=== PATIENT | female | born 1980 | race Caucasian/White ===

== ENCOUNTER 2019-07-21 13:32 | Emergency (ER) | payer OTHER, SELFPAY ==
[2019-07-21 13:44] VITALS: BP 132/94; PULSE 108; RESP 16; TEMP 36.1; O2SAT 98
--- NOTE | 2019-07-21 13:52 | ED.URI ---
HPI - URI/Sore Throat General Chief Complaint: Upper Respiratory Infection Stated Complaint: Cough/Sinus Time Seen by Provider: 07/21/19 13:47 Source: patient and RN notes reviewed Mode of arrival: ambulatory Limitations: no limitations History of Present Illness HPI Narrative: Patient presents today with a two-week history of nasal congestion, sinus pressure, cough with occasional shortness of breath, and hoarseness. States congestion moved on her chest, but has moved back up to her nose and sinuses in the last couple of days. She does have history of asthma and has been using her nebulizer. For the first week of illness she was taking [id number] cold medicine, but has not had any nfhu-cyj-bwcsozh medication since that time. MD elicited complaint: sore throat, nasal congestion and sinus pain Related Data Home Medications Medication Instructions Recorded Confirmed hydroxyzine HCl 25 mg PO DAILY 07/21/19 07/21/19 lamotrigine 100 mg PO DAILY 07/21/19 07/21/19 propranolol 20 mg PO DAILY 07/21/19 07/21/19 Allergies Allergy/AdvReac Type Severity Reaction Status Date / Time clarithromycin Allergy Mild Hives Verified 07/21/19 13:45 Review of Systems Review of Systems: Narrative: CONSTITUTIONAL: Denies body aches, fever, chills, or sweats. EYES: Denies visual changes, redness, or discharge. ENT: Denies rhinorrhea, sore throat, or otalgia.+ Nasal congestion, sinus pressure, hoarseness CARDIOVASCULAR: Denies chest pain, palpitations, or edema. RESPIRATORY: + Cough, shortness of breath. GASTROINTESTINAL: Denies abdominal pain, nausea, vomiting, or diarrhea. GENITOURINARY: Denies dysuria or hematuria. SKIN: Denies rash, itching, or wounds. MUSCULOSKELETAL: Denies back pain, joint pain, or myalgia. NEUROLOGIC: Denies headache, numbness, tingling, or weakness. PSYCH: Denies depression or anxiety. [facility] Past Medical History Medical History (Updated 07/21/19 @ 13:55 by Teresita Nieto, [facility], ) Asthma Family History Family History (Updated 01/01/16 @ 23:19 by DOCTOR UNKNOWN) Father Family history of diabetes mellitus in first degree relative Patient's father is Acute myocardial infarction Mother Patient's mother is Social History Social History Smoking status: Never smoker Alcohol intake: never Comments At time of signature, I have reviewed and agree with nursing past medical, surgical, social and family history unless otherwise noted. Please see nursing chart for further information. There is no relevant family history pertinent to the presenting complaint Exam Narrative: Exam Narrative: GENERAL: Mildly ill-appearing, well-nourished, and in no acute distress. HEAD: Normocephalic, atraumatic. EYES: EOMI. No redness or drainage. Conjunctivae normal. ENT: Mucous membranes pink and moist. Nares congested. No rhinorrhea. Tenderness to the bilateral maxillary sinuses, right greater than left. TMs normal bilaterally. Throat normal. Uvula midline. NECK: Normal AROM. Supple. No lymphadenopathy. CHEST: No respiratory distress. Clear to auscultation. HEART: Regular rate and rhythm. No murmur appreciated. Normal peripheral pulses. EXTREMITIES: Normal range of motion. No edema. SKIN: Warm, dry, no rash. NEURO: No focal deficits. Alert and oriented x3. Gait steady. PSYCH: Normal affect. No signs of depression or anxiety. Course Vital Signs Vital signs: Vital Signs Temperature 96.9 F L 07/21/19 13:44 Pulse Rate 108 H 07/21/19 13:44 Respiratory Rate 07/21/19 13:44 Blood Pressure 132/94 H 07/21/19 13:44 Pulse Oximetry 98 07/21/19 13:44 Temperature 96.9 F L 07/21/19 13:44 Pulse Rate 108 H 07/21/19 13:44 Respiratory Rate 16 07/21/19 13:44 Blood Pressure 132/94 H 07/21/19 13:44 Pulse Oximetry 98 07/21/19 13:44 Reviewed. Pt has been instructed to follow up with her PCP regarding her elevated blood pressure today. [facility] -
== END 2019-07-21 13:58 | disposition home or self-care (01) ==
PROVIDERS: Emergency Provider Nurse Practitioner; PCP Family Medicine
DX: J40 Bronchitis, not specified as acute or chronic (principal); J01.00 Acute maxillary sinusitis, unspecified
CPT/HCPCS: 99213; G0463

== ENCOUNTER 2020-08-29 11:35 | Emergency (ER) | payer OTHER, SELFPAY ==
[2020-08-29 12:43] LABS: SARS-CoV-2 Ag Negative (Negative)
[2020-08-29 12:46] VITALS: BP 124/105; PULSE 96; RESP 20; TEMP 36.3; O2SAT 98
--- NOTE | 2020-08-29 12:47 | ED.URI ---
HPI - URI/Sore Throat General Chief Complaint: Upper Respiratory Infection Stated Complaint: sinus infection, loss of taste Source: patient Mode of arrival: ambulatory Limitations: no limitations History of Present Illness HPI Narrative: this is a 39-year-old female presents with some sinus congestion sore throat her children have been diagnosed with strep throat and she is currently on antibiotics for sinus infection and has been having some sinus congestion with nasal discharge and has lost her sense of taste and smell. Currently no fever chills no headache no nausea or vomiting no chest congestion or chest pain no shortness of breath. MD elicited complaint: sore throat, nasal congestion and sinus pain Onset (ago): day(s) Consistency: intermittent Severity: mild Description of mucous: clear Able to tolerate fluids by mouth: Yes Exacerbating factors: nothing Associated symptoms: rhinorrhea, nasal congestion and other ( loss of taste) Treatments prior to arrival: antibiotics Related Data Home Medications Medication Instructions Recorded Confirmed hydroxyzine HCl 25 mg PO DAILY 07/21/19 07/21/19 lamotrigine 100 mg PO DAILY 07/21/19 07/21/19 propranolol 20 mg PO DAILY 07/21/19 07/21/19 Allergies Allergy/AdvReac Type Severity Reaction Status Date / Time clarithromycin Allergy Mild Hives Verified 07/21/19 13:45 Review of Systems Review of Systems: All systems reviewed & are unremarkable except as noted in HPI and below PMFSH Past Medical History Medical History Asthma Family History Family History Father Family history of diabetes mellitus in first degree relative Patient's father is Acute myocardial infarction Mother Patient's mother is Social History Social History Smoking status: Never smoker Alcohol intake: never 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 patient): Female Exam Const: General: no acute distress Orientation/consciousness: patient oriented x3 HENMT: Head: normal to inspection and contusion Eyes: Conjunctivae: conjunctivae normal Pupils: Equal, round and reactive pupils present Direct Ophthalmoscopy: no photophobia Neck: Neck: normal visual inspection, no lymphadenopathy and no meningeal signs Chest: Chest palpation & inspection: normal inspection of the chest Cardio: Rate: regular rate Rhythm: regular rhythm GI: GI Palp: Yes Soft to palpation Skin: General skin exam: normal color Rashes: no rashes Neuro: General: patient oriented x3 and moves all extremities Extrem: General: normal to inspection and no pedal edema Psych: Mental Status: mental status grossly normal Course Course Emergency Course: Patient doing well with no shortness breath no fever chills, reviewed the negative COVID test for her and advised that she can go home continue her antibiotics. MDM - URI/Sore Throat Lab Data Labs: Lab Results 08/29/20 Range/Units 12:20 SARS-CoV-2 Ag (Rapid) Negative (Negative) Critical Care Time Critical Care Time Critical Care Time: No Discharge Plan Discharge Clinical Impression: Sinusitis Qualifiers: Sinusitis location: maxillary Chronicity: acute Recurrence: non-recurrent Qualified Code(s): J01.00 - Acute maxillary sinusitis, unspecified Patient Disposition: Home, Self-Care Condition: Stable Instructions: Antibiotic Form, Sinusitis (ED) Additional Instructions: Continue current antibiotics, and follow-up primary care physician if symptoms persist or worsen. Prescriptions: No Action hydroxyzine HCl 25 mg tablet 25 mg PO DAILY RF: 0 propranolol 20 mg tablet 20 mg PO DAILY RF: 0 lamotrigine 100 mg tablet 100 mg PO DAILY RF: 0 prednisone 50 mg tablet 50 mg PO DAILY 5 Days Qty: 5 RF: 0 amoxicillin
[2020-08-29 13:15] VITALS: BP 133/79; PULSE 80; RESP 20; TEMP 36.6; O2SAT 98
== END 2020-08-29 13:15 | disposition home or self-care (01) ==
PROVIDERS: Emergency Provider Emergency Medicine
DX: J01.00 Acute maxillary sinusitis, unspecified (principal); Z20.822 Contact with and (suspected) exposure to COVID-19
CPT/HCPCS: 87426; 99282; 99283; C9803

== ENCOUNTER 2020-11-09 16:48 | Emergency (ER) | payer OTHER, SELFPAY ==
[2020-11-09 17:03] VITALS: BP 120/88; PULSE 88; RESP 18; TEMP 36.6; O2SAT 96
--- NOTE | 2020-11-09 17:21 | ED.EAR ---
HPI - Ear Problem General Chief complaint: Ear Stated complaint: ear pain,jaw pain(right side) Source: patient Mode of arrival: ambulatory Limitations: no limitations History of Present Illness HPI Narrative: this is a 40-year-old female that presents with right ear pain with some sensation of fullness with some discharge radiating into her right jaw area with no fever chills no nausea vomiting no sinus tenderness no nasal congestion. Her primary care physician started on antibiotic ear drops. MD Complaint: ear pain and ear discharge Location: right ear Duration: constant Severity: moderate Relieving factors: ear drops Exacerbating factors: chewing Context: Reports recent illness Related Data Home Medications Medication Instructions Recorded Confirmed bupropion HCl 75 mg PO BID 08/29/20 11/09/20 acetic acid See Rx Instructions .ROUTE .COMPLEX 11/09/20 11/09/20 Allergies Allergy/AdvReac Type Severity Reaction Status Date / Time clarithromycin Allergy Mild Hives Verified 07/21/19 13:45 Review of Systems Review of Systems: All systems reviewed & are unremarkable except as noted in HPI and below PMFSH Past Medical History Medical History Asthma Family History Family History Father Family history of diabetes mellitus in first degree relative Patient's father is Acute myocardial infarction Mother Patient's mother is Social History Social History Smoking status: Never smoker Alcohol intake: never 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 patient): Female Exam Const: General: no acute distress Orientation/consciousness: patient oriented x3 HENMT: Head: normal to inspection Other: Right ear canal red with some white debris and tenderness Eyes: Conjunctivae: conjunctivae normal Pupils: Equal, round and reactive pupils present Neck: Neck: normal visual inspection, no lymphadenopathy and no meningeal signs Chest: Chest palpation & inspection: normal inspection of the chest Resp: Effort & Inspection: normal respiratory effort Auscultation: clear to auscultation bilaterally Cardio: Rate: regular rate Rhythm: regular rhythm GI: Auscultation: normal bowel sounds : General: Yes no CVA tenderness Urinary Catheter: Urinary Catheter: patent and draining Skin: General skin exam: normal color Rashes: no rashes Neuro: General: patient oriented x3 and moves all extremities Extrem: General: normal to inspection and no pedal edema Psych: Mental Status: mental status grossly normal Course Course Emergency Course: reassessment of patient shows that she still has some right ear canal that is erythematous and tender with white debris and discharge. Vital Signs Vital signs: Vital Signs Temperature 36.6 C 11/09/20 17:03 Pulse Rate 88 11/09/20 17:03 Respiratory Rate 18 11/09/20 17:03 Blood Pressure 120/88 11/09/20 17:03 Pulse Oximetry 96 11/09/20 17:03 Temperature 36.6 C 11/09/20 17:03 Pulse Rate 88 11/09/20 17:03 Respiratory Rate 18 11/09/20 17:03 Blood Pressure 120/88 11/09/20 17:03 Pulse Oximetry 96 11/09/20 17:03 Medical Decision Making Vital Signs Vital Signs: Vital Signs Temperature 36.6 C 11/09/20 17:03 Pulse Rate 88 11/09/20 17:03 Respiratory Rate 18 11/09/20 17:03 Blood Pressure 120/88 11/09/20 17:03 Pulse Oximetry 96 11/09/20 17:03 Temperature 36.6 C 11/09/20 17:03 Pulse Rate 88 11/09/20 17:03 Respiratory Rate 18 11/09/20 17:03 Blood Pressure 120/88 11/09/20 17:03 Pulse Oximetry 96 11/09/20 17:03 Critical Care Time Critical Care Time Critical Care Time: No Discharge Plan Discharge Clinical Impression: Otitis externa Qualifiers: Otitis externa type: unspecified type Chronicity: acut
[2020-11-09 17:25] VITALS: BP 138/88; PULSE 78; RESP 18; TEMP 36.2; O2SAT 98
== END 2020-11-09 17:28 | disposition home or self-care (01) ==
PROVIDERS: Emergency Provider Emergency Medicine; PCP Family Medicine
DX: H60.501 Unspecified acute noninfective otitis externa, right ear (principal)
CPT/HCPCS: 99283

== ENCOUNTER 2020-12-21 14:17 | Outpatient (CLI) | payer OTHER, SELFPAY ==
--- NOTE | ~2020-12-21 | MM_ITS ---
EXAMINATION: MM screening stephanie BI w jennifer HISTORY: Screening TECHNIQUE: Craniocaudal and mediolateral oblique 3-D tomosynthesis images were obtained and synthetic 2-D images were generated. CAD analysis was submitted and interpreted. COMPARISON: No prior mammogram is available for comparison at this institution. BREAST PARENCHYMAL COMPOSITION: There are scattered areas of fibroglandular density. FINDINGS: There is no evidence of suspicious mass, calcification, or architectural distortion to sugg est malignancy in either breast. There has been no suspicious interval change. IMPRESSION: 1. No mammographic evidence of malignancy. 2. Recommend routine screening mammography in one year. BI-RADS Category 1: Negative Reviewed, dictated and finalized at [facility].
== END 2020-12-21 14:18 | disposition home or self-care (01) ==
PROVIDERS: PCP Family Medicine; Visit Provider Family Medicine
DX: Z12.31 Encounter for screening mammogram for malignant neoplasm of breast (principal)
CPT/HCPCS: 77063; 77067

== ENCOUNTER 2020-12-21 18:30 | Emergency (ER) | payer OTHER, SELFPAY ==
--- NOTE | ~2020-12-21 | XR_ITS ---
EXAMINATION: XR foot LT min 3V EXAM DATE: 12/21/2020 19:08 INDICATION: pain/swelling @ 5th digit traveling towards the lateral foot. TECHNIQUE: Left foot dorsoplantar, lateral and oblique projections obtained and reviewed. Comparison is made to prior examination from 05/25/2016. FINDINGS: Left metatarsal bones unremarkable. There are no acute fractures or dislocations identifi ed. There is no subcutaneous gas. The soft tissue is unremarkable. Fibular and tibial hardware. 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 IMPRESSION: No acute osseous findings. Reviewed, dictated and finalized at [facility]. IMPRESSION: No acute osseous findings.
[2020-12-21 18:41] VITALS: BP 132/88; PULSE 88; RESP 18; TEMP 36.6; O2SAT 98
--- NOTE | 2020-12-21 18:45 | ED.LOWEXIN ---
HPI - Extremity Injury (Lower) General Chief Complaint: Extremity Injury, Lower Stated Complaint: toe pain Time Seen by Provider: 12/21/20 18:45 History of Present Illness HPI Narrative: 40-year-old female patient is here with chief complaints of pain to the left 5th toe that she bumped against a metal bed couple days ago. Tonight the patient noticed that the toe was swollen and that there was some discomfort in that area. She did not notice any bruising. She did not notice any open wounds. Patient has had a prior fracture of the ankle which was fixed with open reduction and internal fixation with metal wear. The patient denies any other injuries. She does complain about some numbness to the tip of the toe. Patient denies any difficulty ambulating. COVID screen is negative. Related Data Home Medications Medication Instructions Recorded Confirmed bupropion HCl 75 mg PO BID 08/29/20 11/09/20 Allergies Allergy/AdvReac Type Severity Reaction Status Date / Time clarithromycin Allergy Mild Hives Verified 07/21/19 13:45 Review of Systems Review of Systems: All systems reviewed & are unremarkable except as noted in HPI and below PMFSH Past Medical History Medical History (Updated 12/21/20 @ 19:17 by Ghazala Menezes MD) Asthma Depression Surgical History Surgical History (Updated 12/21/20 @ 19:17 by Ghazala Menezes MD) Status post open reduction with internal fixation (ORIF) of fracture of ankle Family History Family History Father Family history of diabetes mellitus in first degree relative Patient's father is Acute myocardial infarction Mother Patient's mother is Social History Social History Smoking status: Never smoker Alcohol intake: never 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 patient): Female Exam Narrative: Exam Narrative: Patient is alert and appears in no acute distress. Vital signs are stable HEENT is normal. Heart lungs are clear. Left foot is examined and shows slight swelling over the 5th toe with no open wounds, bruising or discoloration. There is minimal tenderness on palpation. Also noted is mild swelling around the lateral malleolar area with no tenderness in the area. Her surgical scar is noted on by supa clark. Distal neurovascular status of foot is intact. Rest of the extremities are unremarkable. Neuropsych exam is normal. Course Course Emergency Course: Patient is aware of the preliminary x-ray reading of being negative for any fracture. She is advised to soak her foot in Epsom salt bath. She is also advised to take Tylenol as needed for pain. If there is a discrepancy of the radiology report with the radiologist she will be notified. Vital Signs Vital signs: Vital Signs Temperature 36.6 C 12/21/20 18:41 Pulse Rate 88 12/21/20 18:41 Respiratory Rate 18 12/21/20 18:41 Blood Pressure 132/88 12/21/20 18:41 Pulse Oximetry 98 12/21/20 18:41 Temperature 36.6 C 12/21/20 18:41 Pulse Rate 88 12/21/20 18:41 Respiratory Rate 18 12/21/20 18:41 Blood Pressure 132/88 12/21/20 18:41 Pulse Oximetry 98 12/21/20 18:41 Discharge Plan Discharge Prescriptions: No Action bupropion HCl 75 mg tablet 75 mg PO BID RF: 0
--- NOTE | 2020-12-21 18:45 | PC.NURSE ---
good pulses, nail beds batsheva well no bruising no edema dilia feet
[2020-12-21 19:33] VITALS: BP 132/80; PULSE 80; RESP 18; TEMP 36.4; O2SAT 96
== END 2020-12-21 19:35 | disposition home or self-care (01) ==
PROVIDERS: Emergency Provider Emergency Medicine; PCP Family Medicine
DX: S90.122A Contusion of left lesser toe(s) without damage to nail, initial encounter (principal); W22.03XA Walked into furniture, initial encounter
CPT/HCPCS: 73630; 99282; 99283

== ENCOUNTER 2020-12-28 15:38 | Outpatient (CLI) | payer OTHER, SELFPAY ==
[2020-12-28 16:04] LABS: Basophils Absolute Auto 0.03 K/mm3 (0.00-0.10); Basophils Percent Auto 0.3 % (0.0-1.0); Eosinophils Percent Auto 2.3 % (1.0-6.0); Hematocrit 43.8 % (35.0-49.0); Hemoglobin 14.5 g/dL (12.0-15.0); Immature Granulocyte Absolute 0.02 K/mm3 (0.00-0.00); Immature Granulocyte Percent A 0.2 % (0.0-0.0); Lymphocytes Absolute Auto 2.34 K/mm3 (1.10-4.50); Lymphocytes Percent Auto 26.6 % (18.0-42.0); Mean Corpuscular HGB Conc 33.1 g/dL (32.0-36.0); Mean Corpuscular Hemoglobin 28.9 pg (27.0-31.0); Mean Corpuscular Volume 87.4 fL (78.0-102.0); Mean Platelet Volume 9.3 fl (9.2-11.8); Monocytes Percent Auto 5.7 % (2.0-11.0); Neutrophils Absolute Auto 5.7 K/mm3 (1.7-7.2); Neutrophils Percent Auto 64.9 % (50.0-70.0); Platelet Count Result 429 K/mm3 (150-420); Red Blood Count 5.01 M/mm3 (4.20-5.40); Red Cell Distribution Width 12.3 % (11.6-14.4); White Blood Count 8.8 K/mm3 (4.8-10.8)
[2020-12-28 17:08] LABS: Hemoglobin A1C 4.7 % (<5.7)
[2020-12-28 17:09] LABS: HIV 1 P24 AG Negative (Negative); HIV 1/2 AB Negative (Negative)
[2020-12-28 17:24] LABS: Alanine Aminotransferase 24 U/L (14-59); Albumin Level 3.9 g/dL (3.4-5.0); Alkaline Phosphatase 56 U/L (46-116); Anion Gap 14 mmol/L (8-16); Aspartate Amino Transferase < 10 U/L (15-37); Bilirubin,Total 0.2 mg/dL (0.00-1.00); Blood Urea Nitrogen 13 mg/dL (7-18); Calcium 8.9 mg/dL (8.5-10.1); Carbon Dioxide 24 mmol/L (21-32); Chloride 105 mmol/L (98-108); Cholesterol 168 mg/dL (0-200); Estimated Glomerular Filt Rate > 60; Glucose 110 mg/dL (70-99); HDL Direct 37 mg/dL (40-60); Iron 56 ug/dL (50-170); LDL Cholesterol Calculated 65 mg/dL (<130); Osmolality Calculated 297 mOsm/kg (285-295); Percent Iron Saturation 18 % (12-57); Potassium 4.2 mmol/L (3.5-5.1); Sodium 143 mmol/L (136-145); Total Protein 6.9 g/dL (6.4-8.2); Triglycerides 332 mg/dL (0-150); Vitamin B12 575 pg/mL (193-986)
[2020-12-28 17:27] LABS: Folic Acid > 20.0 ng/mL (8.6->20); Thyroid Stimulating Hormone Reflex 1.61 u/IU/mL (0.36-3.74)
[2020-12-31 13:01] LABS: Vitamin D 25 Hydroxy 23 ng/mL (30-100)
[2020-12-31 13:10] LABS: Hepatitis C Signal to Cutoff 0.02 ratio (<1.00); Hepatitis C Virus Antibody Nonreactive (Nonreactive)
== END 2020-12-28 15:39 | disposition home or self-care (01) ==
PROVIDERS: PCP Family Medicine; Visit Provider Family Medicine
DX: Z00.00 Encounter for general adult medical examination without abnormal findings (principal)
CPT/HCPCS: 36415; 80053; 80061; 82306; 82607; 82746; 83036; 83540; 83550; 84443; 85025; 86703

== ENCOUNTER 2021-03-17 07:37 | Outpatient (CLI) | payer OTHER, SELFPAY | END 2021-03-17 07:38 | disposition home or self-care (01) | PROVIDERS: PCP Family Medicine; Visit Provider Otolaryngology | DX: H66.91 Otitis media, unspecified, right ear (principal) | CPT/HCPCS: 92557; 92567 ==

== ENCOUNTER 2021-04-24 04:12 | Emergency (ER) | payer OTHER, SELFPAY ==
--- NOTE | 2021-04-24 04:18 | ED.URI ---
HPI - URI/Sore Throat General Chief Complaint: Upper Respiratory Infection Stated Complaint: COUGH SORE THROAT Source: patient and RN notes reviewed Mode of arrival: ambulatory Limitations: no limitations History of Present Illness MD elicited complaint: cough and sore throat Onset (ago): hour(s) (11) Consistency: constant Severity: moderate Able to tolerate fluids by mouth: Yes Exacerbating factors: speaking Relieving factors: nothing Associated symptoms: voice changes, sore throat and cough Related Data Home Medications Medication Instructions Recorded Confirmed bupropion HCl 75 mg PO BID 08/29/20 12/21/20 Allergies Allergy/AdvReac Type Severity Reaction Status Date / Time clarithromycin Allergy Mild Hives Verified 04/24/21 04:56 Review of Systems Review of Systems: All systems reviewed & are unremarkable except as noted in HPI and below Constitutional: Constitutional: Denies chills and Denies fever(s) ENT: Reports sore throat Respiratory: Respiratory: Reports cough and Reports excessive phlegm production PMFSH Past Medical History Medical History Asthma Depression Surgical History Surgical History Status post open reduction with internal fixation (ORIF) of fracture of ankle Family History Family History Father Family history of diabetes mellitus in first degree relative Patient's father is Acute myocardial infarction Mother Patient's mother is Social History Social History Smoking status: Never smoker Alcohol intake: never 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 patient): Female Exam Const: General: healthy appearing and no acute distress Nutritional Appearance: well nourished and obese morbidly obese Orientation/consciousness: patient oriented x3 HENMT: Ears: external ears normal Face and sinus: normal facial exam Throat: tonsils normal and posterior oropharynx abnormal cobblestoning and erythema Eyes: Conjunctivae: conjunctivae normal Pupils: Equal, round and reactive pupils present EOM: EOMs intact bilaterally Neck: Neck: normal visual inspection Resp: Effort & Inspection: normal respiratory effort Auscultation: clear to auscultation bilaterally, no rales, no rhonchi and no wheezes Cardio: Rate: regular rate Rhythm: regular rhythm Heart sounds: no murmurs GI: GI Palp: Yes Soft to palpation, No Tenderness to palpation present (GI) and No Guarding due to palpation present (GI) Auscultation: normal bowel sounds Back/Spine/Pelvis: Cervical Spine: cervical ROM normal Thoracic/Lumbar Spine: thoraco-lumbar ROM normal Skin: General skin exam: normal color Rashes: no rashes Neuro: General: patient oriented x3, moves all extremities, no meningeal signs and no focal motor deficits Speech: normal speech Gait exam (Neuro): Normal gait present Extrem: General: normal to inspection and no clubbing, cyanosis or edema Psych: Appearance: grossly normal and well kempt Mental Status: mental status grossly normal Affect: normal affect Attitude: cooperative Thought content: Yes Normal thought content present MDM - URI/Sore Throat Lab Data Labs: Lab Results 04/24/21 Range/Units 04:18 Grp A Beta Strep Ag Pending Discharge Plan Discharge Clinical Impression: Upper respiratory infection Qualifiers: URI type: acute nasopharyngitis (common cold) Qualified Code(s): J00 - Acute nasopharyngitis [common cold] Patient Disposition: Home, Self-Care Condition: Stable Instructions: Cold Symptoms (ED) Additional Instructions: Use Tylenol and or Motrin as needed for fever. Use [id number] throat lozenges or throat spray as needed. Prescriptions: No Action bupropion HCl 75 mg tablet 75 mg PO BID RF:
[2021-04-24 04:31] VITALS: BP 148/91; PULSE 92; RESP 19; TEMP 36.8; O2SAT 97
[2021-04-24 05:09] VITALS: BP 130/82; PULSE 94; RESP 18; O2SAT 94
== END 2021-04-24 05:17 | disposition home or self-care (01) ==
PROVIDERS: Emergency Provider Emergency Medicine
DX: J00 Acute nasopharyngitis [common cold] (principal)
CPT/HCPCS: 87081; 87880; 99282; 99283

== ENCOUNTER 2021-06-07 09:29 | Outpatient (CLI) | payer OTHER, SELFPAY ==
--- NOTE | ~2021-06-07 | US_ITS ---
US right upper quadrant DATE: 06/07/2021 09:50 INDICATION: Right upper quadrant abdominal pain TECHNIQUE: Real-time imaging of liver, pancreas, gallbladder COMPARISON: 05/27/2014 CT abdomen pelvis FINDINGS: Hepatic steatosis. No hepatic or pancreatic space-occupying mass lesion is evident. Normal hepatopedal portal venous flow direction. There is cholelithiasis. No gallbladder wall thickening is evident. No bile duct dilatation. The comm on bile duct measures 4.4 mm, normal. IMPRESSION: Cholelithiasis Reviewed, dictated and finalized at [facility] Reviewed, dictated and finalized at [facility]. 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
== END 2021-06-07 09:30 | disposition home or self-care (01) ==
LOC: CHSIMG 09:30
PROVIDERS: PCP Family Medicine
DX: R10.11 Right upper quadrant pain (principal)
CPT/HCPCS: 76705

== ENCOUNTER 2021-09-09 16:32 | Emergency (ER) | payer OTHER, SELFPAY ==
[2021-09-09 17:15] VITALS: BP 129/97; PULSE 103; RESP 20; TEMP 36.7; O2SAT 98
--- NOTE | 2021-09-09 17:32 | ED.EAR ---
HPI - Ear Problem General Chief complaint: Ear Stated complaint: nausea,vertigo Time Seen by Provider: 09/09/21 16:34 Source: patient, RN notes reviewed and old records reviewed Mode of arrival: ambulatory Limitations: no limitations History of Present Illness Complaint: ear pain Location: right ear Duration: constant Severity: mild Relieving factors: nothing Exacerbating factors: nothing Discharge from ear: Reports no Associated symptoms ear: decreased hearing and tinnitus Treatment prior to arrival: none Related Data Home Medications Medication Instructions Recorded Confirmed bupropion HCl 300 mg PO DAILY 09/09/21 09/09/21 Allergies Allergy/AdvReac Type Severity Reaction Status Date / Time clarithromycin Allergy Mild Hives Verified 09/09/21 17:33 Review of Systems Review of Systems: All systems reviewed & are unremarkable except as noted in HPI and below PMFSH Past Medical History Medical History (Updated 09/09/21 @ 17:50 by Todd Peguero MD) Asthma Depression Eustachian tube dysfunction Otitis media Vertigo Surgical History Surgical History Status post open reduction with internal fixation (ORIF) of fracture of ankle Family History Family History Father Family history of diabetes mellitus in first degree relative Patient's father is Acute myocardial infarction Mother Patient's mother is Social History Social History Smoking status: Never smoker Alcohol intake: never 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 patient): Female Exam Const: General: no acute distress and alert Nutritional Appearance: obese Orientation/consciousness: patient oriented x3 HENMT: Head: normal to inspection Ears: external ears normal, TM's normal bilaterally and EAC's normal General nose exam: Normal external nose present and Normal nares present Face and sinus: normal facial exam Mouth: Yes lip normal and Yes moist mucous membranes Teeth and gingiva: dentition normal Eyes: Conjunctivae: conjunctivae normal Pupils: Equal, round and reactive pupils present EOM: EOMs intact bilaterally Neck: Neck: normal visual inspection Chest: Chest palpation & inspection: normal inspection of the chest Resp: Effort & Inspection: normal respiratory effort Auscultation: clear to auscultation bilaterally Cardio: Rate: regular rate Rhythm: regular rhythm GI: Auscultation: normal bowel sounds : General: Yes bladder normal to palpation and Yes no CVA tenderness Back/Spine/Pelvis: Back: no CVA tenderness Skin: General skin exam: normal color Rashes: no rashes Neuro: General: patient oriented x3, moves all extremities, no meningeal signs, no focal motor deficits and CN's II-XI intact bilaterally Extrem: General: normal to inspection and no pedal edema Psych: Appearance: grossly normal and well kempt Mental Status: mental status grossly normal Affect: normal affect Attitude: cooperative Thought content: Yes Normal thought content present Course Course Emergency Course: Pt was stable in the ED, less painful. Reevaluation(s) Reevaluation #1: VSS Date: 09/09/21 Time: 17:20 Vital Signs Vital signs: Vital Signs Temperature 36.7 C 09/09/21 17:15 Pulse Rate 103 H 09/09/21 17:15 Respiratory Rate 20 09/09/21 17:15 Blood Pressure 129/97 H 09/09/21 17:15 Pulse Oximetry 98 09/09/21 17:15 Temperature 36.7 C 09/09/21 17:15 Pulse Rate 103 H 09/09/21 17:15 Respiratory Rate 20 09/09/21 17:15 Blood Pressure 129/97 H 09/09/21 17:15 Pulse Oximetry 98 09/09/21 17:15 Medical Decision Making Differential Diagnosis Differential Diagnosis: vertigo, eustachian tube dysfunction Medical Records Medical records reviewed: Yes I reviewed the external patient's medical records. Vital
[2021-09-09] MEDS: ACETAMINOPHEN 325 MG TABLET 650 MG PO (17:38)
[2021-09-09] MEDS: guaiFENesin 12 HR 600 MG TABCR PO (17:38)
[2021-09-09 17:47] VITALS: BP 132/91; PULSE 104; RESP 20; TEMP 36.7; O2SAT 98
== END 2021-09-09 17:59 | disposition home or self-care (01) ==
PROVIDERS: Emergency Provider Emergency Medicine; PCP Family Medicine
DX: R42 Dizziness and giddiness (principal); H66.90 Otitis media, unspecified, unspecified ear
CPT/HCPCS: 99283; A9270

== ENCOUNTER 2021-11-04 12:47 | Outpatient (CLI) | payer OTHER, SELFPAY ==
[2021-11-04 13:12] LABS: Basophils Absolute Auto 0.03 K/mm3 (0.00-0.10); Basophils Percent Auto 0.3 % (0.0-1.0); Eosinophils Absolute Auto 0.22 K/mm3 (0.02-0.50); Eosinophils Percent Auto 2.2 % (1.0-6.0); Hematocrit 42.7 % (35.0-49.0); Hemoglobin 14.3 g/dL (12.0-15.0); Immature Granulocyte Absolute 0.03 K/mm3 (0.00-0.00); Immature Granulocyte Percent A 0.3 % (0.0-0.0); Lymphocytes Absolute Auto 2.67 K/mm3 (1.10-4.50); Lymphocytes Percent Auto 26.5 % (18.0-42.0); Mean Corpuscular HGB Conc 33.5 g/dL (32.0-36.0); Mean Corpuscular Hemoglobin 29.4 pg (27.0-31.0); Mean Corpuscular Volume 87.9 fL (78.0-102.0); Mean Platelet Volume 8.7 fl (9.2-11.8); Monocytes Absolute Auto 0.53 K/mm3 (0.10-0.90); Monocytes Percent Auto 5.3 % (2.0-11.0); Neutrophils Absolute Auto 6.6 K/mm3 (1.7-7.2); Neutrophils Percent Auto 65.4 % (50.0-70.0); Platelet Count Result 459 K/mm3 (150-420); Red Blood Count 4.86 M/mm3 (4.20-5.40); Red Cell Distribution Width 12.3 % (11.6-14.4); White Blood Count 10.1 K/mm3 (4.8-10.8)
[2021-11-04 14:31] LABS: Alanine Aminotransferase 27 U/L (14-59); Albumin Level 3.9 g/dL (3.4-5.0); Alkaline Phosphatase 72 U/L (46-116); Anion Gap 9 mmol/L (8-16); Aspartate Amino Transferase < 10 U/L (15-37); Bilirubin,Total 0.2 mg/dL (0.00-1.00); Blood Urea Nitrogen 11 mg/dL (7-18); Carbon Dioxide 25 mmol/L (21-32); Chloride 103 mmol/L (98-108); Estimated Glomerular Filt Rate > 60; Free T4 Free Thyroxine 1.05 ng/dL (0.76-1.46); Glucose 96 mg/dL (70-99); Iron 48 ug/dL (50-170); Osmolality Calculated 283 mOsm/kg (285-295); Percent Iron Saturation 16 % (12-57); Potassium 4.1 mmol/L (3.5-5.1); Sodium 137 mmol/L (136-145); Total Protein 7.2 g/dL (6.4-8.2); Vitamin B12 527 pg/mL (193-986)
[2021-11-05 14:34] LABS: Cholesterol 178 mg/dL (0-200); HDL Direct 46 mg/dL (40-60); LDL Cholesterol Calculated 117 mg/dL (<130); Triglycerides 76 mg/dL (0-150)
[2021-11-07 03:42] LABS: FSH 12.2 mIU/mL (***); Progesterone 0.4 ng/mL (***); Total Triiodothyronine (T3) 107 ng/dL (76-181)
[2021-11-07 07:49] LABS: Testosterone Total 17 ng/dL (2-45)
[2021-11-10 13:56] LABS: Vitamin D 25 Hydroxy 28 ng/mL (30-100)
[2021-11-10 22:17] LABS: Estradiol, Ultrasensitive 21 pg/mL
== END 2021-11-04 12:48 | disposition home or self-care (01) ==
LOC: CHSLAB 13:00
PROVIDERS: PCP Family Medicine
DX: E55.9 Vitamin D deficiency, unspecified (principal); E34.9 Endocrine disorder, unspecified; E66.3 Overweight
CPT/HCPCS: 36415; 80053; 80061; 82306; 82607; 82670; 83001; 83540; 83550; 84144; 84403; 84439; 84480; 85025

== ENCOUNTER 2022-01-12 14:35 | Emergency (ER) | payer OTHER, SELFPAY ==
--- NOTE | 2022-01-12 14:41 | ED.URI ---
HPI - URI/Sore Throat General Chief Complaint: Upper Respiratory Infection Stated Complaint: . Time Seen by Provider: 01/12/22 15:00 Source: patient Mode of arrival: ambulatory Limitations: no limitations History of Present Illness HPI Narrative: Ms. Odonnell is a 41-year-old female patient presenting to the clinic today with complaints of right ear pain and nasal congestion x2 to 3 days. She reports she gets frequent ear infections. She is concerned that she may have an ear infection. Denies any fever or chills. MD elicited complaint: sore throat and nasal congestion Related Data Home Medications Medication Instructions Recorded Confirmed No Home Medications 01/12/22 01/12/22 Allergies Allergy/AdvReac Type Severity Reaction Status Date / Time clarithromycin Allergy Mild Hives Verified 01/12/22 15:02 Review of Systems Review of Systems: Pertinent positives per HPI. Patient denies any fever, chills, rash, headache, visual changes, dizziness, cough, sore throat, shortness of breath, chest pain, palpitations, nausea, vomiting, diarrhea, constipation, abdominal pain, or any urinary issues. FOR[facility]LY [facility] Past Medical History Medical History (Updated 01/12/22 @ 15:03 by Tyrell Christie APRN) Asthma Depression Eustachian tube dysfunction Otitis media Vertigo Surgical History Surgical History Status post open reduction with internal fixation (ORIF) of fracture of ankle Family History Family History Father Family history of diabetes mellitus in first degree relative Patient's father is Acute myocardial infarction Mother Patient's mother is Social History Social History Smoking status: Never smoker Alcohol intake: never 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 patient): Female Comments At the time of my signature, I reviewed and agree with the nursing past medical, surgical, social, and family history. There is no relevant family history pertinent to the patient complaint. Exam Narrative: General: Well-developed, overweight, in no apparent distress Head: Normocephalic, atraumatic Eyes: Pupils equally round and reactive to light bilaterally, EOM intact, sclera and conjunctive clear, no discharge, lids normal Ears: TMs intact and dull, ear canals clear, no drainage, grossly hearing normal. Nose: Nares patent, clear nasal discharge, mild inflammation, no sinus tenderness. Mouth: Oral pharynx without lesions or masses, good dentition, MMM. Neck: Supple, trachea midline, no enlargement of anterior or posterior cervical nodes, no thyroid masses or goiter palpable. Cardio: Regular rate and rhythm, s1 and s2 normal, no murmur appreciated. Resp: Clear to auscultation bilaterally, no rhonchi, rales, wheezing or rubs Course Course Emergency Course: Portions of this record may have been created with voice recognition software. Level of Care: Express Care Visit Vital Signs Vital signs: Vital Signs Temperature 36.3 C L 01/12/22 14:49 Pulse Rate 98 01/12/22 14:49 Respiratory Rate 18 01/12/22 14:49 Blood Pressure 123/68 01/12/22 14:49 Pulse Oximetry 100 01/12/22 14:49 Oxygen Delivery Room Air 01/12/22 14:49 Temperature 36.3 C L 01/12/22 14:49 Pulse Rate 98 01/12/22 14:49 Respiratory Rate 18 01/12/22 14:49 Blood Pressure 123/68 01/12/22 14:49 Pulse Oximetry 100 01/12/22 14:49 Oxygen Delivery Room Air 01/12/22 14:49 Vital signs reviewed MDM - URI/Sore Throat MDM Narrative Medical decision making narrative: At the time of visit patient was resting comfortably on the exam table. I suspect the patient has a URI with right otalgia. No sign of infection or eustachian tube dysfunction. Supportive measures were discussed with the patient
[2022-01-12 14:49] VITALS: BP 123/68; PULSE 98; RESP 18; TEMP 36.3; O2SAT 100
== END 2022-01-12 15:07 | disposition home or self-care (01) ==
PROVIDERS: Emergency Provider Nurse Practitioner Family
DX: J06.9 Acute upper respiratory infection, unspecified (principal); H92.01 Otalgia, right ear; J45.909 Unspecified asthma, uncomplicated
CPT/HCPCS: 99211; G0463

== ENCOUNTER 2022-01-16 13:40 | Emergency (ER) | payer OTHER, SELFPAY ==
--- NOTE | 2022-01-16 13:47 | ED.GENADULT ---
HPI - General Adult General Chief complaint: Upper Respiratory Infection Stated complaint: Vomiting,Body Aches,Congestion,Bilateral Ear Time Seen by Provider: 01/16/22 13:47 Source: patient Mode of arrival: ambulatory Limitations: no limitations History of Present Illness HPI narrative: 41-year-old female patient presents to the [facility] with complaints of URI symptoms. Patient states she all of a sudden started having symptoms yesterday that included nausea, vomiting, congestion and pain to the right side of her head. Patient states she was seen in the urgent care this past Monday for right-sided ear pain continues to have right-sided ear pain. Denies sore throat. Denies any fevers that she is aware of. Patient states she has been taking [id number] Mucinex for her symptoms. Related Data Allergies Allergy/AdvReac Type Severity Reaction Status Date / Time clarithromycin Allergy Mild Hives Verified 01/12/22 15:02 Review of Systems Review of Systems: CONSTITUTIONAL: Denies fever, positive body aches and chills, denies sweats. EYES: Denies visual changes, redness, or discharge. ENT: Denies rhinorrhea, positive congestion, denies sore throat, positive right otalgia. CARDIOVASCULAR: Denies chest pain, palpitations, or edema. RESPIRATORY: Denies cough or dyspnea. GASTROINTESTINAL: Denies abdominal pain, nausea, vomiting, or diarrhea. GENITOURINARY: Denies dysuria or hematuria. SKIN: Denies rash or itching. MUSCULOSKELETAL: Denies back pain, joint pain, or myalgia. NEUROLOGIC: Positive headache, denies numbness, or weakness. PSYCHIATRIC: Denies anxiety or depression. [facility] Past Medical History Medical History Asthma Depression Eustachian tube dysfunction Otitis media Vertigo Surgical History Surgical History Status post open reduction with internal fixation (ORIF) of fracture of ankle Family History Family History Father Family history of diabetes mellitus in first degree relative Patient's father is Acute myocardial infarction Mother Patient's mother is Social History Social History (Reviewed 01/16/22 @ 13:47 by MAK Moreland Smoking status: Never smoker Alcohol intake: never 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 patient): Female Comments At the time of my signature I agree with nursing past medical history, surgical, social, and family history. There is no relevant family history pertinent to the presenting complaint. Exam Narrative: GENERAL: Well-appearing, well-nourished, and in no acute distress. HEAD: Normocephalic, atraumatic. EYES: PERRLA and EOMI. ENT: Nares with erythema edema noted bilaterally, no rhinorrhea or epistaxis. Mucous membranes moist. Bilateral TMs do appear dull with little bit of fluid behind them but there is no erythema and no foreign bodies noted to the canals. Posterior pharynx no erythema, tonsillar lodgment, exudates or lesions present. NECK: Supple. No lymphadenopathy CHEST: Clear to auscultation. No respiratory distress. HEART: Regular rate and rhythm. No murmur heard. Normal peripheral pulses. ABDOMEN: Soft, nontender, nondistended, normal active bowel sounds. EXTREMITIES: Normal range of motion. No edema. SKIN: Warm, dry, no rash. NEURO: No focal deficits. Alert and oriented x3. Course Course Level of Care: Express Care Visit Vital Signs Vital signs: Vital Signs Temperature 36.1 C L 01/16/22 13:54 Pulse Rate 101 H 01/16/22 13:54 Respiratory Rate 18 01/16/22 13:54 Blood Pressure 117/79 01/16/22 13:54 Pulse Oximetry 99 01/16/22 13:54 Oxygen Delivery Room Air 01/16/22 13:54 Temperature 36.1 C L 01/16/22 13:54 Pulse Rate 101 H 01/16/22 13:54 Respiratory Rate 18 01/16/22 13:54 Blood Pressure 117/79 01/16/22 13:54
[2022-01-16 13:54] VITALS: BP 117/79; PULSE 101; RESP 18; TEMP 36.1; O2SAT 99
[2022-01-16 18:46] LABS: SARS-CoV-2 RNA PCR Negative
== END 2022-01-16 14:10 | disposition home or self-care (01) ==
PROVIDERS: Emergency Provider Nurse Practitioner Family; PCP Physician Assistant
DX: J06.9 Acute upper respiratory infection, unspecified (principal); H93.8X3 Other specified disorders of ear, bilateral; Z20.822 Contact with and (suspected) exposure to COVID-19; J45.909 Unspecified asthma, uncomplicated
CPT/HCPCS: 87081; 87426; 87880; 99213; C9803; G0463; U0003; U0005

== ENCOUNTER 2022-02-04 13:11 | Emergency (ER) | payer OTHER, SELFPAY ==
--- NOTE | ~2022-02-04 | XR_ITS ---
EXAMINATION: XR foot LT min 3V DATE: 02/04/2022 13:53 INDICATION: Pain and swelling at the left fifth toe and lateral foot TECHNIQUE: Dorsoplantar, two oblique and lateral views of the left foot were obtained. COMPARISON: 12/21/2020 FINDINGS: Internal fixation plates, screws and pins at the medial and lateral malleoli fixation of old healed f ractures. Alignment appears essentially anatomic. No acute fractures identified. 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 No cortical erosions or periosteal reaction. Soft tissues are unremarkable with no ankle joint effusi on. IMPRESSION: 1. No acute osseous abnormality. Reviewed, dictated and finalized at location A.
[2022-02-04 13:19] VITALS: BP 114/76; PULSE 91; RESP 16; TEMP 36.6; O2SAT 100
--- NOTE | 2022-02-04 13:56 | ED.LOWEXIN ---
HPI - Extremity Injury (Lower) General Chief Complaint: Extremity Injury, Lower Stated Complaint: L FOOT INJURY Time Seen by Provider: 02/04/22 13:40 Source: patient Mode of arrival: ambulatory Limitations: no limitations History of Present Illness HPI Narrative: 41-year-old female presented for complaint of left little toe pain after a vacuum fell on her foot 2 days ago. Endorses pain at the base of the fifth toe without deformity or nail injury. Endorses bruising. She has not taken anything for pain but has stayed off of it. Endorses mild numbness to the tip of the toe. Related Data Allergies Allergy/AdvReac Type Severity Reaction Status Date / Time clarithromycin Allergy Mild Hives Verified 01/12/22 15:02 Review of Systems Review of Systems: CONSTITUTIONAL: Denies body aches, fever, chills CARDIOVASCULAR: Denies chest pain, palpitations, or edema. RESPIRATORY: Denies cough or dyspnea. GASTROINTESTINAL: Denies abdominal pain, nausea, vomiting, or diarrhea. SKIN: Denies wounds. MUSCULOSKELETAL: reports left little toe pain NEUROLOGIC: Denies headache, numbness, tingling, or weakness. All systems reviewed & are unremarkable except as noted in HPI and below PMFSH Past Medical History Medical History Asthma Depression Eustachian tube dysfunction Otitis media Vertigo Surgical History Surgical History Status post open reduction with internal fixation (ORIF) of fracture of ankle Family History Family History Father Family history of diabetes mellitus in first degree relative Patient's father is Acute myocardial infarction Mother Patient's mother is Social History Social History Smoking status: Never smoker Alcohol intake: never 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 patient): Female Comments At time of signature, I have reviewed and agree with nursing past medical, surgical, social and family history unless otherwise noted. Please see nursing chart for further information. There is no relevant family history pertinent to the presenting complaint Exam Narrative: GENERAL: Well-appearing CHEST: Speaks in full sentences. No respiratory distress. HEART: Regular rate and rhythm. Normal and equal peripheral pulses. EXTREMITIES: Left foot has normal strength and sensation, normal range of motion. Mild left 5th digit bruising, no swelling; no point tenderness. No open wounds or obvious deformity; pulse palpable and equal bilaterally, skin warm, dry, pink. Capillary refill less than 3 seconds. SKIN: Warm, dry, no rash. NEURO: Alert and oriented x3. PSYCH: Normal mood and affect Course Course Emergency Course: Patient is aware of diagnosis, understands and agrees to treatment plan. Anticipatory guidance given. Patient agrees to follow-up as directed and is aware of reasons to seek care at the emergency department. Portions of this record may have been created with voice recognition software Level of Care: Express Care Visit Vital Signs Vital signs: Vital Signs Temperature 98 F 02/04/22 13:19 Pulse Rate 91 02/04/22 13:19 Respiratory Rate 16 02/04/22 13:19 Blood Pressure 114/76 02/04/22 13:19 Pulse Oximetry 100 02/04/22 13:19 Oxygen Delivery Room Air 02/04/22 13:19 Temperature 98 F 02/04/22 13:19 Pulse Rate 91 02/04/22 13:19 Respiratory Rate 16 02/04/22 13:19 Blood Pressure 114/76 02/04/22 13:19 Pulse Oximetry 100 02/04/22 13:19 Oxygen Delivery Room Air 02/04/22 13:19 Reviewed MDM - Extremity Injury (Lower) MDM Narrative Medical decision making narrative: Result of x-ray reviewed with patient. Advised supportive measures and signs/symptoms to go to the ER. Pt is appropriate for o
== END 2022-02-04 14:18 | disposition home or self-care (01) ==
PROVIDERS: Emergency Provider Nurse Practitioner Family; PCP Family Medicine
DX: S90.122A Contusion of left lesser toe(s) without damage to nail, initial encounter (principal); W20.8XXA Other cause of strike by thrown, projected or falling object, initial encounter; J45.909 Unspecified asthma, uncomplicated
CPT/HCPCS: 73630; 99213; G0463

== ENCOUNTER 2022-03-08 15:36 | Emergency (ER) | payer OTHER, SELFPAY ==
--- NOTE | ~2022-03-08 | XR_ITS ---
XR foot LT min 3V 03/08/2022 15:58 Indication: Left foot pain Procedure: 4 views left foot Comparison: 02/04/2022 Findings: There are surgical changes consistent with intraoperative fixation of bimalleolar fracture. Lisfranc joint intact. No significant soft tissue abnormality. Mild osteoarthritis of the first MTP joint. Impression: 1: No acute fracture. Reviewed, dictated and finalized at location A. Impression: 1: No acute fracture.
[2022-03-08 15:41] VITALS: BP 116/67; PULSE 96; RESP 16; TEMP 37; O2SAT 99
--- NOTE | 2022-03-08 15:43 | ED.LOWEXIN ---
HPI - Extremity Injury (Lower) General Chief Complaint: Extremity Injury, Lower Stated Complaint: INJURED L FOOT Time Seen by Provider: 03/08/22 15:43 Source: patient and RN notes reviewed History of Present Illness HPI Narrative: Patient is a 41-year-old female presents the urgent care with complaints of left foot pain after dropping a headboard on her foot last night. Patient states that she has been elevating and using ice and ibuprofen. States that her left ankle has pins and screws in because she has been compensating and walking on the side of her foot, she has had some swelling in the ankle but denies of pain. No other acute complaints. No acute distress noted. Patient aware of the plan of care. Some parts of this dictation were generated by voice recognition software and may contain typographical and/or grammatical inaccuracies. Related Data Allergies Allergy/AdvReac Type Severity Reaction Status Date / Time clarithromycin Allergy Mild Hives Verified 01/12/22 15:02 Review of Systems Review of Systems: CONSTITUTIONAL: Denies fever, chills, or sweats. EYES: Denies visual changes, redness, or discharge. ENT: Denies rhinorrhea, congestion, sore throat, or otalgia. CARDIOVASCULAR: Denies chest pain, palpitations, or edema. RESPIRATORY: Denies cough or dyspnea. GASTROINTESTINAL: Denies abdominal pain, nausea, vomiting, or diarrhea. GENITOURINARY: Denies dysuria or hematuria. SKIN: Denies rash or itching. MUSCULOSKELETAL: Reports of left foot pain NEUROLOGIC: Denies headache, numbness, or weakness. All other systems reviewed are negative, except as documented in HPI. [facility] Past Medical History Medical History Asthma Depression Eustachian tube dysfunction Otitis media Vertigo Surgical History Surgical History Status post open reduction with internal fixation (ORIF) of fracture of ankle Family History Family History Father Family history of diabetes mellitus in first degree relative Patient's father is Acute myocardial infarction Mother Patient's mother is Social History Social History Smoking status: Never smoker Alcohol intake: never 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 patient): Female Comments At the time of my signature, I reviewed and agree with the nursing past medical, surgical, social, and family history. There is no relevant family history pertinent to the patient complaint. Exam Narrative: GENERAL: This is a well-nourished, well-developed patient, in no apparent distress. HEAD: normocephalic, atraumatic. EYES: PERRL. Sclera clear/white. Vision is grossly intact. EARS: External ears normal NOSE: External nose normal with no obvious nasal discharge, nares without redness, no rhinorrhea. THROAT: Mucous membranes moist NECK: Neck supple SKIN: warm, intact with no suspicious lesions or rash, good texture and turgor. NEURO: awake, alert, and oriented to person, place and time. There were no obvious focal neurologic abnormalities. EXTREMITIES: Mild to moderate edema without ecchymosis or erythema noted to the left lateral malleolus. Mild tenderness to the dorsal distal aspect of the left foot without obvious deformity/edema/erythema or ecchymosis. Positive strong left pedal pulse with capillary refill less than 2 seconds. Course Course Level of Care: Express Care Visit Vital Signs Vital signs: Vital Signs Temperature 98.6 F 03/08/22 15:41 Pulse Rate 96 03/08/22 15:41 Respiratory Rate 16 03/08/22 15:41 Blood Pressure 116/67 03/08/22 15:41 Pulse Oximetry 99 03/08/22 15:41 Oxygen Delivery Room Air 03/08/22 15:41 Temperature 98.6 F 03/08/22 15:41 Pulse Rate 96 03/08/22 15:41 Respiratory Rate 16 1
== END 2022-03-08 16:16 | disposition home or self-care (01) ==
PROVIDERS: Emergency Provider Nurse Practitioner Family
DX: S90.32XA Contusion of left foot, initial encounter (principal); W20.8XXA Other cause of strike by thrown, projected or falling object, initial encounter; J45.909 Unspecified asthma, uncomplicated; F32.A Depression, unspecified
CPT/HCPCS: 73630; 99213; G0463

== ENCOUNTER 2022-03-16 14:40 | Emergency (ER) | payer OTHER, SELFPAY ==
[2022-03-16 14:56] VITALS: BP 137/80; PULSE 93; RESP 16; TEMP 36.9; O2SAT 100
--- NOTE | 2022-03-16 14:58 | ED.GENADULT ---
HPI - General Adult General Chief complaint: Dizziness Stated complaint: DIZZY/FACE & NECK SWELLING History of Present Illness HPI narrative: 41 y/o female. PMHx Asthma, MDD, Eustachian tube Dx, Vertigo. Presents to [facility] today with acute complaints of RT side facial pain, otalgia, and vertigo. Client tells me that over the past 3 days, she has felt increased RT facial and ear 'pressure'. She reports to have awoke this AM with a vertigo episode once more: room would spin every time she moved . -No RG, Focal weakness, Lightheadedness, LOC. -No recent falls or injury. -No loss of sensation or hearing. -No fevers. -No cough/chest congestion. -Has had some T side facial/dental pain. She had taken home meclizine regimen with some reliefs. Follows w/[facility]. No additional acute c/o upon PE. Related Data Allergies Allergy/AdvReac Type Severity Reaction Status Date / Time clarithromycin Allergy Mild Hives Verified 03/16/22 14:50 Review of Systems Review of Systems: CONSTITUTIONAL: Denies fever, chills, sweats. EYES: Denies visual changes, redness, discharge. ENT: Denies rhinorrhea, congestion, sore throat. RT otalgia/facial pain. CARDIOVASCULAR: Denies chest pain, palpitations, edema. RESPIRATORY: Denies dyspnea, wheezing, cough GASTROINTESTINAL: Denies abdominal pain, nausea, vomiting, diarrhea. GENITOURINARY: Denies dysuria, hematuria, abnormal discharge SKIN: Denies rash or itching. MUSCULOSKELETAL: Denies acute back pain, joint pain, or myalgia. NEUROLOGIC: Denies numbness, or focal weakness. + 'room spinning', vertigo. PSYCHIATRIC: Denies anxiety or depression. [facility]LY [facility] Past Medical History Medical History Asthma Depression Eustachian tube dysfunction Otitis media Vertigo Surgical History Surgical History Status post open reduction with internal fixation (ORIF) of fracture of ankle Family History Family History Father Family history of diabetes mellitus in first degree relative Patient's father is Acute myocardial infarction Mother Patient's mother is Social History Social History Smoking status: Never smoker Alcohol intake: never 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 patient): Female Exam Narrative: GENERAL: This is a well-nourished, well-developed adult, in no apparent distress. HEAD: normocephalic, atraumatic. EYES: PERRL. Sclera clear/white. EOM intact. No Nystagmus. EARS: External ears normal, RT auditory canals w/minimal yellow discharge, non-obstructive. Bulging and erythematous TM. LT clear and without drainage, TM normal. NOSE: External nose normal. Positive Rhinorrhea, no obstruction, nares patent. MOUTH: Soft palate. No ludwigs. THROAT: Mucous membranes moist, posterior pharynx erythematous. No exudates. No swelling. NECK: Neck supple, non-tender without lymphadenopathy, masses or thyromegaly. CARDIOVASCULAR: Regular rate and rhythm without murmurs, gallops, or rubs. RESPIRATORY: Clear to auscultation. Breath sounds equal bilaterally. No wheezes, rales, or rhonchi. GASTROINTESTINAL: Abdomen soft, non-tender, nondistended. SKIN: warm, intact with no suspicious lesions or rash, good texture and turgor. NEURO: Alert, active, and age appropriate. No focal neurologic deficits. EXTREMITIES: Negative. Course Course Level of Care: Express Care Visit Vital Signs Vital signs: Vital Signs Temperature 36.9 C 03/16/22 14:56 Pulse Rate 93 03/16/22 14:56 Respiratory Rate 16 03/16/22 14:56 Blood Pressure 137/80 03/16/22 14:56 Pulse Oximetry 100 03/16/22 14:56 Oxygen Delivery Room Air 03/16/22 14:56 Temperature 36.9 C 03/16/22 14:56 Pulse Rate 93 03/16/22 14:56 Respir
== END 2022-03-16 15:00 | disposition home or self-care (01) ==
PROVIDERS: Emergency Provider Nurse Practitioner Adult Health
DX: H81.10 Benign paroxysmal vertigo, unspecified ear (principal); H66.91 Otitis media, unspecified, right ear; J45.909 Unspecified asthma, uncomplicated
CPT/HCPCS: 99213; G0463

== ENCOUNTER 2022-03-20 23:17 | Emergency (ER) | payer OTHER, SELFPAY ==
--- NOTE | ~2022-03-20 | XR_ITS ---
EXAMINATION: XR ankle LT min 3V, XR foot LT min 3V DATE: 03/20/2022 23:43 INDICATION: Left foot and ankle pain and swelling TECHNIQUE: 1. Anteroposterior, mortise, additional oblique and lateral view of the left ankle were obtained. 2. Dorsoplantar, two oblique and lateral views of the left foot were obtained. COMPARISON: Left foot radiographs dated 12/21/2020 FINDINGS: Likely old healed fracture of the distal left tibia and fibula with internal fixation. The fixation i ncludes a thin, leg screw screw and medial sided plate and screw at the medial malleolus as well as i nterfragmentary screws and lateral plate and screws at the distal fibula. There is a longer screw ext ending through the lateral plate which spans the distal tibiofibular syndesmosis. The head of the scr ew projects 4 mm beyond the surface of the plate projecting within 2 mm of the skin surface. Alignment of the left foot and ankle is normal. No acute fractures. Mild polyarticular osteoarthritis at the lower left ankle joint as well as the First metatarsophalangeal and multiple tarsometatarsal and interphalangeal joints. Soft tissues are u nremarkable. No ankle joint effusion. IMPRESSION: 1. 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 2. Internal fixation likely for old healed fractures at the distal left tibia and fibula as detailed above. Reviewed, dictated and finalized at location A. IMPRESSION: 1. 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 2. Internal fixation likely for old healed fractures at the distal left tibia a nd fibula as detailed above.
[2022-03-20 23:21] VITALS: BP 142/99; PULSE 103; RESP 22; TEMP 35.7; O2SAT 100
--- NOTE | 2022-03-20 23:41 | ED.LOWEXIN ---
HPI - Extremity Injury (Lower) General Chief Complaint: Extremity Injury, Lower Stated Complaint: FOOT PAIN Source: patient and RN notes reviewed Mode of arrival: ambulatory Limitations: no limitations History of Present Illness MD complaint: ankle injury and foot injury Onset (ago): week(s) (1) Injury: Left: ankle and foot Type of Injury: blunt Place: home Severity: moderate Relieving factors: rest Exacerbating factors: weight bearing, movement and palpation Context: direct blow (a heavy board) Associated symptoms: swelling and able to partially bear weight Other symptoms: none Related Data Allergies Allergy/AdvReac Type Severity Reaction Status Date / Time clarithromycin Allergy Mild Hives Verified 03/20/22 23:21 [facility] Past Medical History Medical History Asthma Depression Eustachian tube dysfunction Otitis media Vertigo Surgical History Surgical History Status post open reduction with internal fixation (ORIF) of fracture of ankle Family History Family History Father Family history of diabetes mellitus in first degree relative Patient's father is Acute myocardial infarction Mother Patient's mother is Social History Social History Smoking status: Never smoker Alcohol intake: never 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 patient): Female Exam Const: General: healthy appearing, no acute distress and alert Nutritional Appearance: well nourished and obese Orientation/consciousness: patient oriented x3 Limitations: no limitations HENMT: Head: normal to inspection Ears: external ears normal Eyes: Conjunctivae: conjunctivae normal Pupils: Equal, round and reactive pupils present EOM: EOMs intact bilaterally Neck: Neck: normal visual inspection Resp: Effort & Inspection: normal respiratory effort Auscultation: clear to auscultation bilaterally Cardio: Rate: regular rate Rhythm: regular rhythm GI: GI Palp: Yes Soft to palpation and No Tenderness to palpation present (GI) Auscultation: normal bowel sounds Back/Spine/Pelvis: Cervical Spine: cervical ROM normal Thoracic/Lumbar Spine: thoraco-lumbar ROM normal Skin: General skin exam: normal color Rashes: no rashes Wounds: no wounds Neuro: General: patient oriented x3, moves all extremities, no focal motor deficits and CN's II-XI intact bilaterally Speech: normal speech Extrem: General: normal exam except as noted and no clubbing, cyanosis or edema Left lower extremity: ankle Details: tenderness Location: of the lateral malleolus, swelling Details: laterally and abnormal ROM Details: pain with active ROM Details: with plantar flexion and with dorsiflexion and pain with passive ROM Details: with plantar flexion and with dorsiflexion and foot Details: tenderness Location: of the dorsal foot Location: distally and other ( Neurovascular intact) Psych: Mental Status: mental status grossly normal Affect: normal affect Attitude: cooperative Course Vital Signs Vital signs: Vital Signs Temperature 35.7 C L 03/20/22 23:21 Pulse Rate 103 H 03/20/22 23:21 Respiratory Rate 22 H 03/20/22 23:21 Blood Pressure 142/99 H 03/20/22 23:21 Pulse Oximetry 100 03/20/22 23:21 Oxygen Delivery Room Air 03/20/22 23:21 Temperature 36.0 C L 03/21/22 00:06 Pulse Rate 90 03/21/22 00:06 Respiratory Rate 20 03/21/22 00:06 Blood Pressure 128/88 03/21/22 00:06 Pulse Oximetry 98 03/21/22 00:06 Oxygen Delivery Room Air 03/21/22 00:06 MDM - Extremity Injury (Lower) Imaging Data Attestation: I personally reviewed and interpreted this imaging study as follows: My impression: No acute osseous abnormality of the left foot. X-ray ankle shows hardware in place with no obvious new fract
[2022-03-21 00:06] VITALS: BP 128/88; PULSE 90; RESP 20; TEMP 36; O2SAT 98
== END 2022-03-21 00:07 | disposition home or self-care (01) ==
PROVIDERS: Emergency Provider Emergency Medicine
DX: S90.32XA Contusion of left foot, initial encounter (principal)
CPT/HCPCS: 73610; 73630; 99283

== ENCOUNTER 2022-03-24 16:20 | Emergency (ER) | payer OTHER, SELFPAY ==
--- NOTE | ~2022-03-24 | XR_ITS ---
EXAMINATION: XR foot RT 2V INDICATION: Right foot pain TECHNIQUE: Two views of the right foot are obtained. COMPARISON: None available FINDINGS: There is no fracture, dislocation, or subluxation. The bones, soft tissues, and joint space s are normal. IMPRESSION: 1. No acute osseous abnormality. Reviewed, dictated and finalized at location B.
--- NOTE | ~2022-03-24 | XR_ITS ---
EXAMINATION: XR ankle RT 2V INDICATION: Right ankle pain TECHNIQUE: Two views of the right ankle are obtained. COMPARISON: None available FINDINGS: There is soft tissue swelling of ankle. No fracture or osteochondral lesion is identified. Bone alignment is normal. IMPRESSION: 1. Soft tissue swelling without acute osseous abnormality. Reviewed, dictated and finalized at location B.
[2022-03-24 16:36] VITALS: BP 151/96; PULSE 108; RESP 20; TEMP 36.6; O2SAT 98
[2022-03-24] MEDS: KETOROLAC (*BKC) 60 MG/2 ML VIAL IM (16:50)
--- NOTE | 2022-03-24 17:13 | ED.LOWEXIN ---
HPI - Extremity Injury (Lower) General Chief Complaint: Extremity Injury, Lower Stated Complaint: right foot pain Time Seen by Provider: 03/24/22 16:23 Source: patient Mode of arrival: ambulatory Limitations: no limitations History of Present Illness HPI Narrative: this is a 41-year-old female that presents with right ankle and foot pain with swelling after she injured it while walking at home there is some tenderness with palpation has good range of motion although all tender because of swelling and pain with no numbness or tingling. complaint: ankle injury and foot injury Type of Injury: inversion Severity: moderate Severity scale (1-10): 7 Relieving factors: immobilization Exacerbating factors: movement and palpation Context: walking Associated symptoms: swelling Related Data Allergies Allergy/AdvReac Type Severity Reaction Status Date / Time clarithromycin Allergy Mild Hives Verified 03/24/22 16:59 Review of Systems Review of Systems: All systems reviewed & are unremarkable except as noted in HPI and below PMFSH Past Medical History Medical History Asthma Depression Eustachian tube dysfunction Otitis media Vertigo Surgical History Surgical History Status post open reduction with internal fixation (ORIF) of fracture of ankle Family History Family History Father Family history of diabetes mellitus in first degree relative Patient's father is Acute myocardial infarction Mother Patient's mother is Social History Social History Smoking status: Never smoker Alcohol intake: never 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 patient): Female Exam Const: General: healthy appearing and no acute distress Nutritional Appearance: well nourished Limitations: no limitations HENMT: Head: normal to inspection Ears: external ears normal Face/Nose/Sinus: Normal external nose present Face and sinus: normal facial exam Eyes: Conjunctivae: conjunctivae normal Pupils: Equal, round and reactive pupils present EOM: EOMs intact bilaterally Neck: Neck: normal visual inspection, no lymphadenopathy and no meningeal signs Chest: Chest palpation & inspection: normal inspection of the chest Resp: Effort & Inspection: normal respiratory effort Auscultation: clear to auscultation bilaterally Cardio: Rate: regular rate Rhythm: regular rhythm GI: GI Palp: Yes Soft to palpation Auscultation: normal bowel sounds Back/Spine/Pelvis: Back: no CVA tenderness Skin: General skin exam: normal color Rashes: no rashes Wounds: no wounds Neuro: General: patient oriented x3, moves all extremities, no meningeal signs and no focal motor deficits Extrem: General: normal to inspection Psych: Mental Status: mental status grossly normal Affect: normal affect Course Course Emergency Course: Patient received IM Toradol and x-rays were reviewed showed no acute fractures Vital Signs Vital signs: Vital Signs Temperature 36.6 C 03/24/22 16:36 Pulse Rate 108 H 03/24/22 16:36 Respiratory Rate 20 03/24/22 16:36 Blood Pressure 151/96 H 03/24/22 16:36 Pulse Oximetry 98 03/24/22 16:36 Oxygen Delivery Room Air 03/24/22 16:36 Temperature 36.6 C 03/24/22 16:36 Pulse Rate 108 H 03/24/22 16:36 Respiratory Rate 20 03/24/22 16:36 Blood Pressure 151/96 H 03/24/22 16:36 Pulse Oximetry 98 03/24/22 16:36 Oxygen Delivery Room Air 03/24/22 16:36 Critical Care Time Critical Care Time Critical Care Time: No Discharge Plan Discharge Clinical Impression: Ankle sprain and strain Patient Disposition: Home, Self-Care Condition: Stable Instructions: Antibiotic Form, Ankle Sprain (ED) Additional Instructions: advised to ta
[2022-03-24 17:30] VITALS: BP 152/90; PULSE 102; RESP 20; TEMP 36.8; O2SAT 99
== END 2022-03-24 17:30 | disposition home or self-care (01) ==
PROVIDERS: Emergency Provider Emergency Medicine
DX: S93.401A Sprain of unspecified ligament of right ankle, initial encounter (principal)
CPT/HCPCS: 73600; 73620; 96372; 99283; J1885

== ENCOUNTER 2022-04-14 17:05 | Emergency (ER) | payer OTHER, SELFPAY ==
--- NOTE | 2022-04-14 17:15 | ED.EAR ---
HPI - Ear Problem General Chief complaint: Ear Stated complaint: CLOGGED EAR/DIZZY Time Seen by Provider: 04/14/22 17:12 Source: patient and RN notes reviewed Mode of arrival: ambulatory Limitations: no limitations History of Present Illness HPI Narrative: 41-year-old female presents to for right ear fullness, dizziness. She reports history history of ear infections. She reports she has had a chronic jaw infection that she sees ENT for, she was not able to get into the ENT until next week. She denies any current pain, fever. Reports she takes antihistamines Complaint: other (Ear fullness) Related Data Allergies Allergy/AdvReac Type Severity Reaction Status Date / Time clarithromycin Allergy Mild Hives Verified 03/24/22 16:59 Review of Systems Review of Systems: CONSTITUTIONAL: Denies malaise, chills, sweats, or fever. EYES: Denies visual changes, redness, or discharge. ENT: Denies rhinorrhea, congestion, sinus pain, and sore throat. Reports left ear fullness CARDIOVASCULAR: Denies chest pain, palpitations, or edema. RESPIRATORY: Denies cough. Denies dyspnea. GASTROINTESTINAL: Denies abdominal pain, nausea, vomiting, diarrhea SKIN: Denies rash or itching. MUSCULOSKELETAL: Denies myalgia. NEUROLOGIC: Denies headache. All systems reviewed & are unremarkable except as noted in HPI and below PMFSH Past Medical History Medical History Asthma Depression Eustachian tube dysfunction Otitis media Vertigo Surgical History Surgical History Status post open reduction with internal fixation (ORIF) of fracture of ankle Family History Family History Father Family history of diabetes mellitus in first degree relative Patient's father is Acute myocardial infarction Mother Patient's mother is Social History Social History Smoking status: Never smoker Alcohol intake: never 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 patient): Female Comments At time of signature, agree with nursing past medical, surgical, social and family history. There is no relevant family history pertinent to the presenting complaint Exam Narrative: GENERAL: Well-appearing, well-nourished, and in no acute distress. HEAD: Normocephalic EYES: PERRLA, conjunctivae clear ENT: Nares clear. Mucous membranes moist. Right TM pearly bonilla with dull light reflex, left TM not visible at excess cerumen; no tragal tenderness. NECK: Supple. No lymphadenopathy CHEST: Clear to auscultation, breath sounds equal. No wheezing, rhonchi, rales, or stridor. No respiratory distress, speaks in full sentences. HEART: Regular rate and rhythm. No murmur heard. SKIN: Warm, dry, no rash. NEURO: Alert and oriented x3. PSYCH: Normal mood and affect Course Course Emergency Course: Patient is aware of diagnosis, understands and agrees to treatment plan. Anticipatory guidance given. Patient agrees to follow-up as directed and is aware of reasons to seek care at the emergency department. Portions of this record may have been created with voice recognition software Level of Care: Express Care Visit Vital Signs Vital signs: Reviewed. Medical Decision Making MDM Narrative Medical decision making narrative: Differential diagnosis considered: Mena virus, strep pharyngitis, allergic rhinitis, upper respiratory tract infection, sinusitis, rhinosinusitis, nasopharyngitis. viral pharyngitis, otitis media, otitis externa, otitis effusion, cerumen impaction, foreign body. Exam findings show no acute concerns or changes; patient is non-toxic appearing and is in no distress. Patient is appropriate for outpatient treatment and follow-up. Critical Care Time Critical Care Time Critical Care Time: No Discharge Plan Discha
[2022-04-14 17:18] VITALS: BP 136/77; PULSE 93; RESP 16; TEMP 36; O2SAT 100
== END 2022-04-14 17:25 | disposition home or self-care (01) ==
PROVIDERS: Emergency Provider Nurse Practitioner
DX: H93.8X2 Other specified disorders of left ear (principal); J45.909 Unspecified asthma, uncomplicated
CPT/HCPCS: 99213; G0463

== ENCOUNTER 2022-05-03 12:43 | Outpatient (CLI) | payer OTHER, SELFPAY ==
--- NOTE | ~2022-05-03 | MM_ITS ---
EXAMINATION: MM screening stephanie BI w jennifer HISTORY: Screening mammogram TECHNIQUE: Craniocaudal and mediolateral oblique 3-D tomosynthesis images were obtained and synthetic 2-D images were generated. CAD analysis was submitted and interpreted. COMPARISON: 12/21/2020 BREAST PARENCHYMAL COMPOSITION: There are scattered areas of fibroglandular density. FINDINGS: No suspicious mass, calcification, or architectural distortion are identified in either karolyn ast to suggest malignancy. There has been no suspicious interval change. IMPRESSION: 1. No mammographic evidence of malignancy. 2. Recommend routine screening mammography in one year. BI-RADS Category 1: Negative Reviewed, dictated and finalized at location A. 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
== END 2022-05-03 12:44 | disposition home or self-care (01) ==
LOC: CHSIMG 12:44
DX: Z12.31 Encounter for screening mammogram for malignant neoplasm of breast (principal)
CPT/HCPCS: 77063; 77067

== ENCOUNTER 2022-09-01 15:37 | Outpatient (CLI) | payer OTHER, SELFPAY ==
[2022-09-01 15:52] LABS: Hematocrit 41.5 % (35.0-49.0); Hemoglobin 14.2 g/dL (12.0-15.0); Mean Corpuscular HGB Conc 34.2 g/dL (32.0-36.0); Mean Corpuscular Hemoglobin 29.2 pg (27.0-31.0); Mean Corpuscular Volume 85.2 fL (78.0-102.0); Mean Platelet Volume 8.6 fl (9.2-11.8); Platelet Count Result 431 K/mm3 (150-420); Red Blood Count 4.87 M/mm3 (4.20-5.40); Red Cell Distribution Width 12.6 % (11.6-14.4); White Blood Count 12.5 K/mm3 (4.8-10.8)
[2022-09-01 16:25] LABS: Alanine Aminotransferase 38 U/L (14-59); Albumin Level 4.3 g/dL (3.4-5.0); Alkaline Phosphatase 73 U/L (46-116); Anion Gap 12 mmol/L (8-16); Aspartate Amino Transferase 20 U/L (15-37); Bilirubin,Total 0.4 mg/dL (0.00-1.00); Blood Urea Nitrogen 11 mg/dL (7-18); Calcium 9.3 mg/dL (8.5-10.1); Carbon Dioxide 26 mmol/L (21-32); Chloride 102 mmol/L (98-108); Cholesterol 203 mg/dL (0-200); Estimated Glomerular Filt Rate > 60; Glucose 100 mg/dL (70-99); HDL Direct 52 mg/dL (40-60); LDL Cholesterol Calculated 125 mg/dL (<130); Osmolality Calculated 289 mOsm/kg (285-295); Potassium 4.4 mmol/L (3.5-5.1); Sodium 140 mmol/L (136-145); Thyroid Stimulating Hormone 1.68 uIU/mL (0.36-3.74); Total Protein 8.1 g/dL (6.4-8.2); Triglycerides 132 mg/dL (0-150)
[2022-09-04 17:52] LABS: Vitamin D 25 Hydroxy 31 ng/mL (30-100)
== END 2022-09-01 15:38 | disposition home or self-care (01) ==
LOC: CHSLAB 15:39
PROVIDERS: PCP Family Medicine; Visit Provider Nurse Practitioner Family
DX: E55.9 Vitamin D deficiency, unspecified (principal); Z13.29 Encounter for screening for other suspected endocrine disorder; G47.00 Insomnia, unspecified; Z13.220 Encounter for screening for lipoid disorders; R53.83 Other fatigue; R19.7 Diarrhea, unspecified
CPT/HCPCS: 36415; 80053; 80061; 82306; 84443; 85027

== ENCOUNTER 2022-09-09 15:11 | Outpatient (CLI) | payer OTHER, SELFPAY ==
[2022-09-09 15:23] LABS: Basophils Absolute Auto 0.05 K/mm3 (0.00-0.10); Basophils Percent Auto 0.6 % (0.0-1.0); Eosinophils Absolute Auto 0.51 K/mm3 (0.02-0.50); Eosinophils Percent Auto 6.2 % (1.0-6.0); Hemoglobin 13.6 g/dL (12.0-15.0); Immature Granulocyte Absolute 0.03 K/mm3 (0.00-0.00); Immature Granulocyte Percent A 0.4 % (0.0-0.0); Lymphocytes Absolute Auto 2.21 K/mm3 (1.10-4.50); Mean Corpuscular Hemoglobin 29.7 pg (27.0-31.0); Mean Corpuscular Volume 87.3 fL (78.0-102.0); Mean Platelet Volume 8.8 fl (9.2-11.8); Monocytes Absolute Auto 0.47 K/mm3 (0.10-0.90); Monocytes Percent Auto 5.7 % (2.0-11.0); Neutrophils Absolute Auto 4.9 K/mm3 (1.7-7.2); Neutrophils Percent Auto 60.1 % (50.0-70.0); Platelet Count Result 379 K/mm3 (150-420); Red Blood Count 4.58 M/mm3 (4.20-5.40); Red Cell Distribution Width 12.6 % (11.6-14.4); White Blood Count 8.2 K/mm3 (4.8-10.8)
== END 2022-09-09 15:12 | disposition home or self-care (01) ==
LOC: CHSLAB 15:12
PROVIDERS: PCP Family Medicine; Visit Provider Physician Assistant Medical
DX: D72.829 Elevated white blood cell count, unspecified (principal)
CPT/HCPCS: 36415; 85025

== ENCOUNTER 2022-09-21 00:41 | Day surgery (SDC) | payer OTHER, SELFPAY ==
[2022-09-13 11:13] VITALS: BMI 39.9
--- NOTE | 2022-09-20 13:25 | PM.HPGS ---
History of Present Illness History of Present Illness Consent: Risks, benefits, and alternatives have been discussed and questions answered. Patient agrees to proceed with procedure. Chief complaint: hx colon polyps, chronic diarrhea, nausea Narrative: Kassandra Odonnell is a 41 year old female was referred for colon cancer screening and assessment of chronic diarrhea. she has had a prior cholecystectomy, a few months ago, but her diarrhea preceded the gallbladder surgery. There is no family history of inflammatory bowel disease. Her weight has been fairly stable. Review of Systems Review of Systems: All systems reviewed & are unremarkable except as noted in HPI and below PMFSH Past Medical History Medical History Asthma Cholecystectomy planned Depression Eustachian tube dysfunction Morbid (severe) obesity due to excess calories Otitis media Vertigo Surgical History Surgical History Status post open reduction with internal fixation (ORIF) of fracture of ankle Family History Family History Father Family history of diabetes mellitus in first degree relative Patient's father is Acute myocardial infarction Diabetes mellitus Mother Patient's mother is Social History Social History Smoking status: Never smoker Second hand tobacco smoke exposure: No Alcohol intake: never Substance use: never Substance use type: does not use Lack of Transportation: No Lack of Food: Never True Current Housing: I Have Housing Concerned About Future Housing: No Difficulty Paying Gas/Electric Bills: No Difficulty Paying for Meds: No Currently Unemployed: No Education: High School Diploma/GED Difficulty w/ Childcare or Family Care: No Living arrangements: with family 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 Spiritual care concerns: No Meds Home Medications and Allergies Home Medications Medication Instructions Recorded Confirmed Type fluticasone propionate 50 2 spray intranasal DAILY 14 days 04/14/22 09/21/22 Rx mcg/actuation nasal #15.8 mL spray,suspension (Flonase Allergy Relief) pseudoephedrine HCl 120 mg 120 mg PO Q12H PRN nasal 04/14/22 09/21/22 Rx tablet,extended release (12 Hour congestion #12 tabs Decongestant ER) glucosamine HCl 500 mg tablet 500 mg PO DAILY 09/01/22 09/21/22 History lisinopril 10 mg tablet 10 mg PO DAILY #30 tabs 09/01/22 09/21/22 Rx lurasidone 60 mg tablet (Latuda) 60 mg PO DAILY 09/01/22 09/21/22 History meloxicam 15 mg tablet 15 mg PO DAILY #30 tabs 09/01/22 09/21/22 Rx Allergies Allergy/AdvReac Type Severity Reaction Status Date / Time clarithromycin Allergy Mild Hives Verified 09/21/22 10:17 Exam Const: General: alert Orientation/consciousness: patient oriented x3 Resp: Auscultation: clear to auscultation bilaterally Cardio: Rhythm: regular rhythm GI: GI Palp: Yes Soft to palpation and No Tenderness to palpation present (GI) Neuro: General: patient oriented x3 Assessment and Plan Assessment and plan (1) Diarrhea: Code(s): R19.7 - Diarrhea, unspecified Status: Acute Assessment and Plan: Colonoscopy with possible biopsy or polypectomy or cautery or injection of substances.
[2022-09-21 10:18] VITALS: BP 138/97; PULSE 106; RESP 18; TEMP 36.2; O2SAT 98
[2022-09-21] MEDS: LACTATED RINGERS 1,000 ML 150 ML IV CONT (10:20)
[2022-09-21 10:52] VITALS: BP 90/57; PULSE 88; RESP 20; O2SAT 96
[2022-09-21 11:02] VITALS: BP 106/58; PULSE 94; RESP 20; O2SAT 99
[2022-09-21 11:12] VITALS: BP 118/90; PULSE 87; RESP 18; O2SAT 100
== END 2022-09-21 11:22 | disposition home or self-care (01) ==
PROVIDERS: PCP Family Medicine; Visit Provider Internal Medicine Gastroenterology
PROC: 0DJD8ZZ Inspection of Lower Intestinal Tract, Via Natural or Artificial Opening Endoscopic (ICD-10-PCS; CPT 45378; principal; 2022-09-21 11:30)
DX: K63.3 Ulcer of intestine (principal); R19.7 Diarrhea, unspecified; K57.30 Diverticulosis of large intestine without perforation or abscess without bleeding; Z86.010 Personal history of colon polyps; F32.A Depression, unspecified; E66.01 Morbid (severe) obesity due to excess calories; Z68.41 Body mass index [BMI] 40.0-44.9, adult
CPT/HCPCS: 45380; 88305; J2704; J7120

== ENCOUNTER 2022-11-19 14:20 | Emergency (ER) | payer OTHER, SELFPAY ==
[2022-11-19 14:40] VITALS: BP 140/94; PULSE 112; RESP 16; TEMP 36.3; O2SAT 100
--- NOTE | 2022-11-19 15:18 | ED.EAR ---
HPI - Ear Problem General Chief complaint: Ear Stated complaint: EARACHE Time Seen by Provider: 11/19/22 15:15 Source: patient, RN notes reviewed and old records reviewed Mode of arrival: ambulatory Limitations: no limitations History of Present Illness HPI Narrative: 42 year old female who presents to the [facility] care with complaints of right ear pain for the past 3 days with some dizziness reported at intervals. Patient reports history of dizziness and takes Meclizine for her symptoms. Patient reports no sinus congestion or drainage, denies any known fevers, chills or sweats, has not experienced any nausea or vomiting. Patient reports history of chronic ear infections.Patient reports that she has been taking Claritin and also using Flonase nasal spray also MD Complaint: ear pain Location: right ear Discharge from ear: Reports no Treatment prior to arrival: other (Meclizine, Claritin, Flonase) Related Data Home Medications Medication Instructions Recorded Confirmed glucosamine HCl 500 mg tablet 500 mg PO DAILY 09/01/22 11/19/22 lurasidone 60 mg tablet (Latuda) 60 mg PO DAILY 09/01/22 11/19/22 Allergies Allergy/AdvReac Type Severity Reaction Status Date / Time clarithromycin Allergy Mild Hives Verified 11/19/22 14:37 Review of Systems Review of Systems: CONSTITUTIONAL: Denies malaise, chills, sweats, or fever. EYES: Denies visual changes, redness, or discharge. ENT: Reports no rhinorrhea, congestion,or sinus pain, positive for right ear pain, no sore throat. CARDIOVASCULAR: Denies chest pain, palpitations, or edema. RESPIRATORY: Reports no cough.? Denies dyspnea. GASTROINTESTINAL: Denies abdominal pain, nausea, vomiting, diarrhea SKIN: Denies rash or itching. MUSCULOSKELETAL: Denies myalgia. NEUROLOGIC: Denies headache.positive for intermittent dizziness All systems reviewed & are unremarkable except as noted in HPI and below PMFSH Past Medical History Medical History Asthma Cholecystectomy planned Depression Eustachian tube dysfunction Morbid (severe) obesity due to excess calories Otitis media Vertigo Surgical History Surgical History Status post open reduction with internal fixation (ORIF) of fracture of ankle Family History Family History Father Family history of diabetes mellitus in first degree relative Patient's father is Acute myocardial infarction Diabetes mellitus Mother Patient's mother is Social History Social History Smoking status: Never smoker Second hand tobacco smoke exposure: No Alcohol intake: never Substance use: never Substance use type: does not use Lack of Transportation: No Lack of Food: Never True Current Housing: I Have Housing Concerned About Future Housing: No Difficulty Paying Gas/Electric Bills: No Difficulty Paying for Meds: No Currently Unemployed: No Education: High School Diploma/GED Difficulty w/ Childcare or Family Care: No Living arrangements: with family 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 There is no relevant family history pertinent to the presenting complaint Exam Narrative: GENERAL: Well-appearing, well-nourished, and in no acute distress. HEAD: Normocephalic EYES: PERRLA, conjunctivae clear ENT: Nares clear, turbinates edematous and erythematous, clear discharge. Mucous membranes moist.Right TM red and bulging, Left TM pearly bonilla with dull light reflex bilaterally; no tragal tenderness. [place]
== END 2022-11-19 15:38 | disposition home or self-care (01) ==
PROVIDERS: Emergency Provider Registered Nurse; PCP Family Medicine
DX: H65.01 Acute serous otitis media, right ear (principal)
CPT/HCPCS: 99213; G0463

== ENCOUNTER 2022-12-09 12:46 | Outpatient (CLI) | payer OTHER, SELFPAY ==
[2022-12-09 12:58] LABS: Basophils Absolute Auto 0.05 K/mm3 (0.00-0.10); Basophils Percent Auto 0.4 % (0.0-1.0); Eosinophils Absolute Auto 0.18 K/mm3 (0.02-0.50); Eosinophils Percent Auto 1.6 % (1.0-6.0); Hematocrit 40.8 % (35.0-49.0); Hemoglobin 13.8 g/dL (12.0-15.0); Immature Granulocyte Absolute 0.04 K/mm3 (0.00-0.00); Immature Granulocyte Percent A 0.3 % (0.0-0.0); Lymphocytes Absolute Auto 3.02 K/mm3 (1.10-4.50); Lymphocytes Percent Auto 26.1 % (18.0-42.0); Mean Corpuscular HGB Conc 33.8 g/dL (32.0-36.0); Mean Corpuscular Hemoglobin 30.3 pg (27.0-31.0); Mean Corpuscular Volume 89.5 fL (78.0-102.0); Mean Platelet Volume 8.8 fl (9.2-11.8); Monocytes Absolute Auto 0.74 K/mm3 (0.10-0.90); Monocytes Percent Auto 6.4 % (2.0-11.0); Neutrophils Absolute Auto 7.5 K/mm3 (1.7-7.2); Neutrophils Percent Auto 65.2 % (50.0-70.0); Platelet Count Result 433 K/mm3 (150-420); Red Blood Count 4.56 M/mm3 (4.20-5.40); Red Cell Distribution Width 12.9 % (11.6-14.4); White Blood Count 11.6 K/mm3 (4.8-10.8)
[2022-12-09 13:25] LABS: Anion Gap 10 mmol/L (8-16); Blood Urea Nitrogen 15 mg/dL (7-18); Calcium 9.2 mg/dL (8.5-10.1); Carbon Dioxide 26 mmol/L (21-32); Chloride 102 mmol/L (98-108); Estimated Glomerular Filt Rate > 60; Glucose 97 mg/dL (70-99); Iron 59 ug/dL (50-170); Osmolality Calculated 286 mOsm/kg (285-295); Percent Iron Saturation 18 % (12-57); Potassium 4.1 mmol/L (3.5-5.1); Sodium 138 mmol/L (136-145)
[2022-12-09 13:35] LABS: Rheumatoid Factor Screen Negative (Negative)
[2022-12-09 14:04] LABS: Erythrocyte Sedimentation Rate 17 mm/hr (0-15)
[2022-12-15 16:19] LABS: Vitamin D 25 Hydroxy 31 ng/mL (30-100)
== END 2022-12-09 12:47 | disposition home or self-care (01) ==
LOC: CHSLAB 12:47
PROVIDERS: PCP Family Medicine; Visit Provider Family Medicine
DX: E61.1 Iron deficiency (principal); E55.9 Vitamin D deficiency, unspecified; D72.829 Elevated white blood cell count, unspecified; M25.59 Pain in other specified joint; I10 Essential (primary) hypertension
CPT/HCPCS: 36415; 80048; 82306; 83540; 83550; 85025; 85652; 86430

== ENCOUNTER 2023-01-09 16:39 | Emergency (ER) | payer OTHER, SELFPAY ==
--- NOTE | 2023-01-09 16:53 | ED.URI ---
HPI - URI/Sore Throat General Chief Complaint: Upper Respiratory Infection Stated Complaint: Thoat tight, earache Time Seen by Provider: 01/09/23 16:53 Source: patient Mode of arrival: ambulatory Limitations: no limitations History of Present Illness HPI Narrative: Kassandra is a 42-year-old female patient presenting to the clinic today with complaints of sore throat and earache x1 day. She denies any fever chills. She denies any known exposure to anyone with COVID, flu, or strep. MD elicited complaint: sore throat and nasal congestion Related Data Home Medications Medication Instructions Recorded Confirmed lurasidone 60 mg tablet (Latuda) 60 mg PO DAILY 09/01/22 01/09/23 hydroxyzine HCl 25 mg tablet 25 mg PO DIRECTED 01/09/23 01/09/23 lisdexamfetamine 50 mg capsule 50 mg PO DAILY 01/09/23 01/09/23 (Vyvanse) multivitamin with folic acid 400 1 tablet PO DAILY 01/09/23 01/09/23 mcg tablet (Daily-Caity (with folic acid)) Allergies Allergy/AdvReac Type Severity Reaction Status Date / Time clarithromycin Allergy Mild Hives Verified 01/09/23 16:57 Review of Systems Review of Systems: Pertinent positives per HPI. Patient denies any fever, chills, rash, headache, visual changes, dizziness, cough, shortness of breath, chest pain, palpitations, nausea, vomiting, diarrhea, constipation, abdominal pain, or any urinary issues. PMF Past Medical History Medical History Asthma Cholecystectomy planned Depression Eustachian tube dysfunction Iron deficiency Morbid (severe) obesity due to excess calories Otitis media Vertigo Surgical History Surgical History Status post open reduction with internal fixation (ORIF) of fracture of ankle Family History Family History Father Family history of diabetes mellitus in first degree relative Patient's father is Acute myocardial infarction Diabetes mellitus Mother Patient's mother is 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 There is no relevant family history pertinent to the patient complaint. Exam Narrative: General: Well-developed, well nourished, in no apparent distress Head: Normocephalic, atraumatic Eyes: Pupils equally round and reactive to light bilaterally, EOM intact, sclera and conjunctive clear, no discharge, lids normal Ears: TMs intact and congested with fluid noted behind the TMs, ear canals clear, no drainage, grossly hearing normal. Nose: Nares patent, clear nasal discharge, mild inflammation, no sinus tenderness. Mouth: Oral pharynx mildly red without lesions or masses, good dentition, MMM. Neck: Supple, trachea midline, no enlargement of anterior or posterior cervical nodes, no thyroid masses or goiter palpable. Cardio: Regular rate and rhythm, s1 and s2 normal, no murmur appreciated. Resp: Clear to auscultation bilaterally, no rhonchi, rales, wheezing or rubs
[2023-01-09 17:01] VITALS: BP 111/73; PULSE 81; RESP 18; TEMP 37.4; O2SAT 100
[2023-01-09 17:08] VITALS: BP 109/85; PULSE 82; RESP 16; TEMP 36.2; O2SAT 100
== END 2023-01-09 17:17 | disposition home or self-care (01) ==
PROVIDERS: Emergency Provider Nurse Practitioner Family
DX: J06.9 Acute upper respiratory infection, unspecified (principal); J02.9 Acute pharyngitis, unspecified; H65.03 Acute serous otitis media, bilateral; J45.909 Unspecified asthma, uncomplicated; F32.A Depression, unspecified; E66.01 Morbid (severe) obesity due to excess calories; Z68.38 Body mass index [BMI] 38.0-38.9, adult; E61.1 Iron deficiency
CPT/HCPCS: 87081; 87880; 99213; G0463

== ENCOUNTER 2023-01-14 12:56 | Emergency (ER) | payer OTHER, SELFPAY ==
[2023-01-14 13:29] VITALS: BP 147/92; PULSE 115; RESP 16; TEMP 36.3; O2SAT 99
--- NOTE | 2023-01-14 14:00 | ED.URI ---
HPI - URI/Sore Throat General Chief Complaint: Upper Respiratory Infection Stated Complaint: SORE THROAT/EARACHE/CONGESTION Time Seen by Provider: 01/14/23 13:50 Source: patient, RN notes reviewed and old records reviewed Mode of arrival: ambulatory Limitations: no limitations History of Present Illness HPI Narrative: 42 year old female who presents to [facility] care with complaints of sore throat and right ear pain since Monday. Patient reports that she has been taking Sudafed and Mucinex for her symptoms. Patient was seen on the of this month for same complaints and had negative strep screen and culture. Patient was placed on Prednisone which she completed with stated no improvement in her symptoms.Patient reports that she has history of chronic ear infections. MD elicited complaint: cough and sore throat Onset (ago): day(s) (6) Pain scale (0-10): 5 Able to tolerate fluids by mouth: Yes Treatments prior to arrival: other (Sudafed,Mucinex, completed RX of Prednisone) Related Data Home Medications Medication Instructions Recorded Confirmed lurasidone 60 mg tablet (Latuda) 60 mg PO DAILY 09/01/22 01/14/23 hydroxyzine HCl 25 mg tablet 25 mg PO DIRECTED 01/09/23 01/14/23 lisdexamfetamine 50 mg capsule 50 mg PO DAILY 01/09/23 01/14/23 (Vyvanse) multivitamin with folic acid 400 1 tablet PO DAILY 01/09/23 01/14/23 mcg tablet (Daily-Caity (with folic acid)) meloxicam 7.5 mg tablet 7.5 mg PO DAILY 01/14/23 01/14/23 Allergies Allergy/AdvReac Type Severity Reaction Status Date / Time clarithromycin Allergy Mild Hives Verified 01/14/23 13:25 Review of Systems Review of Systems: CONSTITUTIONAL: Denies malaise, chills, sweats, or fever. EYES: Denies visual changes, redness, or discharge. ENT: Reports rhinorrhea, congestion, sinus pain, right otalgia and sore throat. CARDIOVASCULAR: Denies chest pain, palpitations, or edema. RESPIRATORY: Reports cough.? Denies dyspnea. GASTROINTESTINAL: Denies abdominal pain, nausea, vomiting, diarrhea SKIN: Denies rash or itching. MUSCULOSKELETAL: Denies myalgia. NEUROLOGIC: Denies headache. All systems reviewed & are unremarkable except as noted in HPI and below PMFSH Past Medical History Medical History (Updated 01/16/23 @ 09:44 by Christen Fountain NP) Asthma Cholecystectomy planned Depression Eustachian tube dysfunction Iron deficiency Morbid (severe) obesity due to excess calories Otitis media Vertigo Surgical History Surgical History (Updated 01/16/23 @ 09:44 by Christen Fountain NP) History of endometrial ablation Hx of tonsillectomy Status post open reduction with internal fixation (ORIF) of fracture of ankle Family History Family History Father Family history of diabetes mellitus in first degree relative Patient's father is Acute myocardial infarction Diabetes mellitus Mother Patient's mother is Social History Social History Smoking status: Never smoker Second hand tobacco smoke exposure: No Alcohol intake: never Substance use: never Substance use type: does not use Lack of Transportation: No Lack of Food: Never True Current Housing: I Have Housing Concerned About Future Housing: No Difficulty Paying Gas/Electric Bills: No Difficulty Paying for Meds: No Currently Unemployed: No Education: High School Diploma/GED Difficulty w/ Childcare or Family Care: No Living arrangements: with family 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 There is no relevant family history pertinent to the presenting complaint
== END 2023-01-14 14:30 | disposition home or self-care (01) ==
PROVIDERS: Emergency Provider Registered Nurse; PCP Family Medicine
DX: H65.01 Acute serous otitis media, right ear (principal); J45.909 Unspecified asthma, uncomplicated; E66.01 Morbid (severe) obesity due to excess calories; Z68.38 Body mass index [BMI] 38.0-38.9, adult; F32.A Depression, unspecified
CPT/HCPCS: 99213; G0463

== ENCOUNTER 2023-01-25 15:40 | Outpatient (CLI) | payer OTHER, SELFPAY ==
--- NOTE | ~2023-01-25 | XR_ITS ---
XR knee LT 3V 01/25/2023 16:04 INDICATION: Left knee pain PROCEDURE: 3 views left knee COMPARISON: No prior studies for comparison. FINDINGS: Fracture, dislocation or subluxation is not identified. No joint effusion. The soft tissues appear within normal limits. No foreign bodies are identified. IMPRESSION: 1: NO ACUTE BONE OR JOINT ABNORMALITY IDENTIFIED. Reviewed, dictated and finalized at location B.
--- NOTE | ~2023-01-25 | XR_ITS ---
EXAMINATION: XR ankle LT min 3V DATE: 01/25/2023 16:04 INDICATION: Other specified post procedural states with left ankle surgery 5 years prior now with lef t ankle pain and swelling TECHNIQUE: Anteroposterior, oblique, mortise, and lateral views of the left ankle were obtained. COMPARISON: None. FINDINGS: Internal fixation at the left ankle for a likely prior trimalleolar fracture with a fragmentary screw s and lateral plate and screw fixation at the distal fibula, lag screw and pin fixation at the medial malleolus and a pair of screws extending from medial collateral across the posterior malleolus. The lateral plate and screws include a screw spanning the distalmost tibiofibular syndesmosis the head of which continues to project 3 to 4 mm beyond the surface of the plate. Alignment appears near anatomi c. No acute fractures. 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 IMPRESSION: 1. Mild osteoarthritis at the left ankle with stable appearance of internal fixation at the left ankl e likely for old healed trimalleolar fracture which is in near-anatomic alignment. Reviewed, dictated and finalized at location A. IMPRESSION: 1. Mild osteoarthritis at the left ankle with stable appearance of internal fix ation at the left ankle likely for old healed trimalleolar fracture which is in near-anatomic alignment.
== END 2023-01-25 15:41 | disposition home or self-care (01) ==
PROVIDERS: PCP Family Medicine; Visit Provider Nurse Practitioner Family
DX: M25.462 Effusion, left knee (principal); M25.472 Effusion, left ankle; M19.072 Primary osteoarthritis, left ankle and foot; Z98.890 Other specified postprocedural states; Z87.81 Personal history of (healed) traumatic fracture
CPT/HCPCS: 73562; 73610

== ENCOUNTER 2023-02-07 15:47 | Outpatient (CLI) | payer OTHER, SELFPAY ==
[2023-02-07 16:03] LABS: Basophils Absolute Auto 0.04 K/mm3 (0.00-0.10); Basophils Percent Auto 0.4 % (0.0-1.0); Eosinophils Absolute Auto 0.26 K/mm3 (0.02-0.50); Eosinophils Percent Auto 2.5 % (1.0-6.0); Hematocrit 43.6 % (35.0-49.0); Hemoglobin 14.7 g/dL (12.0-15.0); Immature Granulocyte Absolute 0.04 K/mm3 (0.00-0.00); Immature Granulocyte Percent A 0.4 % (0.0-0.0); Lymphocytes Absolute Auto 2.85 K/mm3 (1.10-4.50); Lymphocytes Percent Auto 27.6 % (18.0-42.0); Mean Corpuscular HGB Conc 33.7 g/dL (32.0-36.0); Mean Corpuscular Hemoglobin 30.1 pg (27.0-31.0); Mean Corpuscular Volume 89.3 fL (78.0-102.0); Mean Platelet Volume 8.9 fl (9.2-11.8); Monocytes Absolute Auto 0.65 K/mm3 (0.10-0.90); Monocytes Percent Auto 6.3 % (2.0-11.0); Neutrophils Absolute Auto 6.5 K/mm3 (1.7-7.2); Neutrophils Percent Auto 62.8 % (50.0-70.0); Platelet Count Result 470 K/mm3 (150-420); Red Blood Count 4.88 M/mm3 (4.20-5.40); Red Cell Distribution Width 12.5 % (11.6-14.4); White Blood Count 10.3 K/mm3 (4.8-10.8)
[2023-02-07 16:30] LABS: Monoscreen Negative (Negative); Negative Monotest Control Negative (Negative); Positive Monotest Control Positive (Positive)
== END 2023-02-07 15:48 | disposition home or self-care (01) ==
PROVIDERS: Nurse Practitioner Family; PCP Family Medicine; Visit Provider Family Medicine
DX: J02.9 Acute pharyngitis, unspecified (principal); R53.83 Other fatigue; D72.829 Elevated white blood cell count, unspecified
CPT/HCPCS: 36415; 85025; 86308

== ENCOUNTER 2023-02-17 11:45 | Outpatient (CLI) | payer OTHER, SELFPAY ==
--- NOTE | ~2023-02-17 | MM_ITS ---
EXAMINATION: MM diagnostic stephanie LT w jennifer HISTORY: Inferior retroareolar left breast lump [place] by patient TECHNIQUE: ML, MLO and CC 3-D tomosynthesis images of the left breast were performed and synthetic 2- D images were generated. CAD analysis was submitted and interpreted. COMPARISON: 05/03/2022 bilateral screening mammogram BREAST PARENCHYMAL COMPOSITION: There are scattered areas of fibroglandular density. FINDINGS: No suspicious mass or architectural distortion, malignant calcification, skin thickening or retraction or significant new or developing density is detected. Targeted ultrasound at the area of clinical complaint of left breast lump is recommended. IMPRESSION: 1. No mammographic evidence of malignancy 2. Targeted ultrasound is recommended to the area of clinical complaint of breast lump BI-RADS Category 0: Incomplete: Needs additional imaging evaluation. Reviewed, dictated and finalized at location A. IMPRESSION: 1. No mammographic evidence of malignancy 2. Targeted ultrasound is recommended to the area of clinical complaint of angie st lump BI-RADS Category 0: Incomplete: Needs additional imaging evaluation.
== END 2023-02-17 11:46 | disposition home or self-care (01) ==
LOC: ANHIMG 11:46
PROVIDERS: PCP Family Medicine; Visit Provider Nurse Practitioner Family
DX: N63.20 Unspecified lump in the left breast, unspecified quadrant (principal); R92.8 Other abnormal and inconclusive findings on diagnostic imaging of breast
CPT/HCPCS: 77061; 77065; G0279

== ENCOUNTER 2023-02-27 14:43 | Outpatient (CLI) | payer OTHER, SELFPAY ==
--- NOTE | ~2023-02-27 | CT_ITS ---
EXAMINATION: CT soft tissue neck w con DATE: 02/27/2023 15:27 INDICATION: Right neck mass. TECHNIQUE: Computed tomography (CT) of the neck was performed with 75 mL Omnipaque-350 intravenous co ntrast. Automated exposure control and iterative reconstruction technique were employed. The dose-chidi gth product was 481.67 mGy-cm. COMPARISON: CT neck 05/26/2015 FINDINGS: There are surgical clips in the expected area of left submandibular gland. There is a 1.4 x 0.9 cm mass adjacent to the surgical clips. There is a skin marker in the right neck. There is no ab normal mass or lymphadenopathy in this area. The mastoid air cells are normal. There is mild mucosal thickening in left maxillary sinus. There is mild cervical spondylosis. IMPRESSION: 1. No abnormal mass or lymphadenopathy in the patient's area of concern in right neck. 2. 1.4 x 0.9 cm mass adjacent to surgical clips in the left submandibular region. 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 This finding m ay be scarring or residual submandibular gland tissue. Reviewed, dictated and finalized at location A. IMPRESSION: 1. No abnormal mass or lymphadenopathy in the patient's area of concern in righ t neck. 2. 1.4 x 0.9 cm mass adjacent to surgical clips in the left submandibular regio n. Pathology from the prior resection demonstrated nonspecific mild chronic ayla ladenitis with mild fibrosis. This finding may be scarring or residual submandi bular gland tissue.
[2023-02-27 15:20] LABS: Estimated Glomerular Filt Rate > 60
== END 2023-02-27 14:44 | disposition home or self-care (01) ==
PROVIDERS: PCP Family Medicine; Visit Provider Family Medicine
DX: R22.1 Localized swelling, mass and lump, neck (principal)
CPT/HCPCS: 70491; Q9967

== ENCOUNTER 2023-03-11 17:42 | Emergency (ER) | payer OTHER, SELFPAY ==
--- NOTE | 2023-03-11 17:51 | ED.EAR ---
HPI - Ear Problem General Chief complaint: Ear Stated complaint: SINUS CONGESTION/EARACHE/GUMS INFLAMMED Source: patient Mode of arrival: ambulatory Limitations: no limitations History of Present Illness HPI Narrative: 42 y/o female presented for c/o sinus congestion and right ear pressure over the past few days. Endorses history of frequent ear infections, she is scheduled with ENT this week. States just prior to ear infections she tends to have vertigo, and reports this has been worsening for her the past few days. Denies body aches, lethargy, cough, sob, n/v/d/f/c. Takes antihistamine and flonase for symptoms. MD Complaint: ear pain Related Data Home Medications Medication Instructions Recorded Confirmed lurasidone 60 mg tablet (Latuda) 60 mg PO DAILY 09/01/22 03/11/23 meloxicam 7.5 mg tablet 7.5 mg PO DAILY 01/14/23 03/11/23 Allergies Allergy/AdvReac Type Severity Reaction Status Date / Time clarithromycin Allergy Mild Hives Verified 03/11/23 17:52 Review of Systems Review of Systems: CONSTITUTIONAL: Denies malaise, chills, or fever. EYES: Denies visual changes, redness, or discharge. ENT: reports rhinorrhea, congestion, ear pain. Denies sore throat CARDIOVASCULAR: Denies chest pain, palpitations, or edema. RESPIRATORY: Denies cough or dyspnea. GASTROINTESTINAL: Denies abdominal pain, nausea, vomiting, diarrhea SKIN: Denies rash or itching. MUSCULOSKELETAL: Denies myalgia. NEUROLOGIC: Denies headache. All systems reviewed & are unremarkable except as noted in HPI and below PMFSH Past Medical History Medical History Adult BMI 45.0-49.9 kg/sq m Asthma BMI 36.0-36.9,adult BMI 40.0-44.9, adult Cholecystectomy planned Depression Eustachian tube dysfunction Flu-like symptoms Iron deficiency Mass in neck Morbid (severe) obesity due to excess calories Otitis media Vertigo Surgical History Surgical History History of cholecystectomy History of endometrial ablation Hx of tonsillectomy Status post open reduction with internal fixation (ORIF) of fracture of ankle Family History Family History Father Family history of diabetes mellitus in first degree relative Patient's father is Acute myocardial infarction Diabetes mellitus Mother Patient's mother is Social History Social History Smoking status: Never smoker Second hand tobacco smoke exposure: No Alcohol intake: never Substance use: never Substance use type: does not use Lack of Transportation: No Lack of Food: Never True Current Housing: I Have Housing Concerned About Future Housing: No Difficulty Paying Gas/Electric Bills: No Difficulty Paying for Meds: No Currently Unemployed: No Education: High School Diploma/GED Difficulty w/ Childcare or Family Care: No Living arrangements: with family 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 There is no relevant family history pertinent to the presenting complaint Exam Narrative: GENERAL: Well-appearing, and in no acute distress. HEAD: Normocephalic EYES: conjunctivae clear ENT: Nares clear. Mucous membranes moist. TMs pearly bonilla with dull light reflex bilaterally; no tragal tenderness. Oropharynx not erythematous without lesions. Tonsils absent no drooling, no hoarseness, no trismus, uvula midline. NECK: Supple. No lymphadenopathy CHEST: Clear to auscultation, breath sounds equal. No wheezing, rhonchi, rales, or stridor. No respiratory distress, speaks in full sentences. H
[2023-03-11 17:53] VITALS: BP 112/88; PULSE 111; RESP 16; TEMP 36.5; O2SAT 99
== END 2023-03-11 18:07 | disposition home or self-care (01) ==
PROVIDERS: Emergency Provider Nurse Practitioner Family; PCP Family Medicine
DX: J06.9 Acute upper respiratory infection, unspecified (principal); J45.909 Unspecified asthma, uncomplicated; F32.A Depression, unspecified; E66.01 Morbid (severe) obesity due to excess calories; Z68.39 Body mass index [BMI] 39.0-39.9, adult
CPT/HCPCS: 99213; G0463

== ENCOUNTER 2023-03-20 16:44 | Outpatient (CLI) | payer OTHER, SELFPAY | END 2023-03-20 16:45 | disposition home or self-care (01) | LOC: CHSLAB 16:46 | PROVIDERS: PCP Family Medicine; Visit Provider Nurse Practitioner Family | DX: R53.83 Other fatigue (principal); M25.50 Pain in unspecified joint; K11.7 Disturbances of salivary secretion; K08.9 Disorder of teeth and supporting structures, unspecified; H04.123 Dry eye syndrome of bilateral lacrimal glands | CPT/HCPCS: 36415; 86038 ==

== ENCOUNTER 2023-03-22 12:06 | Outpatient (CLI) | payer OTHER, SELFPAY ==
--- NOTE | ~2023-03-22 | US_ITS ---
US breast LT limited INDICATION: Palpable left breast abnormality TECHNIQUE: Dedicated Limited left breast ultrasound COMPARISON: Mammogram dated 02/17/2023 FINDINGS: The left breast is composed of normal heterogeneous echotexture without focal solid or cyst ic mass. IMPRESSION: 1: Normal limited left breast ultrasound. BI-RADS CATEGORY 1 - NEGATIVE Reviewed, dictated and finalized at location A.
== END 2023-03-22 12:07 | disposition home or self-care (01) ==
LOC: CHSIMG 12:07
PROVIDERS: PCP Family Medicine; Visit Provider Nurse Practitioner Family
DX: N63.21 Unspecified lump in the left breast, upper outer quadrant (principal)
CPT/HCPCS: 76642

== ENCOUNTER 2023-04-28 13:21 | Emergency (ER) | payer MEDICAID, SELFPAY ==
--- NOTE | 2023-04-28 13:29 | ED.URI ---
HPI - URI/Sore Throat General Chief Complaint: Upper Respiratory Infection Stated Complaint: Sore Throat, Earache, Congestion, Body Ache Time Seen by Provider: 04/28/23 13:29 Source: patient, RN notes reviewed and old records reviewed Mode of arrival: ambulatory Limitations: no limitations History of Present Illness HPI Narrative: 42-year-old female presents to [facility] with complaint cough, congestion, sore throat, myalgia, headache, and nausea and vomiting for 1 day. Patient states taking ekra-yaw-idytukn medications with no relief. patient denies fever. patient denies any sick association. Related Data Home Medications Medication Instructions Recorded Confirmed lurasidone 60 mg tablet (Latuda) 60 mg PO DAILY 09/01/22 04/28/23 Allergies Allergy/AdvReac Type Severity Reaction Status Date / Time clarithromycin Allergy Mild Hives Verified 04/28/23 13:51 Review of Systems Constitutional: Constitutional: Reports no additional constitutional complaints Eyes: Eyes: Reports no additional eye complaints ENT: Reports as per HPI, Reports nasal congestion and Reports sore throat Cardiovascular: Cardiovascular: Reports no additional cardiovascular complaints Respiratory: Respiratory: Reports as per HPI, Reports chest congestion and Reports cough Gastrointestinal: Gastrointestinal: Reports nausea and Reports vomiting Musculoskeletal: Comments: Positive myalgia Neurologic: Reports system reviewed and no additional complaints, except as documented [facility] Past Medical History Medical History Adult BMI 45.0-49.9 kg/sq m Asthma BMI 36.0-36.9,adult BMI 40.0-44.9, adult Cholecystectomy planned Depression Eustachian tube dysfunction Flu-like symptoms Iron deficiency Mass in neck Morbid (severe) obesity due to excess calories Otitis media Vertigo Surgical History Surgical History History of cholecystectomy History of endometrial ablation Hx of tonsillectomy Status post open reduction with internal fixation (ORIF) of fracture of ankle Family History Family History Father Family history of diabetes mellitus in first degree relative Acute myocardial infarction Diabetes mellitus Mother No problems noted. Sibling No problems noted. 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 There is no relevant family history pertinent to the patient complaint. Exam Const: General: cooperative, healthy appearing, no acute distress and well nourished Nutritional Appearance: well nourished Orientation/consciousness: patient oriented x3 Limitations: no limitations HENMT: Head: normal to inspection and normocephalic Ears: external ears normal, TM's normal bilaterally, mastoids normal and Abnormal EAC present Face/Nose/Sinus: normal facial exam Face and sinus: normal facial exam Mouth: Yes Normal oral and palatal mucosa present, Yes oropharynx normal and Yes mois
[2023-04-28 13:37] VITALS: BP 109/68; PULSE 99; RESP 16; TEMP 36.6; O2SAT 100
== END 2023-04-28 14:13 | disposition home or self-care (01) ==
PROVIDERS: Emergency Provider Registered Nurse; PCP Family Medicine
DX: U07.1 COVID-19 (principal); J45.909 Unspecified asthma, uncomplicated; F32.A Depression, unspecified; E66.01 Morbid (severe) obesity due to excess calories; Z68.39 Body mass index [BMI] 39.0-39.9, adult
CPT/HCPCS: 87081; 87426; 87880; 99213; C9803; G0463

== ENCOUNTER 2023-05-25 11:07 | Outpatient (CLI) | payer OTHER, SELFPAY ==
[2023-05-25 11:31] LABS: Basophils Percent Auto 0.4 % (0.2-1.2); Eosinophils Absolute Auto 0.1 K/mm3 (0-0.3); Eosinophils Percent Auto 0.8 % (0-4.4); Hematocrit 40.3 % (37.0-47.0); Hemoglobin 13.2 g/dL (12.0-15.0); Immature Granulocyte Absolute 0.05 K/mm3 (0.00-0.031); Immature Granulocyte Percent A 0.5 % (0-0.5); Lymphocytes Absolute Auto 1.92 K/mm3 (0.9-3.2); Lymphocytes Percent Auto 18.1 % (18.3-44.2); Mean Corpuscular HGB Conc 32.8 g/dl (32-36); Mean Corpuscular Hemoglobin 29.1 pg (26-34); Mean Platelet Volume 8.6 fl (7.4-10.4); Monocytes Absolute Auto 0.9 K/mm3 (0.1-0.6); Monocytes Percent Auto 8.6 % (2.6-8.5); Neutrophils Absolute Auto 7.6 K/mm3 (1.3-6.7); Neutrophils Percent Auto 71.6 % (45.5-73.1); Platelet Count Result 415 k/mm3 (150-375); Red Blood Count 4.53 M/mm3 (4.2-5.4); Red Cell Distribution Width 12.8 % (11.5-14.5); White Blood Count 10.6 K/mm3 (4.5-10.0)
[2023-05-25 11:58] LABS: Alanine Aminotransferase 23 U/L (6-35); Albumin Level 4.6 g/dL (3.5-5.1); Alkaline Phosphatase 55 U/L (38-126); Anion Gap 12 mmol/L (8-16); Aspartate Amino Transferase 27 U/L (14-36); Bilirubin,Total 1.1 mg/dL (0.2-1.3); Blood Urea Nitrogen 21 mg/dL (7-17); CRP 0.9 mg/dL (<1.0); Calcium 9.2 mg/dL (8.4-10.2); Carbon Dioxide 26 mmol/L (22-30); Chloride 99 mmol/L (98-107); Estimated Glomerular Filt Rate > 60; Glucose 112 mg/dL (65-110); Potassium 3.8 mmol/L (3.4-5.0); Sodium 137 mmol/L (137-145)
[2023-05-25 12:20] LABS: Erythrocyte Sedimentation Rate 18 mm/hr (0-20)
== END 2023-05-25 11:08 | disposition home or self-care (01) ==
PROVIDERS: PCP Family Medicine; Visit Provider Internal Medicine Hematology & Oncology
DX: D75.838 Other thrombocytosis (principal)
CPT/HCPCS: 36415; 80053; 85025; 85652; 86140

== ENCOUNTER 2023-06-07 10:20 | Outpatient (CLI) | payer OTHER, SELFPAY | END 2023-06-07 10:21 | disposition home or self-care (01) | LOC: ANHLAB 10:22 | PROVIDERS: PCP Family Medicine; Visit Provider Internal Medicine Hematology & Oncology | DX: D72.829 Elevated white blood cell count, unspecified (principal) | CPT/HCPCS: 88184 ==

== ENCOUNTER 2023-07-06 11:02 | Outpatient (CLI) | payer OTHER, SELFPAY ==
[2023-07-06 11:19] LABS: Hematocrit 42.5 % (35.0-49.0); Hemoglobin 14.1 g/dL (12.0-15.0); Mean Corpuscular HGB Conc 33.2 g/dL (32.0-36.0); Mean Corpuscular Hemoglobin 28.8 pg (27.0-31.0); Mean Corpuscular Volume 86.7 fL (78.0-102.0); Mean Platelet Volume 8.7 fl (9.2-11.8); Platelet Count Result 378 K/mm3 (150-420); Red Cell Distribution Width 12.7 % (11.6-14.4); White Blood Count 9.8 K/mm3 (4.8-10.8)
[2023-07-06 12:02] LABS: Alanine Aminotransferase 26 U/L (14-59); Albumin Level 3.5 g/dL (3.4-5.0); Alkaline Phosphatase 48 U/L (46-116); Anion Gap 10 mmol/L (8-16); Aspartate Amino Transferase 11 U/L (15-37); Bilirubin,Total 0.5 mg/dL (0.00-1.00); Blood Urea Nitrogen 12 mg/dL (7-18); Calcium 8.4 mg/dL (8.5-10.1); Carbon Dioxide 28 mmol/L (21-32); Chloride 103 mmol/L (98-108); Cholesterol 167 mg/dL (0-200); Estimated Glomerular Filt Rate > 60; Free T4 Free Thyroxine 0.96 ng/dL (0.76-1.46); Glucose 125 mg/dL (70-99); HDL Direct 56 mg/dL (40-60); LDL Cholesterol Calculated 97 mg/dL (<130); Osmolality Calculated 292 mOsm/kg (285-295); Potassium 3.9 mmol/L (3.5-5.1); Sodium 141 mmol/L (136-145); Thyroid Stimulating Hormone 2.14 uIU/mL (0.36-3.74); Total Protein 6.7 g/dL (6.4-8.2); Triglycerides 68 mg/dL (0-150)
== END 2023-07-06 11:03 | disposition home or self-care (01) ==
LOC: CHSLAB 11:03
PROVIDERS: PCP Family Medicine; Visit Provider Nurse Practitioner Adult Health
DX: R42 Dizziness and giddiness (principal)
CPT/HCPCS: 36415; 80053; 80061; 83036; 84439; 84443; 85027

== ENCOUNTER 2023-08-04 12:05 | Outpatient (CLI) | payer OTHER, SELFPAY ==
[2023-08-04 13:21] LABS: Hemoglobin A1C 4.7 % (<5.7)
[2023-08-08 13:40] LABS: Vitamin B6 71.4 ng/mL (2.1-21.7)
== END 2023-08-04 12:06 | disposition home or self-care (01) ==
LOC: CHSLAB 12:07
PROVIDERS: Nurse Practitioner Family; PCP Family Medicine; Visit Provider Nurse Practitioner Adult Health
DX: R74.8 Abnormal levels of other serum enzymes (principal); R73.9 Hyperglycemia, unspecified
CPT/HCPCS: 36415; 83036; 84207

== ENCOUNTER 2023-08-07 09:51 | Outpatient (CLI) | payer OTHER, SELFPAY ==
--- NOTE | 2023-08-07 10:06 | ECHO_ITS ---
Patient Info Name: Kassandra Odonnell Age: 42 years : 1980 Gender: Female Ht: 65 in Wt: 230 lbs BSA: 2.24 m2 HR: 97 bpm BP: 144 / 88 mmHg Technical Quality: Fair Exam Date: 08/07/2023 10:24 AM Exam Location: Echo Lab Patient Status: Outpatient Admit Date: 08/07/2023 Staff Ordering Physician: Jackie Chester APRN Recycle Worker: Milana Jane RDCS Attending Provider: Jackie Chester APRN Referring Physician: Nemo TRUJILLO; Exam Type: CA echo doppler color flow Study Info Indications - divzziness /giddiness Complete two-dimensional, color flow and Doppler transthoracic echocardiogram is performed. Summary 1. Complete two-dimensional, color flow and Doppler transthoracic echocardiogram is performed. 2. Left ventricular chamber dimension is normal. 3. Left ventricular systolic function is normal, estimated at 60-65%. 4. The left ventricular diastolic function is normal. 5. E/e' 7 is not elevated. 6. Left atrial chamber dimension is mildly enlarged. 7. There is trace tricuspid valve regurgitation. 8. No pulmonary hypertension, estimated pulmonary arterial systolic pressure is 34 mmHg. Left Ventricle E/e' 7 is not elevated. Left ventricular chamber dimension is normal. Left ventricular systolic function is normal, estimated at 60-65%. The left ventricular diastolic function is normal. Right Ventricle Right ventricular chamber dimension is normal. Right ventricular systolic function is normal. Left Atria Left atrial chamber dimension is mildly enlarged. Right Atria Right atrial chamber dimension is normal. Aortic Valve The aortic valve is trileaflet. There is no aortic valve stenosis. There is no aortic valve regurgitation. Pulmonic Valve There is no pulmonic regurgitation. Mitral Valve There is no mitral valve stenosis. There is no mitral valve regurgitation. Tricuspid Valve There is trace tricuspid valve regurgitation. No pulmonary hypertension, estimated pulmonary arterial systolic pressure is 34 mmHg. Pericardium/Pleural There is no pericardial effusion. Inferior Vena Cava Normal inferior vena cava with >50% collapse upon inspiration consistent with normal right atrial pressure, 5 mmHg. Aorta The aortic root size at the sinus of Valsalva is normal. Left Ventricular Outflow Tract Name Value Normal LVOT 2D LVOT Diameter 2.0 cm LVOT Doppler LVOT Peak Gradient 4 mmHg LVOT Mean Gradient 3 mmHg LVOT VTI 20 cm LVOT VTI/AV VTI Ratio 0.8 LVOT Stroke Volume 64 ml LVOT CO 14.2 l/min LVOT CI 6.3 l/min/m2 Pulmonic Valve Name Value Normal PV Doppler PV Peak Gradient 5 mmHg Mitral Valve Name Sarah
== END 2023-08-07 09:52 | disposition home or self-care (01) ==
LOC: ANHCARD 09:52
PROVIDERS: PCP Family Medicine; Visit Provider Nurse Practitioner Adult Health
DX: R42 Dizziness and giddiness (principal); R55 Syncope and collapse
CPT/HCPCS: 93306

== ENCOUNTER 2023-08-09 15:28 | Outpatient (CLI) | payer OTHER, SELFPAY ==
--- NOTE | ~2023-08-09 | US_ITS ---
EXAMINATION: US carotid duplex BI DATE: 08/09/2023 15:55 INDICATION: Syncope and collapse. Vertigo. TECHNIQUE: Grayscale, color Doppler, and pulsed Doppler images of the cervical carotid arteries were obtained. The degree of vessel stenosis is placed in one of the following categories: normal, <50%, 5 0-69%, >=70% but less than near-occlusion, near-occlusion, or total occlusion. Note that percent sten osis relative to normal distal artery lumen diameter is indirectly measured from velocity measurement s as described by Júnior, et al. Radiology 2003; 229:340-346. COMPARISON: None. FINDINGS: RIGHT: The right common carotid artery (CCA) peak systolic velocity (PSV) is 91 cm/s. The right internal car otid artery (ICA) PSV is 89 cm/s. The right ICA end-diastolic velocity (EDV) is 33 cm/s. The right IC A/CCA PSV ratio is 1.0. Grayscale and color Doppler images demonstrate no evident stenosis or plaque in the ICA. The external carotid artery (ECA) PSV is 73 cm/s. There is antegrade flow in the right ve rtebral artery. LEFT: The left CCA PSV is 97 cm/s. The left ICA PSV is 82 cm/s. The left ICA EDV is 30 cm/s. The left ICA/C CA PSV ratio is 1.2. Grayscale and color Doppler images demonstrate no evident stenosis or plaque in the ICA. The ECA PSV is 98 cm/s. There is antegrade flow in the left vertebral artery. IMPRESSION: 1. Normal study with no evident plaque or stenosis at either the right or left internal carotid arter ies. Reviewed, dictated and finalized at location A. ESIST IMPRESSION: 1. Normal study with no evident plaque or stenosis at either the right or left internal carotid arteries.
== END 2023-08-09 15:29 | disposition home or self-care (01) ==
LOC: ANHIMG 15:32
PROVIDERS: PCP Family Medicine; Visit Provider Nurse Practitioner Adult Health
DX: R42 Dizziness and giddiness (principal); R55 Syncope and collapse
CPT/HCPCS: 93880

== ENCOUNTER 2023-08-30 16:54 | Outpatient (CLI) | payer OTHER, SELFPAY ==
--- NOTE | ~2023-08-30 | CT_ITS ---
EXAMINATION: CT sinus wo con DATE: 08/30/2023 17:07 INDICATION: Chronic sinusitis TECHNIQUE: Computed tomography (CT) of the paranasal sinuses was performed without intravenous contra st. The dose-length product was 321.89 mGy-cm. Automated exposure control and iterative reconstructio n technique were employed. COMPARISON: None FINDINGS: No significant mucosal thickening. No air-fluid levels. Mastoids are pneumatized. Small muc ous retention cyst left maxillary sinus. Rightward nasal septal deviation. Ostiomeatal units are palomino nt. Mastoids are pneumatized. IMPRESSION: 1. No significant sinus disease. Reviewed, dictated and finalized at location L.
== END 2023-08-30 16:55 | disposition home or self-care (01) ==
LOC: ANHIMG 16:56
PROVIDERS: PCP Family Medicine; Visit Provider Otolaryngology
DX: J32.9 Chronic sinusitis, unspecified (principal)
CPT/HCPCS: 70486; J1100; J2405; J2704

== ENCOUNTER 2023-09-16 19:25 | Emergency (ER) | payer OTHER, SELFPAY ==
--- NOTE | 2023-09-16 19:27 | ED.URI ---
HPI - URI/Sore Throat General Chief Complaint: Upper Respiratory Infection Stated Complaint: SINUS CONGESTION/EARACHE Time Seen by Provider: 09/16/23 19:40 Source: patient and RN notes reviewed Mode of arrival: ambulatory Limitations: no limitations History of Present Illness HPI Narrative: 42-year-old female presents with concern for right earache, sinus congestion since Monday. She denies fever, aches, chills, sweats. Reports history of sinus problems COVID she has a cyst in her sinuses that she is being seen by an ENT. She reports she started getting vertigo today which is a symptom of her getting an ear infection. MD elicited complaint: other (ear ache) Related Data Home Medications Medication Instructions Recorded Confirmed lurasidone 60 mg tablet (Latuda) 60 mg PO DAILY 09/01/22 08/28/23 Allergies Allergy/AdvReac Type Severity Reaction Status Date / Time clarithromycin Allergy Mild Hives Verified 08/28/23 15:01 Review of Systems Review of Systems: CONSTITUTIONAL: Denies malaise, chills, sweats, or fever. EYES: Denies visual changes, redness, or discharge. ENT: Reports rhinorrhea, congestion, otalgia CARDIOVASCULAR: Denies chest pain, palpitations, or edema. RESPIRATORY: Denies cough. Denies dyspnea. GASTROINTESTINAL: Denies abdominal pain, nausea, vomiting, diarrhea SKIN: Denies rash or itching. MUSCULOSKELETAL: Denies myalgia. NEUROLOGIC: Denies headache. All systems reviewed & are unremarkable except as noted in HPI and below PMFSH Past Medical History Medical History (Updated 09/16/23 @ 19:44 by Rica Cantrell NP) Abnormal involuntary movement Adult BMI 45.0-49.9 kg/sq m Arm paresthesia, right Asthma BMI 36.0-36.9,adult BMI 40.0-44.9, adult Cholecystectomy planned COVID Depression Diarrhea Dietary counseling and surveillance (09/30/15) Dry eyes Eustachian tube dysfunction Flu-like symptoms Iron deficiency Irregular menstrual bleeding Joint pain Left knee pain Low aspartate aminotransferase (AST) level Lump of left breast Mass in neck Morbid (severe) obesity due to excess calories Otitis media Overweight (03/07/17) Shortness of breath Swelling of left knee joint Syncope Syncope Vertigo Vertigo Weight gain Xerostomia Surgical History Surgical History History of cholecystectomy History of endometrial ablation Hx of tonsillectomy Status post open reduction with internal fixation (ORIF) of fracture of ankle Family History Family History Father Family history of diabetes mellitus in first degree relative Acute myocardial infarction Diabetes mellitus Mother No problems noted. 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 There is no relevant family history pertinent to the presenting complaint Exam Narrative: GENERAL: Well-appearing, well-nourished, and in no acute distress. HEAD: Normocephalic EYES: PERRLA, conjunctivae clear ENT: Nares clear, turbinates edematous an
[2023-09-16 19:30] VITALS: BP 103/74; PULSE 92; RESP 20; TEMP 36.6; O2SAT 100
== END 2023-09-16 19:52 | disposition home or self-care (01) ==
PROVIDERS: Emergency Provider Nurse Practitioner; PCP Family Medicine
DX: H92.01 Otalgia, right ear (principal); J45.909 Unspecified asthma, uncomplicated; E66.01 Morbid (severe) obesity due to excess calories; Z68.41 Body mass index [BMI] 40.0-44.9, adult; Z86.16 Personal history of COVID-19
CPT/HCPCS: 99213; G0463

== ENCOUNTER 2023-09-28 16:31 | Outpatient (CLI) | payer OTHER, SELFPAY ==
--- NOTE | ~2023-09-28 | MR_ITS ---
EXAMINATION: MR brain/brain stem wo con DATE: 09/28/2023 17:12 INDICATION: Syncope and collapse. TECHNIQUE: Magnetic resonance imaging (MRI) of the brain and brainstem was performed without intraven ous contrast. COMPARISON: Brain MRI 12/31/2014 FINDINGS: There is no intracranial hemorrhage, acute infarction, or abnormal intracranial mass lesion . The ventricles are normal in size. There is mild mucosal thickening in the paranasal sinuses. The o rbits are normal. The mastoid air cells are normal. IMPRESSION: 1. Normal brain. Reviewed, dictated and finalized at location E. IMPRESSION: 1. Normal brain.
== END 2023-09-28 16:32 | disposition home or self-care (01) ==
LOC: ANHIMG 16:33
PROVIDERS: PCP Family Medicine; Visit Provider Nurse Practitioner Family
DX: H55.00 Unspecified nystagmus (principal); R41.3 Other amnesia; R25.9 Unspecified abnormal involuntary movements
CPT/HCPCS: 70551

== ENCOUNTER 2023-10-13 19:31 | Emergency (ER) | payer OTHER, SELFPAY ==
--- NOTE | 2023-10-13 19:43 | ED.URI ---
HPI - URI/Sore Throat General Chief Complaint: Upper Respiratory Infection Stated Complaint: SINUS CONGESTION/EARACHE Time Seen by Provider: 10/13/23 19:50 Source: patient Mode of arrival: ambulatory Limitations: no limitations History of Present Illness HPI Narrative: Kassandra is a 43-year-old female patient presenting to clinic today with complaints of sinus congestion and ear pain times 4 days. She reports she is bringing up some yellow phlegm when she is blowing her nose. Denies any sore throat or fever. MD elicited complaint: cough, nasal congestion and sinus pain Related Data Home Medications Medication Instructions Recorded Confirmed lurasidone 60 mg tablet (Latuda) 60 mg PO DAILY 09/01/22 10/13/23 Allergies Allergy/AdvReac Type Severity Reaction Status Date / Time clarithromycin Allergy Mild Hives Verified 10/13/23 19:47 Review of Systems Review of Systems: Pertinent positives per HPI. Patient denies any fever, chills, rash,visual changes, dizziness, shortness of breath, chest pain, palpitations, nausea, vomiting, diarrhea, constipation, abdominal pain, or any urinary issues. [facility] Past Medical History Medical History (Updated 10/13/23 @ 19:56 by Tyrell Christie APRN) Abnormal involuntary movement Adult BMI 45.0-49.9 kg/sq m Arm paresthesia, right Asthma BMI 36.0-36.9,adult BMI 40.0-44.9, adult Cholecystectomy planned COVID Depression Diarrhea Dietary counseling and surveillance (09/30/15) Dry eyes Eustachian tube dysfunction Flu-like symptoms Iron deficiency Irregular menstrual bleeding Joint pain Left knee pain Low aspartate aminotransferase (AST) level Lump of left breast Mass in neck Morbid (severe) obesity due to excess calories Otitis media Overweight (03/07/17) Shortness of breath Swelling of left knee joint Syncope Syncope Vertigo Vertigo Weight gain Xerostomia Surgical History Surgical History History of cholecystectomy History of endometrial ablation Hx of tonsillectomy Status post open reduction with internal fixation (ORIF) of fracture of ankle Family History Family History Father Family history of diabetes mellitus in first degree relative Acute myocardial infarction Diabetes mellitus Mother No problems noted. 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 There is no relevant family history pertinent to the patient complaint. Exam Narrative: General: Well-developed, obese, in no apparent distress Head: Normocephalic, atraumatic Eyes: Pupils equally round and reactive to light bilaterally, EOM intact, sclera and conjunctive clear, no discharge, lids normal Ears: TMs intact, fluid noted behind bilateral TMs, nonbulging, ear canals clear, no drainage, grossly hearing normal. Nose: Nares patent, clear nasal discharge, no inflammation, no sinus tenderness. Mouth: Oral pharynx without lesions or masses, good dentition, MMM. Neck:
[2023-10-13 19:46] VITALS: BP 114/83; PULSE 99; RESP 16; TEMP 36.2; O2SAT 100
== END 2023-10-13 20:00 | disposition home or self-care (01) ==
PROVIDERS: Emergency Provider Nurse Practitioner Family; PCP Family Medicine
DX: J06.9 Acute upper respiratory infection, unspecified (principal); H65.03 Acute serous otitis media, bilateral; J45.909 Unspecified asthma, uncomplicated; E66.01 Morbid (severe) obesity due to excess calories; Z68.39 Body mass index [BMI] 39.0-39.9, adult
CPT/HCPCS: 99211; 99213; G0463

== ENCOUNTER 2023-10-14 18:20 | Emergency (ER) | payer OTHER, SELFPAY ==
[2023-10-14 18:21] VITALS: BP 142/84; PULSE 97; RESP 19; TEMP 36.3; O2SAT 99
[2023-10-14 18:35] VITALS: O2SAT 98
--- NOTE | 2023-10-14 18:50 | ED.URI ---
HPI - URI/Sore Throat General Chief Complaint: Upper Respiratory Infection Stated Complaint: loss of voice Time Seen by Provider: 10/14/23 18:26 Source: patient Mode of arrival: ambulatory Limitations: no limitations History of Present Illness HPI Narrative: patient is a 43-year-old female with a significant past medical history presents today for URI symptoms. Patient was seen yesterday here in the ER and was not feeling as bad as she is today but she was just given some Medrol Dosepak and no antibiotics and sent home. She has gotten worse today and lost her voice completely and has bad chest congestion and is coughing up greenish-yellow sputum. MD elicited complaint: cough, sore throat, rhinorrhea and nasal congestion Onset (ago): day(s) Consistency: progressively worsening Severity: mild Description of mucous: yellow and green Able to tolerate fluids by mouth: Yes Exacerbating factors: nothing Relieving factors: nothing Context: sick contacts Associated symptoms: headache, rhinorrhea, nasal congestion and cough Treatments prior to arrival: none Related Data Home Medications Medication Instructions Recorded Confirmed lurasidone 60 mg tablet (Latuda) 60 mg PO DAILY 09/01/22 10/14/23 Allergies Allergy/AdvReac Type Severity Reaction Status Date / Time clarithromycin Allergy Mild Hives Verified 10/14/23 18:37 Review of Systems Review of Systems: All systems reviewed & are unremarkable except as noted in HPI and below Constitutional: Constitutional: Reports as per HPI Eyes: Eyes: Reports no additional eye complaints ENT: Reports nasal congestion and Reports sore throat Cardiovascular: Cardiovascular: Reports as per HPI Respiratory: Respiratory: Reports no additional respiratory complaints Gastrointestinal: Gastrointestinal: Reports no additional gastrointestinal complaints Genitourinary: Genitourinary: Reports no additional female genitourinary complaints Musculoskeletal: Musculoskeletal: Reports no additional musculoskeletal complaints Integumentary/Breasts: Skin/Breast: Reports system reviewed and no additional complaints, except as docu Neurologic: Reports system reviewed and no additional complaints, except as documented Psychiatric: Psychiatric: Reports no additional psychiatric complaints Endocrine: Endocrine: Reports no additional endocrine complaints Hematologic/Lymphatic: Hematologic/Lymphatic: Reports no additional hematologic/lymphatic complaints Allergic/Immunologic: Allergic/Immunologic: Reports no additional allergic/immunologic complaints PMFSH Past Medical History Medical History Abnormal involuntary movement Adult BMI 45.0-49.9 kg/sq m Arm paresthesia, right Asthma BMI 36.0-36.9,adult BMI 40.0-44.9, adult Cholecystectomy planned COVID Depression Diarrhea Dietary counseling and surveillance (09/30/15) Dry eyes Eustachian tube dysfunction Flu-like symptoms Iron deficiency Irregular menstrual bleeding Joint pain Left knee pain Low aspartate aminotransferase (AST) level Lump of left breast Mass in neck Morbid (severe) obesity due to excess calories Otitis media Overweight (03/07/17) Shortness of breath Swelling of left knee joint Syncope Syncope Vertigo Vertigo Weight gain Xerostomia Surgical History Surgical History History of cholecystectomy History of endometrial ablation Hx of tonsillectomy Status post open reduction with internal fixation (ORIF) of fracture of ankle Family History Family History Father Family history of diabetes mellitus in first degree relative Acute myocardial infarction Diabetes mellitus Mother No problems noted. Social History Social History Smoking status: Never smoker Second hand tobacco sm
[2023-10-14] MEDS: DOXYCYCLINE HYCLATE 100 MG TABLET PO (19:25)
[2023-10-14 19:30] VITALS: BP 141/81; PULSE 80; RESP 18; TEMP 37.2; O2SAT 98
== END 2023-10-14 19:30 | disposition home or self-care (01) ==
PROVIDERS: Emergency Provider Family Medicine; PCP Family Medicine
DX: J06.9 Acute upper respiratory infection, unspecified (principal); J32.9 Chronic sinusitis, unspecified
CPT/HCPCS: 99283; A9270

== ENCOUNTER 2023-11-09 19:06 | Emergency (ER) | payer OTHER, SELFPAY ==
[2023-11-09 19:20] VITALS: BP 151/94; PULSE 111; RESP 16; TEMP 36.2; O2SAT 100
--- NOTE | 2023-11-09 19:25 | ED.URI ---
HPI - URI/Sore Throat General Chief Complaint: Ear Stated Complaint: EARACHE Time Seen by Provider: 11/09/23 19:27 Source: patient, RN notes reviewed and old records reviewed Mode of arrival: ambulatory Limitations: no limitations History of Present Illness HPI Narrative: 43-year-old female presents to the [facility] with complaints of a right earache that started about a week ago. Has taken Tylenol. States that she has and ENT doctor's appointment next week. Treatments prior to arrival: acetaminophen Related Data Home Medications Medication Instructions Recorded Confirmed lurasidone 60 mg tablet (Latuda) 60 mg PO DAILY 09/01/22 10/14/23 hydroxyzine HCl 50 mg tablet mg 11/09/23 Allergies Allergy/AdvReac Type Severity Reaction Status Date / Time clarithromycin Allergy Mild Hives Verified 11/09/23 19:16 Review of Systems Review of Systems: All systems reviewed & are unremarkable except as noted in HPI and below Constitutional: Constitutional: Reports no additional constitutional complaints Eyes: Eyes: Reports no additional eye complaints ENT: Reports as per HPI and Reports otalgia Cardiovascular: Cardiovascular: Reports no additional cardiovascular complaints, Denies chest pain and Denies dyspnea Respiratory: Respiratory: Reports no additional respiratory complaints, Denies chest congestion, Denies cough and Denies dyspnea Gastrointestinal: Gastrointestinal: Reports no additional gastrointestinal complaints, Denies abdominal pain, Denies nausea and Denies vomiting Musculoskeletal: Musculoskeletal: Reports no additional musculoskeletal complaints Integumentary/Breasts: Skin/Breast: Reports system reviewed and no additional complaints, except as docu Neurologic: Reports system reviewed and no additional complaints, except as documented Psychiatric: Psychiatric: Reports no additional psychiatric complaints Allergic/Immunologic: Allergic/Immunologic: Reports no additional allergic/immunologic complaints [facility] Past Medical History Medical History Abnormal involuntary movement Arm paresthesia, right Asthma Bipolar 1 disorder Blood glucose elevated BMI 36.0-36.9,adult Cholecystectomy planned COVID Dental disease Depression Diarrhea Dietary counseling and surveillance (09/30/15) Dry eyes Elevated platelet count Encounter for screening for lipid disorder Essential hypertension Eustachian tube dysfunction Flu-like symptoms Hx of colonic polyp Iron deficiency Irregular menstrual bleeding Joint pain Left knee pain Low aspartate aminotransferase (AST) level Lump of left breast Mass in neck Otitis media Overweight (03/07/17) Screening for thyroid disorder Shortness of breath Swelling of left knee joint Syncope Syncope Vertigo Vertigo Vitamin D deficiency Weight gain Xerostomia Surgical History Surgical History History of cholecystectomy History of endometrial ablation Hx of tonsillectomy Status post open reduction with internal fixation (ORIF) of fracture of ankle Family History Family History Father Family history of diabetes mellitus in first degree relative Acute myocardial infarction Diabetes mellitus Mother No problems noted. Social History Social History Smoking status: Never smoker Second hand tobacco smoke exposure: No Alcohol intake: never Substance use: never Substance use type: does not use Do You Feel Safe in your Home?: Yes Lack of Transportation: No Lack of Food: Never True Current Housing: I Have Housing Concerned About Future Housing: No Difficulty Paying Gas/Electric Bills: No Difficulty Paying for Meds: No Currently Unemployed: No Education: High School Diploma/GED Difficulty w/ Childcare or F
== END 2023-11-09 19:47 | disposition home or self-care (01) ==
PROVIDERS: Emergency Provider Nurse Practitioner; PCP Family Medicine
DX: H92.01 Otalgia, right ear (principal); J45.909 Unspecified asthma, uncomplicated; I10 Essential (primary) hypertension; F31.9 Bipolar disorder, unspecified
CPT/HCPCS: 99211; G0463

== ENCOUNTER 2023-12-11 17:37 | Emergency (ER) | payer OTHER, SELFPAY ==
--- NOTE | 2023-12-11 17:44 | ED.URI ---
HPI - URI/Sore Throat General Chief Complaint: Upper Respiratory Infection Stated Complaint: Congestion/Sore Throat Time Seen by Provider: 12/11/23 17:45 Source: patient and RN notes reviewed Mode of arrival: ambulatory Limitations: no limitations History of Present Illness HPI Narrative: 43-year-old female presents with concern for one-week history of sinus pressure, congestion, pain, ear pressure, hoarseness. Reports she has taken [id number] medications without relief. MD elicited complaint: nasal congestion and sinus pain Related Data Home Medications Medication Instructions Recorded Confirmed hydroxyzine HCl 50 mg tablet 50 mg PO PRN PRN Anxiety 11/09/23 12/11/23 Allergies Allergy/AdvReac Type Severity Reaction Status Date / Time clarithromycin Allergy Mild Hives Verified 12/11/23 17:44 Review of Systems Review of Systems: CONSTITUTIONAL: Reports malaise. Denies chills, sweats, or fever. EYES: Denies visual changes, redness, or discharge. ENT: Reports rhinorrhea, congestion, sinus pain, otalgia and sore throat. CARDIOVASCULAR: Denies chest pain, palpitations, or edema. RESPIRATORY: Reports occasional cough. Denies dyspnea. GASTROINTESTINAL: Denies abdominal pain, nausea, vomiting, diarrhea SKIN: Denies rash or itching. MUSCULOSKELETAL: Denies myalgia. NEUROLOGIC: Denies headache. All systems reviewed & are unremarkable except as noted in HPI and below PMFSH Past Medical History Medical History Abnormal involuntary movement Arm paresthesia, right Asthma Bipolar 1 disorder Blood glucose elevated BMI 36.0-36.9,adult Cholecystectomy planned COVID Dental disease Depression Diarrhea Dietary counseling and surveillance (09/30/15) Dry eyes Elevated platelet count Encounter for screening for lipid disorder Essential hypertension Eustachian tube dysfunction Flu-like symptoms Hx of colonic polyp Iron deficiency Irregular menstrual bleeding Joint pain Left knee pain Low aspartate aminotransferase (AST) level Lump of left breast Mass in neck Otitis media Overweight (03/07/17) Screening for thyroid disorder Shortness of breath Swelling of left knee joint Syncope Syncope Vertigo Vertigo Vitamin D deficiency Weight gain Xerostomia Surgical History Surgical History History of cholecystectomy History of endometrial ablation Hx of tonsillectomy Status post open reduction with internal fixation (ORIF) of fracture of ankle Family History Family History Father Family history of diabetes mellitus in first degree relative Acute myocardial infarction Diabetes mellitus Mother No problems noted. 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 There is no relevant family history pertinent to the presenting complaint Exam Narrative: GENERAL: Well-appearing, well-nourished, and in no acute distress. HEAD: Normocephalic EYES: PERRLA, conjun
[2023-12-11 17:49] VITALS: BP 113/78; PULSE 86; RESP 15; TEMP 36.5; O2SAT 99
== END 2023-12-11 18:04 | disposition home or self-care (01) ==
PROVIDERS: Emergency Provider Nurse Practitioner; PCP Family Medicine
DX: J01.90 Acute sinusitis, unspecified (principal); J45.909 Unspecified asthma, uncomplicated; I10 Essential (primary) hypertension
CPT/HCPCS: 99213; G0463

== ENCOUNTER 2023-12-20 15:35 | Emergency (ER) | payer OTHER, SELFPAY ==
[2023-12-20 15:49] VITALS: BP 128/87; PULSE 94; RESP 16; TEMP 36.8; O2SAT 99
[2023-12-20 15:51] VITALS: BP 128/87; PULSE 94; RESP 16; TEMP 36.8; O2SAT 99
--- NOTE | 2023-12-20 16:04 | ED.EAR ---
HPI - Ear Problem General Chief complaint: Ear Stated complaint: EARACHE Source: patient Mode of arrival: ambulatory Limitations: no limitations History of Present Illness HPI Narrative: 43 y/o female presents with chief complaint of right ear pain since the beginning of November. Ear pressure is worse when bending over, and reports occasional dizziness and drainage. She reports occasional ear drainage as red, orange, and yellow. Pt was recently treated outpatient (12/11/23) for acute sinusitis with antibiotics and steroids. Ear pain persisted so she had a tele-health appointment 2 days ago and was prescribed antibiotic ear drops for the ear pain/drainage, however she did not start them because insurance/ cost and ENT is not available. She also reports intermittent throat tightness/swelling for along time following left submandibular lymph node removal. Pt dyspnea, cough, wheezing, congestion, chest pain or fever. Scheduled with ENT in 5 days. MD Complaint: ear pain Related Data Home Medications Medication Instructions Recorded Confirmed hydroxyzine HCl 50 mg tablet 50 mg PO PRN PRN Anxiety 11/09/23 12/20/23 lisdexamfetamine 50 mg capsule 50 mg PO DIRECTED 12/20/23 12/20/23 (Vyvanse) Allergies Allergy/AdvReac Type Severity Reaction Status Date / Time clarithromycin Allergy Mild Hives Verified 12/20/23 15:49 Review of Systems Review of Systems: CONSTITUTIONAL: Denies malaise, chills, or fever. EYES: Denies visual changes, redness, or discharge. ENT: Denies rhinorrhea, congestion, sinus pain, Reports ear pain, drainage, and intermittent throat tightness RESPIRATORY: Denies cough or dyspnea. GASTROINTESTINAL: Denies abdominal pain, nausea, vomiting, diarrhea SKIN: Denies rash or itching. MUSCULOSKELETAL: Denies myalgia. NEUROLOGIC: Denies headache. All systems reviewed & are unremarkable except as noted in HPI and below PMFSH Past Medical History Medical History Abnormal involuntary movement Arm paresthesia, right Asthma Bipolar 1 disorder Blood glucose elevated BMI 36.0-36.9,adult Cholecystectomy planned COVID Dental disease Depression Diarrhea Dietary counseling and surveillance (09/30/15) Dry eyes Elevated platelet count Encounter for screening for lipid disorder Essential hypertension Eustachian tube dysfunction Flu-like symptoms Hx of colonic polyp Iron deficiency Irregular menstrual bleeding Joint pain Left knee pain Low aspartate aminotransferase (AST) level Lump of left breast Mass in neck Otitis media Overweight (03/07/17) Screening for thyroid disorder Shortness of breath Swelling of left knee joint Syncope Syncope Vertigo Vertigo Vitamin D deficiency Weight gain Xerostomia Surgical History Surgical History History of cholecystectomy History of endometrial ablation Hx of tonsillectomy Status post open reduction with internal fixation (ORIF) of fracture of ankle Family History Family History Father Family history of diabetes mellitus in first degree relative Acute myocardial infarction Diabetes mellitus Mother No problems noted. Social History Social History Smoking status: Never smoker Second hand tobacco smoke exposure: No Alcohol intake: never Substance use: never Substance use type: does not use Do You Feel Safe in your Home?: Yes Lack of Transportation: No Lack of Food: Never True Current Housing: I Have Housing Concerned About Future Housing: No Difficulty Paying Gas/Electric Bills: No Difficulty Paying for Meds: No Currently Unemployed: No Education: High School Diploma/GED Difficulty w/ Childcare or Family Care: No Living arrangements: with family Occupation/Education: occupation Additi
== END 2023-12-20 16:26 | disposition home or self-care (01) ==
PROVIDERS: Emergency Provider Nurse Practitioner Family; PCP Family Medicine
DX: H92.01 Otalgia, right ear (principal); J45.909 Unspecified asthma, uncomplicated; I10 Essential (primary) hypertension; Z86.16 Personal history of COVID-19
CPT/HCPCS: 99213; G0463

== ENCOUNTER 2023-12-22 21:53 | Emergency (ER) | payer OTHER, SELFPAY ==
--- NOTE | ~2023-12-22 | XR_ITS ---
XR wrist LT min 3V Ordering provider: Josh Goodwin MD History: . FALL TODAY. PAIN LEFT WRIST. . Comparison: None. FINDINGS: BONES: Chip fracture of the ulnar styloid. JOINT SPACES: Well maintained. SOFT TISSUES: Normal. IMPRESSION: Chip fracture of the ulnar styloid. No other definite abnormality. Reviewed, dictated and finalized at location A.
--- NOTE | ~2023-12-22 | XR_ITS ---
XR hand LT min 3V Ordering provider: Josh Goodwin MD History: . FALL. PAIN POSTERIOR HAND AROUND 4TH AND 5TH METACARPALS. . Comparison: None. FINDINGS: BONES: Chip fractures seen near to the ulnar styloid. Otherwise, No acute fracture or dislocation. JOINT SPACES: Well maintained. SOFT TISSUES: Unremarkable. IMPRESSION: Chip fracture near to the ulnar styloid. Reviewed, dictated and finalized at location A.
[2023-12-22 21:56] VITALS: BP 127/82; PULSE 99; RESP 18; TEMP 36.2; O2SAT 99
--- NOTE | 2023-12-22 22:36 | PC.NURSE ---
patient sitting on the side of the bed. has left arm elevated on a pillow on bedside table. ice pack is in place. waiting on xray results
--- NOTE | 2023-12-22 23:01 | PC.NURSE ---
ER provider requested gutter ulnar splint to be placed. splint being placed by chaim singh.
--- NOTE | 2023-12-22 23:15 | ED.UPPEXIN ---
HPI - Extremity Injury (Upper) General Chief Complaint: Extremity Injury, Upper Stated Complaint: upper extremity injury Time Seen by Provider: 12/22/23 22:01 Source: patient Mode of arrival: ambulatory Limitations: no limitations History of Present Illness HPI narrative: Patient is a 43-year-old with significant past medical history presents today with a left wrist and hand injury. Patient states she slipped and and fell on how stressed left and wrist. She fell with outstretched arm and directly hit the pavement with her ulnar side of her on and her offer him. complaint: injury to: left, wrist and hand Onset (ago): hour(s) Other injuries: none Handedness: right Place: home Severity: mild Severity scale (1-10): 2 Relieving factors: none Exacerbating factors: none Context: direct blow Associated symptoms: denies other symptoms Treatments prior to arrival: cold therapy Related Data Home Medications Medication Instructions Recorded Confirmed hydroxyzine HCl 50 mg tablet 50 mg PO PRN PRN Anxiety 11/09/23 12/22/23 lisdexamfetamine 50 mg capsule 50 mg PO DIRECTED 12/20/23 12/22/23 (Vyvanse) Allergies Allergy/AdvReac Type Severity Reaction Status Date / Time clarithromycin Allergy Mild Hives Verified 12/20/23 15:49 Review of Systems Review of Systems: All systems reviewed & are unremarkable except as noted in HPI and below Constitutional: Constitutional: Reports as per HPI Eyes: Eyes: Reports no additional eye complaints ENT: Reports system reviewed and no additional complaints, except as documented Cardiovascular: Cardiovascular: Reports no additional cardiovascular complaints Respiratory: Respiratory: Reports no additional respiratory complaints Gastrointestinal: Gastrointestinal: Reports no additional gastrointestinal complaints Genitourinary: Genitourinary: Reports no additional female genitourinary complaints Musculoskeletal: Musculoskeletal: Reports no additional musculoskeletal complaints Integumentary/Breasts: Skin/Breast: Reports system reviewed and no additional complaints, except as docu Neurologic: Reports system reviewed and no additional complaints, except as documented Psychiatric: Psychiatric: Reports no additional psychiatric complaints Endocrine: Endocrine: Reports no additional endocrine complaints Hematologic/Lymphatic: Hematologic/Lymphatic: Reports no additional hematologic/lymphatic complaints Allergic/Immunologic: Allergic/Immunologic: Reports no additional allergic/immunologic complaints PMFSH Past Medical History Medical History Abnormal involuntary movement Arm paresthesia, right Asthma Bipolar 1 disorder Blood glucose elevated BMI 36.0-36.9,adult Cholecystectomy planned COVID Dental disease Depression Diarrhea Dietary counseling and surveillance (09/30/15) Dry eyes Elevated platelet count Encounter for screening for lipid disorder Essential hypertension Eustachian tube dysfunction Flu-like symptoms Hx of colonic polyp Iron deficiency Irregular menstrual bleeding Joint pain Left knee pain Low aspartate aminotransferase (AST) level Lump of left breast Mass in neck Otitis media Overweight (03/07/17) Screening for thyroid disorder Shortness of breath Swelling of left knee joint Syncope Syncope Vertigo Vertigo Vitamin D deficiency Weight gain Xerostomia Surgical History Surgical History History of cholecystectomy History of endometrial ablation Hx of tonsillectomy Status post open reduction with internal fixation (ORIF) of fracture of ankle Family History Family History Father Family history of diabetes mellitus in first degree relative Acute myocardial infarction Diabetes mellitus Mother No problems noted. Social History Social History (Reviewed
[2023-12-22 23:36] VITALS: BP 122/76; PULSE 88; RESP 18; O2SAT 97
== END 2023-12-22 23:36 | disposition home or self-care (01) ==
PROVIDERS: Emergency Provider Family Medicine; PCP Family Medicine
DX: S52.612A Displaced fracture of left ulna styloid process, initial encounter for closed fracture (principal); Z79.899 Other long term (current) drug therapy; W19.XXXA Unspecified fall, initial encounter; Y92.009 Unspecified place in unspecified non-institutional (private) residence as the place of occurrence of the external cause
CPT/HCPCS: 29125; 73110; 73130; 99284

== ENCOUNTER 2023-12-25 20:43 | Emergency (ER) | payer OTHER, SELFPAY ==
[2023-12-25] VITALS (12 sets, daily range): BP systolic 133–157; BP diastolic 75–93; PULSE 74–104; RESP 14–22; TEMP 36.6; O2SAT 96–98
--- NOTE | ~2023-12-25 | XR_ITS ---
EXAMINATION: XR chest 1V portable Exam Date/Time: 12/25/2023 21:00 CDT HISTORY: chest pain (pneumonitis) Comparison: None. RESULT: Lines, tubes, and devices: None. Lungs and pleura: Clear. Cardiomediastinal silhouette: Normal. Other: No acute osseous or upper abdominal finding. IMPRESSION: No acute cardiopulmonary process. Reviewed, dictated and finalized at location K.
--- NOTE | 2023-12-25 20:55 | ECG_ITS ---
Test Date: 2023-12-25 21:22:15 Measurements Intervals [place] Rate: 83 P: 44 AL: 122 QRS: 45 QRSD: 85 T: 48 QT: 360 QTc: 424 Interpretive Statements SINUS RHYTHM LOW QRS VOLTAGE IN PRECORDIAL LEADS BASELINE ARTIFACT- I, II, AVR, AVL, V1-V2 BORDERLINE ECG No previous ECG available for comparison Electronically Signed On 12-26-2023 07:20:40 CDT by Aquiles Chang D.O.
[2023-12-25 21:09] LABS: Basophils Absolute Auto 0.03 K/mm3 (0.00-0.10); Basophils Percent Auto 0.2 % (0.0-1.0); Eosinophils Absolute Auto 0.02 K/mm3 (0.02-0.50); Eosinophils Percent Auto 0.1 % (1.0-6.0); Hematocrit 41.5 % (35.0-49.0); Hemoglobin 14.1 g/dL (12.0-15.0); Immature Granulocyte Percent A 0.6 % (0.0-0.0); Lymphocytes Absolute Auto 2.62 K/mm3 (1.10-4.50); Lymphocytes Percent Auto 15.8 % (18.0-42.0); Mean Corpuscular Hemoglobin 29.7 pg (27.0-31.0); Mean Corpuscular Volume 87.4 fL (78.0-102.0); Mean Platelet Volume 8.7 fl (9.2-11.8); Monocytes Absolute Auto 0.75 K/mm3 (0.10-0.90); Monocytes Percent Auto 4.5 % (2.0-11.0); Neutrophils Absolute Auto 13.08 K/mm3 (1.70-7.20); Neutrophils Percent Auto 78.8 % (50.0-70.0); Platelet Count Result 404 K/mm3 (150-420); Red Blood Count 4.75 M/mm3 (4.20-5.40); Red Cell Distribution Width 12.3 % (11.6-14.4); White Blood Count 16.6 K/mm3 (4.8-10.8)
[2023-12-25] MEDS: KETOROLAC (*BKC) 60 MG/2 ML VIAL IM (21:09)
--- NOTE | 2023-12-25 21:09 | ED.SOB ---
HPI - SOB/Dyspnea General Chief Complaint: Shortness of Breath/Dyspnea Stated Complaint: sob Time Seen by Provider: 12/25/23 20:47 Source: patient Mode of arrival: ambulatory Limitations: no limitations History of Present Illness HPI Narrative: patient is a 43-year-old female with significant past medical history presents today for dyspnea and chest pain. Patient says that earlier today she take a giant breath and as she that she had a lot of pain and her midsternal /right-sided chest. She sounds like she either possibly aspirated when she took a deep breath and or possibly bold intercostal muscle or maybe some pneumonitis. The chest pain hurts significantly more when she inspiration. MD elicited complaint: shortness of breath, pain with inspiration and chest pain Onset (ago): hour(s) Context: choking/aspiration Timing: constant Severity: moderate Exacerbating factors: coughing and inspiration Relieving factors: nothing Associated symptoms: chest pain and pain with inspiration Treatment prior to arrival: none Related Data Home oxygen amount: none Home Medications Medication Instructions Recorded Confirmed hydroxyzine HCl 50 mg tablet 50 mg PO PRN PRN Anxiety 11/09/23 12/25/23 lisdexamfetamine 50 mg capsule 50 mg PO DIRECTED 12/20/23 12/25/23 (Vyvanse) Allergies Allergy/AdvReac Type Severity Reaction Status Date / Time clarithromycin Allergy Mild Hives Verified 12/25/23 20:51 Review of Systems Review of Systems: All systems reviewed & are unremarkable except as noted in HPI and below Constitutional: Constitutional: Reports as per HPI Eyes: Eyes: Reports no additional eye complaints ENT: Reports system reviewed and no additional complaints, except as documented Cardiovascular: Cardiovascular: Reports no additional cardiovascular complaints Respiratory: Respiratory: Reports as per HPI and Reports dyspnea Gastrointestinal: Gastrointestinal: Reports no additional gastrointestinal complaints Genitourinary: Genitourinary: Reports no additional female genitourinary complaints Musculoskeletal: Musculoskeletal: Reports no additional musculoskeletal complaints Integumentary/Breasts: Skin/Breast: Reports system reviewed and no additional complaints, except as docu Neurologic: Reports system reviewed and no additional complaints, except as documented Psychiatric: Psychiatric: Reports no additional psychiatric complaints Endocrine: Endocrine: Reports no additional endocrine complaints Hematologic/Lymphatic: Hematologic/Lymphatic: Reports no additional hematologic/lymphatic complaints Allergic/Immunologic: Allergic/Immunologic: Reports no additional allergic/immunologic complaints [facility] Past Medical History Medical History Abnormal involuntary movement Arm paresthesia, right Asthma Bipolar 1 disorder Blood glucose elevated BMI 36.0-36.9,adult Cholecystectomy planned COVID Dental disease Depression Diarrhea Dietary counseling and surveillance (09/30/15) Dry eyes Elevated platelet count Encounter for screening for lipid disorder Essential hypertension Eustachian tube dysfunction Flu-like symptoms Hx of colonic polyp Iron deficiency Irregular menstrual bleeding Joint pain Left knee pain Low aspartate aminotransferase (AST) level Lump of left breast Mass in neck Otitis media Overweight (03/07/17) Screening for thyroid disorder Shortness of breath Swelling of left knee joint Syncope Syncope Vertigo Vertigo Vitamin D deficiency Weight gain Xerostomia Surgical History Surgical History History of cholecystectomy History of endometrial ablation Hx of tonsillectomy Status post open reduction with internal fixation (ORIF) of fracture of ankle Family History Family History Father Family history of diabetes mellitus in [facility]
[2023-12-25 21:22] LABS: D Dimer 0.19 mg/L (0.19-0.50)
[2023-12-25 21:32] LABS: Sodium 136 mmol/L (136-145)
[2023-12-25 21:33] LABS: Alanine Aminotransferase 25 U/L (14-59); Anion Gap 8 mmol/L (4-12); Aspartate Amino Transferase 10 U/L (15-37); Bilirubin,Total 0.2 mg/dL (0.00-1.00); Blood Urea Nitrogen 26 mg/dL (7-18); Calcium 8.7 mg/dL (8.5-10.1); Carbon Dioxide 28 mmol/L (21-32); Chloride 100 mmol/L (98-108); Estimated Glomerular Filt Rate > 60; Glucose 120 mg/dL (70-99); Osmolality Calculated 287 mOsm/kg (285-295); Potassium 4.3 mmol/L (3.5-5.1); Total Protein 7.1 g/dL (6.4-8.2); Troponin I < 4.0 ng/L (0.00-60.4)
[2023-12-25 21:34] LABS: Albumin Level 3.7 g/dL (3.4-5.0); Alkaline Phosphatase 58 U/L (46-116)
== END 2023-12-25 23:04 | disposition home or self-care (01) ==
PROVIDERS: Emergency Provider Family Medicine; PCP Family Medicine
DX: M94.0 Chondrocostal junction syndrome [Tietze] (principal); I10 Essential (primary) hypertension
CPT/HCPCS: 36415; 71045; 80053; 84484; 85025; 85380; 93005; 96372; 99284; J1885

== ENCOUNTER 2023-12-28 16:04 | Outpatient (CLI) | payer OTHER, SELFPAY ==
--- NOTE | ~2023-12-28 | XR_ITS ---
XR elbow LT min 3V 12/28/2023 16:15 INDICATION: Left elbow pain PROCEDURE: 4 views left elbow COMPARISON: No prior studies for comparison. FINDINGS: Fracture, dislocation or subluxation is not identified. The soft tissues appear within norm al limits. No foreign bodies are identified. IMPRESSION: 1: NO ACUTE BONE OR JOINT ABNORMALITY IDENTIFIED. Reviewed, dictated and finalized at location B.
== END 2023-12-28 16:05 | disposition home or self-care (01) ==
LOC: ANHIMG 16:05
PROVIDERS: PCP Family Medicine; Visit Provider Physician Assistant Surgical
DX: M25.522 Pain in left elbow (principal); S69.92XA Unspecified injury of left wrist, hand and finger(s), initial encounter; X58.XXXA Exposure to other specified factors, initial encounter
CPT/HCPCS: 73080

== ENCOUNTER 2024-01-23 15:35 | Outpatient (CLI) | payer OTHER, SELFPAY ==
[2024-01-23 15:59] LABS: Hemoglobin A1C 5.3 % (<5.7)
[2024-01-23 16:32] LABS: Alanine Aminotransferase 29 U/L (14-59); Alkaline Phosphatase 60 U/L (46-116); Anion Gap 10 mmol/L (4-12); Aspartate Amino Transferase 13 U/L (15-37); Bilirubin Direct 0.1 mg/dL (0-0.2); Bilirubin,Total 0.4 mg/dL (0.00-1.00); Blood Urea Nitrogen 13 mg/dL (7-18); Calcium 9.2 mg/dL (8.5-10.1); Carbon Dioxide 28 mmol/L (21-32); Chloride 99 mmol/L (98-108); Estimated Glomerular Filt Rate > 60; Glucose 100 mg/dL (70-99); Osmolality Calculated 284 mOsm/kg (285-295); Potassium 4.3 mmol/L (3.5-5.1); Sodium 137 mmol/L (136-145); Thyroid Stimulating Hormone 1.57 uIU/mL (0.36-3.74); Total Protein 7.5 g/dL (6.4-8.2); Vitamin B12 681 pg/mL (193-986)
[2024-01-25 17:58] LABS: Red Blood Cell Folate 510 ng/mL RBC (>280)
== END 2024-01-23 15:36 | disposition home or self-care (01) ==
LOC: CHSLAB 15:37
PROVIDERS: PCP Family Medicine; Visit Provider Nurse Practitioner Family
DX: R74.8 Abnormal levels of other serum enzymes (principal); R41.3 Other amnesia; R25.9 Unspecified abnormal involuntary movements; H55.00 Unspecified nystagmus; R73.9 Hyperglycemia, unspecified
CPT/HCPCS: 36415; 80048; 80076; 82607; 82747; 83036; 84443

== ENCOUNTER 2024-01-28 15:51 | Emergency (ER) | payer OTHER, SELFPAY ==
[2024-01-28 15:51] VITALS: BP 138/74; PULSE 83; RESP 16; TEMP 36.2; O2SAT 98
--- NOTE | 2024-01-28 16:04 | ED.EYEPROB ---
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 No particular injury. Pain is been on and off all day. She has had difficulty opening her eye. chief complaint: eye pain ( Left) Onset (ago): day(s) (1) Onset description: sudden Duration: constant Location: left eye Eye Symptoms: burning, redness, pain, foreign body sensation and photophobia Place: home Mechanism: none Severity: moderate Severity scale (1-10): 5 If Pain, Quality: sharp Associated symptoms: none Treatments Prior to Arrival: none Related Data Home Medications Medication Instructions Recorded Confirmed hydroxyzine HCl 50 mg tablet 50 mg PO PRN PRN Anxiety 11/09/23 01/28/24 Allergies Allergy/AdvReac Type Severity Reaction Status Date / Time clarithromycin Allergy Mild Hives Verified 01/28/24 15:59 Review of Systems Review of Systems: All systems reviewed & are unremarkable except as noted in HPI and below Constitutional: Constitutional: Reports no additional constitutional complaints Eyes: Eyes: Reports no additional eye complaints ENT: Reports system reviewed and no additional complaints, except as documented Cardiovascular: Cardiovascular: Reports no additional cardiovascular complaints Respiratory: Respiratory: Reports no additional respiratory complaints Gastrointestinal: Gastrointestinal: Reports no additional gastrointestinal complaints Genitourinary: Genitourinary: Reports no additional female genitourinary complaints Musculoskeletal: Musculoskeletal: Reports no additional musculoskeletal complaints Integumentary/Breasts: Skin/Breast: Reports system reviewed and no additional complaints, except as docu Neurologic: Reports system reviewed and no additional complaints, except as documented Psychiatric: Psychiatric: Reports no additional psychiatric complaints Endocrine: Endocrine: Reports no additional endocrine complaints Hematologic/Lymphatic: Hematologic/Lymphatic: Reports no additional hematologic/lymphatic complaints Allergic/Immunologic: Allergic/Immunologic: Reports no additional allergic/immunologic complaints PMFSH Past Medical History Medical History Abnormal involuntary movement Arm paresthesia, right Asthma Bipolar 1 disorder Blood glucose elevated BMI 36.0-36.9,adult Cholecystectomy planned COVID Dental disease Depression Diarrhea Dietary counseling and surveillance (09/30/15) Dry eyes Elevated platelet count Encounter for screening for lipid disorder Essential hypertension Eustachian tube dysfunction Flu-like symptoms Hx of colonic polyp Iron deficiency Irregular menstrual bleeding Joint pain Left knee pain Low aspartate aminotransferase (AST) level Lump of left breast Mass in neck Otitis media Overweight (03/07/17) Screening for thyroid disorder Shortness of breath Swelling of left knee joint Syncope Syncope Vertigo Vertigo Vitamin D deficiency Weight gain Xerostomia Surgical History Surgical History History of cholecystectomy History of endometrial ablation Hx of tonsillectomy Status post open reduction with internal fixation (ORIF) of fracture of ankle Family History Family History Father Family history of diabetes mellitus in first degree relative Acute myocardial infarction Diabetes mellitus Mother No problems noted. Social History Social History Smoking status: Never smoker Second hand tobacco smoke exposure: No Alcohol intake: never Substance use: never Substance u
[2024-01-28] MEDS: TETRACAINE HCL 0.5% OPHTH SOLN 4 ML BTL 1 DROP EACH EYE (16:54)
[2024-01-28] MEDS: FLUORESCEIN SOD 1 MG/STRIP EACH EYE (16:54)
[2024-01-28] MEDS: NEOMYCIN/POLYMYXIN/HYDROCORT 7.5 ML EYE DROPS (*BKC) 2 DROP LEFT EYE (17:17)
[2024-01-28 17:25] VITALS: BP 140/81; PULSE 61; RESP 14; TEMP 36.7; O2SAT 100
== END 2024-01-28 17:25 | disposition home or self-care (01) ==
PROVIDERS: Emergency Provider Emergency Medicine
DX: S05.02XA Injury of conjunctiva and corneal abrasion without foreign body, left eye, initial encounter (principal); I10 Essential (primary) hypertension; Z79.899 Other long term (current) drug therapy; X58.XXXA Exposure to other specified factors, initial encounter
CPT/HCPCS: 99283; A9270

== ENCOUNTER 2024-02-22 14:57 | Outpatient (CLI) | payer OTHER, SELFPAY ==
--- NOTE | ~2024-02-22 | CT_ITS ---
EXAMINATION: CT ankle LT w con DATE: 02/22/2024 15:35 INDICATION: Pain in left ankle and joints of left foot. TECHNIQUE: Computed tomography (CT) of the left ankle was performed without intravenous contrast. Aut omated exposure control and iterative reconstruction technique were employed. The dose-length product was 522.90 mGy-cm. COMPARISON: Left ankle radiographs 01/25/2023 FINDINGS: There are old healed fractures of the distal tibia and fibula. A pin and a lag screw are no mona in medial malleolus. There is a medial plate with screws in distal tibia. There is a plate with s crews in distal fibula including a syndesmotic screw. The syndesmotic screw head is not flush with th e plate and bulges the skin. No periscrew lucency to suggest loosening or infection. There is heterot opic ossification in the area of anterior tibiofibular ligament. There is moderate ankle joint osteoa rthritis. There is moderate subtalar joint osteoarthritis. There is mild osteoarthritis of first tars ometatarsal joint. There are enthesophytes at the posterior and plantar aspects of calcaneal tuberosi ty. IMPRESSION: 1. Polyarticular osteoarthritis. 2. The head of the syndesmotic screw bulges the skin. Reviewed, dictated and finalized at location A.
== END 2024-02-22 14:58 | disposition home or self-care (01) ==
LOC: ANHIMG 14:59
PROVIDERS: PCP Family Medicine; Visit Provider Nurse Practitioner Family
DX: M25.572 Pain in left ankle and joints of left foot (principal); Z87.81 Personal history of (healed) traumatic fracture; M25.473 Effusion, unspecified ankle; M19.072 Primary osteoarthritis, left ankle and foot; R93.6 Abnormal findings on diagnostic imaging of limbs
CPT/HCPCS: 73701; Q9967

== ENCOUNTER 2024-03-03 12:13 | Emergency (ER) | payer OTHER, SELFPAY ==
--- NOTE | ~2024-03-03 | XR_ITS ---
XR abdomen/kub 1V 03/03/2024 12:38 INDICATION: Right upper quadrant pain TECHNIQUE: KUB COMPARISON: Ultrasound dated 06/07/2021 FINDINGS: Bowel gas pattern is normal. There are cholecystectomy clips. There are surgical clips in t he pelvis, possibly from prior tubal ligation. There is no evidence of free air, mass, organomegaly, ascites or obstruction. No abnormal calculi are seen. The bones appear intact. IMPRESSION: 1: No acute abdominal abnormality identified. Reviewed, dictated and finalized at location B.
--- NOTE | 2024-03-03 12:16 | ED.FEMALEGU ---
HPI - Female Genitourinary General Chief complaint: Urogenital-Female Stated complaint: Uti Symptoms Time Seen by Provider: 03/03/24 12:15 Source: patient Mode of arrival: ambulatory Limitations: no limitations History of Present Illness HPI Narrative: Kassandra is a 43-year-old female patient presenting to the clinic today with complaints of possible UTI. She reports she is having difficulty urinating-feels as though she is having difficulty starting her stream. Also is reports nausea with right lower abdomen pain- Pain is constant ache. Rates pain 2-3. Deals with nausea daily. Last BM was today- no diarrhea. See states she is having some vaginal itching as well-denies any discharge or odor. History of cholecystectomy and uterine ablation Related Data Home Medications Medication Instructions Recorded Confirmed hydroxyzine HCl 50 mg tablet 50 mg PO PRN PRN Anxiety 11/09/23 03/03/24 lisdexamfetamine 50 mg capsule 50 mg PO DAILY 03/03/24 03/03/24 (Vyvanse) Allergies Allergy/AdvReac Type Severity Reaction Status Date / Time clarithromycin Allergy Mild Hives Verified 03/03/24 12:17 Review of Systems Review of Systems: Pertinent positives per HPI. Patient denies any fever, chills, rash, headache, visual changes, dizziness, cough, shortness of breath, chest pain, palpitations, vomiting, diarrhea, constipation. [facility] Past Medical History Medical History Abnormal involuntary movement Arm paresthesia, right Asthma Bipolar 1 disorder Blood glucose elevated BMI 36.0-36.9,adult Cholecystectomy planned COVID Dental disease Depression Diarrhea Dietary counseling and surveillance (09/30/15) Dry eyes Elevated platelet count Encounter for screening for lipid disorder Essential hypertension Eustachian tube dysfunction Flu-like symptoms Hx of colonic polyp Iron deficiency Irregular menstrual bleeding Joint pain Left knee pain Low aspartate aminotransferase (AST) level Lump of left breast Mass in neck Otitis media Overweight (03/07/17) Screening for thyroid disorder Shortness of breath Swelling of left knee joint Syncope Syncope Vertigo Vertigo Vitamin D deficiency Weight gain Xerostomia Surgical History Surgical History History of cholecystectomy History of endometrial ablation Hx of tonsillectomy Status post open reduction with internal fixation (ORIF) of fracture of ankle Family History Family History Father Family history of diabetes mellitus in first degree relative Acute myocardial infarction Diabetes mellitus Mother No problems noted. 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 There is no relevant family history pertinent to the patient complaint. Exam Narrative: General: Well-developed, morbidly obese, in no apparent distress Head: Normocephalic, atraumatic. Cardio: Regular rate and rhythm, s
[2024-03-03 12:19] VITALS: BP 124/87; PULSE 97; RESP 16; TEMP 36.4; O2SAT 100
[2024-03-03 12:23] VITALS: BP 124/87; PULSE 97; RESP 16; TEMP 36.4; O2SAT 100
[2024-03-04 14:30] LABS: EDUAAPPEAR Clear; EDUABILI Negative (Negative); EDUABLOOD Negative (Negative); EDUACOLOR1 Yellow; EDUAGLUCOSE Negative (Negative); EDUAKETONE Negative (Negative); EDUALEUKO Negative (Negative); EDUANITRATE Negative (Negative); EDUAPH 6.5; EDUAPROTEIN Negative (Negative); EDUAUROBILI 0.2
== END 2024-03-03 13:05 | disposition home or self-care (01) ==
PROVIDERS: Emergency Provider Nurse Practitioner Family; PCP Family Medicine
DX: N89.8 Other specified noninflammatory disorders of vagina (principal); R10.9 Unspecified abdominal pain; R11.0 Nausea; J45.909 Unspecified asthma, uncomplicated; I10 Essential (primary) hypertension; Z86.16 Personal history of COVID-19
CPT/HCPCS: 74018; 81003; 99213; G0463

== ENCOUNTER 2024-03-08 16:43 | Emergency (ER) | payer OTHER, SELFPAY ==
--- NOTE | ~2024-03-08 | XR_ITS ---
EXAMINATION: XR foot LT min 3V DATE: 03/08/2024 19:07 INDICATION: Left foot injury and pain. TECHNIQUE: 4 views of left foot were obtained. COMPARISON: None. FINDINGS: Alignment is normal. No fracture. There are plates and screws in distal tibia and fibula. T here is mild osteoarthritis of first metatarsophalangeal joint. IMPRESSION: 1. Mild osteoarthritis of first metatarsophalangeal joint. Reviewed, dictated and finalized at location A.
--- NOTE | ~2024-03-08 | XR_ITS ---
EXAMINATION: XR ankle LT min 3V DATE: 03/08/2024 19:07 INDICATION: Left ankle injury and pain. TECHNIQUE: 4 views of left ankle were obtained. COMPARISON: Left ankle radiographs 01/25/2023 FINDINGS: Alignment is normal. No acute fracture. There is internal fixation of distal tibia and fibu la with plates and screws. A screw in distal fibula and tibia has backed out and is just under the sk in laterally. There is mild ankle joint osteoarthritis. IMPRESSION: 1. Mild ankle joint osteoarthritis. 2. Instrumentation of distal tibia and fibula. A screw has backed out laterally and is just under the skin. Reviewed, dictated and finalized at location A.
--- NOTE | ~2024-03-08 | CT_ITS ---
EXAMINATION: CT ankle LT wo con DATE: 03/08/2024 20:08 INDICATION: Left ankle pain. TECHNIQUE: Computed tomography (CT) of the left ankle was performed without intravenous contrast. Aut omated exposure control and iterative reconstruction technique were employed. The dose-length product was 474.18 mGy-cm. COMPARISON: CT 02/22/24 FINDINGS: There are old healed fractures of the distal tibia and fibula. A pin and a lag screw are no mona in medial malleolus. There is a medial plate with screws in distal tibia. There is a plate with s crews in distal fibula including a syndesmotic screw. The syndesmotic screw head is not flush with th e plate and bulges the skin. No periscrew lucency to suggest loosening or infection. There is heterot opic ossification in the area of anterior tibiofibular ligament. There is moderate ankle joint osteoa rthritis. There is moderate subtalar joint osteoarthritis. There are enthesophytes at the posterior a nd plantar aspects of calcaneal tuberosity. IMPRESSION: 1. Polyarticular osteoarthritis. 2. The head of the syndesmotic screw bulges the skin. Reviewed, dictated and finalized at location A.
--- NOTE | ~2024-03-08 | US_ITS ---
EXAMINATION: US venous doppler [facility] DATE: 03/08/2024 20:23 INDICATION: Left upper limb pain and swelling. TECHNIQUE: Grayscale ultrasound images without and with compression and Doppler ultrasound images of the left lower extremity veins were obtained. COMPARISON: None. FINDINGS: The visualized portions of left common femoral vein, profunda (deep) femoral vein, femoral vein, popl iteal vein, peroneal veins, posterior tibial veins, and greater saphenous vein outflow are patent. IMPRESSION: 1. No deep venous thrombosis. Reviewed, dictated and finalized at location A.
[2024-03-08 16:48] VITALS: BP 151/79; PULSE 89; RESP 18; TEMP 36.7; O2SAT 99
--- NOTE | 2024-03-08 19:05 | ED.EXTPRO ---
HPI - Extremity Problem General Chief complaint: Extremity Problem,Nontraumatic <Cha Alvarenga APRN - Last Filed: 03/08/24 19:16> Stated complaint: left ankle pain <Cha Alvarenga APRN - Last Filed: 03/08/24 19:16> Time Seen by Provider: 03/08/24 18:50 <Cha Alvarenga APRN - Last Filed: 03/08/24 19:16> Focused HPI: Patient is a 43-year-old female who presents to the ER with complaints of left foot and ankle pain. She reports she fell in 2019 and broke multiple bones in her left lower extremity. She had to have plates placed in her ankle and has had an infection in that area previously. Patient reports she fell 3-4 months ago, had a repeat x-rays that showed the hardware in her left ankle and foot had shifted. She reports increased pain, redness, and swelling over the couple of days. Patient endorses increased pain even when her bedsheet it touches the area. She denies any shortness of breath, chest pain, or other signs/ symptoms of illness. GENERAL: Well-appearing, well-nourished, and in no acute distress. HEAD: Normocephalic, atraumatic. CHEST: Clear to auscultation. ?No respiratory distress. HEART: Regular rate and rhythm.? NEURO: ?Alert and oriented x3. L ankle and foot are swollen and painful to the touch, no extreme redness noted, but some mild ecchymosis is present. The ankle also has some noticed disfigurement. Increased pain with palpation and manipulation. Patient screened in triage and initial orders placed.? ?Additional care and disposition to be based upon?diagnostic testing and treatment. <Cha Alvarenga APRN - Last Filed: 03/08/24 19:16> History of Present Illness HPI Narrative: Patient is a 41-year-old female who presents emergency department with chief complaint of loosened hardware in her left ankle. Patient reports that she has been followed by her primary care provider has an appointment at [facility] with Orthopedics after she has noticed that 1 of the screws from her ORIF of her left ankle has started protruding to the skin there is no hardware that is exposed the patient denies fever reports that she is concerned that the hardware may be infected. <Richard Gaytan MD - Last Filed: 03/08/24 22:00> Related Data Home medications: Home Medications Medication Instructions Recorded Confirmed hydroxyzine HCl 50 mg tablet 50 mg PO PRN PRN Anxiety 11/09/23 03/03/24 lisdexamfetamine 50 mg capsule 50 mg PO DAILY 03/03/24 03/03/24 (Vyvanse) <Cha Alvarenga APRN - Last Filed: 03/08/24 19:16> Allergies/Adverse reactions: Allergies Allergy/AdvReac Type Severity Reaction Status Date / Time clarithromycin Allergy Mild Hives Verified 03/08/24 16:44 <Cha Alvarenga APRN - Last Filed: 03/08/24 19:16> Review of Systems Review of Systems: A 10 system review of systems was completed on the patient and is negative except for what is stated in the HPI. Nursing and ancillary documentation was reviewed. <Richard Gyatan MD - Last Filed: 03/08/24 22:00> [facility] Past Medical History Medical History: Medical History Abnormal involuntary movement Arm paresthesia, right Asthma Bipolar 1 disorder Blood glucose elevated BMI 36.0-36.9,adult Cholecystectomy planned COVID Dental disease Depression Diarrhea Dietary counseling and surveillance (09/30/15) Dry eyes Elevated platelet count Encounter for screening for lipid disorder Essential hypertension Eustachian tube dysfunction Flu-like symptoms Hx of colonic polyp Iron deficiency Irregular menstrual bleeding Joint pain Left knee pain Low aspartate aminotransferase (AST) level Lump of left breast Mass in neck Otitis media Overweight (03/07/17) Screening for thyroid disorder Shortness of breath Swelling of left knee joint Syncope Syncope Vertigo Vertigo Vitamin D deficiency Weight gain Xerostomi
[2024-03-08] MEDS: HYDROcodone/acetaminophen (*CRX) 5-325 MG TABLET 1 TAB PO (19:31)
[2024-03-08 19:52] LABS: Basophils Percent Auto 0.3 % (0.2-1.2); Eosinophils Absolute Auto 0.3 K/mm3 (0-0.3); Eosinophils Percent Auto 2.3 % (0-4.4); Hematocrit 42.9 % (37.0-47.0); Hemoglobin 14.9 g/dL (12.0-15.0); Immature Granulocyte Absolute 0.03 K/mm3 (0.00-0.031); Immature Granulocyte Percent A 0.3 % (0-0.5); Lymphocytes Absolute Auto 3.06 K/mm3 (0.9-3.2); Lymphocytes Percent Auto 25.7 % (18.3-44.2); Mean Corpuscular HGB Conc 34.7 g/dl (32-36); Mean Corpuscular Hemoglobin 30.2 pg (26-34); Mean Corpuscular Volume 86.8 fl (80-100); Mean Platelet Volume 9.2 fl (7.4-10.4); Monocytes Absolute Auto 0.8 K/mm3 (0.1-0.6); Monocytes Percent Auto 6.3 % (2.6-8.5); Neutrophils Absolute Auto 7.8 K/mm3 (1.3-6.7); Neutrophils Percent Auto 65.1 % (45.5-73.1); Platelet Count Result 418 k/mm3 (150-375); Red Blood Count 4.94 M/mm3 (4.2-5.4); Red Cell Distribution Width 12.6 % (11.5-14.5); White Blood Count 11.9 K/mm3 (4.5-10.0)
[2024-03-08 20:01] LABS: Alanine Aminotransferase 23 U/L (6-35); Alkaline Phosphatase 49 U/L (38-126); Anion Gap 12 mmol/L (4-12); Aspartate Amino Transferase 22 U/L (14-36); Bilirubin,Total 0.4 mg/dL (0.2-1.3); Blood Urea Nitrogen 17 mg/dL (7-17); Calcium 9.3 mg/dL (8.4-10.2); Carbon Dioxide 24 mmol/L (22-30); Chloride 99 mmol/L (98-107); Estimated CRCL calculation 108 ml/min; Estimated Glomerular Filt Rate > 60; Glucose 112 mg/dL (65-110); Lactic Acid Reflex 1.5 mmol/L (0.7-2.0); Potassium 3.8 mmol/L (3.4-5.0); Sodium 135 mmol/L (137-145)
[2024-03-08 20:07] LABS: CRP < 0.5 mg/dL (<1.0)
[2024-03-08 20:48] LABS: Erythrocyte Sedimentation Rate 22 mm/hr (0-20)
[2024-03-08 21:14] VITALS: BP 126/73; PULSE 91; RESP 15; O2SAT 97
[2024-03-08] MEDS: PROCHLORPERAZINE EDISYLATE 10 MG/2 ML VIAL IV PUSH (22:00)
[2024-03-08] MEDS: diphenhydrAMINE HCl INJ 50 MG/ML VIAL 25 MG IV PUSH (22:00)
[2024-03-08 22:24] VITALS: BP 132/76; PULSE 88; RESP 15; O2SAT 98
== END 2024-03-08 22:25 | disposition home or self-care (01) ==
PROVIDERS: Registered Nurse; Emergency Provider Emergency Medicine; PCP Family Medicine
DX: M25.572 Pain in left ankle and joints of left foot (principal); I10 Essential (primary) hypertension; J45.909 Unspecified asthma, uncomplicated; E61.1 Iron deficiency; E55.9 Vitamin D deficiency, unspecified; Z86.0100 Personal history of colon polyps, unspecified; Z86.16 Personal history of COVID-19; Z90.49 Acquired absence of other specified parts of digestive tract; M19.072 Primary osteoarthritis, left ankle and foot
CPT/HCPCS: 36415; 73610; 73630; 73700; 80053; 83605; 85025; 85380; 85652; 86140; 93971; 99284; A9270; J0780; J1200

== ENCOUNTER 2024-03-18 17:50 | Emergency (ER) | payer OTHER, SELFPAY ==
[2024-03-18 17:50] VITALS: BP 150/100; PULSE 98; RESP 18; TEMP 36.3; O2SAT 100
[2024-03-18 17:58] VITALS: BP 150/100; PULSE 98; RESP 18; TEMP 36.3; O2SAT 100
--- NOTE | 2024-03-18 18:11 | ED.EXTPRO ---
HPI - Extremity Problem General Chief complaint: Extremity Problem,Nontraumatic Stated complaint: ANKLE HARDWARE ISSUE Time Seen by Provider: 03/18/24 17:58 Source: patient Mode of arrival: ambulatory Limitations: no limitations History of Present Illness HPI Narrative: 43 years old white female came to the ED complaining of left ankle pain, , CT scan of the left ankle March 08 showed looe screw , patient schedule for surgical intervention at [facility] on the of this month. Patient report earaches this morning. Denies any respiratory symptoms, runny nose or sore throat. This is the 3rd ER visit this month Related Data Allergies Allergy/AdvReac Type Severity Reaction Status Date / Time clarithromycin Allergy Mild Hives Verified 03/18/24 17:57 Review of Systems Review of Systems: All systems reviewed & are unremarkable except as noted in HPI and below PMFSH Past Medical History Medical History Abnormal involuntary movement Arm paresthesia, right Asthma Bipolar 1 disorder Blood glucose elevated BMI 36.0-36.9,adult Cholecystectomy planned COVID Dental disease Depression Diarrhea Dietary counseling and surveillance (09/30/15) Dry eyes Elevated platelet count Encounter for screening for lipid disorder Essential hypertension Eustachian tube dysfunction Flu-like symptoms Hx of colonic polyp Iron deficiency Irregular menstrual bleeding Joint pain Left knee pain Low aspartate aminotransferase (AST) level Lump of left breast Mass in neck Otitis media Overweight (03/07/17) Screening for thyroid disorder Shortness of breath Swelling of left knee joint Syncope Syncope Vertigo Vertigo Vitamin D deficiency Weight gain Xerostomia Surgical History Surgical History History of cholecystectomy History of endometrial ablation Hx of tonsillectomy Status post open reduction with internal fixation (ORIF) of fracture of ankle Family History Family History Father Family history of diabetes mellitus in first degree relative Acute myocardial infarction Diabetes mellitus Mother No problems noted. 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 Musculoskeletal: left ankle exam showed a pointing object under this can laterally, no penetration, no discharge, no surrounding erythema or sign of infection. Neurologic: Alert and oriented ?3, HOME VISITS NURSE is normal as tested, no gross motor deficit Course Vital Signs Vital signs: Vital Signs Temperature 36.3 C L 03/18/24 17:50 Pulse Rate 98 03/18/24 17:50 Respiratory Rate 18 03/18/24 17:50 Blood Pressure 150/100 H 03/18/24 17:50 Pulse Oximetry 100 03/18/24 17:50 Oxygen Delivery Room Air 03/18/24 17:50 Temperature 36.3 C L 03/18/24 17:58 Pulse Rate 98 03/18/24 17:58 Respiratory Rate 18 03/18/24 17:58 Blood Pressure 150/100 H 03/18/24 17:58 Pulse Oximetry 100 03/18/24 17:58 Oxygen Delivery Room Air 03/18/24 17:58 MDM - Extremity (Nontraumatic) MDM Narrative Medical decision making narrative: Patient still walking on her left foot since the beginning of the ankle pain for the last few weeks. There is no need for labs or another imaging at this time, physical examination showed in bending skin penetration of the screw. Patient was advised to avoid completely putting weight on the left foot and contact her orthopedic for possible early appointment. Differential Diagnosis Differential diagnosis: Likely other ( As above) Critical Care Time Critical Care Time Critical Care Time: No Discharge Plan Discharge Clinical Impression: Otalgia, Status post ORIF of fracture of ankle Patient Disposition: Home, Self-Care Condition: Stable Instructions: ORIF of an Ankle Fracture (DC) Additional Instructions: Return if symptoms are worsening , call your family physician for appointment, take Tylenol as as needed for aches and pain, continue home medications. Do not put weight on the left foot, Ibuprofen 600 every 6 hours as needed Call your orthopedic for early appointment Prescriptions: No Action meloxicam 15 mg tablet 15 mg PO DAILY Qty: 30 3RF Rx Instructions: 15 mg orally daily; omeprazole 20 mg capsule,delayed release(DR/EC) 20 mg PO DAILY Qty: 90 0RF lisinopril 20 mg tablet 20 mg PO DAILY Qty: 30 2RF Follow-up/Referrals: Marlon Saucedo MD [Primary Care Provider] -
== END 2024-03-18 18:50 | disposition home or self-care (01) ==
PROVIDERS: Emergency Provider Emergency Medicine; PCP Family Medicine
DX: H92.09 Otalgia, unspecified ear (principal); S82.892D Other fracture of left lower leg, subsequent encounter for closed fracture with routine healing; X58.XXXD Exposure to other specified factors, subsequent encounter
CPT/HCPCS: 99282

== ENCOUNTER 2024-03-20 14:06 | Outpatient (CLI) | payer OTHER, SELFPAY ==
[2024-03-20 15:19] LABS: Cholesterol 189 mg/dL (0-200); HDL Direct 43 mg/dL (40-60); LDL Cholesterol Calculated 92 mg/dL (<130); Thyroid Stimulating Hormone 1.62 uIU/mL (0.36-3.74); Triglycerides 271 mg/dL (0-150)
[2024-03-22 05:28] LABS: Vitamin D 25 Hydroxy 28 ng/mL (30-100)
== END 2024-03-20 14:07 | disposition home or self-care (01) ==
LOC: CHSLAB 14:07
PROVIDERS: PCP Family Medicine; Visit Provider Nurse Practitioner Family
DX: R10.9 Unspecified abdominal pain (principal); Z13.220 Encounter for screening for lipoid disorders
CPT/HCPCS: 36415; 80061; 82306; 84443

== ENCOUNTER 2024-03-21 13:53 | Outpatient (CLI) | payer OTHER, SELFPAY ==
[2024-03-21 14:04] LABS: Basophils Percent Auto 0.5 % (0.2-1.2); Eosinophils Absolute Auto 0.3 K/mm3 (0-0.3); Eosinophils Percent Auto 4.1 % (0-4.4); Hematocrit 41.2 % (37.0-47.0); Hemoglobin 13.7 g/dL (12.0-15.0); Immature Granulocyte Absolute 0.02 K/mm3 (0.00-0.031); Immature Granulocyte Percent A 0.2 % (0-0.5); Lymphocytes Absolute Auto 2.47 K/mm3 (0.9-3.2); Lymphocytes Percent Auto 29.7 % (18.3-44.2); Mean Corpuscular HGB Conc 33.3 g/dl (32-36); Mean Corpuscular Hemoglobin 29.5 pg (26-34); Mean Corpuscular Volume 88.8 fl (80-100); Mean Platelet Volume 8.6 fl (7.4-10.4); Monocytes Absolute Auto 0.5 K/mm3 (0.1-0.6); Monocytes Percent Auto 5.9 % (2.6-8.5); Neutrophils Percent Auto 59.6 % (45.5-73.1); Platelet Count Result 436 k/mm3 (150-375); Red Blood Count 4.64 M/mm3 (4.2-5.4); Red Cell Distribution Width 12.4 % (11.5-14.5); White Blood Count 8.3 K/mm3 (4.5-10.0)
[2024-03-21 14:09] LABS: Blood Urea Nitrogen 18 mg/dL (8-26); Carbon Dioxide 26 mmol/L (22-30); Chloride 102 mmol/L (98-109); Estimated Glomerular Filt Rate > 60; Glucose 160 mg/dL (70-105); Ionized Calcium (POC) 1.17 mmol/L (1.11-1.31); Potassium 4.5 mmol/L (3.5-4.9); Sodium 138 mmol/L (138-146)
== END 2024-03-21 13:54 | disposition home or self-care (01) ==
LOC: ANHLAB 13:54
PROVIDERS: PCP Family Medicine; Visit Provider Internal Medicine Hematology & Oncology
DX: D72.829 Elevated white blood cell count, unspecified (principal)
CPT/HCPCS: 36415; 80047; 85025

== ENCOUNTER 2024-05-21 16:00 | Emergency (ER) | payer MEDICAID, SELFPAY ==
[2024-05-21 16:47] VITALS: BP 113/70; PULSE 97; RESP 16; TEMP 36.6; O2SAT 100
--- NOTE | 2024-05-21 17:49 | ED.URI ---
HPI - URI/Sore Throat General Chief Complaint: Upper Respiratory Infection Stated Complaint: SORE THROAT/SINUS CONGESTION/EARS Time Seen by Provider: 05/21/24 17:45 Source: patient, RN notes reviewed and old records reviewed Mode of arrival: ambulatory Limitations: no limitations History of Present Illness HPI Narrative: 43 year old female accompanied by son presents to express care with complaints of sinus congestion, sore throat and ear pain. Patient reports that she had surgery 2 weeks ago and she has had sore throat since she was intubated . Patient feels like her throat was scraped, voice raspy sinus drainage with some chills and sweats. Patient reports that she has also some bilateral ear pressure MD elicited complaint: sore throat, rhinorrhea, nasal congestion and other (ear pressure) Onset (ago): week(s) (2 weeks sore throat, 1 week sinus drainage and ear pressure) Pain scale (0-10): 4 Able to tolerate fluids by mouth: Yes Treatments prior to arrival: acetaminophen and cold medicine Related Data Home Medications ?Medication ?Instructions ?Recorded ?Confirmed ?Last Taken ?Type cyclobenzaprine 10 mg tablet mg 05/21/24 Unknown History famotidine 20 mg tablet mg 05/21/24 Unknown History naproxen 500 mg tablet mg 05/21/24 Unknown History Allergies Allergy/AdvReac Type Severity Reaction Status Date / Time clarithromycin Allergy Mild Hives Verified 04/11/24 13:38 Review of Systems Review of Systems: CONSTITUTIONAL: Reports malaise, chills, sweats, has felt feverish. EYES: Denies visual changes, redness, or discharge. ENT: Reports rhinorrhea, congestion, sinus pain,bilateral otalgia and sore throat. CARDIOVASCULAR: Denies chest pain, palpitations, or edema. RESPIRATORY: Reports no acute cough.? Denies dyspnea. GASTROINTESTINAL: Denies abdominal pain, nausea, vomiting, diarrhea SKIN: Denies rash or itching. MUSCULOSKELETAL: Denies myalgia. NEUROLOGIC: Denies headache. All systems reviewed & are unremarkable except as noted in HPI and below [facility] Past Medical History Medical History (Updated 05/22/24 @ 20:27 by Christen Fountain NP) Blood glucose elevated Low aspartate aminotransferase (AST) level Syncope Syncope Vertigo Weight gain Overweight (03/07/17) Irregular menstrual bleeding Dietary counseling and surveillance (09/30/15) Arm paresthesia, right Abnormal involuntary movement COVID Shortness of breath Xerostomia Dental disease Dry eyes Flu-like symptoms Mass in neck Elevated platelet count Swelling of left knee joint Left knee pain Lump of left breast BMI 36.0-36.9,adult Iron deficiency Essential hypertension Bipolar 1 disorder Vitamin D deficiency Diarrhea Hx of colonic polyp Encounter for screening for lipid disorder Screening for thyroid disorder Joint pain Cholecystectomy planned Eustachian tube dysfunction Otitis media Vertigo Depression Asthma Surgical History Surgical History (Updated 05/22/24 @ 20:22 by Christen Fountain NP) S/P hardware removal 05/2024 History of cholecystectomy History of endometrial ablation Hx of tonsillectomy Status post open reduction with internal fixation (ORIF) of fracture of ankle Family History Family History Father Family history of diabetes mellitus in first degree relative Acute myocardial infarction Diabetes mellitus Mother No problems noted. 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 There is no relevant family history pertinent to the presenting complaint Exam Narrative: GENERAL: Well-appearing, well-nourished, and in no acute distress. HEAD: Normocephalic EYES: PERRLA, conjunctivae clear ENT: Nares clear, turbinates edematous and erythematous, clear discharge. Mucous membranes moist. TM pearly bonilla with dull light reflex bilaterally; no tragal tenderness. Oropharynx erythematous without lesions. Tonsils not present and throat without exudate, no drooling, no hoarseness, no trismus, uvula midline.post nasal drainage present NECK: Supple. No lymphadenopathy CHEST: Clear to auscultation, breath sounds equal. No wheezing, rhonchi, rales, or stridor. No respiratory distress, speaks in full sentences.SAO2 100% on room air HEART: Regular rate and rhythm. No murmur heard. SKIN: Warm, dry, no rash. NEURO: Alert and oriented x3. PSYCH: Normal mood and affect Course Course Emergency Course: Patient is aware of diagnosis, understands and agrees to treatment plan.? Anticipatory guidance given.? Patient agrees to follow-up as directed and is aware of reasons to seek care at the emergency department. Portions of this record may have been created with voice recognition software Level of Care: Express Care Visit Vital Signs Vital signs: Vital Signs Temperature 36.6 C 05/21/24 16:47 Pulse Rate 97 05/21/24 16:47 Respiratory Rate 16 05/21/24 16:47 Blood Pressure 113/70 05/21/24 16:47 Pulse Oximetry 100 05/21/24 16:47 Temperature 36.6 C 05/21/24 16:47 Pulse Rate 97 05/21/24 16:47 Respiratory Rate 16 05/21/24 16:47 Blood Pressure 113/70 05/21/24 16:47 Pulse Oximetry 100 05/21/24 16:47 Reviewed MDM - URI/Sore Throat MDM Narrative Medical decision making narrative: Differential diagnosis considered: Mena virus, strep pharyngitis, allergic rhinitis, upper respiratory tract infection, sinusitis, rhinosinusitis, nasopharyngitis. viral pharyngitis, otitis media, otitis externa, pneumonia, bronchitis, viral cough syndrome, viral syndrome, and influenza.? Exam findings show no acute concerns or changes; patient is non-toxic appearing and is in no distress.? Patient is appropriate for outpatient treatment and follow-up. Differential Diagnosis Differential diagnosis: Likely upper respiratory infection, otitis media, viral infection and pharyngitis Medical Records Attestation: I reviewed the patient's medical records. Lab Data Attestation: I reviewed the patient's lab results. Critical Care Time Critical Care Time Critical Care Time: No Discharge Plan Discharge Clinical Impression: URI, acute Pharyngitis Qualifiers: Pharyngitis/tonsillitis etiology: unspecified etiology Qualified Code(s): J02.9 - Acute pharyngitis, unspecified Patient Disposition: Home, Self-Care Condition: Stable Instructions: Antibiotic Form, Upper Respiratory Infection (ED) Additional Instructions: Increase fluids especially juices and water [id number]-[id number] cough and cold medicine of your choice for your symptoms Tylenol or ibuprofen for any fever pain Claritin, Zyrtec or Lola daily include Coricidin decongestant heat to the face 20-30 minutes 4-6 times a day for pain Salt water gargles, throat lozenges or throat sprays as desired Antibiotic as directed--finished the medication Peridex mouthwash use as prescribed If your symptoms persist, change or worsen significantly before you can contact your personal physician then please, without delay, go to the emergency department for further evaluation. Follow-up with PCP in 7-10 days or sooner if needed Patient Language: Citizen Of [place] Prescriptions: New amoxicillin 500 mg capsule 500 mg PO Q8H 7 Days Qty: 21 0RF chlorhexidine gluconate [Peridex] 0.12 % mouthwash 15 ml mucous membrane BID Qty: 473 0RF No Action cyclobenzaprine 10 mg tablet famotidine 20 mg tablet naproxen 500 mg tablet meloxicam 15 mg tablet 15 mg PO DAILY Qty: 30 3RF Rx Instructions: 15 mg orally daily; omeprazole 20 mg capsule,delayed release(DR/EC) 20 mg PO DAILY Qty: 90 0RF lisinopril 20 mg tablet 20 mg PO DAILY Qty: 30 2RF Follow-up/Referrals: Marlon Saucedo MD [Primary Care Provider] - Time of Disposition: 18:01 Quality Paulie Coma Scale Eyes: Open Verbal: Oriented and Alert Motor: Follows Commands Paulie Coma Total Score: 15
== END 2024-05-21 18:05 | disposition home or self-care (01) ==
PROVIDERS: Emergency Provider Registered Nurse; PCP Family Medicine
DX: J06.9 Acute upper respiratory infection, unspecified (principal); J02.9 Acute pharyngitis, unspecified; I10 Essential (primary) hypertension; J45.909 Unspecified asthma, uncomplicated
CPT/HCPCS: 99213; G0463

== ENCOUNTER 2024-06-03 19:02 | Emergency (ER) | payer MEDICAID, SELFPAY ==
[2024-06-03 19:13] VITALS: BP 143/90; PULSE 104; RESP 15; TEMP 36.4; O2SAT 98
--- NOTE | 2024-06-04 05:37 | PC.NURSE ---
called for vitals, no answer
--- OUTSIDE RECORDS SUMMARY | 2024-06-11 03:33 | XMS_ITS | Data Portability ---
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 mirtazapi ne 10/31 completed Mirtazap ine Allow Substitu tion: True Refill Denied: No Refill DateOccu rred: 04/15/20 16 Not Available Not Available Not Available Miralax 10/31 completed Miralax RxNorm: 995752 Allow Substitu tion: True Refill Denied: No Refill DateOccu rred: 09/24/19 15 Not Available Not Available Not Available Lexapro 04/15 completed Lexapro 10mg Tablet RxNorm: 173332 Allow Substitu tion: True Refill Denied: No Refill DateOccu rred: 07/03/19 15 Not Available Not Available Not Available Vyvanse 30 mg capsule 02/13 completed Not Available Not Available Not Available Vyvanse 50 mg capsule active Not Available Not Available Not Available Vyvanse 40 mg capsule 02/13 completed Not Available Not Available Not Available Latuda 40 mg tablet 02/13 completed Not Available Not Available Not Available lurasidon e 60 mg tablet active Not Available Not Available Not Available Vraylar 1.5 mg capsule 08/27 completed Not Available Not Available Not Available Vraylar 3 mg capsule 02/13 completed Not Available Not Available Not Available Tab-A-Vit e 400 mcg tablet 02/13 completed Not Available Not Available Not Available Vitals Date Recorded Body height Body mass index (BMI) Body weight Body temperature Systolic blood pressure Diastolic blood pressure Provider Name and Address Organization Details Last Updated DateTime 1 165.1 cm 47.6 kg/m2 066414. 14 g 96.8 [degF] 128 mm[Hg] 76 mm[Hg] Emilia Johnlister [facility] 1 13:08:18 Date Recorded Body height Body mass index (BMI) Body weight Body temperature Systolic blood pressure Diastolic blood pressure Provider Name and Address Organization Details Last Updated DateTime 2 165.1 cm 46.7 kg/m2 960067. 02 g 97.7 [degF] 122 mm[Hg] 72 mm[Hg] Karen Sauceda [employer] [facility] IV 2 11:47:12 Date Recorded Body height Provider Name an d Address Organization Details Last Updated DateTime 02/13/2023 165.1 cm Ruthie Hernandez [employer] [facility] IV 02/13/2023 15:51:37 Date Recorded Body mass index (BMI) Body weight Systolic blood pressure Diastolic blood pressure Provider Name and Address Organization Details Last Updated DateTime 02/13/2023 41.2 kg/m2 122453.11 g 130 mm[Hg] 60 mm[Hg] Flory Cool [facility] IV 02/13/2023 15:57:36 Date Recorded Body height Body mass index (BMI) Body weight Body temperature Systolic blood pressure Diastolic blood pressure Provider Name and Address Organization Details Last Updated DateTime 3 165.1 cm 40 kg/m2 246983. 61 g 97.4 [degF] 130 mm[Hg] 78 mm[Hg] Tanya Linangie [facility] [employer] IV 3 16:22:20 Social History Question Answer Notes LastModified by Organizat ion Details LastModified Time Tobacco Smoking Status Never Smoker Emilia Vik miller, [facility] IV 06/02/2021 13:10:45 What Is Your Level Of Alcohol Consumption? None [email or web address] Information not available 06/02/2021 Are You Blind Or Do You Have Difficulty Seeing? No Information not available 08/27/2021 Are You Deaf Or Do You Have Serious Difficulty Hearing? No Information not available 08/27/2021 What Type Of Diet Are You Following? REGULAR Information not available 08/27/2021 How Many Children Do You Have? 3 Information not available 06/01/2021 What Is Your Relationship Status? Information not available 06/01/2021 Are You Sexually Active? Yes Information not available 06/01/2021 Do You Use Any Illicit Or Recreational Drugs? No Information not available 08/27/2021 Do You Or Have You Ever Used Any Other Forms Of Tobacco Or Nicotine? No [email or web address] Information not available 03/14/2023 Sex: Female Functional Status Question Answer Note LastModified by Organization D etails LastModified Time What is your exercise level? None Information not available 08/27/2021 Mental Status None recorded. Family History Relationship Description Onset Age of this Age Resolved Age Notes LastModified by Organization Details LastModified Time Maternal Grandmother Hypertensive disorder Not available 06/01 10:49:13 Father Type 2 diabetes mellitus Not available 06/01 10:49:26 Medical History Condition Response Anxiety Disorder Y Bipolar Disorder Y Fibroids Y Neurological Disorder Y Gynecological History Statement/Question Response Date of last HPV 02/13/2023 Date of LMP HPV Vaccine N Date of Last Pap Smear 02/13/2023 Most Recent Mammogram Current Control Method Tubal Ligat ion Age at Menarche 13 Obstetrics History GPAL:G 4 P 3 0 1 3 Type Value Full Term 3 Spontaneous 1 Living 3 Total 4 Past Encounters Encounter ID Performer Location Encounter Start Date Encounter Closed Date Diagnosis/Indication Diagnosis SNOMED-CT Code Diagnosis ICD10 Code Diagnosis Note [id number] GARRY Heredia [facility] [address] [place] [address] 06/02/2021 12:42:35 06/15/2021 13:20:10 Acute pelvic pain 250710880 R10.2 4.8 cm left ovarian cyst; repeat U/S in 4-6 weeks Cyst of ovary 12720418 N 83.209 Uses oral contraception 3005191 Z30.41 [id number] Cecil Li SHADE [facility] [address] [place] [address] 08/27/2021 11:33:02 08/27/2021 13:22:59 Constipation 51524103 K59.00 Cyst of ovary 81905540 N 83.209 Left ovarian cyst resolved. 2.6 cm right cyst today. Advised to rto if pain and if severe, go to ER. Follow up in 6 weeks for repeat U/S. [id number] GARRY OLIVARES[facility] [id number] [place] [address] 02/13/2023 15:49:08 02/13/2023 17:22:29 Gynecologic examination 65812202 Z01.419 Screening for malignant neoplasm of cervix 228040731 Z12.4 Screening mammography of bilateral breasts 1083967835 42193 Z12.31 Pt educated on breast cancer screening guidelines , and discussed recommenda tion for scheduling imaging at hospital of her choice. Reviewed recommenda tion to have imaging done at same facility if possible as previous screenings . Pt states understand ing of POC. Contracept ion education 060649974 Z30.09 Contracept jam counseling : Discussed options including OCPs, NuvaRing, Nexplanon, hormonal and copper IUDs. Discussed risks, efficacy, non contracept jam benefits, and side effects of each option, including risk of VTE with hormonal contracept ion and uterine perforatio n, expulsion, infection with IUD. Depression screening 171 784998 Z13.31 Pain of breast 17646639 N64.4 Pt comes in today for Breast Tenderness /Pain.Pt educated on breast cancer screening guidelines and discussed normal CBE in office.Dis cussed physiology of transient aching breasts including diet, stress, hormonal changes. Pt encouraged to increase water intake. Pt encouraged to decrease caffeine, chocolate, and nut intake in diet. Discussed change in bra type.Pt may use OTC Oral NSAID and/or topical anti-infla mmatory. Discussed complement sheryl therapy of Evening [place] oil- up to 3,000 mg daily for 2 weeks and beyond if it helps.Catherine ent declines mammo/US at present. Discussed plan to re-eval sx after diet modificati on. If persistent would recommend breast imaging. Will RTC if recurring symptoms, worsening symptoms, or palpable abnormalit y. Pain in pelvis 42272121 R10.2 [id number] STEPHEN GUTHRIE [facility] [address] [place] [address] 03/14/2023 15:30:56 03/15/2023 09:47:55 Pain in pelvis 12044577 R10.2 TVUS today showed [facility] WNL, hx of ablation. Bilateral ovary WNL. No fluid or masses seen in CDS or adnexa. Small fibroid noted. Health Concerns Section Related Observation LastModified by Organization Detai ls LastModified Time None Recorded Concern Status LastModified by Organization Details LastModified Time None Recorded Advance Directives Directive None Recorded Payers Encounter Date Sequence Insurance Name Policy Number Policy Aldana Covered Member ID Aldana Member ID Guarantor Name 06/02/2021 1 [facility] ON OR AFTER 12/03/20 (MEDICAID REPLACEMENT - HMO) Kassandra Odonnell [id number] Kassandra Odonnell 08/27/2021 1 [facility] ON OR AFTER 12/03/20 (MEDICAID REPLACEMENT - HMO) Kassandra Acuñavey [id number] Kassandra Acuñavey 02/13/2023 1 [facility] - DOS ON OR AFTER 20 (MEDICAID REPLACEMENT - HMO) Kassandra Acuñavey [id number] Kassandra Acuñavey 03/14/2023 1 [facility] - DOS ON OR AFTER 20 (MEDICAID REPLACEMENT - HMO) Kassandra Odonnell [id number] Kassandra Odonnell Notes Date Note Type Note Provider Name and Address Organization Details Recorded Time 06/02/2021 text/html Pelvic PainRepor mona bypatient.Location: left Onset/Timin-2 weeks Quality:aching Severity:moderate Context:history of ovarian cysts; no periods after endometrial ablation Alleviating Factors:none Aggravating Factors:none Associated Symptoms:no back pain; no chills; no vaginal discharge; no fever;constipation 40 y.o. presents for a follow up visit from the ER on 05/30/21. She was told that she has a 5 cm ovarian cyst. No records from ER received. Reports h/o recurring cysts. GARRY Heredia [address] [place], [address], [facility] IV 06/02/2021 15:27:45 08/27/2021 text/html Kassandra is here to follow up on ovarian cyst- 4.8 cm left ovary; she stopped the OCPs started last visit because of mood issues.reports occasional crampsc/o constipation GARRY Heredia [address] [place], [address], [facility] IV 08/31/2021 17:43:56 02/13/2023 text/html Annual GYNReport ed bypatient.Breast:Br east pain Current Contraception:Tubal ligation Preventive measures:Encourage self breast examination Patient is an established patient who presents for a gynecological Annual Exam. The patient denies any changes in her medical history. The patient denies any changes in her family medical history. GARRY OLIVARES- [address] [place], [address], [facility] IV 03/14/2023 16:27:33 03/14/2023 text/html Patient is an established patient who presents for follow on pelvic pain The patient denies any changes in her medical history. The patient denies any changes in her family medical history.States she has history of fibroids and cystsno cycles due to ablation GARRY OLIVARES- [address] [facility], [place], [address], [facility] IV 03/14/2023 16:36:13 OBGyn Episode No OBEpisode recorded.
--- OUTSIDE RECORDS SUMMARY | 2024-06-11 03:33 | XMS_ITS ---
Author Organization Replaced by [facility] Address [address] [place] [address] Care Team Providers Care Medication Assistant Name Role Phone Marcella Hutson Primary Care Provider [phone] Juliann Nixon [phone] REASON FOR VISIT refills Medications Medication SIG (Take, Route, Fr equency, Duration) Notes Start Date End Date Status Zoloft 50 MG 1 tablet Orally Once a day for 5 days 01/24/2024 Active hydrOXYzine HCl 50 MG 1 tablet as needed Orally twice a day for 5 days As needed Active Vyvanse 50 MG 1 capsule in the mor elis Orally Once a day for 5 days 03/25/2024 Act jam Social History Sex Assigned At : Social History Observation Description Sex Assigned At Female Encounters Encounter Location Date Provider Diagnosis [address] [address] 03/25/2024 Juliann Nixon Bipolar 2 disorder F31.81 Assessments Encounter Date Diagnosis (ICD Code) Assessment Notes Treatment Notes Treatment Clinical Notes Section Notes 03/25/2024 Bipolar 2 disorder (ICD-10 - F31.81) Plan Of Treatment Medication Medication Name Sig Start Date Stop Date Notes Zoloft 50 MG 1 tablet Orally Once a day for 5 days 01/24/2024 hydrOXYzine HCl 50 MG 1 tablet as needed Orally twice a day for 5 days Vyvanse 50 MG 1 capsule in the mor elis Orally Once a day for 5 days 03/25/2024 Progress Notes * Avinash ODONNELL:1980 (43 yo F)Acc No.[id number]:03/25/2024 Patient:?Kassandra ODONNELL :1980???Age:43 Y???Sex:Female Address:[address] [place] [address] , [place], [address] * Refills? Refill Vyvanse Capsule, 50 MG, Orally, 5 Capsule, 1 capsule in the morning, Once a day, 5 days, Refills=0 Refill hydrOXYzine HCl Tablet, 50 MG, Orally, 10 Tablet, 1 tablet as needed, twice a day, 5 days, Refills=0 Refill Zoloft Tablet, 50 MG, Orally, 5 Tablet, 1 tablet, Once a day, 5 days, Refills=0 * true * Date:? 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
--- OUTSIDE RECORDS SUMMARY | 2024-06-11 03:33 | XMS_ITS ---
Author Organization [facility] Address [address] [place] [address] Care Team Providers Care Rn L And D Name Role Phone Marcella Hutson Primary Care Provider Allergies Allergen (clinical drug ingredient) Drug/Non Drug Allergy documented on EMR Reaction Allergy Type Onset Date Status Biaxin Hives Drug Allergy Active REASON FOR VISIT 4 week F/U Medications Medication SIG (Take, Route, Fr equency, Duration) Notes Start Date End Date Status Meloxicam 7.5 MG 1 tablet Orally Once a day Active Vyvanse 50 MG 1 capsule Orally onc e a day for 30 days 05/03/2024 Active hydrOXYzine HCl 50 MG 1 tablet as needed Orally twice a day for 30 days As needed Active PROzac 20 MG 1 capsule Orally Onc e a day for 30 days 03/29/2024 Active Multivitamin - 1 tablet Orally Once a day for 30 days Active Vyvanse 50 MG 1 capsule in the mor elis Orally Once a day for 30 days 06/28/2024 Ac tive Vyvanse 50 MG 1 capsule in the mor elis Orally Once a day for 30 days 05/31/2024 Ac tive Lisinopril 20 MG 1 tablet Orally Once a day Active Social History Tobacco Use: Social History Observation Description Date Details (start date - stop date) Never Smoker NA - NA Sex Assigned At : Social History Observation Description Sex Assigned At Female Dont use, Tobacco Use/Smoking Question Answer Notes Are you a nonsmoker Tobacco Control (Standard) Question Answer Notes Tobacco use: Nonsmoker Encounters Encounter Location Date Provider Diagnosis [address] [place] [address] 05/03/2024 Marcella Hutson Bipolar 2 disorder F31.81 and Binge eating disorder F50.81 Assessments Encounter Date Diagnosis (ICD Code) Assessment Notes Treatment Notes Treatment Clinical Notes Section Notes 05/03/2024 Bipolar 2 disorder (ICD-10 - F31.81) 05/03/2024 Binge eating disorder (ICD-10 - F50.81) 05/03/2024 Other Continue curren t medications. Reviewed Prescription Monitoring program. Continue services as scheduled. Labs completed recently. May self-administer medications or be administered own oral medications per [facility] protocols. Provided informed consent with understanding of side effects, adverse effects, risks and benefits as well as alternative treatments as previously discussed and with the above recommended medications & other aspects of the treatment program. Agrees to return sooner if symptoms worsen or suicidal or homicidal ideations occur. Plan Of Treatment Medication Medication Name Sig Start Date Stop Date Notes Vyvanse 50 MG 1 capsule Orally onc e a day for 30 days 05/03/2024 hydrOXYzine HCl 50 MG 1 tablet as needed Orally twice a day for 30 days PROzac 20 MG 1 capsule Orally Onc e a day for 30 days 03/29/2024 Multivitamin - 1 tablet Orally Once a day for 30 days Vyvanse 50 MG 1 capsule in the mor elis Orally Once a day for 30 days 06/28/2024 Vyvanse 50 MG 1 capsule in the mor elis Orally Once a day for 30 days 05/31/2024 Treatment Notes Assessment Notes Other Continue current med ications. Reviewed Prescription Monitoring program. Continue services as scheduled. Labs completed recently. May self-administer medications or be administered own oral medications per [facility] protocols. Provided informed consent with understanding of side effects, adverse effects, risks and benefits as well as alternative treatments as previously discussed and with the above recommended medications & other aspects of the treatment program. Agrees to return sooner if symptoms worsen or suicidal or homicidal ideations occur. Next Appt Details Follow Up: 3 Months, Reason: Medication management - can be telehealth appt. Progress Notes * Grace ODONNELLOB:1980 (43 yo F)Acc No.[id number]:05/03/2024 Patient:?Kassandra ODONNELL Provider:?Marcella Hutson DNP, PMHNP-BC , PHONE BANKER :1980???Age:43 Y???Sex:Female D ate:05/03/2024 Address:[address] , [id number] Subjective: * Chief Complaints: * ???4 week F/U * HPI: ???Screening:?[place] Suicide Severity Rating Scale (LF)?Do you want to initiate with?Screener form ?Interpretation:?Low Risk ?6. Suicide Behaviour: Have you ever done anything,started to do anything, or prepared to end your life??No ?2. Suicidal Thoughts: Have you actually had any thoughts of killing yourself??No ?1. Wish to be : Have you wished you were or wished you could go to sleep and not wake up??No ???Psych F/U:?Patient presents for psychiatric follow-up visit. ?Changes since last visit?:?Moods have been improved on fluoxetine. Appetite is increased.?.?Coping skills??Has family support.?.?Effectiveness of medications:?, Yes, patient reports they are effective.?Medication Adherence:?, Reports taking medications as prescribed.?Side effects to medications?:?, Admits side effects to medications (specify): increased appetite.?Sleep:?, Appropriate sleep.?Appetite?, Increased appetite or overeating.?Depression (10 = most depressed)?Improved.?Anxiety (10 = most anxious)?minimal.?Anger/Irritability (10 is highest):?Improved.?Suicidal ideation:?Denies suicidal ideation..?Homicidal ideation:?Denies homicidal ideation..?Hallucinations?Denies hallucinations.?Medical concerns or hospitalizations??Following up with PCP and looking for a new neurologist for movement disorder. Following up in relation to ankle injury. Had surgery on ankle.?.?Therapy??None.?Goals:?Maintaining. Healing leg.?.?Are you satisfied with the medication??, Yes.?Abnormal Involuntary Movement Scale:?Has movement disorder. Has a neurologist appointment. ?Denies : Facial and Oral Movements?Muscles of Facial Expression?0- None ?Lips and Perioral Area?0- None ?Jaw?0- None ?Tongue?0- None ?Denies : Extremity Movements?Upper (arms, wrists, hands, fingers)?0- None ?Lower (legs, knees, ankles, toes)?0- None ?Denies : Trunk Movements?Neck, Shoulders and hips?0- None ?Denies : Global Judgement?Severity of abnormal movements overall?0- None ?Incapacitation due to abnormal movements?0- None ?Patient's awareness of abnormal movements?0- No Awareness ?Denies : Dental Status?Current problems with teeth and/or dentures?No ?Are dentures usually worn??No ?Endentia?No ?Do movements disappear with sleep??No ?Denies : Subjective Experience .?CSSRS Interpretation and Follow Up Plan:?CSSRS Interpretation and Follow Up Plan. ?CSSRS Interpretation and Follow Up Plan?Moderate or High risk requires selection of a follow up plan?CSSRS No/Low: intervention not needed at this time ???Depression Screening:?PHQ-9?Little interest or pleasure in doing things?Several days ?Feeling down, depressed, or hopeless?Not at all ?Trouble falling or staying asleep, or sleeping too much?Not at all ?Feeling tired or having little energy?Not at all ?Poor appetite or overeating?More than half the days ?Feeling bad about yourself or that you are a failure, or have let yourself or your family down?Not at all ?Trouble concentrating on things, such as reading the newspaper or watching television?Not at all ?Moving or speaking so slowly that other people could have noticed; or the opposite, being so fidgety or restless that you have been moving around a lot more than usual?Not at all ?Thoughts that you would be better off or of hurting yourself in some way?Not at all ?Total Score?3 ?Interpretation?Minimal Depression ?Intervention?Depression Screening Findings?Negative ?Follow-Up for Depression?No Referral necessary, patient involved in behavioral health treatment, Prescribed psychotropic medications * ROS:?Psych ROS:?Constitutional?Denies.?Eyes?Denies.?Ears/Nose/Mouth/Throat?Denies.?Respirat ory?Denies.?Allergic /Immunologic?Denies.?Cardiovascular?Denies.?GI?Denies.??Denies.?Musculoskeleta l?Reports,?P ain related to broken wrist and previous ankle injury/infection.?Neurological?Denies.?Integumentary?Denies.?Endocrine?Denies.?H ematological/Lymphatic?Denies.?Psych?Reports anxiety, Reports depression.? * Medical History:? * Surgical History:?Left Ankle Surgery 2016tubal ligation Surgical revision of hardware- removed screws and plates. 2023 * Hospitalization/Major Diagno stic Procedure:?Left Ankle Surgery 2017Child Child Child * Family History:?Father: dece ased, 45- Heart Issues.?Mother: , 45- OD.?2 son(s) , 1 daughter(s) - healthy. .? * Social History:?Primary Social History:?Living Arrangement?Living Arrangement:?Independent Living, Dependent Living ?Living with:?Other: ?Is this a supportive environment??Yes ?Alcohol Use?Alcohol Use Frequency:?Never ?Illicit Substance Usage?Illicit Substance Usage:?No ?Employment Status?Employment Status:?Unemployed ?Tobacco Use - do not use?Tobacco Use:?none ???Tobacco Use:?Dont use, Tobacco Use/Smoking?Are you a?nonsmoker ?Tobacco Control (Standard)?Tobacco use:?Nonsmoker * Medications:?TakingLisinopri l 20 MG Tablet 1 tablet Orally Once a day Meloxicam 7.5 MG Tablet 1 tablet Orally Once a day Vyvanse 50 MG Capsule 1 capsule in the morning Orally Once a day Vyvanse 50 MG Capsule 1 capsule in the morning Orally Once a day hydrOXYzine HCl 50 MG Tablet 1 tablet as needed Orally twice a day As neededMultivitamin - Tablet 1 tablet Orally Once a day PROzac 20 MG Capsule 1 capsule Orally Once a day Medication List reviewed and reconciled with the patientTaking Lisinopril 20 MG Tablet 1 tablet Orally Once a day Taking Meloxicam 7.5 MG Tablet 1 tablet Orally Once a day Taking Vyvanse 50 MG Capsule 1 capsule in the morning Orally Once a day Taking Vyvanse 50 MG Capsule 1 capsule in the morning Orally Once a day Taking hydrOXYzine HCl 50 MG Tablet 1 tablet as needed Orally twice a day As neededTaking Multivitamin - Tablet 1 tablet Orally Once a day Taking PROzac 20 MG Capsule 1 capsule Orally Once a day Medication List reviewed and reconciled with the patient * Allergies:?Biaxin: Hives - A marcosergyno[Allergies Verified] Objective: * Vitals:? * Examination: ???Mental Status Exam: ?SENSORIUM AND COGNITION??Alert , Oriented to Person , Oriented to Place , Oriented to Time , Oriented to Situation.?ATTENTION AND CONCENTRATION?No deficits.?ATTITUDE AND BEHAVIOR?Cooperative , Receptive.?MEMORY?Immediate , Recent , Remote.?AFFECT?Broad/Full.?MOOD?Euthymic.?SPEECH QUANTITY?Appropriate.?SPEECH QUALITY?Spontaneous , Fluent , Appropriate volume.?THOUGHT PROCESS?Coherent and goal directed.?THOUGHT CONTENT?Appropriate - WNL , No evidence of delusional content , No reports paranoia.?LANGUAGE?Appropriate- WNL.?SUICIDAL IDEATION?Denies suicidal ideation.?HOMICIDAL IDEATION?Denies homicidal ideation.?HALLUCINATIONS?Denies hallucinations.?INSIGHT?Fair.?JUDGMENT?Fair.?FUND OF KNOWLEDGE?Fair.?ABILITY TO PARTICIPATE IN TREATMENT?Moderate.?WILLINGNESS TO PARTICIPATE IN TREATMENT?Moderate.?SIGNIFICANT FINDINGS REGARDING MENTAL STATUS?None.? Assessment: * Assessment: 1.?Bipolar 2 disorder - F31. 81 (Primary)???2.?Binge eating disorder - F50.81??? Plan: * Treatment: 2.?Binge eating disorder? Refill Vyvanse Capsule, 50 MG, 1 capsule in the morning, Orally, Once a day, 30 days, 30, Refills 0;?Refill Vyvanse Capsule, 50 MG, 1 capsule in the morning, Orally, Once a day, 30 days, 30, Refills 0;?Start Vyvanse Capsule, 50 MG, 1 capsule, Orally, once a day, 30 days, 30 Capsule, Refills 0.?? 3.?Others? Notes: Continue current medications. Reviewed Prescription Monitoring program. Continue services as scheduled. Labs completed recently. May self-administer medications or be administered own oral medications per [facility] protocols. Provided informed consent with understanding of side effects, adverse effects, risks and benefits as well as alternative treatments as previously discussed and with the above recommended medications & other aspects of the treatment program. Agrees to return sooner if symptoms worsen or suicidal or homicidal ideations occur.?? * Procedure Codes:? * Follow Up:?3 Months (Reason: Medication management - can be telehealth appt.) * * PAPER [employer]OVER STEAM Sign off status: Completed true * Provider:?Hamilton Salazar NP, PMHNP-, PHONE BANKER Date:?05/03/2024 Generated for Printing/FaDodonationg/eTransmitting on:?06/11/2024 03:33 AM WALLP[employer] History and Physical Notes * HPI (History of Present Illness) Category Sub-Category Detail Notes Category Not es Depression Screening PHQ-9 Little inte rest or pleasure in doing things: Several days Feeling down, depressed, or hopeless: No t at all Trouble falling or staying asleep, or sl eeping too much: Not at all Feeling tired or having little energy: N ot at all Poor appetite or overeating: More than h wilfrid the days Feeling bad about yourself o r that you are a failure, or have let yourself or your family down: Not at all Trouble concentrating on thi ngs, such as reading the newspaper or watching television: Not at all Moving or speaking so slowly that other people could have noticed; or the opposite, being so fidgety or restless that you have been moving around a lot more than usual: Not at all Thoughts that you would be b lore off or of hurting yourself in some way: Not at all Total Score: 3 Interpretation: Minimal Depression Intervention Depression Screening Findings: N egative Follow-Up for Depression: No Referral necessary, patient involved in behavioral health treatment, Prescribed psychotropic medications Abnormal Involuntary Movement Scale Facial and Oral Movements Muscles of Facial Expression: 0- None Lips and Perioral Area: 0- None Jaw: 0- None Tongue: 0- None Extremity Movements Upper (arms, wrists, hands, fingers): 0- None Lower (legs, knees, ankles, toes): 0- No ne Trunk Movements Neck, Shoulders and hips: 0- Non e Global Judgement Severity of abnormal movements overall: 0- None Incapacitation due to abnormal movements : 0- None Patient's awareness of abnormal movement s: 0- No Awareness Dental Status Current problems with teeth and/ or dentures: No Are dentures usually worn?: No Endentia: No Do movements disappear with sleep?: No Subjective Experience Psych F/U Changes since last visit?: Moods have been improved on fluoxetine. Appetite is increased. Effectiveness of medications: , Yes, pat ient reports they are effective Medication Adherence: , Reports taking m edications as prescribed Side effects to medications?: , Admits s tiffanie effects to medications (specify): increased appetite Goals: Maintaining. Healing leg. Coping skills? Has family support. Sleep: , Appropriate sleep Appetite , Increased appetite or overeating Depression (10 = most depressed) Improve d Anxiety (10 = most anxious) minimal Anger/Irritability (10 is highest): Impr lavern Suicidal ideation: Denies suicidal idea tion. Homicidal ideation: Denies homicidal tiffanie ation. Hallucinations Denies hallucination s Medical concerns or hospitalizations? Fo llowing up with PCP and looking for a new neurologist for movement disorder. Following up in relation to ankle injury. Had surgery on ankle. Therapy? None Are you satisfied with the medication? , Yes Screening [place] Suicide Sev erity Rating Scale (LF) Do you want to initiate with: Screener form ?Interpretation:: Low Risk ?6. Suicide Behaviour: Have you ever done anything,started to do anything, or prepared to end your life?: No ?2. Suicidal Thoughts: Have you actually had any thoughts of killing yourself?: No ?1. Wish to be : Have yo u wished you were or wished you could go to sleep and not wake up?: No Do Not Use CSSRS Interpretation and Follow Up Plan CSSRS Interpretation and Follow Up Plan Moderate or High risk requires selection of a follow up plan: CSSRS No/Low: intervention not needed at this time Examination Category Sub-Category Detail Notes Category Not es Mental Status Exam SENSORIUM AND COGNITION Alert , Oriented to Person , Oriented to Place , Oriented to Time , Oriented to Situation ATTENTION AND CONCENTRATION No deficits ATTITUDE AND BEHAVIOR Cooperative , Rece ptive MEMORY Immediate , Recent , Remote AFFECT Broad/Full MOOD Euthymic SPEECH QUANTITY Appropriate SPEECH QUALITY Spontaneous , Fluent , Appropriate volume THOUGHT PROCESS Coherent and goal di rected THOUGHT CONTENT Appropriate - WNL , No evidence of delusional content , No reports paranoia SUICIDAL IDEATION Denies suicidal idea tion HOMICIDAL IDEATION Denies homicidal tiffanie ation HALLUCINATIONS Denies hallucination s INSIGHT Fair JUDGMENT Fair FUND OF KNOWLEDGE Fair ABILITY TO PARTICIPATE IN TREATMENT Mode rate WILLINGNESS TO PARTICIPATE IN TREATMENT Moderate SIGNIFICANT FINDINGS REGARDI NG MENTAL STATUS None LANGUAGE Appropriate- WNL
--- OUTSIDE RECORDS SUMMARY | 2024-06-11 03:33 | XMS_ITS ---
Author Organization [facility] Address [address] [place] [address] Care Team Providers Care Psychiatric Mental Health Nurse Name Role Phone Marcella Hutson Primary Care Provider Allergies Allergen (clinical drug ingredient) Drug/Non Drug Allergy documented on EMR Reaction Allergy Type Onset Date Status Biaxin Hives Drug Allergy Active REASON FOR VISIT 4 week F/U, last seen 01/23 Medications Medication SIG (Take, Route, Fr equency, Duration) Notes Start Date End Date Status Lisinopril 20 MG 1 tablet Orally Once a day Active PROzac 20 MG 1 capsule Orally Onc e a day for 30 day(s) 03/29/2024 Active Multivitamin - 1 tablet Orally Once a day for 30 days Active Meloxicam 7.5 MG 1 tablet Orally Once a day Active Vyvanse 50 MG 1 capsule in the mor elis Orally Once a day for 30 days 04/26/2024 Ac tive hydrOXYzine HCl 50 MG 1 tablet as needed Orally twice a day for 30 days As needed Active Vyvanse 50 MG 1 capsule in the mor elis Orally Once a day for 30 days 03/29/2024 Ac tive Social History Tobacco Use: Social History Observation Description Date Details (start date - stop date) Never Smoker NA - NA Sex Assigned At : Social History Observation Description Sex Assigned At Female Tobacco Control (Standard) Question Answer Notes Tobacco use: Nonsmoker Encounters Encounter Location Date Provider Diagnosis [address] [address] 03/29/2024 Marcella Hutson Bipolar 2 disorder F31.81 Assessments Encounter Date Diagnosis (ICD Code) Assessment Notes Treatment Notes Treatment Clinical Notes Section Notes 03/29/2024 Bipolar 2 disorder (ICD-10 - F31.81) Stop Zoloft and start Prozac. Family members are on Fluoxetine and doing well. Reviewed Prescription Monitoring program. Continue services as scheduled. Labs completed recently. May self-administer medications or be administered own oral medications per [facility] protocols. Provided informed consent with understanding of side effects, adverse effects, risks and benefits as well as alternative treatments as previously discussed and with the above recommended medications & other aspects of the treatment program. Agrees to return sooner if symptoms worsen or suicidal or homicidal ideations occur. Plan Of Treatment Medication Medication Name Sig Start Date Stop Date Notes PROzac 20 MG 1 capsule Orally Onc e a day for 30 day(s) 03/29/2024 Multivitamin - 1 tablet Orally Once a day for 30 days Zoloft 50 MG 1 tablet Orally Once a day 01/24/2024 Vyvanse 50 MG 1 capsule in the mor elis Orally Once a day for 30 days 04/26/2024 hydrOXYzine HCl 50 MG 1 tablet as needed Orally twice a day for 30 days Vyvanse 50 MG 1 capsule in the mor elis Orally Once a day for 30 days 03/29/2024 Treatment Notes Assessment Notes Bipolar 2 disorder Stop Zoloft and start Prozac. Family members are on Fluoxetine and doing well. Reviewed Prescription Monitoring program. Continue services as scheduled. Labs completed recently. May self-administer medications or be administered own oral medications per [facility] protocols. Provided informed consent with understanding of side effects, adverse effects, risks and benefits as well as alternative treatments as previously discussed and with the above recommended medications & other aspects of the treatment program. Agrees to return sooner if symptoms worsen or suicidal or homicidal ideations occur. Next Appt Details Follow Up: 4 Weeks, Reason: Medication management - can be telehealth appt. Progress Notes * Grace ODONNELLOB:1980 (43 yo F)Acc No.[id number]:03/29/2024 Patient:?Kassandra ODONNELL Provider:?Marcella Hutson DNP, PMKALLIEP-CAYDEN , OSMAR :1980???Age:43 Y???Sex:Female D ate:03/29/2024 Address:[facility] [address] [id number] Subjective: * Chief Complaints: * ???4 week F/U, last seen 01/04 1 * HPI: ???Depression Screening:?PHQ-9?Little interest or pleasure in doing things?Several days ?Feeling down, depressed, or hopeless?Several days ?Trouble falling or staying asleep, or sleeping too much?Several days ?Feeling tired or having little energy?Nearly every day ?Poor appetite or overeating?Several days ?Feeling bad about yourself or that you are a failure, or have let yourself or your family down?Several days ?Trouble concentrating on things, such as reading the newspaper or watching television?Not at all ?Moving or speaking so slowly that other people could have noticed; or the opposite, being so fidgety or restless that you have been moving around a lot more than usual?Not at all ?Thoughts that you would be better off or of hurting yourself in some way?Not at all ?Total Score?8 ?Interpretation?Mild Depression ?Intervention?Depression Screening Findings?Positive ?Follow-Up for Depression?No Referral necessary, patient involved in behavioral health treatment . ???Screening:?Coffey Suicide Severity Rating Scale (LF)?Do you want [...] for psychiatric follow-up visit. ?Changes since last visit?:?Stopped Zoloft due to side effects. Has been feeling more depressed without it.?.?Coping skills??Has family support. Sometimes nothing helps.?.?Effectiveness of medications:?, Somewhat effective.?Medication Adherence:?Stopped zoloft.?Side effects to medications?:?, Admits side effects to medications (specify): jerky motions.?.?Sleep:?, Difficulty staying asleep.?Appetite?, Appropriate appetite.?Depression (10 = most depressed)?Has been feeling more depressed.?Anxiety (10 = most anxious)??situational/minimal.?Anger/Irritability (10 is highest):?Irritated easily.?.?Suicidal ideation:?Denies suicidal ideation..?Homicidal ideation:?Denies homicidal ideation..?Hallucinations?Denies hallucinations.?Medical concerns or hospitalizations??Following up with PCP and looking for a new neurologist for movement disorder. Following up in relation to ankle injury.?.?Therapy??None.?Goals:?Less depression.?.?Are you satisfied with the medication??No, I would like to change the medication or dose..?Abnormal Involuntary Movement Scale:?Has movement disorder. Has a [...] No/Low: intervention not needed at this time * ROS:?Psych ROS:?Constitutional?Denies.?Eyes?Denies.?Ears/Nose/Mouth/Throat?Denies.?Respirat ory?Denies.?Allergic /Immunologic?Denies.?Cardiovascular?Denies.?GI?Denies.??Denies.?Musculoskeleta l?Reports,?P ain related to broken wrist and previous ankle injury/infection.?Neurological?Denies.?Integumentary?Denies.?Endocrine?Denies.?H ematological/Lymphatic?Denies.?Psych?Reports anxiety, Reports depression.? * Medical History:? * Surgical History:?Left Ankle Surgery 2017tubal ligation * Hospitalization/Major Diagno stic Procedure:?Left Ankle Surgery 2017Child Child Child * Family History:?Father: dece ased, 45- Heart Issues.?Mother: , 45- OD.?2 son(s) , 1 daughter(s) - healthy. .? * Social History:?Primary Social History:?Living Arrangement?Living Arrangement:?Independent Living, Dependent Living ?Living with:?Other: ?Is this a supportive environment??Yes ?Alcohol Use?Alcohol Use Frequency:?Never ?Illicit Substance Usage?Illicit Substance Usage:?No ?Employment Status?Employment Status:?Unemployed ?Tobacco Use?Tobacco Use:?none ???Tobacco Use:?Tobacco Control (Standard)?Tobacco use:?Nonsmoker * Medications:?TakingLisinopri l 20 MG Tablet 1 tablet Orally Once a day Meloxicam 7.5 MG Tablet 1 tablet Orally Once a day Multivitamin - Tablet 1 tablet Orally Once a day Vyvanse 50 MG Capsule 1 capsule in the morning Orally Once a day Vyvanse 50 MG Capsule 1 capsule in the morning Orally Once a day hydrOXYzine HCl 50 MG Tablet 1 tablet as needed Orally twice a day As neededTaking Lisinopril 20 MG Tablet 1 tablet Orally Once a day Taking Meloxicam 7.5 MG Tablet 1 tablet Orally Once a day Taking Multivitamin - Tablet 1 tablet Orally Once a day Taking Vyvanse 50 MG Capsule 1 capsule in the morning Orally Once a day Taking Vyvanse 50 MG Capsule 1 capsule in the morning Orally Once a day Taking hydrOXYzine HCl 50 MG Tablet 1 tablet as needed Orally twice a day As neededNot-TakingZoloft 50 MG Tablet 1 tablet Orally Once a day Medication List reviewed and reconciled with the patientNot-Taking Zoloft 50 MG Tablet 1 tablet Orally Once a day Medication List reviewed and reconciled with the patient * Allergies:?Biaxin: Hives - A elyseno[Allergies Verified] Objective: * Vitals:? * Examination: ???Mental [...] Assessment: 1.?Bipolar 2 disorder - F31. 81 (Primary)??? Plan: * Treatment: 2.?Others? Refill Vyvanse Capsule, 50 MG, 1 capsule in the morning, Orally, Once a day, 30 days, 30, Refills 0;?Refill Vyvanse Capsule, 50 MG, 1 capsule in the morning, Orally, Once a day, 30 days, 30, Refills 0.?? * Procedure Codes:? * Follow Up:?4 Weeks (Reason: Medication management - can be telehealth appt.) * * Sign off status: Completed true * Provider:?Hamilton Salazar F[employer]W MEMBER, PMHNP-BC, PET CARETAKER Date:?03/29/2024 Generated for Printing/Faxing/eTransmitting on:?06/11/2024 03:33 AM WOOD ENGRAVER History and Physical Notes * HPI (History of Present Illness) Category Sub-Category Detail Notes Category Not es Depression Screening PHQ-9 Little inte rest or pleasure in doing things: Several days Feeling down, depressed, or hopeless: Se veral days Trouble falling or staying asleep, or sl eeping too much: Several days Feeling tired or having little energy: N early every day Poor appetite or overeating: Several day s Feeling bad about yourself o r that you are a failure, or have let yourself or your family down: Several days Trouble concentrating on thi ngs, such as [...] some way: Not at all Total Score: 8 Interpretation: Mild Depression Intervention Depression Screening Findings: P ositive Follow-Up for Depression: No Referral necessary, patient involved in behavioral health treatment . Abnormal Involuntary Movement Scale Facial and Oral [...] Experience Psych F/U Changes since last visit?: Stopp ed Zoloft due to side effects. Has been feeling more depressed without it. Effectiveness of medications: , Somewhat effective Medication Adherence: Stopped zoloft Side effects to medications?: , Admits s tiffanie effects to medications (specify): jerky motions. Goals: Less depression. Coping skills? Has family support. Sometimes nothing helps. Sleep: , Difficulty staying asleep Appetite , Appropriate appeti te Depression (10 = most depressed) Has bee n feeling more depressed Anxiety (10 = most anxious) situational/ minimal Anger/Irritability (10 is highest): Irri tated easily. Suicidal ideation: Denies suicidal idea tion. Homicidal ideation: Denies homicidal tiffanie ation. Hallucinations Denies hallucination s Medical concerns or hospitalizations? Fo llowing up with PCP and looking for a new neurologist for movement disorder. Following up in relation to ankle injury. Therapy? None Are you satisfied with the medication? N o, I would like to change the medication or dose. Screening Coffey Suicide Sev erity Rating Scale (LF) Do [...]
--- OUTSIDE RECORDS SUMMARY | 2024-06-11 03:34 | XMS_ITS | Patient Health Record ---
Author Organization [facility] Address [address] [place] [address] Care Team Providers Care Slot Ambassador Name Role Phone Yasir Hutsona Primary Care Provider AlexeiJuliann barajas [place] [phone] Allergies Allergen (clinical drug ingredient) Drug/Non Drug Allergy documented on EMR Reaction Allergy Type Onset Date Status Biaxin Hives Drug Allergy Active Reason For Referral No Information Medications Medication SIG (Take, Route, Fr equency, Duration) Notes Start Date End Date Status Vyvanse 50 MG 1 capsule in the mor elis Orally Once a day for 30 days 06/28/2024 Ac tive Meloxicam 7.5 MG 1 tablet Orally Once a day Active Vyvanse 50 MG 1 capsule Orally onc e a day for 30 days 05/03/2024 Active Vyvanse 50 MG 1 capsule in the mor elis Orally Once a day for 30 days 05/31/2024 Ac tive Lisinopril 20 MG 1 tablet Orally Once a day Active hydrOXYzine HCl 50 MG 1 tablet as needed Orally twice a day for 30 days As needed Active PROzac 20 MG 1 capsule Orally Onc e a day for 30 days 03/29/2024 Active Multivitamin - 1 tablet Orally Once a day for 30 days Active Social History Tobacco Use: Social History Observation Description Date Details (start date - stop date) Never Smoker NA - NA Sex Assigned At : Social History Observation Description Sex Assigned At Female Dont use, Tobacco Use/Smoking Question Answer Notes Are you a nonsmoker Tobacco Control (Standard) Question Answer Notes Tobacco use: Nonsmoker Problems Problem Type SNOMED Code ICD Code Onset Dates Problem Status W/U Status Risk Notes Problem 98629940 Bipolar 2 disorder (F31.81) 10/03/2013 Active confirmed Problem 379634440 Binge eating disorder (F50.81) 10/04/2019 Active confirmed Encounters Encounter Location Date Provider Diagnosis [address] [place] [address] 08/04/2023 Marcella Hutson Bipolar 2 disorder F31.[address] [place] [address] 01/02/2024 Marcella Hutson Bipolar 2 disorder F31.81 and Binge eating disorder F50.[address] [place] [address] 02/08/2024 Marcella Hutson [address] [place] [address] 03/25/2024 Juliann Nixon Bipolar 2 disorder F31.81 [address] [place] [address] 08/29/2023 Marcella Hutson Bipolar 2 disorder F31.81 and Binge eating disorder F50.81 [address] [place] [address] 10/24/2023 Marcella Hutson Bipolar 2 disorder F31.81 and Binge eating disorder F50.81 [address] [place] [address] 01/24/2024 Marcella Hutson Bipolar 2 disorder F31.81 and Binge eating disorder F50.[address] [place] [address] 03/29/2024 Marcella Hutson Bipolar 2 disorder F31.[address] [place] [address] 05/03/2024 Marcella Hutson Bipolar 2 disorder F31.81 and Binge eating disorder F50.81 Assessments Encounter Date Diagnosis (ICD Code) Assessment Notes Treatment Notes Treatment Clinical Notes Section Notes 08/04/2023 Bipolar 2 disorder (ICD-10 - F31.81) 08/29/2023 Bipolar 2 disorder (ICD-10 - F31.81) 10/24/2023 Bipolar 2 disorder (ICD-10 - F31.81) 10/24/2023 Binge eating disorder (ICD-10 - F50.81) 01/02/2024 Bipolar 2 disorder (ICD-10 - F31.81) 01/24/2024 Bipolar 2 disorder (ICD-10 - F31.81) 03/29/2024 Bipolar 2 disorder (ICD-10 - F31.81) Stop Zoloft and start Prozac. Family members are on Fluoxetine and doing well. Reviewed Prescription Monitoring program. Continue services as scheduled. Labs completed recently. May self-administer medications or be administered own oral medications per [facility] protocols. Provided informed consent with understanding of side effects, adverse effects, risks and benefits as well as alternative treatments as previously discussed and with the above recommended medications & other aspects of the treatment program. Agrees to return sooner if symptoms worsen or suicidal or homicidal ideations occur. 03/25/2024 Bipolar 2 disorder (ICD-10 - F31.81) 05/03/2024 Bipolar 2 disorder (ICD-10 - F31.81) 05/03/2024 Binge eating disorder (ICD-10 - F50.81) 01/24/2024 Binge eating disorder (ICD-10 - F50.81) 01/02/2024 Binge eating disorder (ICD-10 - F50.81) 08/29/2023 Binge eating disorder (ICD-10 - F50.81) 08/29/2023 Other Continue curren t medications, increasing Latuda to help with mood instability. Continue services as scheduled. Labs completed recently. May self-administer medications or be administered own oral medications per [facility] protocols. Provided informed consent with understanding of side effects, adverse effects, risks and benefits as well as alternative treatments as previously discussed and with the above recommended medications & other aspects of the treatment program. Agrees to return sooner if symptoms worsen or suicidal or homicidal ideations occur. 10/24/2023 Other Increase LAtuda to help with mood instability. Continue services as scheduled. Labs completed recently. May self-administer medications or be administered own oral medications per [facility] protocols. Provided informed consent with understanding of side effects, adverse effects, risks and benefits as well as alternative treatments as previously discussed and with the above recommended medications & other aspects of the treatment program. Agrees to return sooner if symptoms worsen or suicidal or homicidal ideations occur. 01/24/2024 Other Restart Zoloft. She reports this was effective in the past. If moods worsen, advised to stop Zoloft and call. May self-administer medications or be administered own oral medications per [facility] protocols. Provided informed consent with understanding of side effects, adverse effects, risks and benefits as well as alternative treatments as previously discussed and with the above recommended medications & other aspects of the treatment program. Agrees to return sooner if symptoms worsen or suicidal or homicidal ideations occur. 05/03/2024 Other Continue curren t medications. Reviewed Prescription Monitoring program. Continue services as scheduled. Labs completed recently. May self-administer medications or be administered own oral medications per [facility] protocols. Provided informed consent with understanding of side effects, adverse effects, risks and benefits as well as alternative treatments as previously discussed and with the above recommended medications & other aspects of the treatment program. Agrees to return sooner if symptoms worsen or suicidal or homicidal ideations occur. Plan Of Treatment No Information Insurance Providers Payer Name Payer Address Payer Phone Subscriber Number Group Number Insured Name Patient Relationship to Insured Coverage Start Date Coverage End Date [facility] Attn Claims Department [address] [place] [address] [phone] [id number] AnnabelbereketKassandra hogue Self - patient is the insured 1 4 MEDICAID [address] [place] [address] [id number] Kassandra Odonnell Self - patient is the insured 4 [employer] Attn Claims Department [address] [place] [address] [phone] [id number] Kassandra Odonnell Self - patient is the insured 1 Medical (General) History Medical History History ICD Code Movement disorder Surgical History Surgery Date(Month/Year) Left Ankle Surgery 2016 tubal ligation Surgical revision of hardware- removed s crews and plates. 2023 Hospitalization History Reason Date(Month/Year) Child Child Child Left Ankle Surgery 2016
== END 2024-06-04 06:18 | disposition left against medical advice (07) ==
LOC: ANHED 06-04 06:11
PROVIDERS: PCP Family Medicine
DX: R42 Dizziness and giddiness (principal)
CPT/HCPCS: 99199

== ENCOUNTER 2024-06-16 20:55 | Emergency (ER) | payer OTHER, SELFPAY ==
--- NOTE | ~2024-06-16 | CT_ITS ---
History: Blunt trauma PROCEDURE: CT head without contrast. COMPARISON: Reference is made to an MRI examination of the brain dated 09/28/2023 TECHNIQUE: Axial imaging of the head performed from the skull base to the vertex without IV contrast. Sagittal a nd coronal reformations obtained. DLP: 531 mGy-cm FINDINGS: The ventricles are normal in size, shape and position. There is no mass, mass effect or midline shift. There is no abnormal extra-axial fluid collection or intracranial hemorrhage. Visualized paranasal sinuses are clear. The mastoid air cells are well aerated. No acute displaced fractures within the overlying cranium. Impression: No acute intracranial hemorrhage or suspicious mass effect. Reviewed, dictated and finalized at location A. [employer]ER Impression: No acute intracranial hemorrhage or suspicious mass effect.
[2024-06-16 20:55] VITALS: BP 143/89; PULSE 132; RESP 18; TEMP 36.3; O2SAT 98
--- NOTE | 2024-06-16 21:05 | PC.NURSE ---
PATIENT TRANSPORTED TO CT VIA WHEEL CHAIR.
[2024-06-16 21:16] VITALS: BP 139/101; PULSE 124; RESP 18; O2SAT 97
[2024-06-16 21:31] VITALS: BP 124/66; PULSE 124; RESP 21; O2SAT 93
[2024-06-16] MEDS: SODIUM CHLORIDE 0.9% IV 1,000 ML 999 ML IV CONT (21:51)
[2024-06-16] MEDS: ONDANSETRON INJ 4 MG/2 ML VIAL IV PUSH (21:51)
--- NOTE | 2024-06-16 21:54 | ED.GENADULT ---
HPI - General Adult General Chief complaint: Head Injury Stated complaint: Head Injury Time Seen by Provider: 06/16/24 21:04 Source: patient Mode of arrival: ambulatory Limitations: no limitations History of Present Illness HPI narrative: 43-year-old white female was dazed when she hit her head on her trunk of her car opening it up 4 days ago. Denies any numbness or weakness or paresthesias. She has a history of chronic vertigo for years associated with spinning sensation and being on meclizine up to 4-6 tablets a day per her primary care provider she had a workup with ENT years ago. Nothing is really changed with that regard. She comes in because she has more vertigo otherwise she is walking talking seeing and hearing okay. She has had some nausea and vomiting today decreased p.o. intake she says she is dizzy when she stands up gets hot sweaty clammy. Been sleeping a lot last 2 days To 3 days denies any swelling lumps or bumps rash or itching bleeding or bruising headache or any pain cough fever sore throat runny nose or any other complaints. She has a chronic history of ringing in her ears for 2 years and has decreased hearing in her left ear chronically.. Related Data Home Medications ?Medication ?Instructions ?Recorded ?Confirmed ?Last Taken ?Type cyclobenzaprine 10 mg tablet mg 05/21/24 Unknown History famotidine 20 mg tablet mg 05/21/24 Unknown History naproxen 500 mg tablet mg 05/21/24 Unknown History Allergies Allergy/AdvReac Type Severity Reaction Status Date / Time clarithromycin Allergy Mild Hives Verified 06/16/24 20:57 Review of Systems Review of Systems: All systems reviewed & are unremarkable except as noted in HPI and below [facility] Past Medical History Medical History Blood glucose elevated Low aspartate aminotransferase (AST) level Syncope Syncope Vertigo Weight gain Overweight (03/07/17) Irregular menstrual bleeding Dietary counseling and surveillance (09/30/15) Arm paresthesia, right Abnormal involuntary movement COVID Shortness of breath Xerostomia Dental disease Dry eyes Flu-like symptoms Mass in neck Elevated platelet count Swelling of left knee joint Left knee pain Lump of left breast BMI 36.0-36.9,adult Iron deficiency Essential hypertension Bipolar 1 disorder Vitamin D deficiency Diarrhea Hx of colonic polyp Encounter for screening for lipid disorder Screening for thyroid disorder Joint pain Cholecystectomy planned Eustachian tube dysfunction Otitis media Vertigo Depression Asthma Surgical History Surgical History S/P hardware removal 05/2024 History of cholecystectomy History of endometrial ablation Hx of tonsillectomy Status post open reduction with internal fixation (ORIF) of fracture of ankle Family History Family History Father Family history of diabetes mellitus in first degree relative Acute myocardial infarction Diabetes mellitus Mother No problems noted. 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 Spiritual care concerns: No Comments History of chronic vertigo and decreased hearing on left side with ringing in ear for 2 years Exam Narrative: White female patient with mild distress but gets sweaty and had tachycardic when she sits up and feels lightheaded..? Head normocephalic, atraumatic.? Eyes conjunctiva pink sclera nonicteric.? Extraocular movements are intact.? Ears externally normal.? TMs are normal. ?Oropharynx is clear with moist mucous membranes without exudates.? Neck is supple nontender no lymphadenopathy.? Back is nontender.? Lungs are clear.? Heart is Tachycardic rate and rhythm without murmurs gallops or rubs.? Chest wall nontender. Abdomen is soft and nontender no hepatosplenomegaly or masses no CVA tenderness no abdominal bruits.? Extremities no cyanosis clubbing or edema.? Skin is warm and dry without rashes or lesions.? Neurological patient is alert and oriented x4.? Motor and sensory grossly intact.? Gait is normal. Course Vital Signs Vital signs: Vital Signs Temperature 36.3 C L 06/16/24 20:55 Pulse Rate 132 H 06/16/24 20:55 Respiratory Rate 18 06/16/24 20:55 Blood Pressure 143/89 H 06/16/24 20:55 Pulse Oximetry 98 06/16/24 20:55 Oxygen Delivery Room Air 06/16/24 20:55 Temperature 36.3 C L 06/16/24 20:55 Pulse Rate 100 06/16/24 22:31 Respiratory Rate 13 06/16/24 22:31 Blood Pressure 117/101 H 06/16/24 22:31 Pulse Oximetry 95 06/16/24 22:31 Oxygen Delivery Room Air 06/16/24 21:55 Medical Decision Making MDM Narrative Medical decision making narrative: ?Patient placed in room: 2 ? History and physical was performed. CT brain shows no active disease per radiologist showed no active disease Lactic acid INR CBC CMP all unremarkable Independent Historian: patient External Source Review: Differential Dx includes but not limited to: dehydration electrolyte imbalance chronic positional vertigo concussion closed head injury Medications were Reviewed: home medicines reviewed she says she has not taken blood pressure medicine in several weeks Medications given: normal saline 1 L Zofran 4 mg IV patient feels much better after fluids and Zofran. Independently Interpreted by me: labs independently interpreted by me. Shared decision Making: evaluation was discussed all questions were asked and answered patient agreed with the plan. She has increase her fluids by mouth drink frequent small amounts and Zofran as needed for nausea vomiting follow-up with primary care provider Social Situation Impacting Patients Care: Chronic vertigo Discussed with Dr. GOMES DIAGNOSIS: closed head injury concussion chronic vertigo DISPOSITION : discharge home CONDITION AT DISCHARGE: stable Vital Signs Vital Signs: Vital Signs Temperature 36.3 C L 06/16/24 20:55 Pulse Rate 132 H 06/16/24 20:55 Respiratory Rate 18 06/16/24 20:55 Blood Pressure 143/89 H 06/16/24 20:55 Pulse Oximetry 98 06/16/24 20:55 Oxygen Delivery Room Air 06/16/24 20:55 Temperature 36.3 C L 06/16/24 20:55 Pulse Rate 100 06/16/24 22:31 Respiratory Rate 13 06/16/24 22:31 Blood Pressure 117/101 H 06/16/24 22:31 Pulse Oximetry 95 06/16/24 22:31 Oxygen Delivery Room Air 06/16/24 21:55 Lab Data 06/16/24 21:20 06/16/24 21:20 Labs: Lab Results 06/16/24 Range/Units 21:20 WBC 9.3 (4.8-10.8) K/mm3 RBC 5.72 H (4.20-5.40) M/mm3 Hgb 16.1 H (12.0-15.0) g/dL Hct 48.3 (35.0-49.0) % MCV 84.4 (78.0-102.0) fL MCH 28.1 (27.0-31.0) pg MCHC 33.3 (32-36) g/dL RDW 12.5 (11.6-14.4) % Plt Count 495 H (150-420) K/mm3 MPV 8.9 L (9.2-11.8) fl PT 11.0 (9.50-12.1) Seconds INR 1.0 APTT 28.7 (23.9-30.70) Sec Sodium 141 (136-145) mmol/L Potassium 4.4 (3.5-5.1) mmol/L Chloride 100 (98-108) mmol/L Carbon Dioxide 29 (21-32) mmol/L Anion Gap 12 (4-12) mmol/L BUN 14 (7-18) mg/dL Creatinine 0.90 (0.55-1.02) mg/dL Estim Creat Clear Calc 91 ml/min Estimated GFR > 60 (59 - ) Glucose 104 H (70-99) mg/dL Calculated Osmolality 292 (285-295) mOsm/kg Lactic Acid 1.7 (0.4-2.0) mmol/L Calcium 9.7 (8.5-10.1) mg/dL Total Bilirubin 0.4 (0.00-1.00) mg/dL AST 19 (15-37) U/L ALT 44 (14-59) U/L Alkaline Phosphatase 67 (46-116) U/L Total Protein 8.1 (6.4-8.2) g/dL Albumin 4.3 (3.4-5.0) g/dL Discharge Plan Discharge Clinical Impression: Chronic vertigo Concussion Qualifiers: Encounter type: initial encounter Loss of consciousness presence/duration: without LOC Qualified Code(s): S06.0X0A - Concussion without loss of consciousness, initial encounter Patient Disposition: Home, Self-Care Condition: Stable Instructions: Concussion (ED) Additional Instructions: take your meclizine as prescribed. Follow-up with your primary care provider this week. Return if you get worse or develops any new symptoms. Increase her fluids by mouth. Take Zofran 4 mg oral dissolvable tablet every 4 hours as needed for nausea vomiting. Patient Language: Belgian Prescriptions: New ondansetron 4 mg tablet,disintegrating 4 mg PO Q4H PRN (Reason: nausea and vomiting) Qty: 15 0RF Rx Instructions: give 1st dose 30min before emetogenic chemo No Action cyclobenzaprine 10 mg tablet famotidine 20 mg tablet naproxen 500 mg tablet amoxicillin 500 mg capsule 500 mg PO Q8H 7 Days Qty: 21 0RF chlorhexidine gluconate [Peridex] 0.12 % mouthwash 15 ml mucous membrane BID Qty: 473 0RF meloxicam 15 mg tablet 15 mg PO DAILY Qty: 30 3RF Rx Instructions: 15 mg orally daily; omeprazole 20 mg capsule,delayed release(DR/EC) 20 mg PO DAILY Qty: 90 0RF lisinopril 20 mg tablet 20 mg PO DAILY Qty: 30 2RF Follow-up/Referrals: Marlon Saucedo MD [Primary Care Provider] - Time of Disposition: 22:46
[2024-06-16 21:55] VITALS: BP 159/77; PULSE 114; RESP 13; O2SAT 95
[2024-06-16 21:58] LABS: Hematocrit 48.3 % (35.0-49.0); Hemoglobin 16.1 g/dL (12.0-15.0); Mean Corpuscular HGB Conc 33.3 g/dL (32-36); Mean Corpuscular Hemoglobin 28.1 pg (27.0-31.0); Mean Corpuscular Volume 84.4 fL (78.0-102.0); Mean Platelet Volume 8.9 fl (9.2-11.8); Platelet Count Result 495 K/mm3 (150-420); Red Blood Count 5.72 M/mm3 (4.20-5.40); Red Cell Distribution Width 12.5 % (11.6-14.4); White Blood Count 9.3 K/mm3 (4.8-10.8)
[2024-06-16 22:01] VITALS: BP 123/71; PULSE 108; RESP 17; O2SAT 97
--- NOTE | 2024-06-16 22:10 | PC.NURSE ---
PATIENT RESTING QUIELTY ON STRETCHER. IV INFUSING TO RIGHT AC. NO REDNESS OR SWELLING. DENIES ANY NEEDS. CALL LIGHT IN REACH. MOTHER AT THE BEDSIDE
[2024-06-16 22:20] LABS: Alanine Aminotransferase 44 U/L (14-59); Albumin Level 4.3 g/dL (3.4-5.0); Alkaline Phosphatase 67 U/L (46-116); Anion Gap 12 mmol/L (4-12); Aspartate Amino Transferase 19 U/L (15-37); Bilirubin,Total 0.4 mg/dL (0.00-1.00); Blood Urea Nitrogen 14 mg/dL (7-18); Carbon Dioxide 29 mmol/L (21-32); Chloride 100 mmol/L (98-108); Glucose 104 mg/dL (70-99); Osmolality Calculated 292 mOsm/kg (285-295); Potassium 4.4 mmol/L (3.5-5.1); Sodium 141 mmol/L (136-145); Total Protein 8.1 g/dL (6.4-8.2)
[2024-06-16 22:24] LABS: Lactic Acid Reflex 1.7 mmol/L (0.4-2.0)
[2024-06-16 22:31] VITALS: BP 117/101; PULSE 100; RESP 13; O2SAT 95
[2024-06-16 22:32] LABS: Calcium 9.7 mg/dL (8.5-10.1); Estimated CRCL calculation 91 ml/min; Estimated Glomerular Filt Rate > 60
[2024-06-16 22:36] LABS: Partial Thromboplastin Time 28.7 Sec (23.9-30.70)
== END 2024-06-16 22:53 | disposition home or self-care (01) ==
PROVIDERS: Emergency Provider Emergency Medicine; PCP Family Medicine
DX: S06.0X0A Concussion without loss of consciousness, initial encounter (principal); R42 Dizziness and giddiness; I10 Essential (primary) hypertension; W20.8XXA Other cause of strike by thrown, projected or falling object, initial encounter
CPT/HCPCS: 36415; 70450; 80053; 83605; 85027; 85610; 85730; 96361; 96374; 99284; J2405; J7030

== ENCOUNTER 2024-08-11 19:40 | Emergency (ER) | payer OTHER, SELFPAY ==
--- NOTE | ~2024-08-11 | CT_ITS ---
CT scan of the left ankle CLINICAL HISTORY: Lateral wound TECHNIQUE: Following intravenous administration of 100 cc of Omnipaque 350 contrast material, axial i maging of the left ankle was performed. Sagittal and coronal reformatted images were constructed. Dos e reduction technique was used on this scan by utilizing automated exposure control and iterative rec onstruction technique. The dose-length product (DLP) was 522.90 mGy-cm. Comparison: 03/08/2024 FINDINGS: Status post prior ORIF of the distal fibula, distal tibia, and syndesmosis. There is been i nterval removal of some hardware as compared to the prior exam, with removal of the lateral fibular c ompression plate and proximal interlocking screws, as well as interval removal of the medial malleolu s screw. Apparent revision of the syndesmotic screw since prior exam. No acute fracture or dislocatio n seen. There is probable mild degenerative change of the tibiotalar joint with subchondral cystic ch alberto involving the distal tibial plafond. Remaining joint spaces are intact. There is focal skin thickening or induration over the lateral malleolus, without evidence of fluid co llection. Remaining subcutaneous soft tissues are unremarkable. IMPRESSION: Postoperative changes at the ankle, as above. Mild degenerative changes tibiotalar joint, possibly posttraumatic in nature. Focal skin thickening or induration at the lateral malleolar region without evidence for abscess. Reviewed, dictated and finalized at [facility]. IMPRESSION: Postoperative changes at the ankle, as above. Mild degenerative changes tibiotalar joint, possibly posttraumatic in nature. Focal skin thickening or induration at the lateral malleolar region without ke dence for abscess.
[2024-08-11 19:43] VITALS: BP 156/92; PULSE 96; RESP 16; TEMP 36.2; O2SAT 99
--- OUTSIDE RECORDS SUMMARY | 2024-08-11 19:43 | XMS_ITS | Data Portability ---
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 The patient denies any changes in her medical history. The patient denies any changes in her family medical history. 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 No menses due to hx of [...] PCR, cervix 2022 023 ANN Nelson, [address] [place], [address], 15:43:03 pap, LB 2022 023 ANN [facility], [address] [facility], [place], [address], 08:58:12 Referral gastroenter ologist referral 2021 022 [place] [address] Gracie Haas MD, [address], [place], [address], 2 15:08:46 Procedures None recorded. Surgeries None recorded. Imaging US, transvagina l 2022 023 ANN Not available 13:50:04 MAMMO, screening, digital, bilateral 2022 023 [email or web address] Not available 17:22:30 US, transvagina l 2020 021 [email or web address] Not available 13:20:10 Medication Orders June 06/24 (21) 1 mg-20 mcg tablet 2020 021 [facility] [address], [id number], 11:48:04 Patient TargetsNo targets recorded. Patient Instructions Encounter Date Encounter Id Patient Instructions Last Modified By Organization Details Last Modified Time 06/02/2021 [id number] Discussed COCs f or suppression of recurring ovarian cysts. Explained that OCPs will not resolve current cyst but can help prevent future cysts. R/B/ARs reviewed. Desires to start. No contraindications noted. 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 Not Available [address], [address], 02/15/2023 15:43:03 02/14/2002/17/2023 THINP REP TIS PAP clinical information: normal None given Not Available [facility] [address] [place], [address], 02/17/2023 08:58:12 02/14/2002/17/2023 THINP REP TIS PAP LMP: normal NONE GIVEN Not Available [facility] [address] [place], [address], 02/17/2023 08:58:12 02/14/2002/17/2023 THINP REP TIS PAP prev. Pap: normal NONE GIVEN Not Available [address] [place], [address], 02/17/2023 08:58:12 02/14/2002/17/2023 THINP REP TIS PAP prev. BX: normal NONE GIVEN Not Available [address] [place], [address], 02/17/2023 08:58:12 02/14/2002/17/2023 THINP REP TIS PAP source: normal Cervi x Not Available [address] [place], [address], 02/17/2023 08:58:12 02/14/2002/17/2023 THINP REP TIS PAP statement of adequacy: normal Satis facto ry for evalu ation . Endoc ervic al/tr ansfo rmati on zone compo nent prese nt. Age and/o r menst rual statu s not provi ded Not Available [address] [address] [place], [address], 02/17/2023 08:58:12 02/14/2002/17/2023 THINP REP TIS PAP interpretati on/result: normal Cytol ogy Resul ts: Negat jam for intra epith elial lesio n or malig angelina . Not Available [address] [place], [address], 02/17/2023 08:58:12 02/14/2002/17/2023 THINP REP TIS PAP comment: normal This Pap test has been evalu ated with compu ter [facility] o[facility] . Not Available [address], [address], 02/17/2023 08:58:12 02/14/2002/17/2023 THINP REP TIS PAP cytotechnolo gist: normal AMW, CT( CP) CT scree elis locat ion: [address] [address] [place] [address] Not Available [facility] [address] [address] [place], [address], 02/17/2023 08:58:12 02/14/20 23 02/17/2023 THINP REP [...] clini eugenie infor matio n. Not Available [facility] [address] [address] [address], [place], [address], 02/17/2023 08:58:12 06/03/20 21 06/02/2021 US, trans vagin al No observ ation record ed. Jessica [address], [place], [address], 06/06/2021 22:25:13 08/29/19 22 08/27/2021 US, trans vagin al No observ ation record ed. [email or web address] Not Available 08/30 12:20:36 03/15/20 23 03/14/2023 US, trans vagin al No observ ation record ed. [email or web address] [address], [place], [address], 03/15/2023 14:19:14 Result Notes None recorded. Problems [...] YES ProblemS tatus: Current Tanya Britsch null, [employer] [facility] 3 12:54:51 Obesity 702091576 Completed 201210/02/2013 Obesity; Progress : Stable Added By: Rosa Holland Add to Current Problems : NO ProblemS tatus: Resolve Not Available [facility] 2 19:34:53 Surgical follow-u p - normal 380912437 Completed 201701/02/2019 Follow-u p exam followin g [...] Not Available [facility] 1 09:13:04 Leukorrh ea 408288076 Completed 201309/23/2014 Vaginal Discharg e; Progress : Stable Added By: Paola Rudolph Add to Current Problems : NO ProblemS tatus: Resolve Not Available [facility] 2 19:34:52 Postcoit al finding 904888202 Completed 201903/13/2023 Postcoit al and contact bleeding ; Progress : Stable Added By: Rosmery Sherwood Add to Current Problems : YES ProblemS tatus: Current Tanya Britsch null, [employer] [facility] 3 12:55:14 Dyspareu leodan 23496533 Completed 201210/01/2013 Dyspareu leodan; Location : None [...] : NO ProblemS tatus: Resolve Not Available [facility] [address]:34:[address] Concept Completed 201701/02/2019 Encounte r for follow-u p examinat ion after complete d treatmen t for conditio ns other than malignan t neoplasm ; Progress : Stable Added By: Rosmery Agrawal Add to Current Problems : NO ProblemS tatus: Resolve Not Available [facility] 2 19:34:55 Female genital organ symptoms 373889919 Completed 201409/01/2014 Pelvic pain; Location : None Progress : Stable Added By: Maricel Longo Add to Current Problems : YES ProblemS tatus: Resolve; Start Date : 03/12/20 14 pelvi c pain; Progress : Stable Added By: Paola Rudolph Add to Current Problems : NO ProblemS tatus: Resolve Not Available [facility] 2 19:34:52 Mild postnata l depressi on 251532266 Completed 201205/11/2013 Follow-u p visit for postpart um depressi on; Location : None Severity : Moderate Progress : Stable Added By: Maricel Longo Add to Current Problems : NO ProblemS tatus: Resolve Not Available [facility] 1 09:13:04 Morbid obesity 070366458 Completed 201707/30/2019 Morbid obesity; Progress : Stable Added By: Paola Fernandez Add to Current Problems : NO ProblemS tatus: Resolve Morbid obesity; Location : None Progress : Stable Added By: Paola Fernandez Add to Current Problems : YES ProblemS tatus: Current Not Available [facility] 2 19:34:51 Mucous polyp of cervix 25503522 Completed 201707/30/2019 Cervical polyp; Progress : Stable Added By: Rosmery Agrawal Add to Current Problems : NO ProblemS tatus: Resolve Not Available [facility] 2 19:34:56 Finding of menstrua l bleeding Completed 201703/13/2023 Excessiv e and frequent menstrua tion with regular cycle; Progress : Stable Added By: Paola Fernandez Add to Current Problems : YES ProblemS tatus: Current Tanya Britsch null, [place] [facility] 3 12:54:45 Noninfla mmatory disorder of the vagina 34249056 Completed 201409/29/2014 Vaginal cyst; Location : None Progress : Stable Added By: Ad Hunter Add to Current Problems : NO ProblemS tatus: Resolve Not Available [facility] 2 19:34:53 Uses intraute rine contrace ption 891630070 Completed 201210/02/2013 Patient with intraute rine contrace ptive device (IUD); Location : None Severity : Moderate Progress : Stable Added By: Rosa Holland Add to Current Problems : NO ProblemS tatus: Resolve Not Available [facility] 1 09:13:05 Uses contrace ption 77790859 Completed 201409/23/2014 Contrace ption advice, other method; Location : None Severity : Moderate Progress : Stable Added By: Raeann Kelly Add to Current Problems : NO ProblemS tatus: Resolve Not Available [facility] 1 09:13:06 Counseli ng for elective steriliz ation done [id number] 9102 Completed 201407/30/2019 Steriliz ation, office visit; Location : None Severity : Moderate Progress : Stable Added By: Soco Salcedo Add to Current Problems : YES ProblemS tatus: Current Steriliz ation, office visit; Severity : Moderate Progress : Stable Added By: Soco Salcedo Add to Current Problems : NO ProblemS tatus: Resolve Not Available [facility] 1 09:13:06 Polyp of cervix 24165163 Active 2017 Cervical polyp; Location : None Progress : Stable Added By: Rosmery Agrawal Add to Current Problems : YES ProblemS tatus: Current Polyp of cervix uteri; Progress : Stable Added By: Rosmery Agrawal Add to Current Problems : YES ProblemS tatus: Current Not Available [facility] 2 19:34:57 Acute vaginiti s 96818592 Completed 201903/13/2023 Acute vaginiti s; Progress : Stable Added By: Rosmery Sherwood Add to Current Problems : YES ProblemS tatus: Current Tanya Britsch null, [facility] 3 12:54:57 General symptom 997769859 Completed 201507/30/2019 Heat intolera nce; Location : None Progress : Stable Added By: Basia Pereira Add to Current Problems : YES ProblemS tatus: Current Heat intolera nce; Progress : Stable Added By: Basia Pereira Add to Current Problems : NO ProblemS tatus: Resolve Not Available [facility] 2 19:34:55 Dysuria 98973057 Completed 201506/14/2016 Dysuria; Location : None Progress : Stable Added By: Linda Broussard Add to Current Problems : YES ProblemS tatus: Resolve Painful micturit ion, unspecif ied; Progress : Stable Added By: Linda Broussard Add to Current Problems : NO ProblemS tatus: Resolve Not Available [facility] 2 19:34:54 Spontane ous ecchymos is 102528909 Active 2019 Spontane ous ecchymos es; Progress : Stable Added By: Rosmery Sherwood Add to Current Problems : YES ProblemS tatus: Current Not Available [facility] 2 19:34:56 Menometr orrhagia 133553519 Completed 201707/30/2019 Menometr orrhagia ; Location : None Progress : Stable Added By: Paola Fernadnez Add to Current Problems : YES ProblemS tatus: Current Menometr orrhagia ; Progress : Stable Added By: Paola Fernandez Add to Current Problems : NO ProblemS tatus: Resolve Not Available [facility] 2 19:34:53 Depressi ve disorder 69462469 Completed 201303/11/2014 Depressi on; Progress : Stable Added By: Nela Carney Add to Current Problems : NO ProblemS tatus: Resolve Not Available [facility] 2 19:34:56 Severe obesity 75175197991 104 Completed 201703/13/2023 Morbid (severe) obesity due to excess calories ; Progress : Stable Added By: Paola Fernandez Add to Current Problems : YES ProblemS tatus: Current Tanya Britsch null, [facility] 3 12:55:00 Psychiat isak follow-u p Completed 201205/11/2013 Follow-u p visit for postpart um depressi on; Location : None Progress : Stable Added By: Maricel Longo Add to Current Problems : NO ProblemS tatus: Resolve Not Available [facility] 2 19:34:51 Pre-surg kenneth evaluati on Completed 201409/23/2014 Preopera tive examinat ion - unspecif ied; Location : None Progress : Stable Added By: Soco Salcedo Add to Current Problems : YES ProblemS tatus: Resolve Not Available [facility] 2 19:34:53 Follow-u p encounte r Completed 201210/01/2013 Follow-u p examinat ion; Location : None Progress : Stable Added By: Soco Salcedo Add to Current Problems : NO ProblemS tatus: Resolve Not Available [facility] 2 19:34:53 Postoper ative follow-u p visit Completed 201406/25/2015 Follow-u p exam followin g other surgery; Location : None Progress : Stable Added By: Soco Salcedo Add to Current Problems : YES ProblemS tatus: Resolve Not Available [facility] 2 19:34:54 Screenin g for malignan t neoplasm of cervix Completed 201903/13/2023 Encounte r for screenin g for malignan t neoplasm of cervix; Progress : Stable Added By: Rosmery Sherwood Add to Current Problems : YES ProblemS tatus: Current Tanya Britsch null, [place] [facility] 3 12:54:40 Constipa tion 54730690 Completed 202103/13/2023 Tanya Britsch null, [place] [facility] 3 12:54:36 Cyst of ovary 86234021 Completed 202103/13/2023 Tanya Britsch null, [place] [...] of Last Pap Smear completed Marimar Malone [facility] [employer] [facility] 04/24/2024 15:30:53 01/06/20 18 endometrial ablation completed GARRY [address]redia [address] [place], [address], [facility] [employer] IV 06/01/2021 10:53:14 01/06/20 18 diagnostic hysteroscopy completed Anja B Schifano, [address], [address], [facility] [employer] [facility] IV 06/01/2021 10:54:07 09/10/19 15 ligation of bilateral fallopian tubes completed Cecil Li, [address], [address], [facility] [employer] [facility] 06/01/2021 10:50:31 09/10/19 15 laparoscopy completed Cecil Stearnsedmondmiguel, [address], [address], [facility] [employer] [facility] IV 06/01/2021 10:51:01 procedure on ankle completed Cecil Stearnsedmondmiguel, [address], [address], [facility] [employer] [facility] IV 06/01/2021 10:51:32 Imaging Results Imaging Date Name Status LastModified by Organization Details LastModified Time 06/02/2021 US, transvaginal completed Jessica [address], [place], [address], 06/06/2021 22:25:13 08/27/2021 US, transvaginal completed [email or web address] Informat ion not available 08/30/2021 12:20:36 03/14/2023 US, transvaginal completed [email or web address] [address], [place], [address], 03/15/2023 14:19:14 Procedure Notes None recorded. Medical Equipment None Reported. Allergies Allergen ID Allergen Name Allergen Category Reaction Reaction Severity Criticality Documentation Date Start Date Code Code System Note Provider Name and Address Organization Details Recorded Time 516845 Biaxin medicatio n Not available Not available Not available 03/26/20212012 9 RxNorm Sever ity: Moder ate; Not Available Not Available Not Available Medications Name Sig Start Date Stop Date [...] isela HCL 8 mg oral tablet RxNorm: 621394 Allow Substitu tion: False Refill Denied: No [...] completed Diflucan 150 mg oral tablet RxNorm: 914676 Allow Substitu tion: True Refill Denied: No [...] daily 10/02 completed Zoloft 100mg Tablet RxNorm: 443522 Allow Substitu tion: True Refill Denied: No [...] QD 12/31 completed Lexapro 10mg Tablet RxNorm: 273852 Allow Substitu tion: True Refill Denied: No [...] daily 08/09 completed Zoloft 100mg Tablet RxNorm: 481489 Allow Substitu tion: True Refill Denied: No Not Available Not Available Not Available Klonopin 10/31 completed Klonopin 0.5mg Tablet RxNorm: 004864 Allow Substitu tion: True Refill Denied: No [...] Not Available Miralax 10/31 completed Miralax RxNorm: 438881 Allow Substitu tion: True Refill Denied: No Refill DateOccu rred: 09/24/19 15 Not Available Not Available Not Available Lexapro 04/15 completed Lexapro 10mg Tablet RxNorm: 258370 Allow Substitu tion: True Refill Denied: No [...] Updated DateTime 1 165.1 cm 47.6 kg/m2 041726. 14 g 96.8 [degF] 128 mm[Hg] 76 mm[Hg] Emiliaisaac Chery [employer] IV 1 13:08:18 Date Recorded Body height Body mass index (BMI) Body weight Body temperature Systolic blood pressure Diastolic blood pressure Provider Name and Address Organization Details Last Updated DateTime 2 165.1 cm 46.7 kg/m2 486215. 02 g 97.7 [degF] 122 mm[Hg] 72 mm[Hg] Karen Mauricet [employer] [facility] IV 2 11:47:12 Date Recorded Body height Provider Name an d Address Organization Details Last Updated DateTime 02/13/2023 165.1 cm Ruthie Hernandez [employer] [facility] IV 02/13/2023 15:51:37 Date Recorded Body mass index (BMI) Body weight Systolic blood pressure Diastolic blood pressure Provider Name and Address Organization Details Last Updated DateTime 02/13/2023 41.2 kg/m2 978236.11 g 130 mm[Hg] 60 mm[Hg] Flory Cool [employer] IV 02/13/2023 15:57:36 Date Recorded Body height Body mass index (BMI) Body weight Body temperature Systolic blood pressure Diastolic blood pressure Provider Name and Address Organization Details Last Updated DateTime 3 165.1 cm 40 kg/m2 762675. 61 g 97.4 [degF] 130 mm[Hg] 78 mm[Hg] Tanya Linangie [employer] IV 3 16:22:20 Social History Question Answer Notes LastModified by Organizat ion Details LastModified Time Tobacco Smoking Status Never Smoker Emilia Johnsabina miller, [employer] IV 06/02/2021 13:10:45 What Is Your Level [...] Medical History Condition Response Anxiety Disorder Y Neurological Disorder Y Fibroids Y Bipolar Disorder Y Gynecological History Statement/Question Response Date [...] SNOMED-CT Code Diagnosis ICD10 Code Diagnosis Note [id number] Cecil Li [facility] [address] [place] [address] 06/02/2021 12:42:35 06/15/2021 13:20:10 Acute pelvic pain 839954514 R10.2 4.8 cm left ovarian cyst; repeat U/S in 4-6 weeks Cyst of ovary 58485009 N 83.209 Uses oral contraception 0235595 Z30.41 [id number] Cecil Li [facility] [address] [place] [address] 08/27/2021 11:33:02 08/27/2021 13:22:59 Constipation 37636797 K59.00 Cyst of ovary 95523546 N 83.209 Left ovarian cyst resolved. 2.6 cm right cyst today. Advised to rto if pain and if severe, go to ER. Follow up in 6 weeks for repeat U/S. [id number] GARRY [facility]IVAR[facility] [address] [place] [address] 02/13/2023 15:49:08 02/13/2023 17:22:29 Gynecologic examination 59316436 Z01.419 Screening for malignant neoplasm of cervix 472519223 Z12.4 Screening mammography of bilateral breasts 7583360562 01814 Z12.31 Pt educated on breast cancer screening guidelines , and discussed recommenda tion for scheduling imaging at hospital of her choice. Reviewed recommenda tion to have imaging done at same facility if possible as previous screenings . Pt states understand ing of POC. Contracept ion education 276159769 Z30.09 Contracept jam counseling : Discussed options including OCPs, NuvaRing, Nexplanon, hormonal and copper IUDs. Discussed risks, efficacy, non contracept jam benefits, and side effects of each option, including risk of VTE with hormonal contracept ion and uterine perforatio n, expulsion, infection with IUD. Depression screening 171 856109 Z13.31 Pain of breast 17848666 N64.4 Pt comes in today for Breast [...] mmatory. Discussed complement sheryl therapy of Evening [place] oil- up to 3,000 mg daily for 2 weeks and beyond if it helps.Catherine ent declines mammo/US at present. Discussed plan to re-eval sx after diet modificati on. If persistent would recommend breast imaging. Will RTC if recurring symptoms, worsening symptoms, or palpable abnormalit y. Pain in pelvis 17484755 R10.2 [id number] [facility] [address] [place] [address] 03/14/2023 15:30:56 03/15/2023 09:47:55 Pain in pelvis 03441804 R10.2 TVUS today showed [facility] WNL, hx [...] Aldana Member ID Guarantor Name 06/02/2021 1 [facility] - [facility] ON OR AFTER 12/03/20 (MEDICAID REPLACEMENT - HMO) Kassandra Odonnell [id number] Kassandra Odonnell 08/27/2021 1 [facility] - DOS ON OR AFTER 20 (MEDICAID REPLACEMENT - HMO) Kassandra Odonnell [id number] Kassandra Odonnell 02/13/2023 1 [facility] - DOS ON OR AFTER 20 (MEDICAID REPLACEMENT - HMO) Kassandra Odonnell [id number] Kassandra Odonnell 03/14/2023 1 [facility] - DOS ON OR AFTER 20 (MEDICAID REPLACEMENT - HMO) Kassandra Odonnell [id number] Kassandra Odonnell Notes Date Note Type Note [...] received. Reports h/o recurring cysts. GARRY [address] [place], [address], [employer] IV 06/02/2021 15:27:45 08/27/2021 text/html Kassandra is here to follow up on ovarian cyst- 4.8 cm left ovary; she stopped the OCPs started last visit because of mood issues.reports occasional crampsc/o constipation GARRY [address]ia [address] [place], [address], [employer] [facility] IV 08/31/2021 17:43:56 02/13/2023 text/html Annual GYNReport ed bypatient.Breast:Br east pain Current Contraception:Tubal ligation Preventive measures:Encourage self breast examination Patient is an established patient who presents for a gynecological Annual Exam. The patient denies any changes in her medical history. The patient denies any changes in her family medical history. GARRY OLIVARES- [address] [facility], [place], [address], [employer] IV 03/14/2023 16:27:33 03/14/2023 text/html Patient is an established patient who presents for follow on pelvic pain The patient denies any changes in her medical history. The patient denies any changes in her family medical history.States she has history of fibroids and cystsno cycles due to ablation STEPHEN GUTHRIE, [facility]- [address] [facility], [place], [address], [facility] IV 03/14/2023 16:36:13 OBGyn Episode No OBEpisode recorded.
--- OUTSIDE RECORDS SUMMARY | 2024-08-11 19:43 | XMS_ITS ---
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 Name Role Phone Marcella Hutson Primary Care Provider Juliann Nixon [phone] REASON FOR VISIT refills Medications Medication SIG [...] Female Encounters Encounter Location Date Provider Diagnosis [address] [address] 03/25/2024 Juliann Nixon Bipolar 2 disorder F31.81 [...] Notes * Avinash ODONNELL:1980 (43 yo F)Acc No.[id number]:03/25/2024 Patient: Kassandra BECKHAM :1980 A ge:43 Y S ex:Female Address:[address] [place] [address] , [place], [address] * Refills Refill Vyvanse Capsule, 50 MG, Orally, 5 Capsule, 1 capsule in the morning, Once a day, 5 days, Refills=0 Refill hydrOXYzine HCl Tablet, 50 MG, Orally, 10 Tablet, 1 tablet as needed, twice a day, 5 days, Refills=0 Refill Zoloft Tablet, 50 MG, Orally, 5 Tablet, 1 tablet, Once a day, 5 days, Refills=0 * true * Date: Generated for Radha carroll/Violet/Jessika on: 0 08/11/2024 07:43 PM CDT
--- OUTSIDE RECORDS SUMMARY | 2024-08-11 19:43 | XMS_ITS ---
Author Organization [facility] Address [address] [place] [address] Care Team Providers Care Studio Coordinator Name Role Phone Marcella Hutson Primary Care [...] Encounters Encounter Location Date Provider Diagnosis [address] [address] 03/29/2024 Marcella Hutson Bipolar 2 disorder F31.81 Assessments Encounter Date Diagnosis (ICD Code) Assessment Notes Treatment Notes Treatment Clinical Notes Section Notes 03/29/2024 Bipolar 2 disorder (ICD-10 - F31.81) Stop Zoloft and start Prozac. Family members are on Fluoxetine and doing well. Reviewed Prescription Monitoring program. Continue services as scheduled. Labs completed recently. May self-administer medications or be administered own oral medications per [facility] protocols. Provided informed consent with understanding of [...] or be administered own oral medications per [facility] protocols. Provided informed consent with understanding of [...] Notes * Grace ODONNELLOB:1980 (43 yo F)Acc No.[id number]:03/29/2024 Patient: Kassandra BECKHAM Provider: Bridger Hutson DNP, PMKALLIEP-BC, RECEPTIONIST SECRETARY :1980 A ge:43 Y S ex:Female Date:03/29/2024 Address:[address] , [place], [id number] Subjective: * Chief Complaints: * 4 week F/U, last seen 01/23 * HPI: D epression Screening: PHQ-9 L ittle interest or pleasure in doing things?Several days F eeling down, depressed, or hopeless S everal T rouble falling or staying asleep, or sleeping too much S everal F eeling tired or having little energy N early every day P oor appetite or overeating S ever F eeling bad about yourself or that you are a failure, or have let yourself or your family down S ever T rouble concentrating on things, such as reading the newspaper or watching television N ot at all M oving or speaking so slowly that other people could have noticed; or the opposite, being so fidgety or restless that you have been moving around a lot more than usual N ot at all T houghts that you would be better off or of hurting yourself in some way N ot at all T otal Score 8 I nterpretation M ild Depression Intervention D epression Screening Findings P ositive F ollow-Up for Depression N o Referral necessary, patient involved in behavioral health treatment . S creening: [place] Suicide Severity Rating Scale (LF) D o you want to initiate with S creener form I nterpretation: L ow Risk 6 . Suicide Behaviour: Have you ever done anything,started to do anything, or prepared to end your life? N o 2 . Suicidal Thoughts: Have you actually had any thoughts of killing yourself? N o 1 . Wish to be : Have you wished you were or wished you could go to sleep and not wake up? N o P sych F/U: Patient presents for psychiatric follow-up visit. Changes since last visit?: S topped Zoloft due to side effects. Has been feeling more depressed without it. . Coping skills? H as family support. Sometimes nothing helps. . Effectiveness of medications: , Somewhat effective. Medication Adherence: S topped zoloft. Side effects to medications?: , Admits side effects to medications (specify): jerky motions. . Sleep: , Difficulty staying asleep. Appetite , Appropriate appetite. Depression (10 = most depressed) H as been feeling more depressed. Anxiety (10 = most anxious) situational/minimal.? Anger/Irritability (10 is highest): I rritated easily. . Suicidal ideation: D enies suicidal ideation.. Homicidal ideation: D enies homicidal ideation.. Hallucinations D enies hallucinations. Medical concerns or hospitalizations? F ollowing up with PCP and looking for a new neurologist for movement disorder. Following up in relation to ankle injury.?. Therapy? N one. Goals: L ess depression. . Are you satisfied with the medication? N o, I would like to change the medication or dose.. A bnormal Involuntary Movement Scale: Has movement disorder. Has a neurologist appointment. Denies : Facial and Oral Movements M uscles of Facial Expression 0 - None L ips and Perioral Area 0 - None J aw 0 - None T ongue 0 - None Denies : Extremity Movements U pper (arms, wrists, hands, fingers) 0 - None L ower (legs, knees, ankles, toes) 0 - None Denies : Trunk Movements N raz, Shoulders and hips 0 - None Denies : Global Judgement S everity of abnormal movements overall 0 - None I ncapacitation due to abnormal movements 0 - None P atient's awareness of abnormal movements?0- No Awareness Denies : Dental Status C urrent problems with teeth and/or dentures?No A re dentures usually worn? N o E ndentia N o D o movements disappear with sleep? N o Denies : Subjective Experience . C SSRS Interpretation and Follow Up Plan: CSSRS Interpretation and Follow Up Plan. CSSRS Interpretation and Follow Up Plan M oderate or High risk requires selection of a follow up plan C SSRS No/Low: intervention not needed at this time * ROS: P sych ROS: Constitutional D enies. E yes D enies. E ars/Nose/Mouth/Throat D enies. R espiratory D enies. A llergic/Immunologic D enies.?Cardiovascular D enies. G I D enies. G U D enies. M usculoskeletal R eports, P ain related to broken wrist and previous ankle injury/infection. N eurological?Denies. I ntegumentary D enies. E ndocrine D enies. H ematological/Lymphatic?Denies. P sych R eports anxiety, Reports depression. * Medical History: * Surgical History: L eft Ankle Surgery 2017tubal ligation * Hospitalization/Major Diagno stic Procedure: L eft Ankle Surgery 2017Child Child Child * Family History: F ather: , 45- Heart Issues. M other: , 45- OD. 2 son(s) , 1 daughter(s) - healthy. . * Social History: P rimary Social History: L iving Arrangement L iving Arrangement: I ndependent Living, Dependent Living L iving with: O ther: I s this a supportive environment? Y es Alcohol Use A lcohol Use Frequency: N ever Illicit Substance Usage I llicit Substance Usage: N o Employment Status E mployment Status: U nemployed Tobacco Use T obacco Use: n one T obacco Use: T obacco Control (Standard) T obacco use: N onsmoker * Medications: T akingLisinopril 20 MG Tablet 1 tablet Orally Once [...] reviewed and reconciled with the patient * Allergies: B iaxin: Hives - Allergyno[Allergies Verified] Objective: * Vitals: * Examination: M ental Status Exam: SENSORIUM AND COGNITION Alert , Oriented to Person , Oriented to Place , Oriented to Time , Oriented to Situation. ATTENTION AND CONCENTRATION N o deficits. ATTITUDE AND BEHAVIOR C ooperative , Receptive. MEMORY I mmediate , Recent , Remote. AFFECT B road/Full. MOOD E uthymic. SPEECH QUANTITY A ppropriate. SPEECH QUALITY S pontaneous , Fluent , Appropriate volume.? THOUGHT PROCESS C oherent and goal directed. THOUGHT CONTENT A ppropriate - WNL , No evidence of delusional content , No reports paranoia. LANGUAGE A ppropriate- WNL. SUICIDAL IDEATION D enies suicidal ideation. HOMICIDAL IDEATION D enies homicidal ideation. HALLUCINATIONS D enies hallucinations. INSIGHT F air. JUDGMENT F air. FUND OF KNOWLEDGE F air. ABILITY TO PARTICIPATE IN TREATMENT M oderate. WILLINGNESS TO PARTICIPATE IN TREATMENT M oderate. SIGNIFICANT FINDINGS REGARDING MENTAL STATUS N one. ? Assessment: * Assessment: 1. B ipolar 2 disorder - F31.81 (Primary) Plan: * Treatment: 2. O thers Refill Vyvanse Capsule, 50 MG, 1 capsule in the morning, Orally, Once a day, 30 days, 30, Refills 0; R efill Vyvanse Capsule, 50 MG, 1 capsule in the morning, Orally, Once a day, 30 days, 30, Refills 0. * Procedure Codes: * Follow Up: 4 Weeks (Reason: Medication management - can be telehealth appt.) * * Sign off status: Completed true * Provider: Bridger Hutson DNP, PMHNP-, RECEPTIONIST SECRETARY Date: Generated for Printing/Faxing/eTransmitting on: 0 08/11/2024 07:43 PM CDT History and Physical Notes * HPI (History [...] to change the medication or dose. Screening [place] Suicide Sev erity Rating Scale (LF) Do you want to initiate with: Screener form Interpretation:: Low Risk 6. Suicide Behavior Question: Have you ever done anything,started to do anything, or prepared to end your life?: No 2. Suicidal Thoughts: Have you actually had any thoughts of killing yourself?: No 1. Wish to be : Have you wished [...]
--- OUTSIDE RECORDS SUMMARY | 2024-08-11 19:43 | XMS_ITS | Clinical Summary ---
Author Organization [facility] Address [address] [place] [address] Care Team Providers Care Detective Bureau Chief Name Role Phone Marlon Saucedo MD Primary Care Provider [phone] Allergies Active Allergy Reactions Criticality Noted Date Comments Clarithromycin Hives Medium 04/11/2017 Medications multi vitamin/minerals (THERA-M ENHANCED) tablet Take 1 tablet by mouth daily. Active HYDROcodone-acetam inophen (NORCO) 5-325 MG tabletIndications: Acute Pain < 7 Day Supply Take 2 tablets by mouth every 6 (six) hours as needed. Indications: Acute Pain < 7 Day Supply 20 tablet 08/11/19 23 Active Additional Information Patient not taking.Reported on 08/22/2022 ondansetron (ZOFRAN-ODT) 4 MG disintegrating tablet Take 1 tablet (4 mg total) by mouth every 8 (eight) hours as needed for Nausea. 20 tablet 01/11/20 24 Active ondansetron (ZOFRAN-ODT) 4 MG disintegrating tablet Take 1 tablet (4 mg total) by mouth every 8 (eight) hours as needed for Nausea. 20 tablet 05/08/20 24 Active naproxen (NAPROSYN) 500 MG tablet Take 1 tablet (500 mg total) by mouth 2 (two) times daily with meals. 60 tablet 05/15/20 24 Active famotidine (PEPCID) 20 MG tablet Take 1 tablet (20 mg total) by mouth 2 (two) times daily. 20 tablet 05/15/20 24 Active amoxicillin-clavul anate (AUGMENTIN) 875-125 MG tablet Take 1 tablet (875 mg total) by mouth 2 (two) times daily for 10 days. 20 tablet 08/07/19 25 025 Active neomycin-bacitraci n-polymyxin (NEOSPORIN) 3.5-400-5000 ointment Apply topically 4 (four) times daily. 14 g 08/07/19 25 Active Active Problems Problem Noted Date Diagnosed Date Cholecystitis 08/10/2022 Acute cholecystitis 08/08/2022 Encounters Date Type Department Care Team Description 08/06/2024 6:50 PM [facility] - 08/06/2024 9:51 PM [facility] Emergency [facility] Emergency Room [id number] [place] [id number] Walter Acosta MD Wound Infection (Post-surgical infection, Wash U, removed hardware in April, wound reopened and began to look infected a couple days ago. ) Discharge Disposition: Home or Self Care (Routine Discharge) 08/06/2024 Travel 05/15/2024 4:56 PM [facility] - 05/15/2024 7:03 PM [facility] Emergency [facility] Emergency Room [id number] [place] [id number] Woo Velasquez MD Leg Pain; Leg Swelling Discharge Disposition: Home or Self Care (Routine Discharge) 05/15/2024 Travel from Last 3 Months Family History Medical History Relation Comments Diabetes Father Heart Disease Father aorta ruptured a fter surgery, part of esophagus was removed Drug Abuse Mother Relation Status Comments Daughter Alive Father (Age 45) aorta rupture after esophagus surgery Mother (Age 45) drug overdose Son 1 Alive Son 2 Alive Social History Tobacco Use Types Packs/Day Years Used Date Smoking Tobacco: Never Smokeless Tobacco: Never Tobacco Cessation:Counseling Given: Not Answered Alcohol Use Standard Drinks/Week Comments No 0 (1 standard drink = 0.6 oz pur e alcohol) Humiliation, Afraid, Rape, and Kick questionnair e Answer Date Recorded Within the last year, have y ou been afraid of your partner or ex-partner? No 08/08/2022 Within the last year, have y ou been humiliated or emotionally abused in other ways by your partner or ex-partner? No Within the last year, have y ou been kicked, hit, slapped, or otherwise physically hurt by your partner or ex-partner? No 08/08/2022 Within the last year, have y ou been raped or forced to have any kind of sexual activity by your partner or ex-partner? No 08/08/2022 Overall Financial Resource Strain (CARDIA) Answe r Date Recorded How hard is it for you to pa y for the very basics like food, housing, medical care, and heating? Not hard at all 08/08/2022 Hunger Vital Sign Answer Date Recorded Within the past 12 months, y ou worried that your food would run out before you got the money to buy more. Never true 08/09/19 23 Within the past 12 months, t he food you bought just didn't last and you didn't have money to get more. Never true 08/08/2022 PRAPARE - Transportation Answer Date Re corded In the past 12 months, has l ack of transportation kept you from medical appointments or from getting medications? No 11/2022 In the past 12 months, has l ack of transportation kept you from meetings, work, or from getting things needed for daily living? No 08/08/2022 Housing Stability Vital Sign Answer Wilson e Recorded In the last 12 months, was t here a time when you were not able to pay the mortgage or rent on time? No 08/08/2022 In the last 12 months, how many places have you lived? 1 08/08/2022 In the last 12 months, was t here a time when you did not have a steady place to sleep or slept in a longterm (including now)? No 08/08/2022 Comments No Sex and Gender Information Value Date Recorded Sex Assigned at Female 08/06/2024 7:04 PM FIELD SERVICES MANAGER Legal Sex Female 4:57 PM CDT Gender Identity Not on file Sexual Orientation Not on file Last Filed Vital Signs Vital Sign Reading Time Taken Comments Blood Pressure 135/78 08/06/2024 9:00 PM FIELD SERVICES MANAGER Pulse 91 08/06/2024 9:00 PM FIELD SERVICES MANAGER Temperature 36.6 C (97.8 F) 08/06/2024 6:53 PM FIELD SERVICES MANAGER Respiratory Rate 20 08/06/2024 9:00 PM FIELD SERVICES MANAGER Oxygen Saturation 100% 08/06/2024 9:00 PM FIELD SERVICES MANAGER Inhaled Oxygen Concentration - - Weight 113.4 kg (250 lb) 08/06/2024 6:53 PM FIELD SERVICES MANAGER Height 165.1 cm (5' 5 ) 08/06/2024 6:53 PM FIELD SERVICES MANAGER Body Mass Index 41.6 08/06/2024 6:53 PM FIELD SERVICES MANAGER Plan of Treatment Health Maintenance Due Date Last Done Comments Cervical Cancer Screening Pa p Smear (Age 30 to 64) Every 3 Years 1981 Annual Physical 1984 Hepatitis C 10/02/1999 Hepatitis B Vaccines (1 of 3 - 19+ 3-dose series) 2000 Cervical Cancer Screening Pa p with HPV Testing (Age 30 to 64) Every 5 Years 10/02/2011 Cervical Cancer Screening wi th HPV 10/02/2011 Mammogram Screening 2021 COVID-19 Vaccine (4 - 2023-2 5 season) 2024 11/09/2020, 10/19/2020, 10/15/2020 Influenza Adult (#1) 2024 03/26/2019 PHQ-2 (Physician Holbrook) 06/05/2024 DTaP, Tdap and Td Vaccines ( 4 - Td or Tdap) 03/25/2027 03/25/2017, 04/27/2016, 12/24/2011 HPV Vaccines Aged Out No longer eligi ble based on patient's age to complete this topic Meningococcal B Vaccine Aged Out No l onger eligible based on patient's age to complete this topic Meningococcal Vaccine Aged Out No jeannie britt eligible based on patient's age to complete this topic Pneumococcal Vaccine: Pediatrics (0 to 5 Years) and At-Risk Patients (6 to 64 Years) Aged Out No longer eligible b ased on patient's age to complete this topic RSV Immunizations Under 20 Months Aged Out No longer eligible b ased on patient's age to complete this topic Procedures Procedure Name Priority Date/Time Associated Diagnosis Comments XR ANKLE LT M3V STAT 08/06/2024 7:52 PM FIELD SERVICES MANAGER HC SMEAR GRAM/GIEMSA STAT 08/06/2024 7:50 PM FIELD SERVICES MANAGER CULTURE, BACTERIA, BLOOD STAT 08/06/2024 7:42 PM FIELD SERVICES MANAGER LACTIC ACID STAT 08/06/2024 7:42 PM FIELD SERVICES MANAGER COMPREHENSIVE METABOLIC PANEL STAT 08/06/2024 7:42 PM FIELD SERVICES MANAGER CBC W/DIFF AUTOMATED STAT 08/06/2024 7:42 PM FIELD SERVICES MANAGER USV MUSTAPHA DUPLEX LOW EXT RT STAT 05/15/2024 6:21 PM FIELD SERVICES MANAGER from Last 3 Months Results * XR ANKLE LT M3V (08/06/2024 7:52 PM FIELD SERVICES MANAGER) Anatomical Region Laterality Modality Ankle Radiographic Carlee ging 08/06/2024 7:57 PM FIELD SERVICES MANAGER Impressions 08/06/2024 8:03 PM FIELD SERVICES MANAGER IMPRESSION: 1. Interval revision of the ORIF of the left ankle, as above, with no evidence of hardware complication of the remaining hardware. 2. No acute osseous or articular abnormality of the left ankle. 3. Mild soft tissue edema along the lateral aspect of the ankle. Referred By: Interpreted By: Dannie Beck MD, 08/06/2024 7:57 PM Narrative 08/06/2024 8:03 PM FIELD SERVICES MANAGER [facility] [address] [place] [address] INDICATION: Pain COMPARISON: Left ankle radiograph, 11 Jan 2024 TECHNIQUE: Three radiographic images of the left ankle. FINDINGS: Interval revision of ORIF of the left ankle, with removal of the plate and screw fixation of the distal fibula, a syndesmotic screw, and pin plus screw fixation of the medial malleolus. Two screws remain present in the fibula and a plate/two screws remain present in the tibia. No evidence of hardware fracture, adjacent abnormal lucency, or backing out of the remaining surgical hardware. Ankle mortise appears intact and symmetric. Mild soft tissue edema along the lateral aspect of the ankle. No significant ankle joint effusion. Procedure Note Dannie Beck MD - 08/06/2024 [place] [address] [place] [address] INDICATION: Pain COMPARISON: Left ankle radiograph, 11 Jan 2024 TECHNIQUE: Three radiographic images of the left ankle. FINDINGS: Interval revision of ORIF of the left ankle, with removal of the plate andscrew fixation of the distal fibula, a syndesmotic screw, and pin plusscrew fixation of the medial malleolus. Two screws remain present in thefibula and a plate/two screws remain present in the tibia. No evidence ofhardware fracture, adjacent abnormal lucency, or backing out of theremaining surgical hardware. Ankle mortise appears intact and symmetric. Mild soft tissue edema alongthe lateral aspect of the ankle. No significant ankle joint effusion. IMPRESSION: 1. Interval revision of the ORIF of the left ankle, as above, with noevidence of hardware complication of the remaining hardware. 2. No acute osseous or articular abnormality of the left ankle. 3. Mild soft tissue edema along the lateral aspect of the ankle. Referred By: Interpreted By: Dannie Beck MD, 08/06/2024 7:57 PM Walter Acosta MD GENERAL IMAGING Final Result * (ABNORMAL) CULTURE, WOUND, W/GRAM STAIN (08/06/2024 7:50 PM FIELD SERVICES MANAGER) SPEC DESCRIPTION ANKLE,LEFT 08/06/2024 7:53 PM [facility] SPECIAL REQUESTS NO SPECIAL REQUEST 08/06/2024 7:53 PM [facility] GRAM STAIN RESULT NO WHITE BLOOD CELLS SEEN 08/07/2024 11:43 AM FIELD SERVICES MANAGER [facility] GRAM STAIN RESULT NO ORGANISMS SEEN 08/07/2024 11:43 AM [facility] CULTURE RESULT MODERATE GROWTH OF METHICILLIN RESISTANT STAPHYLOCOCCUS AUREUS FOLLOW ISOLATION PROTOCOL. (AA) 08/09/2024 8:33 AM [facility] ANKLE REGION STRUCTURE / Unknown 08/06/2024 7:50 PM FIELD SERVICES MANAGER 08/06/2024 7:55 PM FIELD SERVICES MANAGER Narrative Organism Antibiotic Method Susceptibility Methicillin resistant staphylococcus aureus CLINDAMYCIN DIAMOND (VITEK) <=0.25: Sensitive Methicillin resistant staphylococcus aureus ERYTHROMYCIN DIAMOND (VITEK) >=8: Resistant Methicillin resistant staphylococcus aureus OXACILLIN DIAMOND (VITEK) >=4: Resistant Methicillin resistant staphylococcus aureus TRIMETH-SULFAMETH. DIAMOND (VITEK) <=10: Sensitive Methicillin resistant staphylococcus aureus TETRACYCLINE DIAMOND (VITEK) <=1: Sensitive Methicillin resistant staphylococcus aureus VANCOMYCIN DIAMOND (VITEK) 1: Sensitive us Walter Acosta MD MICROBIOLOGY - GENERAL ORDERABL ES Final Result [facility] [address] [place] [address], [place] [phone] [facility] [address] [place] [address], [place] [phone] * (ABNORMAL) COMPREHENSIVE METABOLIC PANEL (08/06/2024 7:42 PM FIELD SERVICES MANAGER) [facility] GLUCOSE 119(H) 70 - 99 MG/DL 08/06/2024 8:05 PM [facility] BUN 22(H) 7 - 18 MG/DL 08/06/2024 8:05 PM [facility] CREATININE S/P/B 0.74 0.55 - 1.02 MG/DL 08/06/2024 8:05 PM [facility] SODIUM S/P/B 150(H) 136 - 145 MMOL/L 08/06/2024 8:05 PM [facility] POTASSIUM S/P/B 4.7 3.5 - 5.1 MMOL/L 08/06/2024 8:05 PM [facility] CHLORIDE S/P/B 110(H) 100 - 108 MMOL/L 08/06/2024 8:05 PM [facility] CO2 26.9 21 - 32 MMOL/L 08/06/2024 8:05 PM [facility] CALCIUM S/P/B 9.2 8.5 - 10.1 MG/DL 08/06/2024 8:05 PM [facility] BILIRUBIN TOTAL S/P/B 0.2 0.2 - 1.2 MG/DL 08/06/2024 8:05 PM [facility] TOTAL PROTEIN S/P/B 7.6 6.4 - 8.2 G/DL 08/06/2024 8:05 PM [facility] ALBUMIN S/P/B 4.0 3.4 - 5.0 G/DL 08/06/2024 8:05 PM [facility] AST 15 15 - 37 U/L 08/06/2024 8:05 PM [facility] ALT 38 14 - 55 U/L 08/06/2024 8:05 PM [facility] ALKALINE PHOSPHATASE S/P/B 65 50 - 136 U/L 08/06/2024 8:05 PM [facility] ANION GAP 13.1 5 - 15 MMOL/L 08/06/2024 8:05 PM [facility] BUN CREATININE RATIO 29.7(H) 6 - 26 08/06/2024 8:05 PM [facility] A/G RATIO 1.1 1.0 - 2.0 RATIO 08/06/2024 8:05 PM [facility] GFR ESTIMATE >90 >90 ML/MIN/1.7 3 M2 08/06/2024 8:05 PM [facility] Comment: NOTE: eGFR is not calculated for patients <18 years of age. This is an estimated GFR calculation using the new CKD EPI creatinine equation without race and so does not require a correction factor for race. This estimated GFR should not be used for calculating drug doses. 08/06/2024 7:42 PM FIELD SERVICES MANAGER us Walter Acosta MD LABORATORY Final Result [facility] [address] [place] [address], [place] [phone] * LACTIC ACID - SINGLE (08/06/2024 7:42 PM FIELD SERVICES MANAGER) LACTIC ACID VENOUS 1.8 0.4 - 2.0 MMOL/L 08/06/2024 8:10 PM FIELD SERVICES MANAGER [facility] 08/06/2024 7:42 PM FIELD SERVICES MANAGER us Walter Acosta MD LABORATORY Final Result Performing Organization Address [facility]/ZIP Co de Phone Number [facility] [address] [place] [address], [place] [phone] * (ABNORMAL) CBC W/DIFF AUTOMATED (08/06/2024 7:42 PM FIELD SERVICES MANAGER) WBC 7.86 4.4 - 11.0 x10'3/uL 08/06/2024 7:51 PM [facility] RBC 5.04 4.50 - 5.10 x10'6/uL 08/06/2024 7:51 PM [facility] HGB 14.5 12.3 - 15.3 G/DL 08/06/2024 7:51 PM [facility] HCT 43.1 35.9 - 44.6 % 08/06/2024 7:51 PM [facility] MCV 85.5 80.0 - 96.0 FL 08/06/2024 7:51 PM [facility] MCH 28.8 25.3 - 30.9 PG 08/06/2024 7:51 PM [facility] MCHC 33.6 31.0 - 34.1 G/DL 08/06/2024 7:51 PM [facility] RDW 12.1(L) 12.4 - 15.1 % 08/06/2024 7:51 PM [facility] PLT 449(H) 151 - 353 x10'3/uL 08/06/2024 7:51 PM [facility] MPV 9.0(L) 9.6 - 12.0 FL 08/06/2024 7:51 PM [facility] RBC MORPHOLOGY NORMAL 08/06/2024 7:51 PM [facility] PLT MORPH. NORMAL 08/06/2024 7:51 PM [facility] WBC MORPHOLOGY NORMAL 08/06/2024 7:51 PM [facility] LYMPHOCYTES % 28.5 15.8 - 45.0 % 08/06/2024 7:51 PM [facility] NEUTROPHILS % 61.1 42.1 - 71.9 % 08/06/2024 7:51 PM [facility] MONOCYTES % 7.1 5.7 - 12.5 % 08/06/2024 7:51 PM [facility] EOSINOPHILS 2.4 0.0 - 5.6 % 08/06/2024 7:51 PM [facility] BASOPHILS 0.5 0.0 - 1.3 % 08/06/2024 7:51 PM [facility] ABS. NEUTROPHILS 4.80 1.40 - 6.00 x10'3/uL 08/06/2024 7:51 PM [facility] IMMATURE GRANS % 0.4 0.0 - 0.5 % 08/06/2024 7:51 PM [facility] ABS. LYMPHOCYTES 2.24 0.80 - 4.70 x10'3/uL 08/06/2024 7:51 PM FIELD SERVICES MANAGER [facility] 08/06/2024 7:42 PM FIELD SERVICES MANAGER us Walter Acosta MD LABORATORY Final Result [facility] [address] [place] [id number], [place] [phone] * USV MUSTAPHA DUPLEX LOW EXT RT (05/15/2024 6:21 PM FIELD SERVICES MANAGER) Anatomical Region Laterality Modality Extremity Ultrasound 05/15/2024 6:32 PM FIELD SERVICES MANAGER Impressions 05/15/2024 6:35 PM FIELD SERVICES MANAGER IMPRESSION: No evidence of deep vein thrombosis. Referred By: Interpreted By: Jevon Ramon MD, 05/15/2024 6:32 PM Narrative 05/15/2024 6:35 PM FIELD SERVICES MANAGER [facility] [address] [facility] [place] [address] EXAMINATION: Right lower extremity duplex vein ultrasound CLINICAL HISTORY: Right lower extremity pain and swelling. COMPARISON: None TECHNIQUE: Ultrasonographic grayscale, spectral and color Doppler imaging were obtained with and without compression through the deep venous system of the right lower extremity/extremities. FINDINGS: The common femoral vein, deep femoral vein, superficial femoral vein, great saphenous vein and popliteal veins are normal in grayscale, spectral and color Doppler appearance with appropriate compression and waveforms. The calf veins are segmentally seen and normal where seen. Both common femoral vein waveforms indicate patency of the major pelvic veins and inferior vena cava. Procedure Note Jevon Ramon MD - 05/15/2024 [facility] [address] [facility] [place] [address] EXAMINATION: Right lower extremity duplex vein ultrasound CLINICAL HISTORY: Right lower extremity pain and swelling. COMPARISON: None TECHNIQUE: Ultrasonographic grayscale, spectral and color Doppler imagingwere obtained with and without compression through the deep venous systemof the right lower extremity/extremities. FINDINGS: The common femoral vein, deep femoral vein, superficial femoralvein, great saphenous vein and popliteal veins are normal in grayscale,spectral and color Doppler appearance with appropriate compression andwaveforms. The calf veins are segmentally seen and normal where seen. Both common femoral vein waveforms indicate patency of the major pelvicveins and inferior vena cava. IMPRESSION: No evidence of deep vein thrombosis. 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
--- OUTSIDE RECORDS SUMMARY | 2024-08-11 19:43 | XMS_ITS ---
Author Organization [facility] Address [address] [place] [address] Care Team Providers Care Fireworks Inspector Name Role Phone Marcella Hutson Primary Care Provider [phone] Allergies Allergen (clinical drug ingredient) Drug/Non Drug [...] Nonsmoker Encounters Encounter Location Date Provider Diagnosis [address] [place] [address] 05/03/2024 Marcella Hutson Bipolar 2 disorder F31.81 [...] or be administered own oral medications per [place] protocols. Provided informed consent with understanding of [...] or be administered own oral medications per [place] protocols. Provided informed consent with understanding of [...] Notes * Grace ODONNELLOB:1980 (43 yo F)Acc No.[id number]:05/03/2024 Patient: Kassandra BECKHAM Provider: Bridger Hutson, RAINA, PMHNP-BC, HOME CARE PROVIDER :1980 A ge:43 Y S ex:Female Date:05/03/2024 Address:[address] , [id number] Subjective: * Chief Complaints: * 4 week F/U * HPI: S creening: [place] Suicide Severity Rating Scale (LF) D o [...] psychiatric follow-up visit. Changes since last visit?: M oods have been improved on fluoxetine. Appetite is increased. . Coping skills? H as family support. . Effectiveness of medications: , Yes, patient reports they are effective. Medication Adherence: , Reports taking medications as prescribed. Side effects to medications?: , Admits side effects to medications (specify): increased appetite. Sleep: , Appropriate sleep. Appetite , Increased appetite or overeating. Depression (10 = most depressed) I mproved. Anxiety (10 = most anxious) m inimal. Anger/Irritability (10 is highest): I mproved. Suicidal ideation: D enies suicidal ideation.. Homicidal ideation: D enies homicidal ideation.. Hallucinations D enies hallucinations. Medical concerns or hospitalizations? F ollowing up with PCP and looking for a new neurologist for movement disorder. Following up in relation to ankle injury. Had surgery on ankle. . Therapy? N one. Goals: M aintaining. Healing leg. . Are you satisfied with the medication? , Yes. A bnormal Involuntary Movement Scale: Has movement [...] No/Low: intervention not needed at this time D epression Screening: PHQ-9 L ittle interest or pleasure in doing things?Several days F eeling down, depressed, or hopeless N ot at all T rouble falling or staying asleep, or sleeping too much N ot at all F eeling tired or having little energy N ot at all P oor appetite or overeating M ore than half the days F eeling bad about yourself or that you are a failure, or have let yourself or your family down N ot at all T rouble concentrating on things, such as [...] N ot at all T otal Score 3 I nterpretation M inimal Depression Intervention D epression Screening Findings N egative F ollow-Up for Depression N o Referral necessary, patient involved in behavioral health treatment, Prescribed psychotropic medications * ROS: P sych ROS: Constitutional D [...] * Surgical History: L eft Ankle Surgery 2016tubal ligation Surgical revision of hardware- removed screws and plates. 2023 * Hospitalization/Major Diagno stic Procedure: L eft [...] E mployment Status: U nemployed Tobacco Use - do not use T obacco Use: n one T obacco Use: D ont use, Tobacco Use/Smoking A re you a n onsmoker Tobacco Control (Standard) T obacco use: N onsmoker [...] B ipolar 2 disorder - F31.81 (Primary) 2 . B lety eating disorder - F50.81 Plan: * Treatment: 2. B lety eating disorder Refill Vyvanse Capsule, 50 MG, 1 capsule in the morning, Orally, Once a day, 30 days, 30, Refills 0; R efill Vyvanse Capsule, 50 MG, 1 capsule in the morning, Orally, Once a day, 30 days, 30, Refills 0; S tart Vyvanse Capsule, 50 MG, 1 capsule, Orally, once a day, 30 days, 30 Capsule, Refills 0. 3. O thers Notes: Continue current medications. Reviewed Prescription Monitoring program. Continue services as scheduled. Labs completed recently. May self-administer medications or be administered own oral medications per [place] protocols. Provided informed consent with understanding of side effects, adverse effects, risks and benefits as well as alternative treatments as previously discussed and with the above recommended medications & other aspects of the treatment program. Agrees to return sooner if symptoms worsen or suicidal or homicidal ideations occur. * Procedure Codes: * Follow Up: 3 Months (Reason: Medication management - can be telehealth appt.) * * CTIVE PRECINCT Sign off status: Completed true * Provider: Bridger Hutson, RAINA, PMHNP-BC, HOME CARE PROVIDER Date: 07/03/2023 Generated for Printing/Faxing/eTransmitting on: 0 08/11/2024 07:43 [...] Poor appetite or overeating: More than h senior living the days Feeling bad about yourself o [...] satisfied with the medication? , Yes Screening [place] Suicide Sev erity Rating Scale (LF) Do [...]
--- OUTSIDE RECORDS SUMMARY | 2024-08-11 19:43 | XMS_ITS | Encounter Summary ---
Author Organization [facility] Address [address] [place] [address] Care Team Providers Care Network Development Coordinator Name Role Phone Rick Gordillo MD Primary Care Provider Unavailable Susie Curtis MD Primary Care Provider [phone] Marlon Saucedo MD Primary Care Provider [phone] Encounter Details Date Type Department Care Team (Late st Contact Info) Description 03/25/2017 Abstract [facility] CONVERSION [address] [place] [address] Md Generic MD Juan Social History Tobacco Use Types Packs/Day Years Used Date Smoking Tobacco: Never Assessed Comments Unknown Sex and Gender Information Value Date Recorded Sex Assigned at Female 08/06/2024 7:04 PM [employer]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 Female 4:57 PM CDT Gender Identity Not on file Sexual Orientation Not on file documented as of this encounter Plan of Treatment Not on file documented as of this encounter Procedures Procedure Name Priority Date/Time Associated Diagnosis Comments COMPREHENSIVE METABOLIC PNL W DBIL STAT 03/25/2017 9:17 PM CDT PROTHROMBIN TIME, VENOUS STAT 03/25/2017 9:17 PM CDT CBC W/DIFF AUTOMATED STAT 03/25/2017 9:17 PM CDT documented in this encounter Results * PROTIME/INR, VENOUS (03/25/2017 9:17 PM CDT) PROTIME 12.6 SEC 03/25/2017 9:40 PM CDT [facility] INR 1.1 03/25/2017 9:40 PM CDT [facility] Comment: Recommend INR ranges for Oral Anticoagulant Therapy:Mechanical Cardiac Values 2.5-3.5All others indication 2.0-3.0 03/25/2017 9:17 PM CDT 03/25/2017 9:32 PM CDT us Generic Conversion Md [facility] Final R esult [facility] [address] [place] [address], * (ABNORMAL) COMPREHENSIVE METABOLIC PNL W DBIL (03/25/2017 9:17 PM CDT) GLUCOSE 111(H) 70 - 105 MG/DL 03/25/2017 9:52 PM CDT [facility] BUN 11 7.0 - 18.7 MG/DL 03/25/2017 9:52 PM CDT [facility] CREATININE S/P/B 0.73 0.57 - 1.11 MG/DL 03/25/2017 9:52 PM CDT [facility] SODIUM S/P/B 140 136 - 145 MMOL/L 03/25/2017 9:52 PM CDT [facility] POTASSIUM S/P/B 3.6 3.5 - 5.1 MMOL/L 03/25/2017 9:52 PM CDT [facility] CHLORIDE S/P/B 103 98 - 107 MMOL/L 03/25/2017 9:52 PM CDT [facility] CO2 27.0 22 - 29 MMOL/L 03/25/2017 9:52 PM CDT [facility] ANION GAP 13.6 10.0 - 24.0 MMOL/L 03/25/2017 9:52 PM CDT [facility] CALCIUM S/P/B 9.0 8.4 - 10.2 MG/DL 03/25/2017 9:52 PM [facility] BILIRUBIN TOTAL S/P/B 0.3 0.2 - 1.2 MG/DL 03/25/2017 9:52 PM [facility] TOTAL PROTEIN S/P/B 7.5 6.4 - 8.3 G/DL 03/25/2017 9:52 PM [facility] ALBUMIN S/P/B 4.2 3.5 - 5.0 G/DL 03/25/2017 9:52 PM [facility] AST 18 5 - 34 U/L 03/25/2017 9:52 PM [facility] ALT 24 6 - 55 U/L 03/25/2017 9:52 PM [facility] ALKALINE PHOSPHATASE S/P/B 65 30 - 115 U/L 03/25/2017 9:52 PM [facility] BUN CREATININE RATIO 15.1 6.0 - 26.0 03/25/2017 9:52 PM [facility] A/G RATIO 1.3 1.1 - 1.9 RATIO 03/25/2017 9:52 PM [facility] EGFR NON-AFR. AMER. >60 >60 ML/MIN/1.7 3 M2 03/25/2017 9:52 PM [facility] Comment: GFR Reference Range:Kidney Failure - <15mL/min Chronic Kidney Disease - <60mL/min Normal Kidney Function - >60mL/min GFR calculation is not recommended forPatients less than 18 years or greater than70 years as per the national Kidney Foundation.If the patient is -Maltese, multiply results by 1.21 BILIRBUIN INDIRECT (CORD) 0.2 0.0 - 1.1 MG/DL 03/25/2017 9:52 PM [facility] BILIBUBIN DIRECT (CORD) 0.1 0.0 - 0.5 MG/DL 03/25/2017 9:52 PM CDT [facility] OSMOLALITY (CALC) 279 271 - 290 MOSM/KG 03/25/2017 9:52 PM CDT [facility] 03/25/2017 9:17 PM CDT 03/25/2017 9:32 PM CDT us Generic Conversion Md [facility] Final R esult [facility] [address] [place] [address], * (ABNORMAL) CBC W/DIFF AUTOMATED (03/25/2017 9:17 PM CDT) WBC 18.3(H) 4.4 - 11.0 x10'3/uL 03/25/2017 9:36 PM CDT [facility] RBC 4.57 4.50 - 5.10 x10'6/uL 03/25/2017 9:36 PM CDT [facility] HGB 12.9 12.3 - 15.3 G/DL 03/25/2017 9:36 PM CDT [facility] HCT 37.9 35.9 - 44.6 % 03/25/2017 9:36 PM CDT [facility] MCV 82.9 80.0 - 96.0 FL 03/25/2017 9:36 PM CDT [facility] MCH 28.2 25.3 - 30.9 PG 03/25/2017 9:36 PM CDT [facility] MCHC 34.0 31.0 - 34.1 G/DL 03/25/2017 9:36 PM CDT [facility] RDW 13.8 12.4 - 15.1 % 03/25/2017 9:36 PM [facility] PLT 507(H) 151 - 353 x10'3/uL 03/25/2017 9:36 PM [facility] MPV 8.5(L) 9.6 - 12.0 FL 03/25/2017 9:36 PM [facility] RBC MORPHOLOGY NORMAL 03/25/2017 9:36 PM [facility] PLT MORPH. NORMAL 03/25/2017 9:36 PM [facility] WBC MORPHOLOGY NORMAL 03/25/2017 9:36 PM T [facility] LYMPHOCYTES % 11.7(L) 15.8 - 45.0 % 03/25/2017 9:37 PM [facility] NEUTROPHILS % 83.3(H) 42.1 - 71.9 % 03/25/2017 9:37 PM [facility] MONOCYTES % 4.2(L) 5.7 - 12.5 % 03/25/2017 9:37 PM [facility] EOSINOPHILS 0.1 0.0 - 5.6 % 03/25/2017 9:37 PM [facility] BASOPHILS 0.2 0.0 - 1.3 % 03/25/2017 9:37 PM [facility] ABS. NEUTROPHILS TOTAL 15.26(H) 1.40 - 6.00 x10'3/uL 03/25/2017 9:37 PM [facility] IMMATURE GRANS % 0.5 0.0 - 0.5 % 03/25/2017 9:37 PM [facility] ABS. LYMPHOCYTES 2.14 0.80 - 4.70 x10'3/uL 03/25/2017 9:37 PM [facility] 03/25/2017 9:17 PM CDT 03/25/2017 9:32 PM CDT us Generic Conversion Md [facility] Final R esult [facility] [address] [place] [address], [place] [phone] documented in this encounter Visit Diagnoses Not on filedocumented in this encounter Additional Health Concerns Infection Onset Date Last Indicated Resolved Time COVID-19 Rule Out 01/11/2024 01/11/2024 01/11/2024 9:00 PM CDT MRSA 08/06/2024 08/06/2024 documented as of this encounter Care Teams Network Development Coordinator Relationship Specialty Start Date End Date Rick Gordillo MD PCP - General 07/11/13 Susie Curtis MD . [facility] [address] [place] [address] PCP - General FAMILY PRACTICE 06/20/19 08/07/22 Marlon Saucedo MD [address] [place] [address] PCP - General FAMILY PRACTICE 08/08/22 documented as of this encounter
--- OUTSIDE RECORDS SUMMARY | 2024-08-11 19:44 | XMS_ITS | Patient Health Record ---
Author Organization [facility] Address [address] [place] [address] Care Team Providers Care Software Implementation Project Manager Name Role Phone Yasir Hutsona Primary Care Provider AlexeiJuliann barajas [place] [phone] Allergies Allergen (clinical drug ingredient) Drug/Non Drug [...] Problem Status W/U Status Risk Notes Problem [id number] Bipolar 2 disorder (F31.81) 10/03/2013 Active confirmed Problem 090112509 Binge eating disorder (F50.81) 10/04/2019 Active confirmed Encounters Encounter Location Date Provider Diagnosis [facility] [place] [address] 08/29/2023 Marcella Hutson Bipolar 2 disorder F31.81 and Binge eating disorder F50.81 [address] [address] [place] [address] 10/24/2023 Marcella Hutson Bipolar 2 disorder F31.81 and Binge eating disorder F50.81 [address] [address] [place] [address] 01/24/2024 Marcella Hutson Bipolar 2 disorder F31.81 and Binge eating disorder F50.[address] [address] 03/29/2024 Marcella Hutson Bipolar 2 disorder F31.[address] [address] 05/03/2024 Marcella Hutson Bipolar 2 disorder F31.81 and Binge eating disorder F50.[address] [address] 01/02/2024 Marcella Hutson Bipolar 2 disorder F31.81 and Binge eating disorder F50.[address] [place] [address] 02/08/2024 Marcella Hutson [address] [place] [address] 03/25/2024 Juliann Nixon Bipolar 2 disorder F31.81 Assessments Encounter Date Diagnosis (ICD Code) Assessment Notes Treatment Notes Treatment Clinical Notes Section Notes 08/29/2023 Bipolar 2 disorder (ICD-10 - F31.81) 10/24/2023 Bipolar 2 disorder (ICD-10 - F31.81) 10/24/2023 Binge eating disorder (ICD-10 - F50.81) 01/02/2024 Bipolar 2 disorder (ICD-10 - F31.81) 01/24/2024 Bipolar 2 disorder (ICD-10 - F31.81) 03/25/2024 Bipolar 2 disorder (ICD-10 - F31.81) 03/29/2024 Bipolar 2 disorder (ICD-10 - F31.81) Stop Zoloft and start Prozac. Family members are on Fluoxetine and doing well. Reviewed Prescription Monitoring program. Continue services as scheduled. Labs completed recently. May self-administer medications or be administered own oral medications per [place] protocols. Provided informed consent with understanding of side effects, adverse effects, risks and benefits as well as alternative treatments as previously discussed and with the above recommended medications & other aspects of the treatment program. Agrees to return sooner if symptoms worsen or suicidal or homicidal ideations occur. 05/03/2024 Bipolar 2 disorder (ICD-10 - F31.81) [...] or be administered own oral medications per [place] protocols. Provided informed consent with understanding of [...] or be administered own oral medications per [place] protocols. Provided informed consent with understanding of [...] or be administered own oral medications per [place] protocols. Provided informed consent with understanding of [...] or be administered own oral medications per [place] protocols. Provided informed consent with understanding of [...] Insured Coverage Start Date Coverage End Date [facility] Att[facility] Claims Department [address] [place] [address] [phone] [id number] AnnabelbereketKassandra hogue Self - patient is the insured 1 4 MEDICAID [address] [place] [address] [id number] Kasasndra Odonnell Self - patient is the insured 4 [employer] Att[employer] Claims Department [address] [place] [address] [id number] Kassandra Odonnell Self - patient is the insured 1 Medical (General) History Medical History History ICD Code Movement disorder Surgical History Surgery Date(Month/Year) Left Ankle Surgery 2017 tubal ligation Surgical revision of hardware- removed s crews and plates. 2023 Hospitalization History Reason Date(Month/Year) Child Child Child Left Ankle Surgery 2016
--- NOTE | 2024-08-11 19:56 | ED.WOUNDLAC ---
HPI - Wound/Laceration General Chief Complaint: Wound/Laceration <Juan Hill PA-C - Last Filed: 08/12/24 00:31> Stated Complaint: Open wound Left ankle [id number] <Juan Hill PA-C - Last Filed: 08/12/24 00:31> Time Seen by Provider: 08/11/24 19:55 <Juan Hill PA-C - Last Filed: 08/12/24 00:31> Source: patient <Juan Hill PA-C - Last Filed: 08/12/24 00:31> Mode of arrival: ambulatory <Juan Hill PA-C - Last Filed: 08/12/24 00:31> Limitations: no limitations <Juan Hill PA-C - Last Filed: 08/12/24 00:31> History of Present Illness HPI narrative: This is a 43-year-old female who presents to the ED for chief complaint of left ankle surgical wound he becoming open over the past 4 days. Patient states that she had L ankle ORIF with Ortho surgery at [facility] in April 2024. States August 06 is when she started to notice the left lateral ankle wound starting to open up. She states that prior to the wound opening, she had a lot of ankle swelling and pain. Endorses feeling generally fatigued and malaised. States that she went to [place] ED on August 06 where they obtained a wound culture that showed MRSA result on patient portal. States that they took blood cultures but she had a being discharged back home. She has been taking Augmentin for the past 4 days. She does feel that the wound is less purulence that was before. States that since the wound has become open she has not yet called her orthopedic surgeon. <Juan Hill PA-C - Last Filed: 08/12/24 00:31> Related Data Home Medications: Home Medications ?Medication ?Instructions ?Recorded ?Confirmed ?Last Taken ?Type fluoxetine 20 mg capsule (Prozac) 20 mg PO DAILY 06/26/24 07/05/24 Unknown History meloxicam 15 mg tablet 15 mg PO DAILY 06/26/24 07/05/24 Unknown History <SANDY Marcano Last Filed: 08/12/24 00:31> Allergies/Adverse Reactions: Allergies Allergy/AdvReac Type Severity Reaction Status Date / Time clarithromycin Allergy Mild Hives Verified 08/11/24 19:41 <Juan Hill PA-C - Last Filed: 08/12/24 00:31> Review of Systems Review of Systems: All systems as dictated in HPI <Juan Hill PA-C - Last Filed: 08/12/24 00:31> [facility] Past Medical History Medical History: Medical History Otitis media Anxiety and depression Blood glucose elevated Low aspartate aminotransferase (AST) level Syncope Syncope Vertigo Weight gain Overweight (03/07/17) Irregular menstrual bleeding Dietary counseling and surveillance (09/30/15) Arm paresthesia, right Abnormal involuntary movement COVID Shortness of breath Xerostomia Dental disease Dry eyes Flu-like symptoms Mass in neck Elevated platelet count Swelling of left knee joint Left knee pain Lump of left breast BMI 36.0-36.9,adult Iron deficiency Essential hypertension Bipolar 1 disorder Vitamin D deficiency Diarrhea Hx of colonic polyp Encounter for screening for lipid disorder Screening for thyroid disorder Joint pain Cholecystectomy planned Eustachian tube dysfunction Vertigo Depression Asthma <Juan Hill PA-C - Last Filed: 08/12/24 00:31> Surgical History Surgical History: Surgical History S/P hardware removal 05/2024 History of cholecystectomy History of endometrial ablation Hx of tonsillectomy Status post open reduction with internal fixation (ORIF) of fracture of ankle <Juan Hill PA-C - Last Filed: 08/12/24 00:31> Family History Family History: Family History Father Family history of diabetes mellitus in first degree relative Acute myocardial infarction Diabetes mellitus Mother No problems noted. <Juan Hill PA-C - Last Filed: 08/12/24 00:31> Social History Social History: Social History Smoking status: Never smoker Second hand tobacco smoke exposure: No Alcohol intake: never Substance use: never Substance use type: does not use Do You Feel Safe in your Home?: Yes Lack of Transportation: No Lack of Food: Never True Current Housing: I Have Housing Concerned About Future Housing: No Difficulty Paying Gas/Electric Bills: No Difficulty Paying for Meds: No Currently Unemployed: No Education: High School Diploma/GED Difficulty w/ Childcare or Family Care: No Living arrangements: with family 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 Spiritual care concerns: No <Juan Hill PA-C - Last Filed: 08/12/24 00:31> Exam Narrative: GENERAL: Well-appearing, well-nourished, and in no acute distress. HEAD: Normocephalic, atraumatic. EYES: PERRLA and EOMI. ENT: Nares clear, no rhinorrhea or epistaxis. Mucous membranes moist. Oropharynx without tonsillar hypertrophy exudate or other lesions. NECK: Supple. No adenopathy or masses. CHEST: No respiratory distress. Clear to auscultation. No wheezes rales or rhonchi HEART: Regular rate and rhythm. No murmur heard. Normal peripheral pulses. ABDOMEN: Soft, nontender, nondistended, normal active bowel sounds. MSK: See below SKIN: Surgical wound to the left lateral ankle that is approximately 10 cm. The distal aspect of the wound has a 2-3 cm area of wound dehiscence with granulation tissue noted centrally. There is no active purulence. No malodor. Minimal surrounding erythema or warmth. The ankle is mildly swollen. NEURO: Alert and oriented x4. No focal deficits. PSYCH: Normal mood and affect. <Juan Hill PA-C - Last Filed: 08/12/24 00:31> Course NURSING STAFF DEVELOPMENT COORDINATOR/PA Physician Supervision I agree with midlevel documentation; I performed the medical decision making component of this evaluation. <Beata Sanchez MD - Last Filed: 08/12/24 00:45> Vital Signs Vital signs: Vital Signs Temperature 97.1 F L 08/11/24 19:43 Pulse Rate 96 08/11/24 19:43 Respiratory Rate 16 08/11/24 19:43 Blood Pressure 156/92 H 08/11/24 19:43 Pulse Oximetry 99 08/11/24 19:43 Oxygen Delivery Room Air 08/11/24 19:43 Temperature 97.1 F L 08/11/24 19:43 Pulse Rate 92 08/11/24 23:46 Respiratory Rate 18 08/11/24 23:46 Blood Pressure 149/88 H 08/11/24 23:46 Pulse Oximetry 98 08/11/24 23:46 Oxygen Delivery Room Air 08/11/24 19:43 <Juan Hill PA-C - Last Filed: 08/12/24 00:31> Vital Signs Temperature 97.1 F L 08/11/24 19:43 Pulse Rate 96 08/11/24 19:43 Respiratory Rate 16 08/11/24 19:43 Blood Pressure 156/92 H 08/11/24 19:43 Pulse Oximetry 99 08/11/24 19:43 Oxygen Delivery Room Air 08/11/24 19:43 Temperature 97.1 F L 08/11/24 19:43 Pulse Rate 92 08/11/24 23:46 Respiratory Rate 18 08/11/24 23:46 Blood Pressure 149/88 H 08/11/24 23:46 Pulse Oximetry 98 08/11/24 23:46 Oxygen Delivery Room Air 08/11/24 19:43 <Beata Sanchez MD - Last Filed: 08/12/24 00:45> MDM - Wound/Laceration MDM Narrative Medical decision making narrative: This is a 43-year-old female who presents to the ED for chief complaint of left ankle pain, swelling and wound dehiscence. She had left ankle ORIF in April 2024. Lab work today shows only mild elevation of white count 11.0. CRP is normal. CMP is unremarkable. CT left ankle with IV contrast: Stat rad Impression: No acute fracture dislocation. Scar tissue is present overlying the lateral malleolus. No fluid collection abscess or subcutaneous air. Patient was given dose of Ancef here. She is showing me her patient portal today which shows a positive wound culture from another ED with results of MRSA. Therefore will start the patient on doxycycline. Encouraged her to continue taking Augmentin as well. Strongly encouraged patient to follow-up with her surgeon regarding surgical site issues. Patient will be discharged in stable condition. Supportive measures discussed and return precautions given. Patient is understanding and agreeable with plan for discharge with PCP follow-up. <Juan Hill PA-C - Last Filed: 08/12/24 00:31> Lab Data Result diagrams: 08/11/24 22:19 08/11/24 22:19 <Juan Hill PA-C - Last Filed: 08/12/24 00:31> Labs: Lab Results 08/11/24 08/11/24 Range/Units 22:19 22:27 WBC 11.0 H (4.5-10.0) K/mm3 RBC 4.77 (4.2-5.4) M/mm3 Hgb 13.7 (12.0-15.0) g/dL Hct 40.3 (37.0-47.0) % MCV 84.5 (80-100) fl MCH 28.7 (26-34) pg MCHC 34.0 (32-36) g/dl RDW 12.0 (11.5-14.5) % Plt Count 414 H (150-375) k/mm3 MPV 9.1 (7.4-10.4) fl Immature Gran % (Auto) 0.4 (0-0.5) % Neut % (Auto) 66.0 (45.5-73.1) % Lymph % (Auto) 24.6 (18.3-44.2) % Yancey % (Auto) 6.6 (2.6-8.5) % Eos % (Auto) 2.1 (0-4.4) % Baso % (Auto) 0.3 (0.2-1.2) % Lymph # (Auto) 2.69 (0.9-3.2) K/mm3 Yancey # (Auto) 0.7 H (0.1-0.6) K/mm3 Eos # (Auto) 0.2 (0-0.3) K/mm3 Baso # (Auto) 0.0 (0.0-0.1) K/mm3 Abs Immat Gran (auto) 0.04 H (0.00-0.031) K/mm3 Absolute Neuts (auto) 7.2 H (1.3-6.7) K/mm3 Absolute Nucleated RBC 0.000 (0.0-0.012) K/mm3 Nucleated RBC % 0.0 (0.0-0.2) % Sodium 138 (137-145) mmol/L Potassium 4.0 (3.4-5.0) mmol/L Chloride 100 (98-107) mmol/L Carbon Dioxide 28 (22-30) mmol/L Anion Gap 10 (4-12) mmol/L BUN 22 H (7-17) mg/dL Creatinine 0.73 (0.7-1.0) mg/dL Estim Creat Clear Calc 109 ml/min Estimated GFR > 60 (59 - ) Glucose 101 (65-110) mg/dL Calcium 9.3 (8.4-10.2) mg/dL Total Bilirubin 0.4 (0.2-1.3) mg/dL AST 28 (14-36) U/L ALT 41 H (6-35) U/L Alkaline Phosphatase 67 (38-126) U/L C-Reactive Protein 0.8 (<1.0) mg/dL Total Protein 8.0 (6.3-8.2) g/dL Albumin 4.6 (3.5-5.1) g/dL POC Urine HCG, Qual Negative (Negative) <Juan Hill PA-C - Last Filed: 08/12/24 00:31> Lab Results 08/11/24 08/11/24 Range/Units 22:19 22:27 WBC 11.0 H (4.5-10.0) K/mm3 RBC 4.77 (4.2-5.4) M/mm3 Hgb 13.7 (12.0-15.0) g/dL Hct 40.3 (37.0-47.0) % MCV 84.5 (80-100) fl MCH 28.7 (26-34) pg MCHC 34.0 (32-36) g/dl RDW 12.0 (11.5-14.5) % Plt Count 414 H (150-375) k/mm3 MPV 9.1 (7.4-10.4) fl Immature Gran % (Auto) 0.4 (0-0.5) % Neut % (Auto) 66.0 (45.5-73.1) % Lymph % (Auto) 24.6 (18.3-44.2) % Yancey % (Auto) 6.6 (2.6-8.5) % Eos % (Auto) 2.1 (0-4.4) % Baso % (Auto) 0.3 (0.2-1.2) % Lymph # (Auto) 2.69 (0.9-3.2) K/mm3 Yancey # (Auto) 0.7 H (0.1-0.6) K/mm3 Eos # (Auto) 0.2 (0-0.3) K/mm3 Baso # (Auto) 0.0 (0.0-0.1) K/mm3 Abs Immat Gran (auto) 0.04 H (0.00-0.031) K/mm3 Absolute Neuts (auto) 7.2 H (1.3-6.7) K/mm3 Absolute Nucleated RBC 0.000 (0.0-0.012) K/mm3 Nucleated RBC % 0.0 (0.0-0.2) % Sodium 138 (137-145) mmol/L Potassium 4.0 (3.4-5.0) mmol/L Chloride 100 (98-107) mmol/L Carbon Dioxide 28 (22-30) mmol/L Anion Gap 10 (4-12) mmol/L BUN 22 H (7-17) mg/dL Creatinine 0.73 (0.7-1.0) mg/dL Estim Creat Clear Calc 109 ml/min Estimated GFR > 60 (59 - ) Glucose 101 (65-110) mg/dL Calcium 9.3 (8.4-10.2) mg/dL Total Bilirubin 0.4 (0.2-1.3) mg/dL AST 28 (14-36) U/L ALT 41 H (6-35) U/L Alkaline Phosphatase 67 (38-126) U/L C-Reactive Protein 0.8 (<1.0) mg/dL Total Protein 8.0 (6.3-8.2) g/dL Albumin 4.6 (3.5-5.1) g/dL POC Urine HCG, Qual Negative (Negative) <Beata Sanchez MD - Last Filed: 08/12/24 00:45> Discharge Plan Discharge Clinical Impression: Dehiscence of wound <Juan Hill PA-C - Last Filed: 08/12/24 00:31> Patient Disposition: Home, Self-Care <Juan Hill PA-C - Last Filed: 08/12/24 00:31> Condition: Stable <Juan Hill PA-C - Last Filed: 08/12/24 00:31> Instructions: Antibiotic Form <Juan Hill PA-C - Last Filed: 08/12/24 00:31> Additional Instructions: Your exam and imaging today is reassuring overall. Please start taking doxycycline on top of the Augmentin. Follow-up closely with your surgeon for issues with your surgical site. If you have any new or worsening symptoms please return to the ER for further evaluation. <Juan Hill PA-C - Last Filed: 08/12/24 00:31> Patient Language: Senegalese <Juan Hill PA-C - Last Filed: 08/12/24 00:31> Prescriptions: New doxycycline hyclate 100 mg capsule 100 mg PO BID 7 Days Qty: 14 0RF No Action chlorhexidine gluconate [Peridex] 0.12 % mouthwash 15 ml mucous membrane BID Qty: 473 0RF fluoxetine [Prozac] 20 mg capsule 20 mg PO DAILY meloxicam 15 mg tablet 15 mg PO DAILY Nurtec ODT 75 mg tablet,disintegrating 75 mg PO ONCE PRN (Reason: migraine headache) Qty: 16 0RF Rx Instructions: as a single dose omeprazole 20 mg capsule,delayed release(DR/EC) 20 mg PO DAILY Qty: 90 0RF <Juan Hill PA-C - Last Filed: 08/12/24 00:31> Follow-up/Referrals: Marlon Saucedo MD [Primary Care Provider] - <Juan Hill PA-C - Last Filed: 08/12/24 00:31> Time of Disposition: 23:27 <Juan Hill PA-C - Last Filed: 08/12/24 00:31> 23:27 <Beata Sanchez MD - Last Filed: 08/12/24 00:45>
--- OUTSIDE RECORDS SUMMARY | 2024-08-11 20:12 | XMS_ITS | Clinical Summary ---
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 ) Discharge Disposition: Home or Self Care (Routine Discharge) 08/06/2024 Travel 05/15/2024 4:56 PM [facility] - 05/15/2024 7:03 PM [facility] Emergency [facility] Emergency Room [id number] [place] [address] Woo Velasquez MD Leg Pain; Leg Swelling [...] place to sleep or slept in a senior living (including now)? No 08/08/2022 Comments No Sex and Gender Information Value Date Recorded Sex Assigned at Female 08/06/2024 7:04 PM COORDINATING PRODUCER Legal Sex Female 4:57 PM CDT Gender Identity Not on file Sexual Orientation Not on file Last Filed Vital Signs Vital Sign Reading Time Taken Comments Blood Pressure 135/78 08/06/2024 9:00 PM COORDINATING PRODUCER Pulse 91 08/06/2024 9:00 PM COORDINATING PRODUCER Temperature 36.6 C (97.8 F) 08/06/2024 6:53 PM COORDINATING PRODUCER Respiratory Rate 20 08/06/2024 9:00 PM COORDINATING PRODUCER Oxygen Saturation 100% 08/06/2024 9:00 PM COORDINATING PRODUCER Inhaled Oxygen Concentration - - Weight 113.4 kg (250 lb) 08/06/2024 6:53 PM COORDINATING PRODUCER Height 165.1 cm (5' 5 ) 08/06/2024 6:53 PM COORDINATING PRODUCER Body Mass Index 41.6 08/06/2024 6:53 PM COORDINATING PRODUCER Plan of Treatment Health Maintenance Due Date [...] Influenza Adult (#1) 2024 03/26/2019 PHQ-2 (Physician Waldron) 06/05/2024 DTaP, Tdap and Td Vaccines ( [...] ANKLE LT M3V STAT 08/06/2024 7:52 PM COORDINATING PRODUCER HC SMEAR GRAM/GIEMSA STAT 08/06/2024 7:50 PM COORDINATING PRODUCER CULTURE, BACTERIA, BLOOD STAT 08/06/2024 7:42 PM COORDINATING PRODUCER LACTIC ACID STAT 08/06/2024 7:42 PM COORDINATING PRODUCER COMPREHENSIVE METABOLIC PANEL STAT 08/06/2024 7:42 PM COORDINATING PRODUCER CBC W/DIFF AUTOMATED STAT 08/06/2024 7:42 PM COORDINATING PRODUCER USV MUSTAPHA DUPLEX LOW EXT RT STAT 05/15/2024 6:21 PM COORDINATING PRODUCER from Last 3 Months Results * XR ANKLE LT M3V (08/06/2024 7:52 PM COORDINATING PRODUCER) Anatomical Region Laterality Modality Ankle Radiographic Carlee ging 08/06/2024 7:57 PM COORDINATING PRODUCER Impressions 08/06/2024 8:03 PM COORDINATING PRODUCER IMPRESSION: 1. Interval revision of the ORIF of the left ankle, as above, with no evidence of hardware complication of the remaining hardware. 2. No acute osseous or articular abnormality of the left ankle. 3. Mild soft tissue edema along the lateral aspect of the ankle. Referred By: Interpreted By: Dannie Beck MD, 08/06/2024 7:57 PM Narrative 08/06/2024 8:03 PM COORDINATING PRODUCER [facility] [address] [place] [address] INDICATION: Pain COMPARISON: Left ankle radiograph, 11 [...] Procedure Note Dannie Beck MD - 08/06/2024 [address] [place] [address] INDICATION: Pain COMPARISON: Left ankle radiograph, 11 [...] CULTURE, WOUND, W/GRAM STAIN (08/06/2024 7:50 PM COORDINATING PRODUCER) SPEC DESCRIPTION ANKLE,LEFT 08/06/2024 7:53 PM [facility] SPECIAL REQUESTS NO SPECIAL REQUEST 08/06/2024 7:53 PM [facility] GRAM STAIN RESULT NO WHITE BLOOD CELLS SEEN 08/07/2024 11:43 AM COORDINATING PRODUCER [facility] GRAM STAIN RESULT NO ORGANISMS SEEN 08/07/2024 11:43 AM [facility] CULTURE RESULT MODERATE GROWTH OF METHICILLIN RESISTANT STAPHYLOCOCCUS AUREUS FOLLOW ISOLATION PROTOCOL. (AA) 08/09/2024 8:33 AM [facility] ANKLE REGION STRUCTURE / Unknown 08/06/2024 7:50 PM COORDINATING PRODUCER 08/06/2024 7:55 PM COORDINATING PRODUCER Narrative Organism Antibiotic Method Susceptibility Methicillin resistant [...] MICROBIOLOGY - GENERAL ORDERABL ES Final Result [facility] [address] [place] [address], [place] [phone] [facility] [address] [place] [address], [place] [phone] * (ABNORMAL) COMPREHENSIVE METABOLIC PANEL (08/06/2024 7:42 PM COORDINATING PRODUCER) [facility] GLUCOSE 119(H) 70 - 99 MG/DL 08/06/2024 8:05 PM [facility] BUN 22(H) 7 - 18 MG/DL 08/06/2024 8:05 PM [facility] CREATININE S/P/B 0.74 0.55 - 1.02 MG/DL 08/06/2024 8:05 PM [facility] SODIUM S/P/B 150(H) 136 - 145 MMOL/L 08/06/2024 8:05 PM [facility] POTASSIUM S/P/B 4.7 3.5 - 5.1 MMOL/L 08/06/2024 8:05 PM [facility] CHLORIDE S/P/B 110(H) 100 - 108 MMOL/L 08/06/2024 8:05 PM [facility] CO2 26.9 21 - 32 MMOL/L 08/06/2024 8:05 PM [facility] CALCIUM S/P/B 9.2 8.5 - 10.1 MG/DL 08/06/2024 8:05 PM [facility] BILIRUBIN TOTAL S/P/B 0.2 0.2 - 1.2 MG/DL 08/06/2024 8:05 PM [facility] TOTAL PROTEIN S/P/B 7.6 6.4 - 8.2 G/DL 08/06/2024 8:05 PM [facility] ALBUMIN S/P/B 4.0 3.4 - 5.0 G/DL 08/06/2024 8:05 PM [facility] AST 15 15 - 37 U/L 08/06/2024 8:05 PM [facility] ALT 38 14 - 55 U/L 08/06/2024 8:05 PM [facility] ALKALINE PHOSPHATASE S/P/B 65 50 - 136 U/L 08/06/2024 8:05 PM [facility] ANION GAP 13.1 5 - 15 MMOL/L 08/06/2024 8:05 PM [facility] BUN CREATININE RATIO 29.7(H) 6 - 26 08/06/2024 8:05 PM [facility] A/G RATIO 1.1 1.0 - 2.0 RATIO 08/06/2024 8:05 PM [facility] GFR ESTIMATE >90 >90 ML/MIN/1.7 3 M2 08/06/2024 8:05 PM [facility] Comment: NOTE: eGFR is not calculated for patients <18 years of age. This is an estimated GFR calculation using the new CKD EPI creatinine equation without race and so does not require a correction factor for race. This estimated GFR should not be used for calculating drug doses. 08/06/2024 7:42 PM COORDINATING PRODUCER us Walter Acosta MD LABORATORY Final Result [facility] [address] [place] [address], [place] [phone] * LACTIC ACID - SINGLE (08/06/2024 7:42 PM COORDINATING PRODUCER) LACTIC ACID VENOUS 1.8 0.4 - 2.0 MMOL/L 08/06/2024 8:10 PM COORDINATING PRODUCER [facility] 08/06/2024 7:42 PM COORDINATING PRODUCER us Walter Acosta MD LABORATORY Final Result Performing Organization Address [facility]/ZIP Co de Phone Number [facility] [address] [place] [address], [place] [phone] * (ABNORMAL) CBC W/DIFF AUTOMATED (08/06/2024 7:42 PM COORDINATING PRODUCER) WBC 7.86 4.4 - 11.0 x10'3/uL 08/06/2024 7:51 PM [facility] RBC 5.04 4.50 - 5.10 x10'6/uL 08/06/2024 7:51 PM [facility] HGB 14.5 12.3 - 15.3 G/DL 08/06/2024 7:51 PM [facility] HCT 43.1 35.9 - 44.6 % 08/06/2024 7:51 PM [facility] MCV 85.5 80.0 - 96.0 FL 08/06/2024 7:51 PM [facility] MCH 28.8 25.3 - 30.9 PG 08/06/2024 7:51 PM [facility] MCHC 33.6 31.0 - 34.1 G/DL 08/06/2024 7:51 PM [facility] RDW 12.1(L) 12.4 - 15.1 % 08/06/2024 7:51 PM [facility] PLT 449(H) 151 - 353 x10'3/uL 08/06/2024 7:51 PM [facility] MPV 9.0(L) 9.6 - 12.0 FL 08/06/2024 7:51 PM [facility] RBC MORPHOLOGY NORMAL 08/06/2024 7:51 PM [facility] PLT MORPH. NORMAL 08/06/2024 7:51 PM [facility] WBC MORPHOLOGY NORMAL 08/06/2024 7:51 PM [facility] LYMPHOCYTES % 28.5 15.8 - 45.0 % 08/06/2024 7:51 PM [facility] NEUTROPHILS % 61.1 42.1 - 71.9 % 08/06/2024 7:51 PM [facility] MONOCYTES % 7.1 5.7 - 12.5 % 08/06/2024 7:51 PM [facility] EOSINOPHILS 2.4 0.0 - 5.6 % 08/06/2024 7:51 PM [facility] BASOPHILS 0.5 0.0 - 1.3 % 08/06/2024 7:51 PM [facility] ABS. NEUTROPHILS 4.80 1.40 - 6.00 x10'3/uL 08/06/2024 7:51 PM [facility] IMMATURE GRANS % 0.4 0.0 - 0.5 % 08/06/2024 7:51 PM [facility] ABS. LYMPHOCYTES 2.24 0.80 - 4.70 x10'3/uL 08/06/2024 7:51 PM COORDINATING PRODUCER [facility] 08/06/2024 7:42 PM COORDINATING PRODUCER us Walter Acosta MD LABORATORY Final Result [facility] [address] [id number], [place] [phone] * USV MUSTAPHA DUPLEX LOW EXT RT (05/15/2024 6:21 PM COORDINATING PRODUCER) Anatomical Region Laterality Modality Extremity Ultrasound 05/15/2024 6:32 PM COORDINATING PRODUCER Impressions 05/15/2024 6:35 PM COORDINATING PRODUCER IMPRESSION: No evidence of deep vein thrombosis. Referred By: Interpreted By: Jevon Ramon MD, 05/15/2024 6:32 PM Narrative 05/15/2024 6:35 PM COORDINATING PRODUCER [facility] [address] [facility] [place] [address] EXAMINATION: Right lower extremity duplex vein ultrasound [...] Procedure Note Jevon Ramon MD - 05/15/2024 [facility] [address] [facility] [place] [address] EXAMINATION: Right lower extremity duplex vein ultrasound [...] Date Last Indicated MRSA 08/06/2024 08/06/2024 Insurance CALDER Advance Directives * Full Code (Latest Code Status on File) Date Activated Date Inactivated Comments 08/08/2022 11:01 AM 08/10/2022 6:33 PM Care Teams Sponge Press Operator Relationship Specialty Start Date End Date Marlon Saucedo MD [address] [place] [address] PCP - General FAMILY PRACTICE 08/08/22
--- OUTSIDE RECORDS SUMMARY | 2024-08-11 20:12 | XMS_ITS | Encounter Summary ---
Author Organization [facility] Address [address] [place] [address] Care Team Providers Care Nursing Center Tutor Name Role Phone Rick Gordillo MD Primary Care Provider Unavailable Susie Curtis MD Primary Care Provider [phone] Marlon Saucedo MD Primary Care Provider [phone] Encounter Details Date Type Department Care Team (Late st Contact Info) Description 03/25/2017 Abstract [facility] CONVERSION [address] [place] [address] Md Generic MD Juan Social History Tobacco Use Types Packs/Day Years Used Date Smoking Tobacco: Never Assessed Comments Unknown Sex and Gender Information Value Date Recorded Sex Assigned at Female 08/06/2024 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 Legal Sex Female 4:57 PM CDT Gender [...] PROTIME 12.6 SEC 03/25/2017 9:40 PM CDT [facility] INR 1.1 03/25/2017 9:40 PM CDT [facility] Comment: Recommend INR ranges for Oral Anticoagulant Therapy:Mechanical Cardiac Values 2.5-3.5All others indication 2.0-3.0 03/25/2017 9:17 PM CDT 03/25/2017 9:32 PM CDT us Generic Conversion Md GORDILLO LABORATORY Final R esult [facility] [address] [place] [address], * (ABNORMAL) COMPREHENSIVE METABOLIC PNL W DBIL (03/25/2017 9:17 PM CDT) GLUCOSE 111(H) 70 - 105 MG/DL 03/25/2017 9:52 PM CDT [facility] BUN 11 7.0 - 18.7 MG/DL 03/25/2017 9:52 PM CDT [facility] CREATININE S/P/B 0.73 0.57 - 1.11 MG/DL 03/25/2017 9:52 PM CDT [facility] SODIUM S/P/B 140 136 - 145 MMOL/L 03/25/2017 9:52 PM CDT [facility] POTASSIUM S/P/B 3.6 3.5 - 5.1 MMOL/L 03/25/2017 9:52 PM CDT [facility] CHLORIDE S/P/B 103 98 - 107 MMOL/L 03/25/2017 9:52 PM CDT [facility] CO2 27.0 22 - 29 MMOL/L 03/25/2017 9:52 PM CDT [facility] ANION GAP 13.6 10.0 - 24.0 MMOL/L 03/25/2017 9:52 PM CDT [facility] CALCIUM S/P/B 9.0 8.4 - 10.2 MG/DL 03/25/2017 9:52 PM [facility] BILIRUBIN TOTAL S/P/B 0.3 0.2 - 1.2 MG/DL 03/25/2017 9:52 PM [facility] TOTAL PROTEIN S/P/B 7.5 6.4 - 8.3 G/DL 03/25/2017 9:52 PM [facility] ALBUMIN S/P/B 4.2 3.5 - 5.0 G/DL 03/25/2017 9:52 PM [facility] AST 18 5 - 34 U/L 03/25/2017 9:52 PM [facility] ALT 24 6 - 55 U/L 03/25/2017 9:52 PM [facility] ALKALINE PHOSPHATASE S/P/B 65 30 - 115 U/L 03/25/2017 9:52 PM [facility] BUN CREATININE RATIO 15.1 6.0 - 26.0 03/25/2017 9:52 PM [facility] A/G RATIO 1.3 1.1 - 1.9 RATIO 03/25/2017 9:52 PM [facility] EGFR NON-AFR. AMER. >60 >60 ML/MIN/1.7 3 M2 03/25/2017 9:52 PM [facility] Comment: GFR Reference Range:Kidney Failure - <15mL/min Chronic Kidney Disease - <60mL/min Normal Kidney Function - >60mL/min GFR calculation is not recommended forPatients less than 18 years or greater than70 years as per the national Kidney Foundation.If the patient is -Kosovan, multiply results by 1.21 BILIRBUIN INDIRECT (CORD) 0.2 0.0 - 1.1 MG/DL 03/25/2017 9:52 PM [facility] BILIBUBIN DIRECT (CORD) 0.1 0.0 - 0.5 MG/DL 03/25/2017 9:52 PM CDT [facility] OSMOLALITY (CALC) 279 271 - 290 MOSM/KG 03/25/2017 9:52 PM CDT [facility] 03/25/2017 9:17 PM CDT 03/25/2017 9:32 PM CDT us Generic Conversion Md GORDILLO LABORATORY Final R esult [facility] [address] [place] [address], * (ABNORMAL) CBC W/DIFF AUTOMATED (03/25/2017 9:17 PM CDT) WBC 18.3(H) 4.4 - 11.0 x10'3/uL 03/25/2017 9:36 PM CDT [facility] RBC 4.57 4.50 - 5.10 x10'6/uL 03/25/2017 9:36 PM CDT [facility] HGB 12.9 12.3 - 15.3 G/DL 03/25/2017 9:36 PM CDT [facility] HCT 37.9 35.9 - 44.6 % 03/25/2017 9:36 PM CDT [facility] MCV 82.9 80.0 - 96.0 FL 03/25/2017 9:36 PM CDT [facility] MCH 28.2 25.3 - 30.9 PG 03/25/2017 9:36 PM CDT [facility] MCHC 34.0 31.0 - 34.1 G/DL 03/25/2017 9:36 PM CDT [facility] RDW 13.8 12.4 - 15.1 % 03/25/2017 9:36 PM [facility] PLT 507(H) 151 - 353 x10'3/uL 03/25/2017 9:36 PM [facility] MPV 8.5(L) 9.6 - 12.0 FL 03/25/2017 9:36 PM [facility] RBC MORPHOLOGY NORMAL 03/25/2017 9:36 PM [facility] PLT MORPH. NORMAL 03/25/2017 9:36 PM [facility] WBC MORPHOLOGY NORMAL 03/25/2017 9:36 PM T [facility] LYMPHOCYTES % 11.7(L) 15.8 - 45.0 % 03/25/2017 9:37 PM [facility] NEUTROPHILS % 83.3(H) 42.1 - 71.9 % 03/25/2017 9:37 PM [facility] MONOCYTES % 4.2(L) 5.7 - 12.5 % 03/25/2017 9:37 PM [facility] EOSINOPHILS 0.1 0.0 - 5.6 % 03/25/2017 9:37 PM [facility] BASOPHILS 0.2 0.0 - 1.3 % 03/25/2017 9:37 PM [facility] ABS. NEUTROPHILS TOTAL 15.26(H) 1.40 - 6.00 x10'3/uL 03/25/2017 9:37 PM [facility] IMMATURE GRANS % 0.5 0.0 - 0.5 % 03/25/2017 9:37 PM [facility] ABS. LYMPHOCYTES 2.14 0.80 - 4.70 x10'3/uL 03/25/2017 9:37 PM [facility] 03/25/2017 9:17 PM CDT 03/25/2017 9:32 PM CDT us Generic Conversion Md GORDILLO LABORATORY Final R esult [facility] [address] [place] [address], [place] [phone] documented in this encounter Visit Diagnoses Not on filedocumented in this encounter Additional Health Concerns Infection Onset Date Last Indicated Resolved Time COVID-19 Rule Out 01/11/2024 01/11/2024 01/11/2024 9:00 PM CDT MRSA 08/06/2024 08/06/2024 documented as of this encounter Care Teams Nursing Center Tutor Relationship Specialty Start Date End Date Rick Gordillo MD PCP - General 07/11/13 Susie Curtis MD . [facility] [address] [place] [address] PCP - General FAMILY PRACTICE 06/20/19 08/07/22 Marlon Saucedo MD [address] [place] [address] PCP - General FAMILY PRACTICE 08/08/22 documented as of this encounter
--- NOTE | 2024-08-11 21:39 | PC.NURSE ---
This RN and tech tried to get blood on pt. unable to collect labs. phlebotomy called
[2024-08-11] MEDS: ACETAMINOPHEN 500 MG TABLET 1000 MG PO (21:48)
[2024-08-11] MEDS: ONDANSETRON HCL ODT 4 MG TABLET PO (21:50)
[2024-08-11 22:27] LABS: Basophils Percent Auto 0.3 % (0.2-1.2); Eosinophils Absolute Auto 0.2 K/mm3 (0-0.3); Eosinophils Percent Auto 2.1 % (0-4.4); Hematocrit 40.3 % (37.0-47.0); Hemoglobin 13.7 g/dL (12.0-15.0); Immature Granulocyte Absolute 0.04 K/mm3 (0.00-0.031); Immature Granulocyte Percent A 0.4 % (0-0.5); Lymphocytes Absolute Auto 2.69 K/mm3 (0.9-3.2); Lymphocytes Percent Auto 24.6 % (18.3-44.2); Mean Corpuscular Hemoglobin 28.7 pg (26-34); Mean Corpuscular Volume 84.5 fl (80-100); Mean Platelet Volume 9.1 fl (7.4-10.4); Monocytes Absolute Auto 0.7 K/mm3 (0.1-0.6); Monocytes Percent Auto 6.6 % (2.6-8.5); Neutrophils Absolute Auto 7.2 K/mm3 (1.3-6.7); Platelet Count Result 414 k/mm3 (150-375); Red Blood Count 4.77 M/mm3 (4.2-5.4)
[2024-08-11 22:29] LABS: BEDSIDEPREGUCG Negative (Negative)
[2024-08-11 22:40] LABS: Alanine Aminotransferase 41 U/L (6-35); Albumin Level 4.6 g/dL (3.5-5.1); Alkaline Phosphatase 67 U/L (38-126); Anion Gap 10 mmol/L (4-12); Aspartate Amino Transferase 28 U/L (14-36); Bilirubin,Total 0.4 mg/dL (0.2-1.3); Blood Urea Nitrogen 22 mg/dL (7-17); CRP 0.8 mg/dL (<1.0); Calcium 9.3 mg/dL (8.4-10.2); Carbon Dioxide 28 mmol/L (22-30); Chloride 100 mmol/L (98-107); Estimated CRCL calculation 109 ml/min; Estimated Glomerular Filt Rate > 60; Glucose 101 mg/dL (65-110); Sodium 138 mmol/L (137-145)
[2024-08-11] MEDS: ceFAZolin 1 GM/NS 50 ML 1 GM/50 ML BAG IVPB (23:36)
[2024-08-11 23:46] VITALS: BP 149/88; PULSE 92; RESP 18; O2SAT 98
[2024-08-12 00:45] VITALS: BP 151/90; PULSE 86; RESP 20; O2SAT 100
[2024-08-12 00:46] VITALS: BP 151/90; PULSE 86; RESP 20; O2SAT 100
== END 2024-08-12 00:48 | disposition home or self-care (01) ==
PROVIDERS: Emergency Provider Physician Assistant; PCP Family Medicine
DX: T81.31XA Disruption of external operation (surgical) wound, not elsewhere classified, initial encounter (principal); I10 Essential (primary) hypertension; J45.909 Unspecified asthma, uncomplicated; E61.1 Iron deficiency; E55.9 Vitamin D deficiency, unspecified; F31.9 Bipolar disorder, unspecified; F41.9 Anxiety disorder, unspecified; Z86.16 Personal history of COVID-19; Z86.0100 Personal history of colon polyps, unspecified; Z90.49 Acquired absence of other specified parts of digestive tract; Z79.899 Other long term (current) drug therapy; Y83.8 Other surgical procedures as the cause of abnormal reaction of the patient, or of later complication, without mention of misadventure at the time of the procedure
CPT/HCPCS: 36415; 73701; 80053; 81025; 85025; 86140; 96365; 99284; A9270; J0690; Q9967

== ENCOUNTER 2024-08-18 18:26 | Emergency (ER) | payer OTHER, SELFPAY ==
[2024-08-18] VITALS (8 sets, daily range): BP systolic 133–143; BP diastolic 74–94; PULSE 83–109; RESP 13–20; TEMP 36.4–36.6; O2SAT 94–99
--- NOTE | ~2024-08-18 | CT_ITS ---
CT of the Abdomen and Pelvis: Indication: Abdominal pain Technique: 2.5 mm axial scans were obtained through the abdomen and pelvis following intravenous adm inistration of 100 cc of Omnipaque 350. Dose reduction technique was used on this scan by utilizing a utomated exposure control and iterative reconstruction technique. The dose-length product (DLP) was 1 704.93 mGy-cm. Findings: Scans through the lung bases are unremarkable. The liver, spleen, pancreas, adrenals and kidneys are within normal limits. Cholecystectomy clips are present. No evidence of aortic aneurysm. No lymphadenopathy. No bowel obstruction or bowel wall thickening. There is no evidence to suggest acute appendicitis. Sm all fat-containing umbilical hernia noted. Images through the pelvis were performed. Urinary bladder unremarkable. No pelvic mass seen. No ascit es. Impression: No acute abnormalities seen. Small fat-containing umbilical hernia. Reviewed, dictated and finalized at [facility]. Impression: No acute abnormalities seen. Small fat-containing umbilical hernia.
--- OUTSIDE RECORDS SUMMARY | 2024-08-18 18:28 | XMS_ITS | Data Portability ---
Author Organization [facility] , [facility] Address [address] [place] [address] Care Team Providers Care Loan Consultant Name Role Phone [facility] Commercial Credit Reviewer Assessment Encounter Date Assessment Date Assessment LastModified by Organization Details LastModified Time 02/13/2023 02/13/2023 Patient is an established patient who presents for a gynecological Annual Exam. The patient denies any changes in her medical history. The patient denies any changes in her family medical history. 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 No menses due to hx of [...] PCR, cervix 2022 023 ANN Nelson, [address] [place], [address], 15:43:03 pap, LB 2022 023 ANN [facility], [address] [facility], [place], [address], 08:58:12 Referral gastroenter ologist referral 2021 022 [place] [address] Gracie Haas MD, [address], [place], [address], 2 15:08:46 Procedures None recorded. Surgeries None recorded. Imaging US, transvagina l 2022 023 ANN Not available 13:50:04 MAMMO, screening, digital, bilateral 2022 023 [email or web address] Not available 17:22:30 US, transvagina l 2020 021 [email or web address] Not available 13:20:10 Medication Orders June 06/24 (21) 1 mg-20 mcg tablet 2020 021 [facility] [address], [id number], 11:48:04 Patient TargetsNo targets recorded. Patient Instructions Encounter Date Encounter Id Patient Instructions Last Modified By Organization Details Last Modified Time 06/02/2021 [id number] Discussed COCs f or suppression of recurring ovarian cysts. Explained that OCPs will not resolve current cyst but can help prevent future cysts. R/B/ARs reviewed. Desires to start. No contraindications noted. 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 Not Available [address], [address], 02/15/2023 15:43:03 02/14/2002/17/2023 THINP REP TIS PAP clinical information: normal None given Not Available [facility] [address] [place], [address], 02/17/2023 08:58:12 02/14/2002/17/2023 THINP REP TIS PAP LMP: normal NONE GIVEN Not Available [employer] [facility] [address] [place], [address], 02/17/2023 08:58:12 02/14/2002/17/2023 THINP REP TIS PAP prev. Pap: normal NONE GIVEN Not Available [address] [place], [address], 02/17/2023 08:58:12 02/14/2002/17/2023 THINP REP TIS PAP prev. BX: normal NONE GIVEN Not Available [address] [place], [address], 02/17/2023 08:58:12 02/14/2002/17/2023 THINP REP TIS PAP source: normal Cervi x Not Available [address] [place], [address], 02/17/2023 08:58:12 02/14/2002/17/2023 THINP REP TIS PAP statement of adequacy: normal Satis facto ry for evalu ation . Endoc ervic al/tr ansfo rmati on zone compo nent prese nt. Age and/o r menst rual statu s not provi ded Not Available [address] [address] [place], [address], 02/17/2023 08:58:12 02/14/2002/17/2023 THINP REP TIS PAP interpretati on/result: normal Cytol ogy Resul ts: Negat jam for intra epith elial lesio n or malig angelina . Not Available [address] [place], [address], 02/17/2023 08:58:12 02/14/2002/17/2023 THINP REP TIS PAP comment: normal This Pap test has been evalu ated with compu ter [facility] . Not Available [address], [address], 02/17/2023 08:58:12 02/14/2002/17/2023 THINP REP TIS PAP cytotechnolo gist: normal AMW, CT( CP) CT scree elis locat ion: [place] [address] [place] [address] Not Available [facility] [place] [address] [address] [place], [address], 02/17/2023 08:58:12 02/14/20 23 02/17/2023 THINP REP [...] clini eugenie infor matio n. Not Available [employer] [facility] [address] [address] [address], [place], [address], 02/17/2023 08:58:12 06/03/20 21 06/02/2021 US, trans vagin al No observ ation record ed. [address], [place], [address], 06/06/2021 22:25:13 08/29/19 22 08/27/2021 US, trans vagin al No observ ation record ed. [email or web address] Not Available 08/30 12:20:36 03/15/20 23 03/14/2023 US, trans vagin al No observ ation record ed. [email or web address] [address], [place], [address], 03/15/2023 14:19:14 Result Notes None recorded. Problems [...] YES ProblemS tatus: Current Tanya Britsch null, [facility] 3 12:54:51 Obesity 239079482 Completed 201210/02/2013 Obesity; Progress : Stable Added By: Rosa Holland Add to Current Problems : NO ProblemS tatus: Resolve Not Available [facility] 2 19:34:53 Surgical follow-u p - normal 137290627 Completed 201701/02/2019 Follow-u p exam followin g [...] Not Available [facility] 1 09:13:04 Leukorrh ea 800080932 Completed 201309/23/2014 Vaginal Discharg e; Progress : Stable Added By: Paola Rudolph Add to Current Problems : NO ProblemS tatus: Resolve Not Available [facility] 2 19:34:52 Postcoit al finding 983059097 Completed 201903/13/2023 Postcoit al and contact bleeding ; Progress : Stable Added By: Rosmery Sherwood Add to Current Problems : YES ProblemS tatus: Current Tanya Britsch null, [facility] 3 12:55:14 Dyspareu leodan 91032526 Completed 201210/01/2013 Dyspareu leodan; Location : None [...] : NO ProblemS tatus: Resolve Not Available [facility] [address]:34:[address] Concept Completed 201701/02/2019 Encounte r for follow-u p examinat ion after complete d treatmen t for conditio ns other than malignan t neoplasm ; Progress : Stable Added By: Rosmery Agrawal Add to Current Problems : NO ProblemS tatus: Resolve Not Available [facility] 2 19:34:55 Female genital organ symptoms 884384267 Completed 201409/01/2014 Pelvic pain; Location : None Progress : Stable Added By: Maricel Longo Add to Current Problems : YES ProblemS tatus: Resolve; Start Date : 03/12/20 14 pelvi c pain; Progress : Stable Added By: Paola Rudolph Add to Current Problems : NO ProblemS tatus: Resolve Not Available [facility] 2 19:34:52 Mild postnata l depressi on 076690176 Completed 201205/11/2013 Follow-u p visit for postpart um depressi on; Location : None Severity : Moderate Progress : Stable Added By: Maricel Longo Add to Current Problems : NO ProblemS tatus: Resolve Not Available [facility] 1 09:13:04 Morbid obesity 612389325 Completed 201707/30/2019 Morbid obesity; Progress : Stable Added By: Paola Fernandez Add to Current Problems : NO ProblemS tatus: Resolve Morbid obesity; Location : None Progress : Stable Added By: Paola Fernandez Add to Current Problems : YES ProblemS tatus: Current Not Available [facility] 2 19:34:51 Mucous polyp of cervix 50954058 Completed 201707/30/2019 Cervical polyp; Progress : Stable Added By: Rosmery Agrawal Add to Current Problems : NO ProblemS tatus: Resolve Not Available [facility] 2 19:34:56 Finding of menstrua l bleeding Completed 201703/13/2023 Excessiv e and frequent menstrua tion with regular cycle; Progress : Stable Added By: Paola Fernandez Add to Current Problems : YES ProblemS tatus: Current Tanya Britsch null, [place] [facility] 3 12:54:45 Noninfla mmatory disorder of the vagina 37439059 Completed 201409/29/2014 Vaginal cyst; Location : None Progress : Stable Added By: Ad Hunter Add to Current Problems : NO ProblemS tatus: Resolve Not Available [facility] 2 19:34:53 Uses intraute rine contrace ption 321575677 Completed 201210/02/2013 Patient with intraute rine contrace ptive device (IUD); Location : None Severity : Moderate Progress : Stable Added By: Rosa Holland Add to Current Problems : NO ProblemS tatus: Resolve Not Available [facility] 1 09:13:05 Uses contrace ption 11186954 Completed 201409/23/2014 Contrace ption advice, other method; Location : None Severity : Moderate Progress : Stable Added By: Raeann Kelly Add to Current Problems : NO ProblemS tatus: Resolve Not Available [facility] 1 09:13:06 Counseli ng for elective steriliz ation done [id number] 9102 Completed 201407/30/2019 Steriliz ation, office visit; Location : None Severity : Moderate Progress : Stable Added By: Soco Salcedo Add to Current Problems : YES ProblemS tatus: Current Steriliz ation, office visit; Severity : Moderate Progress : Stable Added By: Soco Salcedo Add to Current Problems : NO ProblemS tatus: Resolve Not Available [facility] 1 09:13:06 Polyp of cervix 07957043 Active 2017 Cervical polyp; Location : None Progress : Stable Added By: Rosmery Agrawal Add to Current Problems : YES ProblemS tatus: Current Polyp of cervix uteri; Progress : Stable Added By: Rosmery Agrawal Add to Current Problems : YES ProblemS tatus: Current Not Available [facility] 2 19:34:57 Acute vaginiti s 47798347 Completed 201903/13/2023 Acute vaginiti s; Progress : Stable Added By: Rosmery Sherwood Add to Current Problems : YES ProblemS tatus: Current Tanya Britsch null, [facility] 3 12:54:57 General symptom 861810690 Completed 201507/30/2019 Heat intolera nce; Location : None Progress : Stable Added By: Basia Pereira Add to Current Problems : YES ProblemS tatus: Current Heat intolera nce; Progress : Stable Added By: Basia Pereira Add to Current Problems : NO ProblemS tatus: Resolve Not Available [facility] 2 19:34:55 Dysuria 93031137 Completed 201506/14/2016 Dysuria; Location : None Progress : Stable Added By: Linda Broussard Add to Current Problems : YES ProblemS tatus: Resolve Painful micturit ion, unspecif ied; Progress : Stable Added By: Linda Broussard Add to Current Problems : NO ProblemS tatus: Resolve Not Available [facility] 2 19:34:54 Spontane ous ecchymos is 048296854 Active 2019 Spontane ous ecchymos es; Progress : Stable Added By: Rosmery Sherwood Add to Current Problems : YES ProblemS tatus: Current Not Available [facility] 2 19:34:56 Menometr orrhagia 249766503 Completed 201707/30/2019 Menometr orrhagia ; Location : None Progress : Stable Added By: Paola Fernandez Add to Current Problems : YES ProblemS tatus: Current Menometr orrhagia ; Progress : Stable Added By: Paola Fernandez Add to Current Problems : NO ProblemS tatus: Resolve Not Available [facility] 2 19:34:53 Depressi ve disorder 89048393 Completed 201303/11/2014 Depressi on; Progress : Stable Added By: Nela Carney Add to Current Problems : NO ProblemS tatus: Resolve Not Available [facility] 2 19:34:56 Severe obesity 36052202894 104 Completed 201703/13/2023 Morbid (severe) obesity due to excess calories ; Progress : Stable Added By: Paola Fernandez Add to Current Problems : YES ProblemS tatus: Current Tanya Britsch null, [facility] 3 12:55:00 Psychiat isak follow-u p Completed 201205/11/2013 Follow-u p visit for postpart um depressi on; Location : None Progress : Stable Added By: Maricel Longo Add to Current Problems : NO ProblemS tatus: Resolve Not Available [facility] 2 19:34:51 Pre-surg kenneth evaluati on Completed 201409/23/2014 Preopera tive examinat ion - unspecif ied; Location : None Progress : Stable Added By: Soco Salcedo Add to Current Problems : YES ProblemS tatus: Resolve Not Available [facility] 2 19:34:53 Follow-u p encounte r Completed 201210/01/2013 Follow-u p examinat ion; Location : None Progress : Stable Added By: Soco Salcedo Add to Current Problems : NO ProblemS tatus: Resolve Not Available [facility] 2 19:34:53 Postoper ative follow-u p visit Completed 201406/25/2015 Follow-u p exam followin g other surgery; Location : None Progress : Stable Added By: Soco Salcedo Add to Current Problems : YES ProblemS tatus: Resolve Not Available [facility] 2 19:34:54 Screenin g for malignan t neoplasm of cervix Completed 201903/13/2023 Encounte r for screenin g for malignan t neoplasm of cervix; Progress : Stable Added By: Rosmery Sherwood Add to Current Problems : YES ProblemS tatus: Current Tanya Britsch null, [place] [facility] 3 12:54:40 Constipa tion 22664940 Completed 202103/13/2023 Tanya Britsch null, [place] [facility] 3 12:54:36 Cyst of ovary 22278298 Completed 202103/13/2023 Tanya Britsch null, [place] [...] of Last Pap Smear completed Marimar Malone [facility] [employer] IV 04/24/2024 15:30:53 01/06/20 18 endometrial ablation completed GARRY [address] [place], [address], [facility] [employer] IV 06/01/2021 10:53:14 01/06/20 18 diagnostic hysteroscopy completed Anja B Schifano, [address], [address], [facility] IV 06/01/2021 10:54:07 09/10/19 15 ligation of bilateral fallopian tubes completed Cecil Li, [address], [address], [facility] 06/01/2021 10:50:31 09/10/19 15 laparoscopy completed Cecil Stearnsedmondmiguel, [address], [address], [facility] IV 06/01/2021 10:51:01 procedure on ankle completed Cecil Stearnsedmondmiguel, [address], [address], [facility] IV 06/01/2021 10:51:32 Imaging Results Imaging Date Name Status LastModified by Organization Details LastModified Time 06/02/2021 US, transvaginal completed [address], [place], [address], 06/06/2021 22:25:13 08/27/2021 US, transvaginal completed [email or web address] Informat ion not available 08/30/2021 12:20:36 03/14/2023 US, transvaginal completed [email or web address] [address], [place], [address], 03/15/2023 14:19:14 Procedure Notes None recorded. Medical Equipment None Reported. Allergies Allergen ID Allergen Name Allergen Category Reaction Reaction Severity Criticality Documentation Date Start Date Code Code System Note Provider Name and Address Organization Details Recorded Time 013124 Biaxin medicatio n Not available Not available [...] isela HCL 8 mg oral tablet RxNorm: 940195 Allow Substitu tion: False Refill Denied: No [...] completed Diflucan 150 mg oral tablet RxNorm: 716398 Allow Substitu tion: True Refill Denied: No [...] daily 10/02 completed Zoloft 100mg Tablet RxNorm: 833165 Allow Substitu tion: True Refill Denied: No [...] QD 12/31 completed Lexapro 10mg Tablet RxNorm: 269655 Allow Substitu tion: True Refill Denied: No [...] daily 08/09 completed Zoloft 100mg Tablet RxNorm: 306007 Allow Substitu tion: True Refill Denied: No Not Available Not Available Not Available Klonopin 10/31 completed Klonopin 0.5mg Tablet RxNorm: 738223 Allow Substitu tion: True Refill Denied: No [...] Not Available Miralax 10/31 completed Miralax RxNorm: 275259 Allow Substitu tion: True Refill Denied: No Refill DateOccu rred: 09/24/19 15 Not Available Not Available Not Available Lexapro 04/15 completed Lexapro 10mg Tablet RxNorm: 653997 Allow Substitu tion: True Refill Denied: No [...] Updated DateTime 1 165.1 cm 47.6 kg/m2 632897. 14 g 96.8 [degF] 128 mm[Hg] 76 mm[Hg] Emiliaisaac Chery [facility] 1 13:08:18 Date Recorded Body height Body mass index (BMI) Body weight Body temperature Systolic blood pressure Diastolic blood pressure Provider Name and Address Organization Details Last Updated DateTime 2 165.1 cm 46.7 kg/m2 909612. 02 g 97.7 [degF] 122 mm[Hg] 72 mm[Hg] Karen Mauricet [employer] [facility] 2 11:47:12 Date Recorded Body height Provider Name an d Address Organization Details Last Updated DateTime 02/13/2023 165.1 cm Ruthie Hernandez [employer] [facility] 02/13/2023 15:51:37 Date Recorded Body mass index (BMI) Body weight Systolic blood pressure Diastolic blood pressure Provider Name and Address Organization Details Last Updated DateTime 02/13/2023 41.2 kg/m2 304347.11 g 130 mm[Hg] 60 mm[Hg] Flory Cool [facility] 02/13/2023 15:57:36 Date Recorded Body height Body mass index (BMI) Body weight Body temperature Systolic blood pressure Diastolic blood pressure Provider Name and Address Organization Details Last Updated DateTime 3 165.1 cm 40 kg/m2 043782. 61 g 97.4 [degF] 130 mm[Hg] 78 mm[Hg] Tanya Linangie [facility] 3 16:22:20 Social History Question Answer Notes LastModified by Organizat ion Details LastModified Time Tobacco Smoking Status Never Smoker Emilia Johnsabina miller, [facility] 06/02/2021 13:10:45 What Is Your Level [...] Response Anxiety Disorder Y Neurological Disorder Y Bipolar Disorder Y Fibroids Y Gynecological History Statement/Question Response Date of [...] SNOMED-CT Code Diagnosis ICD10 Code Diagnosis Note [id number] Cecil Li [facility] [address] [place] [address] 06/02/2021 12:42:35 06/15/2021 13:20:10 Acute pelvic pain 302001069 R10.2 4.8 cm left ovarian cyst; repeat U/S in 4-6 weeks Cyst of ovary 44495224 N 83.209 Uses oral contraception 8565419 Z30.41 [id number] Cecil Li [facility] [address] [place] [address] 08/27/2021 11:33:02 08/27/2021 13:22:59 Constipation 32009231 K59.00 Cyst of ovary 86313772 N 83.209 Left ovarian cyst resolved. 2.6 cm right cyst today. Advised to rto if pain and if severe, go to ER. Follow up in 6 weeks for repeat U/S. [id number] GARRY OLIVARES[facility] [address] [place] [address] 02/13/2023 15:49:08 02/13/2023 17:22:29 Gynecologic examination 46051873 Z01.419 Screening for malignant neoplasm of cervix 146071854 Z12.4 Screening mammography of bilateral breasts 8232709109 24943 Z12.31 Pt educated on breast cancer screening guidelines , and discussed recommenda tion for scheduling imaging at hospital of her choice. Reviewed recommenda tion to have imaging done at same facility if possible as previous screenings . Pt states understand ing of POC. Contracept ion education 157438198 Z30.09 Contracept jam counseling : Discussed options including OCPs, NuvaRing, Nexplanon, hormonal and copper IUDs. Discussed risks, efficacy, non contracept jam benefits, and side effects of each option, including risk of VTE with hormonal contracept ion and uterine perforatio n, expulsion, infection with IUD. Depression screening 171 675016 Z13.31 Pain of breast 39289808 N64.4 Pt comes in today for Breast [...] mmatory. Discussed complement sheryl therapy of Evening [place] oil- up to 3,000 mg daily for 2 weeks and beyond if it helps.Catherine ent declines mammo/US at present. Discussed plan to re-eval sx after diet modificati on. If persistent would recommend breast imaging. Will RTC if recurring symptoms, worsening symptoms, or palpable abnormalit y. Pain in pelvis 26156985 R10.2 [id number] [facility] [address] [place] [address] 03/14/2023 15:30:56 03/15/2023 09:47:55 Pain in pelvis 75350985 R10.2 TVUS today showed [facility] WNL, hx [...] Aldana Member ID Guarantor Name 06/02/2021 1 [facility] ON OR AFTER 12/03/20 (MEDICAID REPLACEMENT - HMO) Kassandra Odonnell [id number] Kassandra Odonnell 08/27/2021 1 [facility] - DOS ON OR AFTER 20 (MEDICAID REPLACEMENT - HMO) Kassandra Odonnell [id number] Kassandra Odonnell 02/13/2023 1 [facility] - DOS ON OR AFTER 20 (MEDICAID REPLACEMENT - HMO) Kassandra Odonnell [id number] Kassandra Odonnell 03/14/2023 1 [facility] - DOS ON OR AFTER 20 (MEDICAID REPLACEMENT - HMO) Kassandra Odonnell [id number] Kassandra Odonnell Notes Date Note Type Note [...] received. Reports h/o recurring cysts. G[address]Y [address] [place], [address], [facility] 06/02/2021 15:27:45 08/27/2021 text/html Kassandra is here to follow up on ovarian cyst- 4.8 cm left ovary; she stopped the OCPs started last visit because of mood issues.reports occasional crampsc/o constipation GARRY [address] [place], [address], [employer] [facility] IV 08/31/2021 17:43:56 02/13/2023 text/html Annual GYNReport ed bypatient.Breast:Br east pain Current Contraception:Tubal ligation Preventive measures:Encourage self breast examination Patient is an established patient who presents for a gynecological Annual Exam. The patient denies any changes in her medical history. The patient denies any changes in her family medical history. GARRY OLIVARES- [address] [facility], [place], [address], [facility] 03/14/2023 16:27:33 03/14/2023 text/html Patient is an established patient who presents for follow on pelvic pain The patient denies any changes in her medical history. The patient denies any changes in her family medical history.States she has history of fibroids and cystsno cycles due to ablation STEPHEN GUTHRIE, [facility]- [address] [facility], [place], [address], [facility] IV 03/14/2023 16:36:13 OBGyn Episode No OBEpisode recorded.
--- OUTSIDE RECORDS SUMMARY | 2024-08-18 18:28 | XMS_ITS | Patient Health Record ---
Author Organization [facility] Address [address] [place] [address] Care Team Providers Care Paper Latcher Name Role Phone Yasir Hutsona Primary Care Provider AlexeiJuliann barajas [place] [phone] Allergies Allergen (clinical drug ingredient) Drug/Non Drug [...] Problem Status W/U Status Risk Notes Problem 17474649 Bipolar 2 disorder (F31.81) 10/03/2013 Active confirmed Problem [id number] Binge eating disorder (F50.81) 10/04/2019 Active confirmed Encounters Encounter Location Date Provider Diagnosis [place] [address] 08/29/2023 Marcella Hutson Bipolar 2 disorder F31.81 and Binge eating disorder F50.81 [address] [address] [place] [address] 10/24/2023 Marcella Hutson Bipolar 2 disorder F31.81 and Binge eating disorder F50.81 [address] [address] [place] [address] 01/24/2024 Marcella Hutson Bipolar 2 disorder F31.81 and Binge eating disorder F50.[address] [address] 03/29/2024 Marcella Hutson Bipolar 2 disorder F31.[address] [address] 05/03/2024 Marcella Hutson Bipolar 2 disorder F31.81 and Binge eating disorder F50.[address] [address] 01/02/2024 Marcella Hutson Bipolar 2 disorder F31.81 and Binge eating disorder F50.[address] [place] [address] 02/08/2024 Marcella Hutson [address] [place] [address] 03/25/2024 Juliann Nixon Bipolar 2 disorder F31.81 [...] or be administered own oral medications per [place] protocols. Provided informed consent with understanding of [...] or be administered own oral medications per [place] protocols. Provided informed consent with understanding of [...] or be administered own oral medications per [place] protocols. Provided informed consent with understanding of [...] or be administered own oral medications per [place] protocols. Provided informed consent with understanding of [...] or be administered own oral medications per [place] protocols. Provided informed consent with understanding of [...] Insured Coverage Start Date Coverage End Date [facility] Attn Claims Department [address] [place] [address] [phone] [id number] AnnabelbereketKassandra hogue Self - patient is the insured 1 4 MEDICAID [address] [place] [address] [id number] Kassandra Odonnell Self - patient is the insured 4 [employer] Attn Claims Department [address] [place] [address] [id number] Kassandra Odonnell Self - patient is the insured 1 Medical (General) History Medical History History ICD Code Movement disorder Surgical History Surgery Date(Month/Year) Left Ankle Surgery 2017 tubal ligation Surgical revision of hardware- removed s crews and plates. 2023 Hospitalization History Reason Date(Month/Year) Child Child Child Left Ankle Surgery 2016
--- OUTSIDE RECORDS SUMMARY | 2024-08-18 18:28 | XMS_ITS ---
Author Organization [facility] Address [address] [place] [address] Care Team Providers Care Senior Buyer Name Role Phone Marcella Hutson Primary Care Provider [phone] Allergies Allergen (clinical drug ingredient) Drug/Non Drug [...] Nonsmoker Encounters Encounter Location Date Provider Diagnosis [address] [address] 03/29/2024 Marcella Hutson Bipolar 2 disorder F31.81 Assessments Encounter Date Diagnosis (ICD Code) Assessment Notes Treatment Notes Treatment Clinical Notes Section Notes 03/29/2024 Bipolar 2 disorder (ICD-10 - F31.81) Stop Zoloft and start Prozac. Family members are on Fluoxetine and doing well. Reviewed Prescription Monitoring program. Continue services as scheduled. Labs completed recently. May self-administer medications or be administered own oral medications per [employer] protocols. Provided informed consent with understanding of [...] or be administered own oral medications per [place] protocols. Provided informed consent with understanding of [...] Notes * Grace ODONNELLOB:1980 (43 yo F)Acc No.[id number]:03/29/2024 Patient: Kassandra BECKHAM Provider: Bridger Hutson DNP, PMKALLIEP-BC, GALVANIZING POT RUNNER :1980 A ge:43 Y S ex:Female Date:03/29/2024 Address:[address] , [id number] Subjective: * Chief Complaints: * 4 week [...] in behavioral health treatment . S creening: [place] Suicide Severity Rating Scale (LF) D o [...] true * Provider: Bridger Hutson DNP, PMHNP-, GALVANIZING POT RUNNER Date: Generated for Printing/Faxing/eTransmitting on: 0 08/18/2024 06:27 PM CDT History and Physical Notes * [...] to change the medication or dose. Screening [place] Suicide Sev erity Rating Scale (LF) Do [...]
--- OUTSIDE RECORDS SUMMARY | 2024-08-18 18:28 | XMS_ITS ---
Author Organization [facility] Address [address] [place] [address] Care Team Providers Care Manager Group Name Role Phone Marcella Hutson Primary Care [...] Nonsmoker Encounters Encounter Location Date Provider Diagnosis [address] [place] [address] 05/03/2024 Marcella Hutson Bipolar 2 disorder F31.81 [...] or be administered own oral medications per [place] protocols. Provided informed consent with understanding of [...] or be administered own oral medications per [place] protocols. Provided informed consent with understanding of [...] Notes * Grace ODONNELLOB:1980 (43 yo F)Acc No.[id number]:05/03/2024 Patient: Kassandra BECKHAM Provider: Bridger Hutson, RAINA, PMHNP-BC, TOOL AND DIE ENGINEER :1980 A ge:43 Y S ex:Female Date:05/03/2024 Address:[address] , [id number] Subjective: * Chief Complaints: * 4 week F/U * HPI: S creening: [place] Suicide Severity Rating Scale (LF) D o [...] or be administered own oral medications per [place] protocols. 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 , Yes Screening [place] Suicide Sev erity Rating Scale (LF) Do [...]
--- OUTSIDE RECORDS SUMMARY | 2024-08-18 18:28 | XMS_ITS | Clinical Summary ---
Author Organization [facility] Address [address] [place] [address] Care Team Providers Care Oyster Sorter Name Role Phone Marlon Saucedo MD Primary Care Provider [phone] Allergies Active Allergy Reactions Criticality Noted Date [...] times daily. 20 tablet 05/15/20 24 Active neomycin-bacitraci n-polymyxin (NEOSPORIN) 3.5-400-5000 ointment Apply topically 4 (four) times daily. 14 g 08/07/19 25 Active amoxicillin-clavul anate (AUGMENTIN) 875-125 MG tablet Take 1 tablet (875 mg total) by mouth 2 (two) times daily for 10 days. 20 tablet 08/07/19 25 025 Active Problems Problem Noted Date Diagnosed Date Cholecystitis 08/10/2022 Acute cholecystitis 08/08/2022 Encounters Date Type Department Care Team Description 08/06/2024 6:50 PM FILM MOUNTER - 08/06/2024 9:51 PM [facility] Emergency [facility] Emergency Room [address] [id number] Walter Acosta MD Wound Infection (Post-surgical infection, Wash U, removed hardware in April, wound reopened and began to look infected a couple days ago. ) Discharge Disposition: Home or Self Care (Routine Discharge) 08/06/2024 Travel from Last 3 Months Family History [...] place to sleep or slept in a residential (including now)? No 08/08/2022 Comments No Sex and Gender Information Value Date Recorded Sex Assigned at Female 08/06/2024 7:04 PM FILM MOUNTER Legal Sex Female 4:57 PM CDT Gender Identity Not on file Sexual Orientation Not on file Last Filed Vital Signs Vital Sign Reading Time Taken Comments Blood Pressure 135/78 08/06/2024 9:00 PM FILM MOUNTER Pulse 91 08/06/2024 9:00 PM FILM MOUNTER Temperature 36.6 C (97.8 F) 08/06/2024 6:53 PM FILM MOUNTER Respiratory Rate 20 08/06/2024 9:00 PM FILM MOUNTER Oxygen Saturation 100% 08/06/2024 9:00 PM FILM MOUNTER Inhaled Oxygen Concentration - - Weight 113.4 kg (250 lb) 08/06/2024 6:53 PM FILM MOUNTER Height 165.1 cm (5' 5 ) 08/06/2024 6:53 PM FILM MOUNTER Body Mass Index 41.6 08/06/2024 6:53 PM FILM MOUNTER Plan of Treatment Health Maintenance Due Date [...] Influenza Adult (#1) 2024 03/26/2019 PHQ-2 (Physician [place]) 06/05/2024 DTaP, Tdap and Td Vaccines ( [...] ANKLE LT M3V STAT 08/06/2024 7:52 PM FILM MOUNTER HC SMEAR GRAM/GIEMSA STAT 08/06/2024 7:50 PM FILM MOUNTER CULTURE, BACTERIA, BLOOD STAT 08/06/2024 7:42 PM FILM MOUNTER LACTIC ACID STAT 08/06/2024 7:42 PM FILM MOUNTER COMPREHENSIVE METABOLIC PANEL STAT 08/06/2024 7:42 PM FILM MOUNTER CBC W/DIFF AUTOMATED STAT 08/06/2024 7:42 PM FILM MOUNTER from Last 3 Months Results * XR ANKLE LT M3V (08/06/2024 7:52 PM FILM MOUNTER) Anatomical Region Laterality Modality Ankle Radiographic Carlee ging 08/06/2024 7:57 PM FILM MOUNTER Impressions 08/06/2024 8:03 PM FILM MOUNTER IMPRESSION: 1. Interval revision of the ORIF of the left ankle, as above, with no evidence of hardware complication of the remaining hardware. 2. No acute osseous or articular abnormality of the left ankle. 3. Mild soft tissue edema along the lateral aspect of the ankle. Referred By: Interpreted By: Dannie Beck MD, 08/06/2024 7:57 PM Narrative 08/06/2024 8:03 PM FILM MOUNTER [address] [place] [address] INDICATION: Pain COMPARISON: Left ankle radiograph, 11 [...] Procedure Note Dannie Beck MD - 08/06/2024 [facility] [id number] [place] [address]. [place] [address] INDICATION: Pain COMPARISON: Left ankle radiograph, 11 [...] CULTURE, WOUND, W/GRAM STAIN (08/06/2024 7:50 PM FILM MOUNTER) SPEC DESCRIPTION ANKLE,LEFT 08/06/2024 7:[address] [facility] SPECIAL REQUESTS NO SPECIAL REQUEST 08/06/2024 7:[address] [facility] GRAM STAIN RESULT NO WHITE BLOOD CELLS SEEN 08/07/2024 11:43 AM FILM MOUNTER [facility] GRAM STAIN RESULT NO ORGANISMS SEEN 08/07/2024 11:43 AM [facility] CULTURE RESULT MODERATE GROWTH OF METHICILLIN RESISTANT STAPHYLOCOCCUS AUREUS FOLLOW ISOLATION PROTOCOL. (AA) 08/09/2024 8:33 AM FILM MOUNTER [facility] ANKLE REGION STRUCTURE / Unknown 08/06/2024 7:50 PM FILM MOUNTER 08/06/2024 7:55 PM FILM MOUNTER Narrative Organism Antibiotic Method Susceptibility Methicillin resistant [...] MICROBIOLOGY - GENERAL ORDERABL ES Final Result [facility] [address] [place] [address], [place] [phone] [facility] [address] [place] [address], [place] [phone] * (ABNORMAL) COMPREHENSIVE METABOLIC PANEL (08/06/2024 7:42 PM FILM MOUNTER) [facility] GLUCOSE 119(H) 70 - 99 MG/DL 08/06/2024 8:05 PM [facility] BUN 22(H) 7 - 18 MG/DL 08/06/2024 8:05 PM [facility] CREATININE S/P/B 0.74 0.55 - 1.02 MG/DL 08/06/2024 8:05 PM [facility] SODIUM S/P/B 150(H) 136 - 145 MMOL/L 08/06/2024 8:05 PM [facility] POTASSIUM S/P/B 4.7 3.5 - 5.1 MMOL/L 08/06/2024 8:05 PM [facility] CHLORIDE S/P/B 110(H) 100 - 108 MMOL/L 08/06/2024 8:05 PM [facility] CO2 26.9 21 - 32 MMOL/L 08/06/2024 8:05 PM [facility] CALCIUM S/P/B 9.2 8.5 - 10.1 MG/DL 08/06/2024 8:05 PM [facility] BILIRUBIN TOTAL S/P/B 0.2 0.2 - 1.2 MG/DL 08/06/2024 8:[address] [facility] TOTAL PROTEIN S/P/B 7.6 6.4 - 8.2 G/DL 08/06/2024 8:05 PM [facility] ALBUMIN S/P/B 4.0 3.4 - 5.0 G/DL 08/06/2024 8:05 PM [facility] AST 15 15 - 37 U/L 08/06/2024 8:05 PM [facility] ALT 38 14 - 55 U/L 08/06/2024 8:05 PM [facility] ALKALINE PHOSPHATASE S/P/B 65 50 - 136 U/L 08/06/2024 8:05 PM [facility] ANION GAP 13.1 5 - 15 MMOL/L 08/06/2024 8:05 PM [facility] BUN CREATININE RATIO 29.7(H) 6 - 26 08/06/2024 8:05 PM [facility] A/G RATIO 1.1 1.0 - 2.0 RATIO 08/06/2024 8:05 PM [facility] GFR ESTIMATE >90 >90 ML/MIN/1.7 3 M2 08/06/2024 8:05 PM [facility] Comment: NOTE: eGFR is not calculated for patients <18 years of age. This is an estimated GFR calculation using the new CKD EPI creatinine equation without race and so does not require a correction factor for race. This estimated GFR should not be used for calculating drug doses. 08/06/2024 7:42 PM FILM MOUNTER Walter Acosta MD LABORATORY Final Result [facility] [address] [place] [address], [place] [phone] * LACTIC ACID - SINGLE (08/06/2024 7:42 PM FILM MOUNTER) LACTIC ACID VENOUS 1.8 0.4 - 2.0 MMOL/L 08/06/2024 8:[address] [facility] 08/06/2024 7:42 PM FILM MOUNTER us Walter Acosta MD LABORATORY Final Result Performing Organization Address [facility] Co de Phone Number [facility] [address] [place] [address], [place] [phone] * BLOOD CULTURE #1 (08/06/2024 7:42 PM FILM MOUNTER) Pathologist [facility] SPEC DESCRIPTION BLOOD 08/06/2024 7:[address] [facility] SPECIAL REQUESTS NO SPECIAL REQUEST 08/06/2024 7:[address] [facility] CULTURE RESULT NO GROWTH 5 DAYS 08/12/2024 11:34 AM CDT [facility] BLOOD SPECIMEN OBTAINED FOR BLOOD CULTURE / Unknown 08/06/2024 7:42 PM FILM MOUNTER 08/06/2024 7:48 PM FILM MOUNTER us Walter Acosta MD MICROBIOLOGY - GENERAL ORDERABL ES Final Result Performing Organization Address [facility] Co de Phone Number [facility] [address] [place] [address], [place] [phone] [facility] [address] [place] [address], [place] [phone] * (ABNORMAL) CBC W/DIFF AUTOMATED (08/06/2024 7:42 PM FILM MOUNTER) Pathologist [facility] WBC 7.86 4.4 - 11.0 x10'3/uL 08/06/2024 7:[address] [facility] RBC 5.04 4.50 - 5.10 x10'6/uL 08/06/2024 7:51 PM [facility] HGB 14.5 12.3 - 15.3 G/DL 08/06/2024 7:51 PM [facility] HCT 43.1 35.9 - 44.6 % 08/06/2024 7:51 PM [facility] MCV 85.5 80.0 - 96.0 FL 08/06/2024 7:51 PM [facility] MCH 28.8 25.3 - 30.9 PG 08/06/2024 7:51 PM [facility] MCHC 33.6 31.0 - 34.1 G/DL 08/06/2024 7:51 PM [facility] RDW 12.1(L) 12.4 - 15.1 % 08/06/2024 7:51 PM [facility] PLT 449(H) 151 - 353 x10'3/uL 08/06/2024 7:51 PM [facility] MPV 9.0(L) 9.6 - 12.0 FL 08/06/2024 7:51 PM [facility] RBC MORPHOLOGY NORMAL 08/06/2024 7:51 PM [facility] PLT MORPH. NORMAL 08/06/2024 7:51 PM [facility] WBC MORPHOLOGY NORMAL 08/06/2024 7:51 PM [facility] LYMPHOCYTES % 28.5 15.8 - 45.0 % 08/06/2024 7:51 PM [facility] NEUTROPHILS % 61.1 42.1 - 71.9 % 08/06/2024 7:51 PM [facility] MONOCYTES % 7.1 5.7 - 12.5 % 08/06/2024 7:[address] [facility] EOSINOPHILS 2.4 0.0 - 5.6 % 08/06/2024 7:[address] [facility] BASOPHILS 0.5 0.0 - 1.3 % 08/06/2024 7:[address] [facility] ABS. NEUTROPHILS 4.80 1.40 - 6.00 x10'3/uL 08/06/2024 7:[address] [facility] IMMATURE GRANS % 0.4 0.0 - 0.5 % 08/06/2024 7:[address] [facility] ABS. LYMPHOCYTES 2.24 0.80 - 4.70 x10'3/uL 08/06/2024 7:[address] [facility] 08/06/2024 7:42 PM FILM MOUNTER Walter Acosta MD LABORATORY Final Result [facility] [address] [place] [address], from Last 3 Months Additional Health Concerns Infection Onset Date Last Indicated MRSA Comment:08/06/24 +MRSA Left ankle 08/06/2024 08/06/2024 Insurance [employer] Advance Directives * Full Code (Latest Code Status on File) Date Activated Date Inactivated Comments 08/08/2022 11:01 AM 08/10/2022 6:33 PM Care Teams Oyster Sorter Relationship Specialty Start Date End Date Marlon Saucedo MD [address] [place] [address] PCP - General FAMILY PRACTICE 08/08/22
--- OUTSIDE RECORDS SUMMARY | 2024-08-18 18:28 | XMS_ITS ---
Author Organization [facility] Address [address] [place] [address] Care Team Providers Care Sales Administration Specialist Name Role Phone Marcella Hutson Primary Care Provider [phone] Juliann Nixon [phone] REASON FOR VISIT refills Medications Medication SIG [...] Female Encounters Encounter Location Date Provider Diagnosis [address] [address] 03/25/2024 Juliann Nixon Bipolar 2 disorder F31.81 [...] Notes * Avinash ODONNELL:1980 (43 yo F)Acc No.[id number]:03/25/2024 Patient: Kassandra BECKHAM :1980 A ge:43 Y S ex:Female Address:[address] [place] [address] , [place], [address] * Refills Refill Vyvanse Capsule, 50 MG, [...] Date: Generated for Radha carroll/Violet/Jessika on: 0 08/18/2024 06:28 PM CDT
--- OUTSIDE RECORDS SUMMARY | 2024-08-18 18:28 | XMS_ITS | Encounter Summary ---
Author Organization [facility] Address [address] [place] [address] Care Team Providers Care Power Tong Operator Name Role Phone Rick Gordillo MD Primary Care Provider Unavailable Susie Curtis MD Primary Care Provider [phone] Marlon Saucedo MD Primary Care Provider [phone] Encounter Details Date Type Department Care Team (Late st Contact Info) Description 03/25/2017 Abstract [facility] CONVERSION [address] [place] [address] Md Generic MD Juan Social History Tobacco Use Types Packs/Day Years Used Date Smoking Tobacco: Never Assessed Comments Unknown Sex and Gender Information Value Date Recorded Sex Assigned at Female 08/06/2024 7:04 PM MANUFACTURING INDUSTRIAL ENGINEER Legal Sex Female 4:57 PM CDT Gender [...] PROTIME 12.6 SEC 03/25/2017 9:40 PM CDT [facility] INR 1.1 03/25/2017 9:40 PM CDT [facility] Comment: Recommend INR ranges for Oral Anticoagulant Therapy:Mechanical Cardiac Values 2.5-3.5All others indication 2.0-3.0 03/25/2017 9:17 PM CDT 03/25/2017 9:32 PM CDT us Generic Conversion Md [facility] Final R esult [facility] [address] [place] [address], * (ABNORMAL) COMPREHENSIVE METABOLIC PNL W DBIL (03/25/2017 9:17 PM CDT) GLUCOSE 111(H) 70 - 105 MG/DL 03/25/2017 9:52 PM CDT [facility] BUN 11 7.0 - 18.7 MG/DL 03/25/2017 9:52 PM CDT [facility] CREATININE S/P/B 0.73 0.57 - 1.11 MG/DL 03/25/2017 9:52 PM CDT [facility] SODIUM S/P/B 140 136 - 145 MMOL/L 03/25/2017 9:52 PM CDT [facility] POTASSIUM S/P/B 3.6 3.5 - 5.1 MMOL/L 03/25/2017 9:52 PM CDT [facility] CHLORIDE S/P/B 103 98 - 107 MMOL/L 03/25/2017 9:52 PM CDT [facility] CO2 27.0 22 - 29 MMOL/L 03/25/2017 9:52 PM CDT [facility] ANION GAP 13.6 10.0 - 24.0 MMOL/L 03/25/2017 9:52 PM CDT [facility] CALCIUM S/P/B 9.0 8.4 - 10.2 MG/DL 03/25/2017 9:52 PM [facility] BILIRUBIN TOTAL S/P/B 0.3 0.2 - 1.2 MG/DL 03/25/2017 9:52 PM [facility] TOTAL PROTEIN S/P/B 7.5 6.4 - 8.3 G/DL 03/25/2017 9:52 PM [facility] ALBUMIN S/P/B 4.2 3.5 - 5.0 G/DL 03/25/2017 9:52 PM [facility] AST 18 5 - 34 U/L 03/25/2017 9:52 PM [facility] ALT 24 6 - 55 U/L 03/25/2017 9:52 PM [facility] ALKALINE PHOSPHATASE S/P/B 65 30 - 115 U/L 03/25/2017 9:52 PM [facility] BUN CREATININE RATIO 15.1 6.0 - 26.0 03/25/2017 9:52 PM [facility] A/G RATIO 1.3 1.1 - 1.9 RATIO 03/25/2017 9:52 PM [facility] EGFR NON-AFR. AMER. >60 >60 ML/MIN/1.7 3 M2 03/25/2017 9:52 PM [facility] Comment: GFR Reference Range:Kidney Failure - <15mL/min Chronic Kidney Disease - <60mL/min Normal Kidney Function - >60mL/min GFR calculation is not recommended forPatients less than 18 years or greater than70 years as per the national Kidney Foundation.If the patient is -[place], multiply results by 1.21 BILIRBUIN INDIRECT (CORD) 0.2 0.0 - 1.1 MG/DL 03/25/2017 9:52 PM [facility] BILIBUBIN DIRECT (CORD) 0.1 0.0 - 0.5 MG/DL 03/25/2017 9:52 PM CDT [facility] OSMOLALITY (CALC) 279 271 - 290 MOSM/KG 03/25/2017 9:52 PM CDT [facility] 03/25/2017 9:17 PM CDT 03/25/2017 9:32 PM CDT us Generic Conversion Md [facility] Final R esult [facility] [address] [place] [address], * (ABNORMAL) CBC W/DIFF AUTOMATED (03/25/2017 9:17 PM CDT) WBC 18.3(H) 4.4 - 11.0 x10'3/uL 03/25/2017 9:36 PM CDT [facility] RBC 4.57 4.50 - 5.10 x10'6/uL 03/25/2017 9:36 PM CDT [facility] HGB 12.9 12.3 - 15.3 G/DL 03/25/2017 9:36 PM CDT [facility] HCT 37.9 35.9 - 44.6 % 03/25/2017 9:36 PM CDT [facility] MCV 82.9 80.0 - 96.0 FL 03/25/2017 9:36 PM CDT [facility] MCH 28.2 25.3 - 30.9 PG 03/25/2017 9:36 PM CDT [facility] MCHC 34.0 31.0 - 34.1 G/DL 03/25/2017 9:36 PM CDT [facility] RDW 13.8 12.4 - 15.1 % 03/25/2017 9:36 PM [facility] PLT 507(H) 151 - 353 x10'3/uL 03/25/2017 9:36 PM [facility] MPV 8.5(L) 9.6 - 12.0 FL 03/25/2017 9:36 PM [facility] RBC MORPHOLOGY NORMAL 03/25/2017 9:36 PM [facility] PLT MORPH. NORMAL 03/25/2017 9:36 PM [facility] WBC MORPHOLOGY NORMAL 03/25/2017 9:36 PM T [facility] LYMPHOCYTES % 11.7(L) 15.8 - 45.0 % 03/25/2017 9:37 PM [facility] NEUTROPHILS % 83.3(H) 42.1 - 71.9 % 03/25/2017 9:37 PM [facility] MONOCYTES % 4.2(L) 5.7 - 12.5 % 03/25/2017 9:37 PM [facility] EOSINOPHILS 0.1 0.0 - 5.6 % 03/25/2017 9:37 PM [facility] BASOPHILS 0.2 0.0 - 1.3 % 03/25/2017 9:37 PM [facility] ABS. NEUTROPHILS TOTAL 15.26(H) 1.40 - 6.00 x10'3/uL 03/25/2017 9:37 PM [facility] IMMATURE GRANS % 0.5 0.0 - 0.5 % 03/25/2017 9:37 PM [facility] ABS. LYMPHOCYTES 2.14 0.80 - 4.70 x10'3/uL 03/25/2017 9:37 PM [facility] 03/25/2017 9:17 PM CDT 03/25/2017 9:32 PM CDT us Generic Conversion Md [facility] Final R esult [facility] [address] [place] [address], [place] [phone] documented in this encounter Visit Diagnoses Not on filedocumented in this encounter Additional Health Concerns Infection Onset Date Last Indicated Resolved Time COVID-19 Rule Out 01/11/2024 01/11/2024 01/11/2024 9:00 PM CDT MRSA Comment:08/06/24 +MRSA Left ankle 08/06/2024 08/06/2024 documented as of this encounter Care Teams Power Tong Operator Relationship Specialty Start Date End Date , Rick Martinez MD PCP - General 07/11/13 Susie Curtis MD [facility] [address] [place] [id number] PCP - General FAMILY PRACTICE 06/20/19 08/07/22 Marlon Saucedo MD [address] [address] PCP - General FAMILY PRACTICE 08/08/22 documented as of this encounter
--- NOTE | 2024-08-18 20:49 | ED_ITS ---
HPI - Abdominal Pain General Chief Complaint: Abdominal Pain Stated Complaint: right flank pain, vomiting Time Seen by Provider: 08/18/24 20:31 Source: patient Mode of arrival: ambulatory Limitations: no limitations History of Present Illness HPI narrative: Patient presents with right flank/right upper quadrant pain. Symptoms started approximately 2 days ago. She has been occasionally vomiting although primarily states it is been dry heaving. Her last bowel movement was 2 days ago and with diarrhea. The pain had started is intermittent and has now become more constant. She was told at 1 time she had a abdominal hernia. History of fibroid ablation. She has been trying to drink more fluids to maintain her hydration. She did eat [place] sprouts and notice her urine was green. She has been without fevers although having hot flashes and chills with profuse sweating although she does not know if this is related to perimenopause. Denies any dysuria, hematuria, urgency or frequency. No recent travel. She had recently been placed on Augmentin after having ankle surgery but then there was concern for MRSA although she was not bacteremic and for this reason she was placed on doxycycline but this made her blood pressure elevated she was told she could discontinue this and remain on the Augmentin alone. No history of kidney stones. Status post cholecystectomy 2 years ago as well as a tubal procedure. Related Data Home Medications ?Medication ?Instructions ?Recorded ?Confirmed ?Last Taken ?Type fluoxetine 20 mg capsule (Prozac) 20 mg PO DAILY 06/26/24 07/05/24 Unknown History meloxicam 15 mg tablet 15 mg PO DAILY 06/26/24 07/05/24 Unknown History Allergies Allergy/AdvReac Type Severity Reaction Status Date / Time clarithromycin Allergy Mild Hives Verified 08/11/24 19:41 [facility] Past Medical History Medical History Abdominal hernia Otitis media Anxiety and depression Blood glucose elevated Low aspartate aminotransferase (AST) level Syncope Weight gain Overweight (03/07/17) Irregular menstrual bleeding Dietary counseling and surveillance (09/30/15) Arm paresthesia, right Abnormal involuntary movement COVID Shortness of breath Xerostomia Dental disease Dry eyes Flu-like symptoms Mass in neck Elevated platelet count Swelling of left knee joint Left knee pain Lump of left breast BMI 36.0-36.9,adult Iron deficiency Essential hypertension Bipolar 1 disorder Vitamin D deficiency Diarrhea Hx of colonic polyp Encounter for screening for lipid disorder Screening for thyroid disorder Joint pain Cholecystectomy planned Eustachian tube dysfunction Vertigo Depression Asthma Surgical History Surgical History (Updated 08/20/24 @ 05:22 by Analilia Orr MD) S/P hardware removal 05/2024 History of cholecystectomy 2022; [facility] History of endometrial ablation [place]; approx [phone] Hx of tonsillectomy Status post open reduction with internal fixation (ORIF) of fracture of ankle Family History Family History Father Family history of diabetes mellitus in first degree relative Acute myocardial infarction Diabetes mellitus Mother No problems noted. 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 Spiritual care concerns: No Exam 2 Narrative: GENERAL: Well-appearing, well-nourished. Face flushed but not febrile HEAD: Normocephalic, atraumatic. EYES: Non injected, non icteric ENT: Nares clear, no rhinorrhea or epistaxis. NECK: Supple. CHEST: Speaking in full sentences. No respiratory distress. HEART:Tachycardic rate and rhythm. . ABDOMEN: Protuberant, morbid obesity but Soft, nondistended. No tenderness to palpation throughout. No rigidity/guarding. Abdominal striae but without overlying ecchymosis, erythema, or rash. : No CVA tenderness bilateerally EXTREMITIES: Normal range of motion. No lower extremity edema. SKIN: Warm, dry, no rash. NEURO: No focal deficits. Alert and oriented x3. PSYCH: Normal mood and affect. Course Vital Signs Vital signs: Vital Signs Temperature 97.6 F 08/18/24 18:39 Pulse Rate 109 H 08/18/24 18:39 Respiratory Rate 18 08/18/24 18:39 Blood Pressure 143/94 H 08/18/24 18:39 Pulse Oximetry 99 08/18/24 18:39 Oxygen Delivery Room Air 08/18/24 18:39 Temperature 98 F 08/18/24 21:14 Pulse Rate 83 08/18/24 22:45 Respiratory Rate 20 08/18/24 22:45 Blood Pressure 141/74 H 08/18/24 21:16 Pulse Oximetry 98 08/18/24 22:45 Oxygen Delivery Room Air 08/18/24 21:14 MDM - Abdominal Pain MDM Narrative Medical decision making narrative: Patient presents with right flank pain and right upper quadrant abdominal pain occurring starting 2 days ago. She has had some vomiting but primarily only occasionally and more so dry heaves. Her last bowel movement was 2 days ago was diarrheal. In the emergency department she is afebrile vital signs notable for mild tachycardia as well as hypertension. Benigng abdominal exam so will defer CT imaging at this time. Patient given analgesic medication, antiemetic, IV, famotidine, GI cocktail. Mild leukocytosis. She also has thrombocytosis which has previously been appreciated. Patient reassessed at 9:30 p.m.. She states the pain is improving although still present. Her nausea is also still strong. Given this, will now proceed with CT imaging. Patient denies any dysuria, hematuria, urgency or frequency. However, her urinalysis does appear to have infection given bacteria, WBC, and Leukocyte esterase (though many squamous cells). Although without CVA tenderness, reasonsable to treat as pyelonephritis given urinalysis and constellation of symptoms. Patient is s/p cholecystectomy. Patient given 1st dose of antibiotic in the emergency department, ceftriaxone. test negative. Patient reassessed at 11:30 p.m.. She states her pain and nausea are gone. We are awaiting CT interpretation. Discussed that if unremarkable, would be treating as pyelonephritis and she verifies understanding and is in agreement. She appears more comfortable at this time. Provided prescriptions for antibiotic course, [id number] analgesic medications, and short course ODT ondansetron. Discharged home in stable condition. Differential Diagnosis Differential diagnosis: Likely abdominal pain, calculus of kidney, constipation, diverticulitis, endometriosis, pancreatitis and other (Pyelonephritis, biliary pathology including colic; gastritis, GERD) Lab Data Attestation: I reviewed the patient's lab results. 08/18/24 21:09 08/18/24 21:09 Labs: Lab Results 08/18/24 08/18/24 08/18/24 Range/Units 21:09 22:19 22:23 WBC 11.4 H (4.5-10.0) K/mm3 RBC 5.21 (4.2-5.4) M/mm3 Hgb 14.9 (12.0-15.0) g/dL Hct 44.6 (37.0-47.0) % MCV 85.6 (80-100) fl MCH 28.6 (26-34) pg MCHC 33.4 (32-36) g/dl RDW 12.4 (11.5-14.5) % Plt Count 467 H (150-375) k/mm3 MPV 9.0 (7.4-10.4) fl Immature Gran % (Auto) 0.3 (0-0.5) % Neut % (Auto) 66.1 (45.5-73.1) % Lymph % (Auto) 24.8 (18.3-44.2) % [place] % (Auto) 6.8 (2.6-8.5) % Eos % (Auto) 1.7 (0-4.4) % Baso % (Auto) 0.3 (0.2-1.2) % Lymph # (Auto) 2.84 (0.9-3.2) K/mm3 [place] # (Auto) 0.8 H (0.1-0.6) K/mm3 Eos # (Auto) 0.2 (0-0.3) K/mm3 Baso # (Auto) 0.0 (0.0-0.1) K/mm3 Abs Immat Gran (auto) 0.04 H (0.00-0.031) K/mm3 Absolute Neuts (auto) 7.6 H (1.3-6.7) K/mm3 Absolute Nucleated RBC 0.000 (0.0-0.012) K/mm3 Nucleated RBC % 0.0 (0.0-0.2) % Sodium 139 (137-145) mmol/L Potassium 4.3 (3.4-5.0) mmol/L Chloride 99 (98-107) mmol/L Carbon Dioxide 29 (22-30) mmol/L Anion Gap 11 (4-12) mmol/L BUN 17 (7-17) mg/dL Creatinine 0.67 L (0.7-1.0) mg/dL Estim Creat Clear Calc 118 ml/min Estimated GFR > 60 (59 - ) Glucose 99 (65-110) mg/dL Calcium 9.6 (8.4-10.2) mg/dL Magnesium 1.7 (1.6-2.3) mg/dL Total Bilirubin 0.5 (0.2-1.3) mg/dL AST 28 (14-36) U/L ALT 33 (6-35) U/L Alkaline Phosphatase 54 (38-126) U/L Total Protein 8.0 (6.3-8.2) g/dL Albumin 4.8 (3.5-5.1) g/dL Lipase 83 (23-300) U/L Urine Color Yellow (Yellow) Urine Appearance Cloudy H (Clear) Urine pH 6.0 (5.0-9.0) Ur Specific [place] 1.021 (1.001-1.035) Urine Protein Negative (Negative) mg/dL Urine Glucose (UA) Negative (Negative) mg/dL Urine Ketones Negative (Negative) mg/dL Ur Blood (Man) Negative (Negative) Urine Nitrate Negative (Negative) Urine Bilirubin Negative (Negative) Urine Urobilinogen 0.2 (<2.0) mg/dL Leukocyte Esterase Rfl 2+ H (Negative) ZANDRA/UL Urine RBC 0-2 (0-2) /hpf Urine WBC 51-100 H (0-3) /hpf Ur Squamous Epith Cells Many H (Few) /hpf Urine Bacteria 2+ H /hpf Urine Casts 0-2 POC Urine HCG, Qual Negative (Negative) Imaging Data Radiologist's impression: ITS Impressions Abdomen/Pelvis CT 08/19/24 06:04 Impression: No acute abnormalities seen. Small fat-containing umbilical hernia. CT Abd Pelvis with Contrast Stat Rad: Lung bases in heart: Within normal limits. Liver: Hepatic steatosis. Gallbladder: Cholecystectomy Spleen: Within normal limits Pancreas: Within normal Adrenal glands: Within normal limits Kidneys: Within normal limits Urinary bladder: Within normal Gastrointestinal, within normal limits Appendix: Within normal limits Vasculature: Within normal limits Lymphadenopathy: Within normal limits Pelvic organs within normal limits Musculoskeletal within normal limits Impression: No acute findings Discharge Plan Discharge Clinical Impression: Abdominal pain, RUQ, Right flank pain, Leukocytosis, Thrombocytosis, UTI (urinary tract infection), Pyelonephritis, Hepatic steatosis, Vomiting Patient Disposition: Home, Self-Care Condition: Stable Instructions: Antibiotic Form, Urinary Tract Infection in Women (DC), Kidney Infection (ED), Acute Nausea and Vomiting (DC), Non-Alcoholic Fatty Liver Disease (ED), Abdominal Pain (ED), Flank Pain (ED) Additional Instructions: As we discussed, your CT scan was reassuring. Based on the fact that you have evidence of urinary tract infection with the location of the pain and symptoms you are having, this seems consistent with a urinary tract infection that has ascended and become a kidney infection known as pyelonephritis. You received your 1st dose of IV antibiotics in the emergency department with the rest of the course of antibiotics prescribed orally. Take the entire duration. Follow-up with primary care physician and return to the emergency department with any new or worsening symptoms. You can use the oral disintegrating tablets of ondansetron/Zofran prescribed for nausea and vomiting. Acetaminophen/Tylenol (maximum 4000 mg per day) is safe to take with NSAIDs (ibuprofen/Motrin) for pain relief. Patient Language: Upper Sorbian Prescriptions: New cephalexin 500 mg capsule 500 mg PO Q6H 10 Days Qty: 40 0RF ondansetron 4 mg tablet,disintegrating 4 mg PO Q8H PRN (Reason: nausea and vomiting) Qty: 7 0RF ibuprofen 600 mg tablet 600 mg PO TID PRN (Reason: pain) Qty: 30 0RF acetaminophen 500 mg capsule 1,000 mg PO Q6H PRN (Reason: pain) Qty: 30 0RF No Action chlorhexidine gluconate [Peridex] 0.12 % mouthwash 15 ml mucous membrane BID Qty: 473 0RF fluoxetine [Prozac] 20 mg capsule 20 mg PO DAILY meloxicam 15 mg tablet 15 mg PO DAILY doxycycline hyclate 100 mg capsule 100 mg PO BID 7 Days Qty: 14 0RF Nurtec ODT 75 mg tablet,disintegrating 75 mg PO ONCE PRN (Reason: migraine headache) Qty: 16 0RF Rx Instructions: as a single dose omeprazole 20 mg capsule,delayed release(DR/EC) 20 mg PO DAILY Qty: 90 0RF Follow-up/Referrals: Marlon Saucedo MD [Primary Care Provider] - Stand Alone Forms: Work/School Release IP Time of Disposition: 23:49
[2024-08-18] MEDS: BELLADONNA ALK/PHENOB ELIX 10 ML, MAG HYDROX/ALUMINUM HYD/SIMETH 30 ML, LIDOCAINE 2% VI... PO (20:58)
[2024-08-18] MEDS: FAMOTIDINE 20 MG/2 ML VIAL IV PUSH (20:58)
[2024-08-18] MEDS: MORPHINE SULFATE (*CRX) 4 MG/ML INJ 8 MG IV PUSH (20:58)
[2024-08-18] MEDS: SODIUM CHLORIDE 0.9% IV 1,000 ML 999 ML IV CONT (20:59)
[2024-08-18] MEDS: ONDANSETRON INJ 4 MG/2 ML VIAL IV PUSH (20:59)
[2024-08-18 21:14] LABS: Basophils Percent Auto 0.3 % (0.2-1.2); Eosinophils Absolute Auto 0.2 K/mm3 (0-0.3); Eosinophils Percent Auto 1.7 % (0-4.4); Hematocrit 44.6 % (37.0-47.0); Hemoglobin 14.9 g/dL (12.0-15.0); Immature Granulocyte Absolute 0.04 K/mm3 (0.00-0.031); Immature Granulocyte Percent A 0.3 % (0-0.5); Lymphocytes Absolute Auto 2.84 K/mm3 (0.9-3.2); Lymphocytes Percent Auto 24.8 % (18.3-44.2); Mean Corpuscular HGB Conc 33.4 g/dl (32-36); Mean Corpuscular Hemoglobin 28.6 pg (26-34); Mean Corpuscular Volume 85.6 fl (80-100); Monocytes Absolute Auto 0.8 K/mm3 (0.1-0.6); Monocytes Percent Auto 6.8 % (2.6-8.5); Neutrophils Absolute Auto 7.6 K/mm3 (1.3-6.7); Neutrophils Percent Auto 66.1 % (45.5-73.1); Platelet Count Result 467 k/mm3 (150-375); Red Blood Count 5.21 M/mm3 (4.2-5.4); Red Cell Distribution Width 12.4 % (11.5-14.5); White Blood Count 11.4 K/mm3 (4.5-10.0)
--- OUTSIDE RECORDS SUMMARY | 2024-08-18 21:14 | XMS_ITS | Clinical Summary ---
Author Organization [facility] Address [address] [place] [address] Care Team Providers Care Machine Turner Name Role Phone Marlon Saucedo MD Primary Care Provider [phone] Allergies Active Allergy Reactions Criticality Noted Date [...] Department Care Team Description 08/06/2024 6:50 PM FIELD OPERATIONS SUPERVISOR - 08/06/2024 9:51 PM [facility] Emergency Health system Emergency Room [address] [id number] Walter Acosta MD Wound Infection (Post-surgical infection, [...] place to sleep or slept in a fpc (including now)? No 08/08/2022 Comments No Sex and Gender Information Value Date Recorded Sex Assigned at Female 08/06/2024 7:04 PM FIELD OPERATIONS SUPERVISOR Legal Sex Female 4:57 PM CDT Gender Identity Not on file Sexual Orientation Not on file Last Filed Vital Signs Vital Sign Reading Time Taken Comments Blood Pressure 135/78 08/06/2024 9:00 PM FIELD OPERATIONS SUPERVISOR Pulse 91 08/06/2024 9:00 PM FIELD OPERATIONS SUPERVISOR Temperature 36.6 C (97.8 F) 08/06/2024 6:53 PM FIELD OPERATIONS SUPERVISOR Respiratory Rate 20 08/06/2024 9:00 PM FIELD OPERATIONS SUPERVISOR Oxygen Saturation 100% 08/06/2024 9:00 PM FIELD OPERATIONS SUPERVISOR Inhaled Oxygen Concentration - - Weight 113.4 kg (250 lb) 08/06/2024 6:53 PM FIELD OPERATIONS SUPERVISOR Height 165.1 cm (5' 5 ) 08/06/2024 6:53 PM FIELD OPERATIONS SUPERVISOR Body Mass Index 41.6 08/06/2024 6:53 PM FIELD OPERATIONS SUPERVISOR Plan of Treatment Health Maintenance Due Date [...] Influenza Adult (#1) 2024 03/26/2019 PHQ-2 (Physician [place]) 06/05/2024 DTaP, Tdap and Td Vaccines ( [...] LT M3V STAT 08/06/2024 7:52 PM FIELD OPERATIONS SUPERVISOR HC SMEAR GRAM/GIEMSA STAT 08/06/2024 7:50 PM FIELD OPERATIONS SUPERVISOR CULTURE, BACTERIA, BLOOD STAT 08/06/2024 7:42 PM FIELD OPERATIONS SUPERVISOR LACTIC ACID STAT 08/06/2024 7:42 PM FIELD OPERATIONS SUPERVISOR COMPREHENSIVE METABOLIC PANEL STAT 08/06/2024 7:42 PM FIELD OPERATIONS SUPERVISOR CBC W/DIFF AUTOMATED STAT 08/06/2024 7:42 PM FIELD OPERATIONS SUPERVISOR from Last 3 Months Results * XR ANKLE LT M3V (08/06/2024 7:52 PM FIELD OPERATIONS SUPERVISOR) Anatomical Region Laterality Modality Ankle Radiographic Carlee ging 08/06/2024 7:57 PM FIELD OPERATIONS SUPERVISOR Impressions 08/06/2024 8:03 PM FIELD OPERATIONS SUPERVISOR IMPRESSION: 1. Interval revision of the ORIF of the left ankle, as above, with no evidence of hardware complication of the remaining hardware. 2. No acute osseous or articular abnormality of the left ankle. 3. Mild soft tissue edema along the lateral aspect of the ankle. Referred By: Interpreted By: Dannie Beck MD, 08/06/2024 7:57 PM Narrative 08/06/2024 8:03 PM FIELD OPERATIONS SUPERVISOR [address] [place] [address] INDICATION: Pain COMPARISON: Left ankle radiograph, 11 [...] Procedure Note Dannie Beck MD - 08/06/2024 [facility] [id number] [place] [address]. [place] [address] INDICATION: Pain COMPARISON: Left ankle radiograph, 11 [...] WOUND, W/GRAM STAIN (08/06/2024 7:50 PM FIELD OPERATIONS SUPERVISOR) SPEC DESCRIPTION ANKLE,LEFT 08/06/2024 7:53 PM FIELD OPERATIONS SUPERVISOR [facility] SPECIAL REQUESTS NO SPECIAL REQUEST 08/06/2024 7:53 PM FIELD OPERATIONS SUPERVISOR [facility] GRAM STAIN RESULT NO WHITE BLOOD CELLS SEEN 08/07/2024 11:43 AM FIELD OPERATIONS SUPERVISOR [facility] GRAM STAIN RESULT NO ORGANISMS SEEN 08/07/2024 11:43 AM [facility] CULTURE RESULT MODERATE GROWTH OF METHICILLIN RESISTANT STAPHYLOCOCCUS AUREUS FOLLOW ISOLATION PROTOCOL. (AA) 08/09/2024 8:33 AM FIELD OPERATIONS SUPERVISOR [facility] ANKLE REGION STRUCTURE / Unknown 08/06/2024 7:50 PM FIELD OPERATIONS SUPERVISOR 08/06/2024 7:55 PM FIELD OPERATIONS SUPERVISOR Narrative Organism Antibiotic Method Susceptibility Methicillin resistant [...] MICROBIOLOGY - GENERAL ORDERABL ES Final Result [facility] [address] [place] [address], [place] [phone] [facility] [address] [place] [address], [place] [phone] * (ABNORMAL) COMPREHENSIVE METABOLIC PANEL (08/06/2024 7:42 PM FIELD OPERATIONS SUPERVISOR) [facility] GLUCOSE 119(H) 70 - 99 MG/DL 08/06/2024 8:05 PM [facility] BUN 22(H) 7 - 18 MG/DL 08/06/2024 8:05 PM [facility] CREATININE S/P/B 0.74 0.55 - 1.02 MG/DL 08/06/2024 8:05 PM [facility] SODIUM S/P/B 150(H) 136 - 145 MMOL/L 08/06/2024 8:05 PM [facility] POTASSIUM S/P/B 4.7 3.5 - 5.1 MMOL/L 08/06/2024 8:05 PM [facility] CHLORIDE S/P/B 110(H) 100 - 108 MMOL/L 08/06/2024 8:05 PM [facility] CO2 26.9 21 - 32 MMOL/L 08/06/2024 8:05 PM [facility] CALCIUM S/P/B 9.2 8.5 - 10.1 MG/DL 08/06/2024 8:05 PM [facility] BILIRUBIN TOTAL S/P/B 0.2 0.2 - 1.2 MG/DL 08/06/2024 8:05 PM FIELD OPERATIONS SUPERVISOR [facility] TOTAL PROTEIN S/P/B 7.6 6.4 - 8.2 G/DL 08/06/2024 8:05 PM [facility] ALBUMIN S/P/B 4.0 3.4 - 5.0 G/DL 08/06/2024 8:05 PM [facility] AST 15 15 - 37 U/L 08/06/2024 8:05 PM [facility] ALT 38 14 - 55 U/L 08/06/2024 8:05 PM [facility] ALKALINE PHOSPHATASE S/P/B 65 50 - 136 U/L 08/06/2024 8:05 PM [facility] ANION GAP 13.1 5 - 15 MMOL/L 08/06/2024 8:05 PM [facility] BUN CREATININE RATIO 29.7(H) 6 - 26 08/06/2024 8:05 PM [facility] A/G RATIO 1.1 1.0 - 2.0 RATIO 08/06/2024 8:05 PM [facility] GFR ESTIMATE >90 >90 ML/MIN/1.7 3 M2 08/06/2024 8:05 PM [facility] Comment: NOTE: eGFR is not calculated for patients <18 years of age. This is an estimated GFR calculation using the new CKD EPI creatinine equation without race and so does not require a correction factor for race. This estimated GFR should not be used for calculating drug doses. 08/06/2024 7:42 PM FIELD OPERATIONS SUPERVISOR Walter Acosta MD LABORATORY Final Result [facility] [address] [place] [address], [place] [phone] * LACTIC ACID - SINGLE (08/06/2024 7:42 PM FIELD OPERATIONS SUPERVISOR) LACTIC ACID VENOUS 1.8 0.4 - 2.0 MMOL/L 08/06/2024 8:10 PM FIELD OPERATIONS SUPERVISOR [facility] 08/06/2024 7:42 PM FIELD OPERATIONS SUPERVISOR us Walter Acosta MD LABORATORY Final Result Performing Organization Address [facility] Co de Phone Number [facility] [address] [place] [address], [place] [phone] * BLOOD CULTURE #1 (08/06/2024 7:42 PM FIELD OPERATIONS SUPERVISOR) Pathologist [facility] [place] SPEC DESCRIPTION BLOOD 08/06/2024 7:42 PM FIELD OPERATIONS SUPERVISOR [facility] SPECIAL REQUESTS NO SPECIAL REQUEST 08/06/2024 7:42 PM FIELD OPERATIONS SUPERVISOR [facility] CULTURE RESULT NO GROWTH 5 DAYS 08/12/2024 11:34 AM CDT [facility] BLOOD SPECIMEN OBTAINED FOR BLOOD CULTURE / Unknown 08/06/2024 7:42 PM FIELD OPERATIONS SUPERVISOR 08/06/2024 7:48 PM FIELD OPERATIONS SUPERVISOR us Walter Acosta MD MICROBIOLOGY - GENERAL ORDERABL ES Final Result Performing Organization Address [facility] Co de Phone Number [facility] [address] [place] [address], [place] [phone] [facility] [address] [place] [address], [place] [phone] * (ABNORMAL) CBC W/DIFF AUTOMATED (08/06/2024 7:42 PM FIELD OPERATIONS SUPERVISOR) Pathologist [facility] WBC 7.86 4.4 - 11.0 x10'3/uL 08/06/2024 7:51 PM FIELD OPERATIONS SUPERVISOR [facility] RBC 5.04 4.50 - 5.10 x10'6/uL 08/06/2024 7:51 PM [facility] HGB 14.5 12.3 - 15.3 G/DL 08/06/2024 7:51 PM [facility] HCT 43.1 35.9 - 44.6 % 08/06/2024 7:51 PM [facility] MCV 85.5 80.0 - 96.0 FL 08/06/2024 7:51 PM [facility] MCH 28.8 25.3 - 30.9 PG 08/06/2024 7:51 PM [facility] MCHC 33.6 31.0 - 34.1 G/DL 08/06/2024 7:51 PM [facility] RDW 12.1(L) 12.4 - 15.1 % 08/06/2024 7:51 PM [facility] PLT 449(H) 151 - 353 x10'3/uL 08/06/2024 7:51 PM [facility] MPV 9.0(L) 9.6 - 12.0 FL 08/06/2024 7:51 PM [facility] RBC MORPHOLOGY NORMAL 08/06/2024 7:51 PM [facility] PLT MORPH. NORMAL 08/06/2024 7:51 PM [facility] WBC MORPHOLOGY NORMAL 08/06/2024 7:51 PM [facility] LYMPHOCYTES % 28.5 15.8 - 45.0 % 08/06/2024 7:51 PM [facility] NEUTROPHILS % 61.1 42.1 - 71.9 % 08/06/2024 7:51 PM [facility] MONOCYTES % 7.1 5.7 - 12.5 % 08/06/2024 7:51 PM FIELD OPERATIONS SUPERVISOR [facility] EOSINOPHILS 2.4 0.0 - 5.6 % 08/06/2024 7:51 PM FIELD OPERATIONS SUPERVISOR [facility] BASOPHILS 0.5 0.0 - 1.3 % 08/06/2024 7:51 PM FIELD OPERATIONS SUPERVISOR [facility] ABS. NEUTROPHILS 4.80 1.40 - 6.00 x10'3/uL 08/06/2024 7:51 PM FIELD OPERATIONS SUPERVISOR [facility] IMMATURE GRANS % 0.4 0.0 - 0.5 % 08/06/2024 7:51 PM FIELD OPERATIONS SUPERVISOR [facility] ABS. LYMPHOCYTES 2.24 0.80 - 4.70 x10'3/uL 08/06/2024 7:51 PM FIELD OPERATIONS SUPERVISOR [facility] 08/06/2024 7:42 PM FIELD OPERATIONS SUPERVISOR Walter Acosta MD LABORATORY Final Result [facility] [address] [place] [address], from Last 3 Months Additional Health Concerns Infection Onset Date Last Indicated MRSA Comment:08/06/24 +MRSA Left ankle 08/06/2024 08/06/2024 Insurance [employer] Advance Directives * Full Code (Latest Code Status on File) Date Activated Date Inactivated Comments 08/08/2022 11:01 AM 08/10/2022 6:33 PM Care Teams Machine Turner Relationship Specialty Start Date End Date Marlon Saucedo MD [address] [address] PCP - General FAMILY PRACTICE 08/08/22
--- OUTSIDE RECORDS SUMMARY | 2024-08-18 21:14 | XMS_ITS | Encounter Summary ---
Author Organization [facility] Address [address] [place] [address] Care Team Providers Care Paint Mixer Machine Name Role Phone Rick Gordillo MD Primary Care Provider Unavailable Susie Curtis MD Primary Care Provider [phone] Marlon Saucedo MD Primary Care Provider [phone] Encounter Details Date Type Department Care Team (Late st Contact Info) Description 03/25/2017 Abstract [facility] CONVERSION [address] [place] [address] Md Generic MD Juan Social History Tobacco Use Types Packs/Day Years Used Date Smoking Tobacco: Never Assessed Comments Unknown Sex and Gender Information Value Date Recorded Sex Assigned at Female 08/06/2024 7:04 PM RECOVERER Legal Sex Female 4:57 PM CDT Gender [...] PROTIME 12.6 SEC 03/25/2017 9:40 PM CDT [facility] INR 1.1 03/25/2017 9:40 PM CDT [facility] Comment: Recommend INR ranges for Oral Anticoagulant Therapy:Mechanical Cardiac Values 2.5-3.5All others indication 2.0-3.0 03/25/2017 9:17 PM CDT 03/25/2017 9:32 PM CDT us Generic Conversion Md GORDILLO LABORATORY Final R esult [facility] [address] [place] [address], * (ABNORMAL) COMPREHENSIVE METABOLIC PNL W DBIL (03/25/2017 9:17 PM CDT) GLUCOSE 111(H) 70 - 105 MG/DL 03/25/2017 9:52 PM CDT [facility] BUN 11 7.0 - 18.7 MG/DL 03/25/2017 9:52 PM CDT [facility] CREATININE S/P/B 0.73 0.57 - 1.11 MG/DL 03/25/2017 9:52 PM CDT [facility] SODIUM S/P/B 140 136 - 145 MMOL/L 03/25/2017 9:52 PM CDT [facility] POTASSIUM S/P/B 3.6 3.5 - 5.1 MMOL/L 03/25/2017 9:52 PM CDT [facility] CHLORIDE S/P/B 103 98 - 107 MMOL/L 03/25/2017 9:52 PM CDT [facility] CO2 27.0 22 - 29 MMOL/L 03/25/2017 9:52 PM CDT [facility] ANION GAP 13.6 10.0 - 24.0 MMOL/L 03/25/2017 9:52 PM CDT [facility] CALCIUM S/P/B 9.0 8.4 - 10.2 MG/DL 03/25/2017 9:52 PM [facility] BILIRUBIN TOTAL S/P/B 0.3 0.2 - 1.2 MG/DL 03/25/2017 9:52 PM [facility] TOTAL PROTEIN S/P/B 7.5 6.4 - 8.3 G/DL 03/25/2017 9:52 PM [facility] ALBUMIN S/P/B 4.2 3.5 - 5.0 G/DL 03/25/2017 9:52 PM [facility] AST 18 5 - 34 U/L 03/25/2017 9:52 PM [facility] ALT 24 6 - 55 U/L 03/25/2017 9:52 PM [facility] ALKALINE PHOSPHATASE S/P/B 65 30 - 115 U/L 03/25/2017 9:52 PM [facility] BUN CREATININE RATIO 15.1 6.0 - 26.0 03/25/2017 9:52 PM [facility] A/G RATIO 1.3 1.1 - 1.9 RATIO 03/25/2017 9:52 PM [facility] EGFR NON-AFR. AMER. >60 >60 ML/MIN/1.7 3 M2 03/25/2017 9:52 PM [facility] Comment: GFR Reference Range:Kidney Failure - <15mL/min Chronic Kidney Disease - <60mL/min Normal Kidney Function - >60mL/min GFR calculation is not recommended forPatients less than 18 years or greater than70 years as per the national Kidney Foundation.If the patient is -Malian, multiply results by 1.21 BILIRBUIN INDIRECT (CORD) 0.2 0.0 - 1.1 MG/DL 03/25/2017 9:52 PM [facility] BILIBUBIN DIRECT (CORD) 0.1 0.0 - 0.5 MG/DL 03/25/2017 9:52 PM CDT [facility] OSMOLALITY (CALC) 279 271 - 290 MOSM/KG 03/25/2017 9:52 PM CDT [facility] 03/25/2017 9:17 PM CDT 03/25/2017 9:32 PM CDT us Generic Conversion Md GORDILLO LABORATORY Final R esult [facility] [address] [place] [address], * (ABNORMAL) CBC W/DIFF AUTOMATED (03/25/2017 9:17 PM CDT) WBC 18.3(H) 4.4 - 11.0 x10'3/uL 03/25/2017 9:36 PM CDT [facility] RBC 4.57 4.50 - 5.10 x10'6/uL 03/25/2017 9:36 PM CDT [facility] HGB 12.9 12.3 - 15.3 G/DL 03/25/2017 9:36 PM CDT [facility] HCT 37.9 35.9 - 44.6 % 03/25/2017 9:36 PM CDT [facility] MCV 82.9 80.0 - 96.0 FL 03/25/2017 9:36 PM CDT [facility] MCH 28.2 25.3 - 30.9 PG 03/25/2017 9:36 PM CDT [facility] MCHC 34.0 31.0 - 34.1 G/DL 03/25/2017 9:36 PM CDT [facility] RDW 13.8 12.4 - 15.1 % 03/25/2017 9:36 PM [facility] PLT 507(H) 151 - 353 x10'3/uL 03/25/2017 9:36 PM [facility] MPV 8.5(L) 9.6 - 12.0 FL 03/25/2017 9:36 PM [facility] RBC MORPHOLOGY NORMAL 03/25/2017 9:36 PM [facility] PLT MORPH. NORMAL 03/25/2017 9:36 PM [facility] WBC MORPHOLOGY NORMAL 03/25/2017 9:36 PM T [facility] LYMPHOCYTES % 11.7(L) 15.8 - 45.0 % 03/25/2017 9:37 PM [facility] NEUTROPHILS % 83.3(H) 42.1 - 71.9 % 03/25/2017 9:37 PM [facility] MONOCYTES % 4.2(L) 5.7 - 12.5 % 03/25/2017 9:37 PM [facility] EOSINOPHILS 0.1 0.0 - 5.6 % 03/25/2017 9:37 PM [facility] BASOPHILS 0.2 0.0 - 1.3 % 03/25/2017 9:37 PM [facility] ABS. NEUTROPHILS TOTAL 15.26(H) 1.40 - 6.00 x10'3/uL 03/25/2017 9:37 PM [facility] IMMATURE GRANS % 0.5 0.0 - 0.5 % 03/25/2017 9:37 PM [facility] ABS. LYMPHOCYTES 2.14 0.80 - 4.70 x10'3/uL 03/25/2017 9:37 PM [facility] 03/25/2017 9:17 PM CDT 03/25/2017 9:32 PM CDT us Generic Conversion Md GORDILLO LABORAT[facility] Final R esult [facility] [address] [place] [address], [place] [phone] documented in this encounter Visit Diagnoses Not on filedocumented in this encounter Additional Health Concerns Infection Onset Date Last Indicated Resolved Time COVID-19 Rule Out 01/11/2024 01/11/2024 01/11/2024 9:00 PM CDT MRSA Comment:08/06/24 +MRSA Left ankle 08/06/2024 08/06/2024 documented as of this encounter Care Teams Paint Mixer Machine Relationship Specialty Start Date End Date , Rick Martinez MD PCP - General 07/11/13 Susie Curtis MD [facility] [address] [place] [address] PCP - General FAMILY PRACTICE 06/20/19 08/07/22 Marlon Saucedo MD [address] [address] PCP - General FAMILY PRACTICE 08/08/22 documented as of this encounter
[2024-08-18 21:27] LABS: Alanine Aminotransferase 33 U/L (6-35); Albumin Level 4.8 g/dL (3.5-5.1); Alkaline Phosphatase 54 U/L (38-126); Anion Gap 11 mmol/L (4-12); Aspartate Amino Transferase 28 U/L (14-36); Bilirubin,Total 0.5 mg/dL (0.2-1.3); Blood Urea Nitrogen 17 mg/dL (7-17); Calcium 9.6 mg/dL (8.4-10.2); Carbon Dioxide 29 mmol/L (22-30); Chloride 99 mmol/L (98-107); Estimated CRCL calculation 118 ml/min; Estimated Glomerular Filt Rate > 60; Glucose 99 mg/dL (65-110); Lipase 83 U/L (23-300); Magnesium 1.7 mg/dL (1.6-2.3); Potassium 4.3 mmol/L (3.4-5.0); Sodium 139 mmol/L (137-145)
[2024-08-18] MEDS: PROCHLORPERAZINE EDISYLATE 10 MG/2 ML VIAL IV PUSH (21:50)
[2024-08-18 22:25] LABS: BEDSIDEPREGUCG Negative (Negative)
[2024-08-18 22:30] LABS: Add Urine Microscopic? YES; Appearance Urine Cloudy (Clear); Bacteria Urine 2+ /hpf; Bilirubin Urine Negative (Negative); Blood Urine Negative (Negative); Color Urine Yellow (Yellow); Glucose Urine UA Negative (Negative); Ketones Urine Negative (Negative); Leukocyte Esterase Ur 2+ LEU/UL (Negative); Nitrate Urine Negative (Negative); Non Pathogenic Casts 0-2; Protein Urine Negative (Negative); RBC Urine 0-2 /hpf (0-2); Specific Grav Ur 1.021 (1.001-1.035); Squamous Epithelial Cell Urine Many /hpf (Few); Urobilinogen Urine 0.2 mg/dL (<2.0); WBC Urine 51-100 /hpf (0-3)
== END 2024-08-19 00:04 | disposition home or self-care (01) ==
PROVIDERS: Emergency Provider Student in an Organized Health Care Education/Training Program; PCP Family Medicine
DX: N12 Tubulo-interstitial nephritis, not specified as acute or chronic (principal); D72.829 Elevated white blood cell count, unspecified; K76.0 Fatty (change of) liver, not elsewhere classified; R11.10 Vomiting, unspecified; I10 Essential (primary) hypertension; J45.909 Unspecified asthma, uncomplicated; E55.9 Vitamin D deficiency, unspecified; E61.1 Iron deficiency; F31.9 Bipolar disorder, unspecified; F41.9 Anxiety disorder, unspecified; Z86.16 Personal history of COVID-19; Z86.0100 Personal history of colon polyps, unspecified; Z90.49 Acquired absence of other specified parts of digestive tract; Z79.899 Other long term (current) drug therapy
CPT/HCPCS: 36415; 74177; 80053; 81001; 81025; 83690; 83735; 85025; 96361; 96365; 96375; 99284; A9270; J0696; J0780; J2270; J2405; J7030; Q9967

== ENCOUNTER 2024-09-26 14:33 | Emergency (ER) | payer OTHER, SELFPAY ==
[2024-09-26 14:51] VITALS: BP 125/85; PULSE 83; RESP 16; TEMP 36.6; O2SAT 99
--- NOTE | 2024-09-26 14:53 | ED.FEMALEGU ---
HPI - Female Genitourinary General Chief complaint: Urogenital-Female Stated complaint: UTI SYMPTOMS Time Seen by Provider: 09/26/24 14:51 Source: patient Mode of arrival: ambulatory Limitations: no limitations History of Present Illness HPI Narrative: Patient presents to the clinic today for complaints of vaginal itching and going to the bathroom more frequently. She recently was treated for infection on her ankle and believes that she may have any infection from the antibiotic that she was on. She is not concerned for STDs and denies any abnormal discharge. Related Data Allergies Allergy/AdvReac Type Severity Reaction Status Date / Time hydroxyzine Allergy Severe Palpitation Verified 09/26/24 15:10 s clarithromycin Allergy Mild Hives Verified 09/26/24 15:10 Review of Systems Review of Systems: CONSTITUTIONAL: Denies body aches, fever, chills, or sweats. EYES: Denies visual changes, redness, or discharge. ENT: Denies rhinorrhea, congestion, sore throat, or otalgia. CARDIOVASCULAR: Denies chest pain, palpitations, or edema. RESPIRATORY: Denies cough or dyspnea. GASTROINTESTINAL: Denies abdominal pain, nausea, vomiting, or diarrhea. GENITOURINARY: Reports itching and frequency. SKIN: Denies rash, itching, or wounds. MUSCULOSKELETAL: Denies back pain, joint pain, or myalgia. NEUROLOGIC: Denies headache, numbness, tingling, or weakness. PSYCH: ?Denies depression or anxiety. All systems reviewed & are unremarkable except as noted in HPI and below PMFSH Past Medical History Medical History Abdominal hernia Otitis media Anxiety and depression Blood glucose elevated Low aspartate aminotransferase (AST) level Syncope Weight gain Overweight (03/07/17) Irregular menstrual bleeding Dietary counseling and surveillance (09/30/15) Arm paresthesia, right Abnormal involuntary movement COVID Shortness of breath Xerostomia Dental disease Dry eyes Flu-like symptoms Mass in neck Elevated platelet count Swelling of left knee joint Left knee pain Lump of left breast BMI 36.0-36.9,adult Iron deficiency Essential hypertension Bipolar 1 disorder Vitamin D deficiency Diarrhea Hx of colonic polyp Encounter for screening for lipid disorder Screening for thyroid disorder Joint pain Cholecystectomy planned Eustachian tube dysfunction Vertigo Depression Asthma Surgical History Surgical History S/P hardware removal 05/2024 History of cholecystectomy 2022; [facility] History of endometrial ablation [place]; approx [id number] Hx of tonsillectomy Status post open reduction with internal fixation (ORIF) of fracture of ankle Family History Family History Father Family history of diabetes mellitus in first degree relative Acute myocardial infarction Diabetes mellitus Mother No problems noted. 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 Spiritual care concerns: No Comments At time of signature, I have reviewed and agree with nursing past medical, surgical, social and family history unless otherwise noted. Please see nursing chart for further information. There is no relevant family history pertinent to the presenting complaint. Exam Narrative: GENERAL: Well-appearing, well-nourished, and in no acute distress. HEAD: Normocephalic, atraumatic. NECK: Normal AROM. ?Supple. ?No lymphadenopathy. CHEST: ?No respiratory distress. Clear to auscultation. HEART: Regular rate and rhythm. No murmur appreciated. Normal peripheral pulses. MUSCULOSKELETAL: ?No bony tenderness. EXTREMITIES: Normal range of motion. No edema. SKIN: Warm, dry, no rash. Capillary refill normal. ?Normal skin turgor. NEURO: No focal deficits. Alert and oriented x3. Gait steady. PSYCH: ?Normal affect. ?No signs of depression or anxiety. Course Course Level of Care: Express Care Visit Vital Signs Vital signs: Vital Signs Temperature 97.8 F 09/26/24 14:51 Pulse Rate 83 09/26/24 14:51 Respiratory Rate 16 09/26/24 14:51 Blood Pressure 125/85 09/26/24 14:51 Pulse Oximetry 99 09/26/24 14:51 Temperature 97.8 F 09/26/24 14:51 Pulse Rate 83 09/26/24 14:51 Respiratory Rate 16 09/26/24 14:51 Blood Pressure 125/85 09/26/24 14:51 Pulse Oximetry 99 09/26/24 14:51 Reviewed. MDM - Female Genitourinary MDM Narrative Medical decision making narrative: Discussed physical exam findings. Patient declined STD testing and vaginal swabs for BV/ yeast. Patient agreeable to treatment for yeast. Advised supportive measures and signs/symptoms to go to the ER. Pt is appropriate for outpatient treatment and follow up. Differential Diagnosis Differential diagnosis: Likely urinary tract infection, bacterial vaginosis, vaginitis and other (yeast infection) Critical Care Time Critical Care Time Critical Care Time: No Discharge Plan Discharge Clinical Impression: Vagina itching Patient Disposition: Home Condition: Stable Instructions: Yeast Infection (ED) Additional Instructions: You are being treated for a yeast infection today. Your urine will be sent of for a culture to determine if bacteria is causing your symptoms. If the culture shows a UTI, you will be notified and an antibiotic will be called in for you. Please keep your MANAGER MEETING appointment for next week and be sure to follow up. Go to the ER for any worsening symptoms or concerns. Patient Language: Welsh Prescriptions: New fluconazole 200 mg tablet 200 mg PO DAILY Qty: 2 0RF Rx Instructions: Repeat dose in 72 hours if still having symptoms. No Action chlorhexidine gluconate [Peridex] 0.12 % mouthwash 15 ml mucous membrane BID Qty: 473 0RF fluoxetine [Prozac] 20 mg capsule 20 mg PO DAILY Qty: 90 0RF omeprazole 20 mg capsule,delayed release(DR/EC) 20 mg PO DAILY Qty: 90 0RF ondansetron 4 mg tablet,disintegrating 4 mg PO Q8H PRN (Reason: nausea and vomiting) Qty: 7 0RF ibuprofen 600 mg tablet 600 mg PO TID PRN (Reason: pain) Qty: 30 0RF acetaminophen 500 mg capsule 1,000 mg PO Q6H PRN (Reason: pain) Qty: 30 0RF Nurtec ODT 75 mg tablet,disintegrating 75 mg PO ONCE PRN (Reason: migraine headache) Qty: 16 0RF Rx Instructions: as a single dose Wegovy 0.25 mg/0.5 mL pen injector 0.25 mg subcut WEEKLY Qty: 2 0RF Rx Instructions: administer weeks 1 through 4 of therapy Follow-up/Referrals: Marlon Saucedo MD [Primary Care Provider] - Time of Disposition: 15:10
[2024-09-26 15:16] LABS: EDUAAPPEAR Clear; EDUABILI Negative (Negative); EDUABLOOD Negative (Negative); EDUACOLOR1 Yellow; EDUAGLUCOSE Negative (Negative); EDUAKETONE Negative (Negative); EDUALEUKO Negative (Negative); EDUANITRATE Negative (Negative); EDUAPROTEIN Negative (Negative); EDUAUROBILI 0.2
== END 2024-09-26 15:23 | disposition home or self-care (01) ==
PROVIDERS: PCP Family Medicine
DX: L29.2 Pruritus vulvae (principal); I10 Essential (primary) hypertension; F41.9 Anxiety disorder, unspecified; F32.A Depression, unspecified; Z86.16 Personal history of COVID-19; J45.909 Unspecified asthma, uncomplicated
CPT/HCPCS: 81003; 87086; 99213; G0463

== ENCOUNTER 2024-10-10 08:13 | Outpatient (CLI) | payer OTHER, SELFPAY ==
--- OUTSIDE RECORDS SUMMARY | 2024-10-10 08:20 | XMS_ITS | Encounter Summary ---
Author Organization [facility] Address [address] [place] [address] Care Team Providers Care Inspector Weights And Measures Name Role Phone Rick Gordillo MD Primary Care Provider Unavailable Susie Curtis MD Primary Care Provider [phone] Marlon Saucedo MD Primary Care Provider Encounter Details Date Type Department Care Team (Late st Contact Info) Description 03/25/2017 Abstract [facility] CONVERSION [address] [place] [address] Md Generic MD Juan Social History Tobacco Use Types Packs/Day Years Used Date Smoking Tobacco: Never Assessed Comments Unknown Sex and Gender Information Value Date Recorded Sex Assigned at Female 08/06/2024 7:04 PM INSPECTOR INSULATION Legal Sex Female 4:57 PM CDT Gender [...] PROTIME 12.6 SEC 03/25/2017 9:40 PM CDT [facility] INR 1.1 03/25/2017 9:40 PM CDT [facility] Comment: Recommend INR ranges for Oral Anticoagulant Therapy:Mechanical Cardiac Values 2.5-3.5All others indication 2.0-3.0 03/25/2017 9:17 PM CDT 03/25/2017 9:32 PM CDT us Generic Conversion Md [facility] Final R esult [facility] [address] [place] [address], * (ABNORMAL) COMPREHENSIVE METABOLIC PNL W DBIL (03/25/2017 9:17 PM CDT) GLUCOSE 111(H) 70 - 105 MG/DL 03/25/2017 9:52 PM CDT [facility] BUN 11 7.0 - 18.7 MG/DL 03/25/2017 9:52 PM CDT [facility] CREATININE S/P/B 0.73 0.57 - 1.11 MG/DL 03/25/2017 9:52 PM CDT [facility] SODIUM S/P/B 140 136 - 145 MMOL/L 03/25/2017 9:52 PM CDT [facility] POTASSIUM S/P/B 3.6 3.5 - 5.1 MMOL/L 03/25/2017 9:52 PM CDT [facility] CHLORIDE S/P/B 103 98 - 107 MMOL/L 03/25/2017 9:52 PM CDT [facility] CO2 27.0 22 - 29 MMOL/L 03/25/2017 9:52 PM CDT [facility] ANION GAP 13.6 10.0 - 24.0 MMOL/L 03/25/2017 9:52 PM CDT [facility] CALCIUM S/P/B 9.0 8.4 - 10.2 MG/DL 03/25/2017 9:52 PM [facility] BILIRUBIN TOTAL S/P/B 0.3 0.2 - 1.2 MG/DL 03/25/2017 9:52 PM [facility] TOTAL PROTEIN S/P/B 7.5 6.4 - 8.3 G/DL 03/25/2017 9:52 PM [facility] ALBUMIN S/P/B 4.2 3.5 - 5.0 G/DL 03/25/2017 9:52 PM [facility] AST 18 5 - 34 U/L 03/25/2017 9:52 PM [facility] ALT 24 6 - 55 U/L 03/25/2017 9:52 PM [facility] ALKALINE PHOSPHATASE S/P/B 65 30 - 115 U/L 03/25/2017 9:52 PM [facility] BUN CREATININE RATIO 15.1 6.0 - 26.0 03/25/2017 9:52 PM [facility] A/G RATIO 1.3 1.1 - 1.9 RATIO 03/25/2017 9:52 PM [facility] EGFR NON-AFR. AMER. >60 >60 ML/MIN/1.7 3 M2 03/25/2017 9:52 PM [facility] Comment: GFR Reference Range:Kidney Failure - <15mL/min Chronic Kidney Disease - <60mL/min Normal Kidney Function - >60mL/min GFR calculation is not recommended forPatients less than 18 years or greater than70 years as per the national Kidney Foundation.If the patient is -Faroese, multiply results by 1.21 BILIRBUIN INDIRECT (CORD) 0.2 0.0 - 1.1 MG/DL 03/25/2017 9:52 PM [facility] BILIBUBIN DIRECT (CORD) 0.1 0.0 - 0.5 MG/DL 03/25/2017 9:52 PM CDT [facility] OSMOLALITY (CALC) 279 271 - 290 MOSM/KG 03/25/2017 9:52 PM CDT [facility] 03/25/2017 9:17 PM CDT 03/25/2017 9:32 PM CDT us Generic Conversion Md [facility] Final R esult [facility] [address] [place] [address], * (ABNORMAL) CBC W/DIFF AUTOMATED (03/25/2017 9:17 PM CDT) WBC 18.3(H) 4.4 - 11.0 x10'3/uL 03/25/2017 9:36 PM CDT [facility] RBC 4.57 4.50 - 5.10 x10'6/uL 03/25/2017 9:36 PM CDT [facility] HGB 12.9 12.3 - 15.3 G/DL 03/25/2017 9:36 PM CDT [facility] HCT 37.9 35.9 - 44.6 % 03/25/2017 9:36 PM CDT [facility] MCV 82.9 80.0 - 96.0 FL 03/25/2017 9:36 PM CDT [facility] MCH 28.2 25.3 - 30.9 PG 03/25/2017 9:36 PM CDT [facility] MCHC 34.0 31.0 - 34.1 G/DL 03/25/2017 9:36 PM CDT [facility] RDW 13.8 12.4 - 15.1 % 03/25/2017 9:36 PM [facility] PLT 507(H) 151 - 353 x10'3/uL 03/25/2017 9:36 PM [facility] MPV 8.5(L) 9.6 - 12.0 FL 03/25/2017 9:36 PM [facility] RBC MORPHOLOGY NORMAL 03/25/2017 9:36 PM [facility] PLT MORPH. NORMAL 03/25/2017 9:36 PM [facility] WBC MORPHOLOGY NORMAL 03/25/2017 9:36 PM T [facility] LYMPHOCYTES % 11.7(L) 15.8 - 45.0 % 03/25/2017 9:37 PM [facility] NEUTROPHILS % 83.3(H) 42.1 - 71.9 % 03/25/2017 9:37 PM [facility] MONOCYTES % 4.2(L) 5.7 - 12.5 % 03/25/2017 9:37 PM [facility] EOSINOPHILS 0.1 0.0 - 5.6 % 03/25/2017 9:37 PM [facility] BASOPHILS 0.2 0.0 - 1.3 % 03/25/2017 9:37 PM [facility] ABS. NEUTROPHILS TOTAL 15.26(H) 1.40 - 6.00 x10'3/uL 03/25/2017 9:37 PM [facility] IMMATURE GRANS % 0.5 0.0 - 0.5 % 03/25/2017 9:37 PM [facility] ABS. LYMPHOCYTES 2.14 0.80 - 4.70 x10'3/uL 03/25/2017 9:37 PM [facility] 03/25/2017 9:17 PM CDT 03/25/2017 9:32 PM CDT us Generic Conversion Md [facility] Final R esult [facility] [address] [place] [address], [place] [phone] documented in this encounter Visit Diagnoses Not on filedocumented in this encounter Additional Health Concerns Infection Onset Date Last Indicated Resolved Time COVID-19 Rule Out 01/11/2024 01/11/2024 01/11/2024 9:00 PM CDT MRSA Comment:08/06/24 +MRSA Left ankle 08/06/2024 08/06/2024 documented as of this encounter Care Teams Inspector Weights And Measures Relationship Specialty Start Date End Date , Rick Martinez MD PCP - General 07/11/13 Susie Curtis MD [facility] [address] [place] [id number] PCP - General FAMILY PRACTICE 06/20/19 08/07/22 Marlon Saucedo MD [address] [place] [address] PCP - General FAMILY PRACTICE 08/08/22 documented as of this encounter
--- OUTSIDE RECORDS SUMMARY | 2024-10-10 08:20 | XMS_ITS | Clinical Summary ---
Author Organization [facility] Address [address] [place] [address] Care Team Providers Care Tourist Information Officer Name Role Phone Marlon Saucedo MD Primary Care Provider [phone] Allergies Active Allergy Reactions Criticality Noted Date [...] Department Care Team Description 08/06/2024 6:50 PM GREEN CHAINER - 08/06/2024 9:51 PM [facility] Emergency [facility] Room [address] [place] [address] Walter Acosta MD Wound Infection (Post-surgical infection, [...] place to sleep or slept in a usp (including now)? No 08/08/2022 Comments No Sex and Gender Information Value Date Recorded Sex Assigned at Female 08/06/2024 7:04 PM GREEN CHAINER Legal Sex Female 4:57 PM CDT Gender Identity Not on file Sexual Orientation Not on file Last Filed Vital Signs Vital Sign Reading Time Taken Comments Blood Pressure 135/78 08/06/2024 9:00 PM GREEN CHAINER Pulse 91 08/06/2024 9:00 PM GREEN CHAINER Temperature 36.6 C (97.8 F) 08/06/2024 6:53 PM GREEN CHAINER Respiratory Rate 20 08/06/2024 9:00 PM GREEN CHAINER Oxygen Saturation 100% 08/06/2024 9:00 PM GREEN CHAINER Inhaled Oxygen Concentration - - Weight 113.4 kg (250 lb) 08/06/2024 6:53 PM GREEN CHAINER Height 165.1 cm (5' 5 ) 08/06/2024 6:53 PM GREEN CHAINER Body Mass Index 41.6 08/06/2024 6:53 PM GREEN CHAINER Plan of Treatment Health Maintenance Due Date [...] HPV 10/02/2011 Mammogram Screening 2021 COVID-19 Vaccine ( - 2023-2 5 season) 2024 11/09/2020, 10/19/2020, 10/15/2020 DTaP, Tdap and Td Vaccines ( 4 [...] 5 Years) and At-Risk Patients (6 to 49 Years) Aged Out No longer eligible b ased on patient's age to complete this topic RSV Immunizations Under 20 Months Aged Out No longer eligible b ased on patient's age to complete this topic Procedures Procedure Name Priority Date/Time Associated Diagnosis Comments XR ANKLE LT M3V STAT 08/06/2024 7:52 PM GREEN CHAINER CULTURE, WOUND, W/GRAM STAIN STAT 08/06/2024 7:50 PM GREEN CHAINER CULTURE, BACTERIA, BLOOD STAT 08/06/2024 7:42 PM GREEN CHAINER LACTIC ACID STAT 08/06/2024 7:42 PM GREEN CHAINER COMPREHENSIVE METABOLIC PANEL STAT 08/06/2024 7:42 PM GREEN CHAINER CBC W/DIFF AUTOMATED STAT 08/06/2024 7:42 PM GREEN CHAINER from Last 3 Months Results * XR ANKLE LT M3V (08/06/2024 7:52 PM GREEN CHAINER) Anatomical Region Laterality Modality Ankle Radiographic Carlee ging 08/06/2024 7:57 PM GREEN CHAINER Impressions 08/06/2024 8:03 PM GREEN CHAINER IMPRESSION: 1. Interval revision of the ORIF of the left ankle, as above, with no evidence of hardware complication of the remaining hardware. 2. No acute osseous or articular abnormality of the left ankle. 3. Mild soft tissue edema along the lateral aspect of the ankle. Referred By: Interpreted By: Dannie Beck MD, 08/06/2024 7:57 PM Narrative 08/06/2024 8:03 PM GREEN CHAINER [address] [place] [address] INDICATION: Pain COMPARISON: Left ankle radiograph, 11 [...] Procedure Note Dannie Beck MD - 08/06/[address] [place] [address] INDICATION: Pain COMPARISON: Left ankle radiograph, 11 [...] CULTURE, WOUND, W/GRAM STAIN (08/06/2024 7:50 PM GREEN CHAINER) SPEC DESCRIPTION ANKLE,LEFT 08/06/2024 7:53 PM GREEN CHAINER [facility] SPECIAL REQUESTS NO SPECIAL REQUEST 08/06/2024 7:53 PM GREEN CHAINER [facility] GRAM STAIN RESULT NO WHITE BLOOD CELLS SEEN 08/07/2024 11:43 AM GREEN CHAINER [facility] GRAM STAIN RESULT NO ORGANISMS SEEN 08/07/2024 11:43 AM GREEN CHAINER [facility] CULTURE RESULT MODERATE GROWTH OF METHICILLIN RESISTANT STAPHYLOCOCCUS AUREUS FOLLOW ISOLATION PROTOCOL. (AA) 08/09/2024 8:33 AM GREEN CHAINER [facility] ANKLE REGION STRUCTURE / Unknown 08/06/2024 7:50 PM GREEN CHAINER 08/06/2024 7:55 PM GREEN CHAINER Narrative Organism Antibiotic Method Susceptibility Methicillin resistant staphylococcus aureus CLINDAMYCIN DIAMOND (VITEK) <=0.25: Sensitive Methicillin resistant staphylococcus aureus ERYTHROMYCIN DIAMOND (VITEK) >=8: Resistant Methicillin resistant staphylococcus aureus OXACILLIN DIAMOND (VITEK) >=4: Resistant Methicillin resistant staphylococcus aureus TRIMETH-SULFAMETH. DIAMOND (VITEK) <=10: Sensitive Methicillin resistant staphylococcus aureus TETRACYCLINE DIAMOND (VITEK) <=1: Sensitive Methicillin resistant staphylococcus aureus VANCOMYCIN DIAMOND (VITEK) 1: Sensitive Walter Acosta MD MICROBIOLOGY - GENERAL ORDERABL ES Final Result [facility] [address] [place] [address], [place] [phone] [facility] [address] [place] [address], [place] [phone] * (ABNORMAL) COMPREHENSIVE METABOLIC PANEL (08/06/2024 7:42 PM [facility]) [facility] GLUCOSE 119(H) 70 - 99 MG/DL 08/06/2024 8:05 PM [facility] BUN 22(H) 7 - 18 MG/DL 08/06/2024 8:05 PM [facility] CREATININE S/P/B 0.74 0.55 - 1.02 MG/DL 08/06/2024 8:05 PM [facility] SODIUM S/P/B 150(H) 136 - 145 MMOL/L 08/06/2024 8:05 PM [facility] POTASSIUM S/P/B 4.7 3.5 - 5.1 MMOL/L 08/06/2024 8:05 PM [facility] CHLORIDE S/P/B 110(H) 100 - 108 MMOL/L 08/06/2024 8:05 PM [facility] CO2 26.9 21 - 32 MMOL/L 08/06/2024 8:05 PM [facility] CALCIUM S/P/B 9.2 8.5 - 10.1 MG/DL 08/06/2024 8:05 PM [facility] BILIRUBIN TOTAL S/P/B 0.2 0.2 - 1.2 MG/DL 08/06/2024 8:05 PM [facility] TOTAL PROTEIN S/P/B 7.6 6.4 - 8.2 G/DL 08/06/2024 8:05 PM [facility] ALBUMIN S/P/B 4.0 3.4 - 5.0 G/DL 08/06/2024 8:05 PM [facility] AST 15 15 - 37 U/L 08/06/2024 8:05 PM [facility] ALT 38 14 - 55 U/L 08/06/2024 8:05 PM [facility] ALKALINE PHOSPHATASE S/P/B 65 50 - 136 U/L 08/06/2024 8:05 PM [facility] ANION GAP 13.1 5 - 15 MMOL/L 08/06/2024 8:05 PM [facility] BUN CREATININE RATIO 29.7(H) 6 - 26 08/06/2024 8:05 PM [facility] A/G RATIO 1.1 1.0 - 2.0 RATIO 08/06/2024 8:05 PM [facility] GFR ESTIMATE >90 >90 ML/MIN/1.7 3 M2 08/06/2024 8:05 PM [facility] Comment: NOTE: eGFR is not calculated for patients <18 years of age. This is an estimated GFR calculation using the new CKD EPI creatinine equation without race and so does not require a correction factor for race. This estimated GFR should not be used for calculating drug doses. 08/06/2024 7:42 PM GREEN CHAINER Walter Acosta MD LABORATORY Final Result [facility] [address] [place] [address], * LACTIC ACID - SINGLE (08/06/2024 7:42 PM GREEN CHAINER) LACTIC ACID VENOUS 1.8 0.4 - 2.0 MMOL/L 08/06/2024 8:10 PM [facility] 08/06/2024 7:42 PM GREEN CHAINER us Walter Acosta MD LABORATORY Final Result Performing Organization Address [facility]/ZIP Co de Phone Number [facility] [address] [place] [address], [place] [phone] * BLOOD CULTURE #1 (08/06/2024 7:42 PM GREEN CHAINER) SPEC DESCRIPTION BLOOD 08/06/2024 7:42 PM GREEN CHAINER [facility] SPECIAL REQUESTS NO SPECIAL REQUEST 08/06/2024 7:42 PM GREEN CHAINER [facility] CULTURE RESULT NO GROWTH 5 DAYS 08/12/2024 11:34 AM CDT [facility] BLOOD SPECIMEN OBTAINED FOR BLOOD CULTURE / Unknown 08/06/2024 7:42 PM GREEN CHAINER 08/06/2024 7:48 PM GREEN CHAINER us Walter Acosta MD MICROBIOLOGY - GENERAL ORDERABL ES Final Result Performing Organization Address [facility] Co de Phone Number [facility] [address] [place] [address], [place] [phone] [facility] [address] [place] [address], [place] [phone] * (ABNORMAL) CBC W/DIFF AUTOMATED (08/06/2024 7:42 PM GREEN CHAINER) WBC 7.86 4.4 - 11.0 x10'3/uL 08/06/2024 7:51 PM GREEN CHAINER [facility] RBC 5.04 4.50 - 5.10 x10'6/uL 08/06/2024 7:51 PM GREEN CHAINER [facility] HGB 14.5 12.3 - 15.3 G/DL 08/06/2024 7:51 PM GREEN CHAINER [facility] HCT 43.1 35.9 - 44.6 % 08/06/2024 7:51 PM [facility] MCV 85.5 80.0 - 96.0 FL 08/06/2024 7:51 PM [facility] MCH 28.8 25.3 - 30.9 PG 08/06/2024 7:51 PM [facility] MCHC 33.6 31.0 - 34.1 G/DL 08/06/2024 7:51 PM [facility] RDW 12.1(L) 12.4 - 15.1 % 08/06/2024 7:51 PM [facility] PLT 449(H) 151 - 353 x10'3/uL 08/06/2024 7:51 PM [facility] MPV 9.0(L) 9.6 - 12.0 FL 08/06/2024 7:51 PM [facility] RBC MORPHOLOGY NORMAL 08/06/2024 7:51 PM [facility] PLT MORPH. NORMAL 08/06/2024 7:51 PM [facility] WBC MORPHOLOGY NORMAL 08/06/2024 7:51 PM [facility] LYMPHOCYTES % 28.5 15.8 - 45.0 % 08/06/2024 7:51 PM [facility] NEUTROPHILS % 61.1 42.1 - 71.9 % 08/06/2024 7:51 PM [facility] MONOCYTES % 7.1 5.7 - 12.5 % 08/06/2024 7:51 PM [facility] EOSINOPHILS 2.4 0.0 - 5.6 % 08/06/2024 7:51 PM [facility] BASOPHILS 0.5 0.0 - 1.3 % 08/06/2024 7:51 PM [facility] ABS. NEUTROPHILS 4.80 1.40 - 6.00 x10'3/uL 08/06/2024 7:51 PM GREEN CHAINER [facility] IMMATURE GRANS % 0.4 0.0 - 0.5 % 08/06/2024 7:51 PM GREEN CHAINER [facility] ABS. LYMPHOCYTES 2.24 0.80 - 4.70 x10'3/uL 08/06/2024 7:51 PM GREEN CHAINER [facility] 08/06/2024 7:42 PM GREEN CHAINER Walter Acosta MD LABORATORY Final Result [facility] [address] [place] [address], from Last 3 Months Additional Health Concerns Infection Onset Date Last Indicated MRSA Comment:08/06/24 +MRSA Left ankle 08/06/2024 08/06/2024 Insurance [place] Advance Directives * Full Code (Latest Code Status on File) Date Activated Date Inactivated Comments 08/08/2022 11:01 AM 08/10/2022 6:33 PM Care Teams Tourist Information Officer Relationship Specialty Start Date End Date Marlon Saucedo MD [address] [address] [address] PCP - General FAMILY PRACTICE 08/08/22
== END 2024-10-10 08:14 | disposition home or self-care (01) ==
LOC: ANHAUDASC 08:14
PROVIDERS: PCP Family Medicine; Visit Provider Otolaryngology Otolaryngology/Facial Plastic Surgery
DX: H93.11 Tinnitus, right ear (principal); H91.90 Unspecified hearing loss, unspecified ear; H93.8X9 Other specified disorders of ear, unspecified ear; R42 Dizziness and giddiness; D23.22 Other benign neoplasm of skin of left ear and external auricular canal; Z96.22 Myringotomy tube(s) status; Z86.69 Personal history of other diseases of the nervous system and sense organs
CPT/HCPCS: 92557; 92567

== ENCOUNTER 2024-10-29 20:26 | Emergency (ER) | payer OTHER, SELFPAY ==
--- NOTE | ~2024-10-29 | CT_ITS ---
CT brain wo con Ordering provider: Cha Alvarenga APRN History: 44 years Female with . skull/right head pain . Comparison: June 16, 2024 Technique: CT of the head without contrast. Radiation reduction technique utilized. The dose-length p roduct was 605.33 mGy-cm. FINDINGS: BRAIN PARENCHYMA AND CSF SPACES: No midline shift, mass effect or hemorrhage. The brain parenchyma a nd CSF spaces are otherwise normal. VISUALIZED PARANASAL SINUSES: Well aerated. MASTOIDS: Well aerated. BONES: The bones appear intact. SOFT TISSUES: Visualized nasopharynx is normal. Superficial soft tissues are normal. IMPRESSION: No acute intracranial findings. Reviewed, dictated and finalized at location A.
[2024-10-29 21:02] VITALS: BP 150/80; PULSE 91; RESP 16; TEMP 36.9; O2SAT 100
--- NOTE | 2024-10-29 22:38 | PC.NURSE ---
francesco ledezma np to give ativan 0.5mg po and order ct brain without con
[2024-10-29] MEDS: LORazepam (*CRX) 0.5 MG TABLET PO (22:40)
[2024-10-29 23:38] VITALS: BP 140/108; PULSE 93; RESP 16; TEMP 36.4; O2SAT 99
--- OUTSIDE RECORDS SUMMARY | 2024-10-30 01:04 | XMS_ITS ---
Author Organization [facility] Address [address] [place] [address] Care Team Providers Care Application Infrastructure Engineer Name Role Phone Marcella Hutson Primary Care Provider [phone] REASON FOR VISIT 4 week Social History Sex Assigned At : Social History Observation Description Sex Assigned At Female Encounters Encounter Location Date Provider Diagnosis [facility] [address] [place] [address] 10/23/2024 Marcella Hutson Plan Of Treatment Next Appt Details Provider Name:Marcella wray, 11/06/2024 10:20:00 AM, [address], [place], [address], Progress Notes * Grace ODONNELLOB:1980 (44 yo F)Acc No.[id number]:10/23/2024 UNLOCKED PROGRESS NOTE Patient: Kassandra BECKHAM Provider: Bridger Hutson DNP, PMHNP-BC, UTILITY DIVISION PROJECT MANAGER :1980 A ge:44 Y S ex:Female Date:10/23/2024 Address:[facility] [address] [facility] Subjective: * Chief Complaints: * 1 . 4 week. * Medical History: Objective: * Vitals: Assessment: Plan: * Treatment: * * Electronic signature of Thuy Hutson on 10/30/2024 at 01:04 AM CDT Sign off status: Pending * Provider: Bridger Hutson DNP, PMHNP-BC, UTILITY DIVISION PROJECT MANAGER Date: 0 10/23/2024 Generated for Printing/Faxing/eTransmitting on: 0 10/30/2024 01:04 AM CDT
--- OUTSIDE RECORDS SUMMARY | 2024-10-30 01:04 | XMS_ITS | Patient Health Record ---
Author Organization [facility] Address [address] [place] [address] Care Team Providers Care Shoe Repairer Name Role Phone Yasir Hutsona Primary Care Provider AlexeiJuliann barajas [place] [phone] Allergies Allergen (clinical drug ingredient) Drug/Non Drug Allergy documented on EMR Reaction Allergy Type Onset Date Status Biaxin Hives Drug Allergy Active hydroxyzine Hydroxyzine hives Drug Allergy Act jam Reason For Referral No Information Medications Medication SIG (Take, Route, Fr equency, Duration) Notes Start Date End Date Status PROzac 20 MG 1 capsule Orally Onc e a day for 30 days 03/29/2024 Active Vyvanse 60 MG 1 capsule in the mor elis Orally Once a day for 30 days 10/09/2024 Active Vyvanse 60 MG 1 capsule in the mor elis Orally Once a day for 30 days 11/06/2024 Active Multivitamin - 1 tablet Orally Once a day for 15 days Active Vyvanse 50 MG 1 capsule Orally onc e a day for 30 days 05/03/2024 Active Lisinopril 20 MG 1 tablet Orally Once a day Active Meloxicam 7.5 MG 1 tablet Orally [...] Problem Status W/U Status Risk Notes Problem 56752957 Bipolar 2 disorder (F31.81) 10/03/2013 Active confirmed Problem 341946824 Binge eating disorder (F50.81) 10/04/2019 Active confirmed Encounters Encounter Location Date Provider Diagnosis [facility] [address] [place] [address] 01/24/2024 Marcella Hutson Bipolar 2 disorder F31.81 and Binge eating disorder F50.[address] [place] [address] 03/29/2024 Marcella Hutson Bipolar 2 disorder F31.[address] [place] [address] 05/03/2024 Marcella Hutson Bipolar 2 disorder F31.81 and Binge eating disorder F50.81 [facility] [address] [place] [address] 09/19/2024 Marcella Hutson Bipolar 2 disorder F31.81 and Binge eating disorder F50.[address] [place] [address] 01/02/2024 Marcella Hutson Bipolar 2 disorder F31.81 and Binge eating disorder F50.[address] [place] [address] 02/08/2024 Marcella Hutson [address] [place] [address] 03/25/2024 Juliann Nixon Bipolar 2 disorder F31.[address] [place] [address] 09/05/2024 Marcella Hutson Bipolar 2 disorder F31.[address], [place] [address] 09/20/2024 Marcella Hutson [address] [place] [address] 09/26/2024 Marcella Hutson [address] [place] [address] 10/08/2024 Marcella Hutson [address] [place] [address] 09/27/2024 Marcella Hutson Assessments Encounter Date Diagnosis (ICD Code) Assessment Notes Treatment Notes Treatment Clinical Notes Section Notes 01/02/2024 Bipolar 2 disorder (ICD-10 - F31.81) 01/24/2024 Bipolar 2 disorder (ICD-10 - F31.81) 03/25/2024 Bipolar 2 disorder (ICD-10 - F31.81) 03/29/2024 Bipolar 2 disorder (ICD-10 - F31.81) Stop Zoloft and start Prozac. Family members are on Fluoxetine and doing well. Reviewed Prescription Monitoring program. Continue services as scheduled. Labs completed recently. May self-administer medications or be administered own oral medications per [facility] protocols. Provided informed consent with understanding of side effects, adverse effects, risks and benefits as well as alternative treatments as previously discussed and with the above recommended medications & other aspects of the treatment program. Agrees to return sooner if symptoms worsen or suicidal or homicidal ideations occur. 05/03/2024 Bipolar 2 disorder (ICD-10 - F31.81) 09/05/2024 Bipolar 2 disorder (ICD-10 - F31.81) 09/19/2024 Bipolar 2 disorder (ICD-10 - F31.81) 09/19/2024 Binge eating disorder (ICD-10 - F50.81) 05/03/2024 Binge eating disorder (ICD-10 - F50.81) 01/24/2024 Binge eating disorder (ICD-10 - F50.81) 01/02/2024 Binge eating disorder (ICD-10 - F50.81) 01/24/2024 Other Restart Zoloft. She reports this was effective in the past. If moods worsen, advised to stop Zoloft and call. May self-administer medications or be administered own oral medications per [facility] protocols. Provided informed consent with understanding of [...] or be administered own oral medications per [facility] protocols. Provided informed consent with understanding of side effects, adverse effects, risks and benefits as well as alternative treatments as previously discussed and with the above recommended medications & other aspects of the treatment program. Agrees to return sooner if symptoms worsen or suicidal or homicidal ideations occur. 09/19/2024 Other Increase Vyvanse to help with focus and binge eating. Reviewed Prescription Monitoring program. Continue services as scheduled. Labs completed recently. May self-administer medications or be administered own oral medications per [facility] protocols. Provided informed consent with understanding of side effects, adverse effects, risks and benefits as well as alternative treatments as previously discussed and with the above recommended medications & other aspects of the treatment program. Agrees to return sooner if symptoms worsen or suicidal or homicidal ideations occur. Plan Of Treatment Next Appt Details Provider Name:Marcella wray, 11/06/2024 10:20:00 AM, [address], [place], [address], Insurance Providers Payer Name Payer Address Payer Phone Subscriber Number Group Number Insured Name Patient Relationship to Insured Coverage Start Date Coverage End Date [facility] Claims Department [address] [place] [id number] Kassandra Odonnell Self - patient is the insured 1 4 [facility] Claims Department [address] [place] [id number] Kassandra Odonnell Self - patient is the insured 4 [facility] [address] [place] [address] [id number] Morgan Odonnelly Self - patient is the insured 1 Medical (General) History Medical History History ICD Code Movement disorder Surgical History Surgery Date(Month/Year) Left Ankle Surgery 2016 tubal ligation Surgical revision of hardware- removed s crews and plates. 2023 Hospitalization History Reason Date(Month/Year) Left Ankle Surgery 2017 Child Child Child
--- OUTSIDE RECORDS SUMMARY | 2024-10-30 01:05 | XMS_ITS ---
Author Organization [facility] Address [address] [place] [address] Care Team Providers Care Corporate Manager Name Role Phone Marcella Hutson Primary Care Provider REASON FOR VISIT f/u Social History Sex Assigned At : Social History Observation Description Sex Assigned At Female Encounters Encounter Location Date Provider Diagnosis [address] [place] [address] 09/06/2024 Marcella Hutson Plan Of Treatment Next Appt Details Provider Name:Marcella wray, 11/06/2024 10:20:00 AM, [address], [place], [address], Progress Notes * Grace ODONNELLOB:1980 (44 yo F)Acc No.[id number]:09/06/2024 UNLOCKED PROGRESS NOTE Patient: Morgan BECKHAMy Provider: Bridger Hutson DNP, KATHARINE-BC, CLOAK ROOM ATTENDANT :1980 A ge:43 Y S ex:Female Date:09/06/2024 Address:[address] [address] [facility] Subjective: * Chief Complaints: * 1 . F/u. * Medical History: Objective: * Vitals: Assessment: Plan: * Treatment: * * Electronic signature of Thuy Hutson on 10/30/2024 at 01:04 AM CDT Sign off status: Pending * Provider: Bridger Hutson DNP, KATHARINE-BC, CLOAK ROOM ATTENDANT Date: 0 09/06/2024 Generated for Printing/Faxing/eTransmitting on: 0 10/30/2024 01:04 AM CDT
--- NOTE | 2024-10-30 02:27 | ED_ITS ---
HPI - General Adult General Chief complaint: Unspecified Stated complaint: Pressure at base of skull-increasing intensity Time Seen by Provider: 10/30/24 00:47 History of Present Illness HPI narrative: 44-year-old female with a past medical history including chronic sinusitis, chronic vertigo, migraine headaches, morbid obesity, reported movement disorder. Patient presents to the emergency room with complaint of increasing pain and pressure the base risk L especially with bending over and leaning over. She states that has been going on for last several weeks exacerbated by last several days as she has been taking care of her and frequently bending over to change him and dress him given that he is a quadriplegic. Patient states she gets her vertiginous symptoms that exacerbates with this as well. Patient called and has an outpatient primary care provider appointment to discuss this on of this week. She came to the ER for evaluation. Denies any present symptomatology at rest in the bed. She states lying down helps and alleviates her symptoms. She has not tried any medications for this. She thinks it could be related to her blood pressure is well and she does take lisinopril 20 mg daily for this. Denies any headache presently, no vision changes, present nausea, vomiting, abdominal pain, neck pain, fever, chills. Was otherwise in her normal state of health. Had several primary care and specialty visits over last several months had a recent nasolaryngoscopy that showed chronic sinusitis and she was prescribed doxycycline and nasal spray several weeks ago for this. Related Data Allergies Allergy/AdvReac Type Severity Reaction Status Date / Time hydroxyzine Allergy Severe Palpitation Verified 10/29/24 20:28 s clarithromycin Allergy Mild Hives Verified 10/29/24 20:28 Review of Systems Review of Systems: As reviewed above in HPI [facility] Past Medical History Medical History Imbalance Chronic sinusitis Nasal congestion Deviated nasal septum Tinnitus, right Laryngopharyngeal reflux (LPR) Throat clearing Hypertrophy of nasal turbinates Abdominal hernia Otitis media Anxiety and depression Blood glucose elevated Low aspartate aminotransferase (AST) level Syncope Weight gain Overweight (03/07/17) Irregular menstrual bleeding Dietary counseling and surveillance (09/30/15) Arm paresthesia, right Abnormal involuntary movement COVID Shortness of breath Xerostomia Dental disease Dry eyes Flu-like symptoms Mass in neck Elevated platelet count Swelling of left knee joint Left knee pain Lump of left breast BMI 36.0-36.9,adult Iron deficiency Essential hypertension Bipolar 1 disorder Vitamin D deficiency Diarrhea Hx of colonic polyp Encounter for screening for lipid disorder Screening for thyroid disorder Joint pain Cholecystectomy planned Eustachian tube dysfunction Vertigo Depression Asthma Surgical History Surgical History S/P hardware removal 05/2024 History of cholecystectomy 2022; [facility] History of endometrial ablation [place]; approx [id number] Hx of tonsillectomy Status post open reduction with internal fixation (ORIF) of fracture of ankle Family History Family History Father Family history of diabetes mellitus in first degree relative Acute myocardial infarction Diabetes mellitus Mother No problems noted. 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 Spiritual care concerns: No Exam Narrative: GENERAL: Morbidly obese, not ill and appears well. HEAD: [Normocephalic, atraumatic.] EYES: [PERRLA and EOMI.] ENT: Nares clear, no rhinorrhea or epistaxis. Mucous membranes moist. NECK: Supple. CHEST: [Clear to auscultation. No respiratory distress.] HEART: [Regular rate and rhythm]. No murmur heard. [Normal peripheral pulses.] ABDOMEN: [Soft, nondistended], [nontender], [No rigidity or guarding] EXTREMITIES: Normal range of motion. [No edema.] SKIN: Warm, dry, no rash. NEURO: [No focal deficits]. Alert and oriented [x3.] No ataxia, able to ambulate unassisted. Normal strength and sensation throughout both arms and legs. PSYCH: [Normal mood and affect.] Course Vital Signs Vital signs: Vital Signs Temperature 36.9 C 10/29/24 21:02 Pulse Rate 91 10/29/24 21:02 Respiratory Rate 16 10/29/24 21:02 Blood Pressure 150/80 H 10/29/24 21:02 Pulse Oximetry 100 10/29/24 21:02 Oxygen Delivery Room Air 10/29/24 21:02 Temperature 36.4 C 10/29/24 23:38 Pulse Rate 93 10/29/24 23:38 Respiratory Rate 16 10/29/24 23:38 Blood Pressure 140/108 H 10/29/24 23:38 Pulse Oximetry 99 10/29/24 23:38 Oxygen Delivery Room Air 10/29/24 21:02 Medical Decision Making MDM Narrative Medical decision making narrative: 44-year-old female with history of chronic sinusitis, chronic vertigo, obesity, migraines, anxiety. Patient presents to the emergency department with a chief complaint of pressure headache at the base of her skull. She states that has been going on for last several weeks and worsened by bending over and laying over. She states that is alleviated by rest and lying down flat. States that symptoms got worse over last few days as she is taking care of her sick was a quadriplegic. Patient is otherwise not any acute distress but is anxious on initial encounter. She required 0.5 mg of p.o. Ativan to obtain a CT of the head. Suspicion presently is for potential migraine headache, tension headache, low suspicion intracranial pathology such as ventriculomegaly, hydrocephalus, Chiari malformation. CT scan was obtained and shows no acute findings. Patient was re-evaluated stat es she felt much better after the Ativan. She has no symptomatology during my repeat evaluation has normal vital signs here in triage and on my encounter. She is asymptomatic at this time and I had a lengthy discussion with her at bedside including next steps to take including following up with her regular doctor which is this . I discussed strict return precautions with the patient and she verbalized understanding. Patient was safely discharged home at this time. Medical Records Medical records reviewed: Yes I reviewed the external patient's medical records. Vital Signs Vital Signs: Vital Signs Temperature 36.9 C 10/29/24 21:02 Pulse Rate 91 10/29/24 21:02 Respiratory Rate 16 10/29/24 21:02 Blood Pressure 150/80 H 10/29/24 21:02 Pulse Oximetry 100 10/29/24 21:02 Oxygen Delivery Room Air 10/29/24 21:02 Temperature 36.4 C 10/29/24 23:38 Pulse Rate 93 10/29/24 23:38 Respiratory Rate 16 10/29/24 23:38 Blood Pressure 140/108 H 10/29/24 23:38 Pulse Oximetry 99 10/29/24 23:38 Oxygen Delivery Room Air 10/29/24 21:02 Imaging Data Attestation: I personally reviewed and interpreted this imaging study as follows: My impression: Impressions Head CT 10/29/24 23:21 IMPRESSION: No acute intracranial findings. Discharge Plan Discharge Clinical Impression: Headache, tension-type Patient Disposition: Home Condition: Stable Instructions: Antibiotic Form, Tension Headache (ED) Additional Instructions: Keep your primary care provider appointment this to discuss your symptoms and recent ER visit. Your CT scan is reassuring here and your symptoms are under control. Take Tylenol and ibuprofen if they exacerbate. Discuss with your primary care provider about potential MRI imaging if this is a persistent concern and not responding to symptom control medications. Return with any emergent concerns. Patient Language: Lao Prescriptions: No Action chlorhexidine gluconate [Peridex] 0.12 % mouthwash 15 ml mucous membrane BID Qty: 473 0RF famotidine 40 mg tablet 40 mg PO DAILY 30 Days Qty: 30 2RF Rx Instructions: to be used with meals at bed time azelastine-fluticasone 137-50 mcg/spray spray,non-aerosol 1 spray intranasal BID 30 Days Qty: 23 2RF Rx Instructions: administer into each nostril omeprazole 40 mg capsule,delayed release(DR/EC) 40 mg PO DAILY 30 Days Qty: 30 2RF fluoxetine [Prozac] 20 mg capsule 20 mg PO DAILY Qty: 90 0RF ondansetron 4 mg tablet,disintegrating 4 mg PO Q8H PRN (Reason: nausea and vomiting) Qty: 7 0RF ibuprofen 600 mg tablet 600 mg PO TID PRN (Reason: pain) Qty: 30 0RF acetaminophen 500 mg capsule 1,000 mg PO Q6H PRN (Reason: pain) Qty: 30 0RF Follow-up/Referrals: Marlon Saucedo MD [Primary Care Provider] - Time of Disposition: 02:35
[2024-10-30 02:47] VITALS: BP 133/85; PULSE 78; RESP 17; TEMP 36.9; O2SAT 100
== END 2024-10-30 02:48 | disposition home or self-care (01) ==
PROVIDERS: Emergency Provider Student in an Organized Health Care Education/Training Program; PCP Family Medicine
DX: G44.209 Tension-type headache, unspecified, not intractable (principal); G82.50 Quadriplegia, unspecified; E55.9 Vitamin D deficiency, unspecified; F31.9 Bipolar disorder, unspecified; I10 Essential (primary) hypertension; J45.909 Unspecified asthma, uncomplicated
CPT/HCPCS: 70450; 99284; A9270

== ENCOUNTER 2024-10-31 14:04 | Outpatient (CLI) | payer OTHER, SELFPAY ==
[2024-10-31 14:21] LABS: Basophils Absolute Auto 0.04 K/mm3 (0.00-0.10); Basophils Percent Auto 0.4 % (0.0-1.0); Eosinophils Absolute Auto 0.23 K/mm3 (0.02-0.50); Eosinophils Percent Auto 2.3 % (1.0-6.0); Hematocrit 44.7 % (35.0-49.0); Hemoglobin 14.5 g/dL (12.0-15.0); Immature Granulocyte Absolute 0.03 K/mm3 (0.00-0.00); Immature Granulocyte Percent A 0.3 % (0.0-0.0); Lymphocytes Absolute Auto 2.53 K/mm3 (1.10-4.50); Lymphocytes Percent Auto 25.6 % (18.0-42.0); Mean Corpuscular HGB Conc 32.4 g/dL (32-36); Mean Corpuscular Hemoglobin 27.6 pg (27.0-31.0); Mean Corpuscular Volume 85.1 fL (78.0-102.0); Mean Platelet Volume 8.8 fl (9.2-11.8); Monocytes Absolute Auto 0.57 K/mm3 (0.10-0.90); Monocytes Percent Auto 5.8 % (2.0-11.0); Neutrophils Percent Auto 65.6 % (50.0-70.0); Platelet Count Result 453 K/mm3 (150-420); Red Blood Count 5.25 M/mm3 (4.20-5.40); Red Cell Distribution Width 13.1 % (11.6-14.4); White Blood Count 9.9 K/mm3 (4.8-10.8)
[2024-10-31 14:42] LABS: Alanine Aminotransferase 51 U/L (6-35); Albumin Level 4.8 g/dL (3.5-5.1); Alkaline Phosphatase 65 U/L (38-126); Anion Gap 8 mmol/L (4-12); Aspartate Amino Transferase 34 U/L (14-36); Bilirubin,Total 0.5 mg/dL (0.2-1.3); Blood Urea Nitrogen 19 mg/dL (7-17); Calcium 9.5 mg/dL (8.4-10.2); Carbon Dioxide 27 mmol/L (22-30); Chloride 103 mmol/L (98-107); Estimated Glomerular Filt Rate > 60; Glucose 100 mg/dL (65-110); Osmolality Calculated 288 mOsm/kg (285-295); Potassium 4.5 mmol/L (3.4-5.0); Sodium 138 mmol/L (137-145); Total Protein 7.7 g/dL (6.3-8.2)
[2024-11-02 07:04] LABS: CMV IgG Antibody. >10.00 U/mL; CMV IgM Antibody. <30.00 AU/mL; EBV Virus Capsid Ag IgG Ab >750.00 U/mL; EBV Virus Capsid Ag IgM Ab <36.00 U/mL
== END 2024-10-31 14:05 | disposition home or self-care (01) ==
PROVIDERS: PCP Family Medicine
DX: R51.9 Headache, unspecified (principal); R25.9 Unspecified abnormal involuntary movements; R53.83 Other fatigue
CPT/HCPCS: 36415; 80053; 85025; 86644; 86645; 86664; 86665

== ENCOUNTER 2024-11-11 12:26 | Outpatient (CLI) | payer OTHER, SELFPAY ==
--- OUTSIDE RECORDS SUMMARY | 2024-11-11 13:44 | XMS_ITS | Referral Summary ---
Author Organization [place] [id number] [facility] Address [address] [place] [address] Care Team Providers Care Mill Machinist Name Role Phone Marlon Saucedo MD Primary Care Provider Encounters Date Type Department Care Team Description 11/11/[address] [facility] Scheduling [address] [place] [address] Jeanne Delacruz from Last 3 Months Allergies Active Allergy Reactions Criticality Noted Date Comments Clarithromycin Hives,Urticaria High 07/26/2012 Medications fluticasone propionate (FLONASE) 50 mcg/actuation nasal spray Administer 1 spray into each nostril daily as needed for rhinitis or allergies 0 Active lisinopriL (PRINIVIL,ZESTRIL) 20 mg tabletIndications: hypertension Take 1 tablet (20 mg total) by mouth nightly Active FLUoxetine (PROzac) 20 mg tabletIndications: Anxiety with Depression Take 1 tablet (20 mg total) by mouth nightly Active ascorbic acid (vitamin C) 1,000 mg tabletIndications: health Take 1 tablet (1,000 mg total) by mouth daily before breakfast Active omeprazole (PriLOSEC) 20 mg capsuleIndications :Treatment of Non-Bleeding Gastric Disorder Take 1 capsule (20 mg total) by mouth daily before breakfast 4 Active hydrOXYzine (ATARAX) 50 mg tablet Take 1 tablet (50 mg total) by mouth 2 (two) times a day as needed for itching or anxiety Active ondansetron ODT (ZOFRAN-ODT) 4 mg disintegrating tabletIndications: Prevention of Post-Operative Nausea and Vomiting Take 1 tablet (4 mg total) by mouth every 8 (eight) hours as needed for nausea or vomiting 10 tablet 4 Active docusate sodium (COLACE) 100 mg capsuleIndications :constipation Take 1 capsule (100 mg total) by mouth 2 (two) times a day 10 capsule 4 Active oxyCODONE (ROXICODONE) 5 mg immediate release tabletIndications: Pain Take 1 tablet (5 mg total) by mouth every 4 (four) hours as needed for pain 10 tablet 4 Active acetaminophen (TYLENOL) 500 mg tabletIndications: Pain Take 1 tablet (500 mg total) by mouth every 6 (six) hours as needed for pain 80 tablet 4 Active ibuprofen (ADVIL,MOTRIN) 400 mg tabletIndications: Pain Take 1 tablet (400 mg total) by mouth every 6 (six) hours as needed for pain 40 tablet 4 Active lisdexamfetamine (VYVANSE) 50 mg capsule 0 4 Active Active Problems Problem Noted Date Diagnosed Date Painful orthopaedic hardware 04/04/2024 Parotitis 04/22/2022 Assessment & Plan (04/22/2022 2:50 PM CANVAS WORKER): Doxycycline twice daily for 10 days Follow up with Dentist Oral surgery contact information provided for TMJ dysfunction Impacted cerumen of left ear 04/22/2022 Assessment & Plan (04/22/2022 2:50 PM CANVAS WORKER): Avoid ear cleaning techniques Sensorineural hearing loss (SNHL) of both ears 0 07/26/2021 Assessment & Plan (07/26/2021 11:17 AM CANVAS WORKER): [facility] Benign paroxysmal positional vertigo of right ea r 07/26/2021 Assessment & Plan (07/26/2021 11:17 AM CANVAS WORKER): Right Benign Positional Vertigo treated with Sangeeta maneuver Flonase 2 sprays into each nostril while looking down over the sink, do not sniff in or blow nose after use for at least 30 minutes Hearing test - [facility] Post-Sangeeta instructions discussed and Handout provided Recurrent acute suppurative otitis media of right ear without spontaneous rupture of tympanic membrane 07/20/2021 Restlessness 07/14/2016 Anxiety 07/14/2016 Akathisia 01/18/2016 Nausea and vomiting Social History Tobacco Use Types Packs/Day Years Used Date Smoking Tobacco: Never Smokeless Tobacco: Never Tobacco Cessation:Counseling Given: Not Answered Alcohol Use Standard Drinks/Week Comments No 0 (1 standard drink = 0.6 oz pur e alcohol) AUDIT-C Answer Date Recorded Q1: How often do you have a drink containing alcohol? Never 04/26/2024 Q2: How many drinks containi ng alcohol do you have on a typical day when you are drinking? Patient does not drink Q3: How often do you have si x or more drinks on one occasion? Never 04/26/2024 Personal Safety Answer Date Recorded Have you ever been in or are you currently in a harmful physical or emotional relationship or is someone making you feel afraid or unsafe? Denies 04/26/2024 Comments No Sex and Gender Information Value Date Recorded Sex Assigned at Not on file Legal Sex Female 8:24 AM CANVAS WORKER Gender Identity Not on file Sexual Orientation Not on file Last Filed Vital Signs Vital Sign Reading Time Taken Comments Blood Pressure 114/63 04/26/2024 5:05 PM CANVAS WORKER Pulse 76 04/26/2024 5:10 PM CANVAS WORKER Temperature 36.6 C (97.9 F) 04/26/2024 5:10 PM CANVAS WORKER Respiratory Rate 20 04/26/2024 5:10 PM CANVAS WORKER Oxygen Saturation 95% 04/26/2024 5:10 PM CANVAS WORKER Inhaled Oxygen Concentration - - Weight 117.8 kg (259 lb 9.6 oz) 04/26/2024 1:30 PM CANVAS WORKER Height 165.1 cm (5' 5) 04/26/2024 1:30 PM CANVAS WORKER Body Mass Index 43.2 04/26/2024 1:30 PM CANVAS WORKER Plan of Treatment Not on file Insurance [facility] IDMS Advance Directives For more information, please contact: [phone] * Full Code (Latest Code Status on File) Date Activated Date Inactivated Comments 07/20/2021 12:48 PM 07/22/2021 3:03 PM Care Teams Mill Machinist Relationship Specialty Start Date End Date Marlon Saucedo MD [address] [place] [address] PCP - General Family Medicine 02/28/24
--- OUTSIDE RECORDS SUMMARY | 2024-11-11 13:44 | XMS_ITS | Encounter Summary ---
Author Organization [facility] Address [address] [place] [address] Phone Care Team Providers Care Manager Print Name Role Phone Marlon Saucedo MD Primary Care Provider Encounter Details Date Type Department Care Team (Late st Contact Info) Description 11/11/2024 Telephone [facility] Scheduling [address] [place] [address] Jeanne Delacruz Social History Tobacco Use Types Packs/Day Years Used Date Smoking Tobacco: Never Smokeless Tobacco: Never Alcohol Use Standard Drinks/Week Comments No 0 [...] on file Legal Sex Female 8:24 AM MATH TEACHER Gender Identity Not on file Sexual Orientation Not on file documented as of this encounter Miscellaneous Notes * Telephone Encounter - Jeanne Delacruz - 11/11/2024 10:57 AM CDT Referral rcvd and forwarded to the [facility] at the [facility] due to Medicaid insurance. [facility]- Special[facility] P: [phone] F: [phone] [place]AN: [place] Dx: INVOLUNTARY MOVEMENTS documented in this encounter Plan of Treatment Not on file documented as of this encounter Visit Diagnoses Not on filedocumented in this encounter Care Teams Manager Print Relationship Specialty Start Date End Date Marlon Saucedo MD [address] [place] [address] PCP - General Family Medicine 02/28/24 documented as of this encounter
--- OUTSIDE RECORDS SUMMARY | 2024-11-11 13:44 | XMS_ITS | Clinical Summary ---
Author Organization [place] [id number] [facility] Address [address] [place] [address] Care Team Providers Care Double Needle Operator Name Role Phone Marlon Saucedo MD Primary Care Provider Allergies Active Allergy Reactions Criticality Noted Date [...] needed for nausea or vomiting 10 tablet 11/22/202 4 Active docusate sodium (COLACE) 100 mg [...] 04/22/2022 Assessment & Plan (04/22/2022 2:50 PM TRAINING DESIGNER): Doxycycline twice daily for 10 days Follow up with Dentist Oral surgery contact information provided for TMJ dysfunction Impacted cerumen of left ear 04/22/2022 Assessment & Plan (04/22/2022 2:50 PM TRAINING DESIGNER): Avoid ear cleaning techniques Sensorineural hearing loss (SNHL) of both ears 0 07/26/2021 Assessment & Plan (07/26/2021 11:17 AM TRAINING DESIGNER): [facility] Benign paroxysmal positional vertigo of right ea r 07/26/2021 Assessment & Plan (07/26/2021 11:17 AM TRAINING DESIGNER): Right Benign Positional Vertigo treated with Sangeeta maneuver Flonase 2 sprays into each nostril while looking down over the sink, do not sniff in or blow nose after use for at least 30 minutes Hearing test - [facility] Post-Sangeeta instructions discussed and Handout provided Recurrent acute suppurative otitis media of right ear without spontaneous rupture of tympanic membrane 07/20/2021 Restlessness 07/14/2016 Anxiety 07/14/2016 Akathisia 01/18/2016 Nausea and vomiting Encounters Date Type Department Care Team Description 11/11/2024 Telephone [facility] Scheduling [address] [place] [address] Jeanne Delacruz from Last 3 Months Surgical History Surgery Date Site/Laterality Comments [place] EXCISION SUBMANDIBULAR SUBMAXILLARY GLAND Surgery Excision Of Submandibular (Submaxillary) Gland - (Added by TW Conv) CHOLECYSTECTOMY 06/05/2022 - 06/04/2023 ORIF ANKLE FRACTURE 06/05/2016 - 06/04/2017 TUBAL LIGATION 06/05/2014 - 06/04/2015 HYSTEROSCOPY 06/05/2017 - 06/04/2018 Medical History Medical History Date Comments Personal history of other di seases of the nervous system and sense organs History of migraine - (Added by RADHA Conv) Akathisia Obesity Ovarian cyst Vertigo Recurrent otitis media PONV (postoperative nausea and vomiting) Motion sickness HTN (hypertension) GERD (gastroesophageal reflux disease) Family History Medical History Relation Name Comments Diabetes Father Family history of diabetes mellitus - (Added by TW Conv) Anesthesia problems Neg Hx Relation Name Status Comments Father Social History Tobacco Use Types Packs/Day Years [...] on file Legal Sex Female 8:24 AM TRAINING DESIGNER Gender Identity Not on file Sexual Orientation Not on file Obstetrics History Last Filed Vital Signs Vital Sign Reading Time Taken Comments Blood Pressure 114/63 04/26/2024 5:05 PM TRAINING DESIGNER Pulse 76 04/26/2024 5:10 PM TRAINING DESIGNER Temperature 36.6 C (97.9 F) 04/26/2024 5:10 PM TRAINING DESIGNER Respiratory Rate 20 04/26/2024 5:10 PM TRAINING DESIGNER Oxygen Saturation 95% 04/26/2024 5:10 PM TRAINING DESIGNER Inhaled Oxygen Concentration - - Weight 117.8 kg (259 lb 9.6 oz) 04/26/2024 1:30 PM TRAINING DESIGNER Height 165.1 cm (5' 5) 04/26/2024 1:30 PM TRAINING DESIGNER Body Mass Index 43.2 04/26/2024 1:30 PM TRAINING DESIGNER Plan of Treatment Health Maintenance Due Date Last Done Comments Breast Cancer Screening-Mammogram 1981 Cervical Cancer Screening 1980 Depression Screening 1980 Hepatitis C Screening 1980 Varicella Vaccines (1 of 2 - 13+ 2-dose series) 1994 Hepatitis B Screening 10/02/1999 Regular Well Visit/Exam 18-64 10/02/1999 Covid-19 Vaccine ( - 2023-2 5 season) 2024 11/09/2020, 10/19/2020, 10/15/2020 Influenza Vaccine (Season Ended) 2025 03/26/2019 DTaP/Tdap/Td Vaccine (4 - Td or Tdap) 03/25/2027 03/25/2017, 04/27/2016, 12/24/2011 HPV Vaccines Aged Out No longer eligi ble based on patient's age to complete this topic Pneumococcal vaccine <65 Aged Out No longer eligible based on patient's age to complete this topic Insurance [facility] IDPA Advance Directives For more information, please contact: [phone] * Full Code (Latest Code Status on File) Date Activated Date Inactivated Comments 07/20/2021 12:48 PM 07/22/2021 3:03 PM Care Teams Double Needle Operator Relationship Specialty Start Date End Date aMrlon Saucedo MD [address] [address] PCP - General Family Medicine 02/28/24
== END 2024-11-11 12:27 | disposition home or self-care (01) ==
LOC: ANHSURGERY 12:29
PROVIDERS: PCP Family Medicine; Visit Provider Surgery
DX: K42.9 Umbilical hernia without obstruction or gangrene (principal)
CPT/HCPCS: 36415; 86850; 86900; 86901

== ENCOUNTER 2024-11-14 02:50 | Day surgery (SDC) | payer OTHER, SELFPAY ==
[2024-11-06 13:42] VITALS: BMI 41.6
--- NOTE | 2024-11-06 13:43 | PC.NURSE ---
Report to the Outpatient Waiting Room, entrance under the green pavilion located off [facility], at time _1200_ on date _[id number]_. Planned Procedure Time: _2pm_.? Time changes happen often and if your time is changed the preop area will call you the afternoon before. - You and your visitor will be asked to self-screen and do not enter if you have any COVID symptoms. Please call surgeon if you need to reschedule. - A mask is optional within the hospital at this time. Patients may have clear liquids (water, carbonated beverages, clear teas, apple juice) until 3 hours prior to surgery with a maximum of 20 ounces. - No food from midnight until time of surgery and no smoking, or chewing tobacco (or any form of nicotine). No chewing gum, candy or mints. Take only the following medications with a SIP of water on the morning of surgery: ___Fluoxetine and azelastine spray.____ DO NOT STOP ANY OF YOUR OTHER PRESCRIPTION MEDICATIONS PRIOR TO SURGERY EXCEPT THE FOLLOWING Hold all vitamins and supplements for 3 days per anesthesiologist. Medications to discontinue per physician Date to take last dose Please no make-up, nail south african, hairspray, perfume, deodorant, or body powder the day of surgery.? No jewelry (including any body piercings) or valuables the day of surgery, leave them at home.? Please take a shower or bath the night before, or the morning of, surgery with an antibacterial soap.? Wear comfortable, loose fitting clothing.? - Jewelry must be removed prior to entering the operating room.? Rings and piercings that are not removed may be cut off. - The hospital will not accept responsibility for valuables.? - Please leave all valuables, including medications, at home the day of surgery. If you are going home after surgery, a licensed highway truck driver must drive you home.? - NO public transportation without another adult if you receive anesthesia. - We recommend that an adult stay with you for 24 hours following discharge. - We also recommend that you do not drive, make important decision, drink alcoholic beverages, or take any drugs that were not prescribed by your health care provider for at least 24 hours after your discharge time. Follow any additional instructions given to you from your surgeon. Telephone instructions given to __Misty___and asked if any additional questions and then verbalized understanding. Patient advised to call surgeon office or pre surgery nurse liaison [phone] if any additional questions.
[2024-11-14] VITALS (10 sets, daily range): BP systolic 117–141; BP diastolic 64–89; PULSE 82–102; RESP 12–17; TEMP 36.6–36.7; O2SAT 95–98; BMI 45.1
--- OUTSIDE RECORDS SUMMARY | 2024-11-14 02:54 | XMS_ITS | Patient Health Record ---
Author Organization [facility] Address [address] [place] [address] Care Team Providers Care Teacher Asst Name Role Phone Thuy Hutsonnica Primary Care Provider AlexeiJuliann barajas [place] [phone] Allergies Allergen (clinical drug ingredient) Drug/Non Drug [...] Orally Once a day for 30 days 01/01/2025 Active Multivitamin - 1 tablet Orally Once a day for 15 days Active Meloxicam 7.5 MG 1 tablet Orally Once a day Active Lisinopril 20 MG 1 tablet Orally Once a day Active Vyvanse 60 MG 1 capsule in the mor elis Orally Once a day for 30 days 12/04/2024 Active Vyvanse 60 MG 1 capsule Orally onc e a day for 30 days 11/06/2024 Active Social History Tobacco Use: Social History Observation Description Date Details (start date - stop date) Never Smoker NA - NA Sex Assigned At : Social History Observation Description Sex Assigned At Female Tobacco Control (Standard) Question Answer Notes Additional Findings: Tobacco non-user Current no nsmoker Tobacco use: Nonsmoker Problems Problem Type SNOMED Code ICD Code Onset Dates Problem Status W/U Status Risk Notes Problem ADHD (attention deficit hyperactivity disorder) (F90.9) Active confirmed Problem [id number] Bipolar 2 disord er (F31.81) 10/03/2013 Active confirmed Problem 477571591 Binge eating disorder (F50.81) 10/04/2019 Active confirmed Encounters Encounter Location Date Provider Diagnosis [facility] [address] [place] [address] 01/24/2024 Marcella Hutson Bipolar 2 disorder F31.81 and Binge eating disorder F50.[address] [place] [address] 03/29/2024 Marcella Hutson Bipolar 2 disorder F31.[address] [place] [address] 05/03/2024 Marcella Hutson Bipolar 2 disorder F31.81 and Binge eating disorder F50.81 [facility] [address] [place] [address] 09/19/2024 Marcella Hutson Bipolar 2 disorder F31.81 and Binge eating disorder F50.81 [facility] [address] [place] [address] 11/06/2024 Marcella Hutson Bipolar 2 disorder F31.81 and ADHD (attention deficit hyperactivity disorder) F90.[address] [place] [address] 01/02/2024 Marcella Hutson Bipolar 2 disorder F31.81 and Binge eating disorder F50.[address] [place] [address] 02/08/2024 Marcella Hutson [address] [place] [address] 03/25/2024 Juliann Nixon Bipolar 2 disorder F31.[address] [place] [address] 09/05/2024 Marcella Hutsno Bipolar 2 disorder F31.[address] [address] 09/20/2024 Marcella Hutson [address] [place] [address] 09/26/2024 Marcella Hutson [address] [place] [address] 10/08/2024 Marcella Hutson [facility] [address] [facility] [place] [address] 09/27/2024 Marcella Hutson [address] [facility] [place] [address] 11/10/2024 Marcellasascha Hutson Assessments Encounter Date Diagnosis (ICD Code) [...] or be administered own oral medications per [facility] protocols. Provided informed consent with understanding of [...] 09/19/2024 Bipolar 2 disorder (ICD-10 - F31.81) 11/06/2024 ADHD (attention deficit hyperactivity disorder) (ICD-10 - F90.9) 11/06/2024 Bipolar 2 disorder (ICD-10 - F31.81) 09/19/2024 [...] or be administered own oral medications per [facility] protocols. Provided informed consent with understanding of [...] or be administered own oral medications per [facility] protocols. Provided informed consent with understanding of [...] or be administered own oral medications per [facility] protocols. Provided informed consent with understanding of side effects, adverse effects, risks and benefits as well as alternative treatments as previously discussed and with the above recommended medications & other aspects of the treatment program. Agrees to return sooner if symptoms worsen or suicidal or homicidal ideations occur. 11/06/2024 Other Continue curren t medications. Reviewed Prescription Monitoring program. Continue services as scheduled. Labs completed recently. May self-administer medications or be administered own oral medications per [facility] protocols. Provided informed consent with understanding of [...] Insured Coverage Start Date Coverage End Date [facility] Claims Department [address] [place] [address] [id number] Kassandra Odonnell Self - patient is the insured 1 4 [facility] Claims Department [address] [place] [address] [phone] [id number] Kassandra Odonnell Self - patient is the insured 4 [facility] Attn Claims Department [address] [place] [address] [phone] [id number] Kassandra Odonnell Self - patient is the insured 1 Medical (General) History Medical History History ICD Code Movement disorder Surgical History Surgery Date(Month/Year) Left Ankle Surgery 2016 tubal ligation Surgical revision of hardware- removed s crews and plates. 2023 Hospitalization History Reason Date(Month/Year) Child Child Child Left Ankle Surgery 2016
--- OUTSIDE RECORDS SUMMARY | 2024-11-14 02:54 | XMS_ITS | Referral Summary ---
Author Organization [place] [id number] [facility] Address [address] [place] [address] Care Team Providers Care Snuff Container Inspector Name Role Phone Marlon Saucedo MD Primary Care Provider Encounters Date Type Department Care Team Description 11/11/2024 Telephone [facility] Scheduling [address] [place] [address] Jeanne Delacruz from Last 3 [...] 04/22/2022 Assessment & Plan (04/22/2022 2:50 PM TUBE OPERATOR): Doxycycline twice daily for 10 days Follow up with Dentist Oral surgery contact information provided for TMJ dysfunction Impacted cerumen of left ear 04/22/2022 Assessment & Plan (04/22/2022 2:50 PM TUBE OPERATOR): Avoid ear cleaning techniques Sensorineural hearing loss (SNHL) of both ears 0 07/26/2021 Assessment & Plan (07/26/2021 11:17 AM TUBE OPERATOR): [facility] Benign paroxysmal positional vertigo of right ea r 07/26/2021 Assessment & Plan (07/26/2021 11:17 AM TUBE OPERATOR): Right Benign Positional Vertigo treated with Sangeeta maneuver Flonase 2 sprays into each nostril while looking down over the sink, do not sniff in or blow nose after use for at least 30 minutes Hearing test - [facility] Post-Sangeeta instructions discussed and [...] on file Legal Sex Female 8:24 AM TUBE OPERATOR Gender Identity Not on file Sexual Orientation Not on file Last Filed Vital Signs Vital Sign Reading Time Taken Comments Blood Pressure 114/63 04/26/2024 5:05 PM TUBE OPERATOR Pulse 76 04/26/2024 5:10 PM TUBE OPERATOR Temperature 36.6 C (97.9 F) 04/26/2024 5:10 PM TUBE OPERATOR Respiratory Rate 20 04/26/2024 5:10 PM TUBE OPERATOR Oxygen Saturation 95% 04/26/2024 5:10 PM TUBE OPERATOR Inhaled Oxygen Concentration - - Weight 117.8 kg (259 lb 9.6 oz) 04/26/2024 1:30 PM TUBE OPERATOR Height 165.1 cm (5' 5) 04/26/2024 1:30 PM TUBE OPERATOR Body Mass Index 43.2 04/26/2024 1:30 PM TUBE OPERATOR Plan of Treatment Not on file Insurance [facility] IDCO Advance Directives For more information, please contact: [phone] * Full Code (Latest Code Status on File) Date Activated Date Inactivated Comments 07/20/2021 12:48 PM 07/22/2021 3:03 PM Care Teams Snuff Container Inspector Relationship Specialty Start Date End Date Marlon Saucedo MD [address] [place] [address] PCP - General Family Medicine 02/28/24
--- OUTSIDE RECORDS SUMMARY | 2024-11-14 02:54 | XMS_ITS | Clinical Summary ---
Author Organization [place] [id number] [facility] Address [address] [place] [address] Care Team Providers Care Commercial Airline Pilot Name Role Phone Marlon Saucedo MD Primary Care Provider [phone] Allergies Active Allergy Reactions Criticality Noted Date [...] 04/22/2022 Assessment & Plan (04/22/2022 2:50 PM BEAM RACKER): Doxycycline twice daily for 10 days Follow up with Dentist Oral surgery contact information provided for TMJ dysfunction Impacted cerumen of left ear 04/22/2022 Assessment & Plan (04/22/2022 2:50 PM BEAM RACKER): Avoid ear cleaning techniques Sensorineural hearing loss (SNHL) of both ears 0 07/26/2021 Assessment & Plan (07/26/2021 11:17 AM BEAM RACKER): [facility] Benign paroxysmal positional vertigo of right ea r 07/26/2021 Assessment & Plan (07/26/2021 11:17 AM BEAM RACKER): Right Benign Positional Vertigo treated with Sangeeta maneuver Flonase 2 sprays into each nostril while looking down over the sink, do not sniff in or blow nose after use for at least 30 minutes Hearing test - [facility] Post-Sangeeta instructions discussed and Handout provided Recurrent acute suppurative otitis media of right ear without spontaneous rupture of tympanic membrane 07/20/2021 Restlessness 07/14/2016 Anxiety 07/14/2016 Akathisia 01/18/2016 Nausea and vomiting Encounters Date Type Department Care Team Description 11/11/2024 Telephone [facility] Scheduling [address] [place] [address] Jeanne Delacruz from Last 3 Months Surgical History Surgery Date Site/Laterality Comments [place] EXCISION SUBMANDIBULAR SUBMAXILLARY GLAND Surgery Excision Of [...] on file Legal Sex Female 8:24 AM BEAM RACKER Gender Identity Not on file Sexual Orientation Not on file Obstetrics History Last Filed Vital Signs Vital Sign Reading Time Taken Comments Blood Pressure 114/63 04/26/2024 5:05 PM BEAM RACKER Pulse 76 04/26/2024 5:10 PM BEAM RACKER Temperature 36.6 C (97.9 F) 04/26/2024 5:10 PM BEAM RACKER Respiratory Rate 20 04/26/2024 5:10 PM BEAM RACKER Oxygen Saturation 95% 04/26/2024 5:10 PM BEAM RACKER Inhaled Oxygen Concentration - - Weight 117.8 kg (259 lb 9.6 oz) 04/26/2024 1:30 PM BEAM RACKER Height 165.1 cm (5' 5) 04/26/2024 1:30 PM BEAM RACKER Body Mass Index 43.2 04/26/2024 1:30 PM BEAM RACKER Plan of Treatment Health Maintenance Due Date [...] patient's age to complete this topic Insurance [facility] IDPA Advance Directives For more information, please contact: [phone] * Full Code (Latest Code Status on File) Date Activated Date Inactivated Comments 07/20/2021 12:48 PM 07/22/2021 3:03 PM Care Teams Commercial Airline Pilot Relationship Specialty Start Date End Date Marlon Saucedo MD [address] [place] [address] PCP - General Family Medicine 02/28/24
--- OUTSIDE RECORDS SUMMARY | 2024-11-14 02:54 | XMS_ITS ---
Author Organization [facility] Address [address] [place] [address] Care Team Providers Care Casino Floor Runner Name Role Phone Marcella Hutson Primary Care Provider REASON FOR VISIT 4 week Social History Sex Assigned At : Social History Observation Description Sex Assigned At Female Encounters Encounter Location Date Provider Diagnosis [address] [place] [address] 10/23/2024 Marcella Hutson Plan Of Treatment No Information Progress Notes * BELLEGraceOB:1980 (44 yo F)Acc No.[id number]:10/23/2024 UNLOCKED PROGRESS NOTE Patient: Kassandra BECKHAM Provider: Bridger Hutson DNP, KATHARINE-CAYDEN, PENSION CONSULTANT :1980 A ge:44 Y S ex:Female Date:10/23/2024 Address[address] [facility] [place] Subjective: * Chief Complaints: * 1 . 4 week. * Medical History: Objective: * Vitals: Assessment: Plan: * Treatment: * * Electronic signature of Thuy Hutson on 11/14/2024 at 02:53 AM CDT Sign off status: Pending * Provider: Bridger Hutson DNP, KATHARINE-CAYDEN, PENSION CONSULTANT Date: 10/23/2024 Generated for Printing/Faxing/eTransmitting on: 11/14/2024 02:53 AM CDT
--- NOTE | 2024-11-14 11:15 | PM.IMHP ---
H&P: HPI History of Present Illness Date/Time: 11/14/24 11:15 Chief Complaint: periumbilical hernia Narrative: Kassandra is a 44 y/o female who presents to the office at the request of JOSE ALBERTO Hollis for an evaluation of an umbilical hernia. Patient reports she first noticed bulging in the abdomen in 05/2024 that has been causing discomfort. She states she is tolerating a normal diet but has occasional nausea and vomiting along with diarrhea and constipation. Patient had CT scan done on 08/18/24 which showed a small fat-containing umbilical hernia. Review of Systems Review of Systems: All systems reviewed & are unremarkable except as noted in HPI and below PMFSH Past Medical History Medical History Imbalance Chronic sinusitis Nasal congestion Deviated nasal septum Tinnitus, right Laryngopharyngeal reflux (LPR) Throat clearing Hypertrophy of nasal turbinates Abdominal hernia Otitis media Anxiety and depression Blood glucose elevated Low aspartate aminotransferase (AST) level Syncope Weight gain Overweight (03/07/17) Irregular menstrual bleeding Dietary counseling and surveillance (09/30/15) Arm paresthesia, right Abnormal involuntary movement COVID Shortness of breath Xerostomia Dental disease Dry eyes Flu-like symptoms Mass in neck Elevated platelet count Swelling of left knee joint Left knee pain Lump of left breast BMI 36.0-36.9,adult Iron deficiency Essential hypertension Bipolar 1 disorder Vitamin D deficiency Diarrhea Hx of colonic polyp Encounter for screening for lipid disorder Screening for thyroid disorder Joint pain Cholecystectomy planned Eustachian tube dysfunction Vertigo Depression Asthma Surgical History Surgical History S/P hardware removal 05/2024 History of cholecystectomy 2022; [facility] History of endometrial ablation [place]; approx [id number] Hx of tonsillectomy Status post open reduction with internal fixation (ORIF) of fracture of ankle Family History Family History Father Family history of diabetes mellitus in first degree relative Acute myocardial infarction Diabetes mellitus Mother No problems noted. 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 Spiritual care concerns: No Meds Home Medications and Allergies Home Medications ?Medication ?Instructions ?Recorded ?Confirmed ?Type chlorhexidine gluconate 0.12 % 15 ml mucous membrane BID #473 mL 05/21/24 11/06/24 Rx mouthwash (Peridex) acetaminophen 500 mg capsule 1,000 mg (2 x 500 mg) PO Q6H PRN 08/18/24 11/06/24 Rx pain #30 caps ibuprofen 600 mg tablet 600 mg PO TID PRN pain #30 tabs 08/18/24 11/06/24 Rx ondansetron 4 mg disintegrating 4 mg PO Q8H PRN nausea and 08/18/24 11/06/24 Rx tablet vomiting #7 tabs fluoxetine 20 mg capsule (Prozac) 20 mg PO DAILY #90 caps 09/23/24 11/06/24 Rx azelastine 137 mcg-fluticasone 50 1 spray intranasal BID 30 days #23 10/07/24 11/06/24 Rx mcg/spray nasal spray grams famotidine 40 mg tablet 40 mg PO DAILY 30 days #30 tabs 10/07/24 11/06/24 Rx omeprazole 40 mg capsule,delayed 40 mg PO DAILY 30 days #30 caps 10/07/24 11/06/24 Rx release rimegepant 75 mg disintegrating 75 mg PO ONCE PRN migraine 11/05/24 11/06/24 Rx tablet (Nurtec ODT) headache #8 tabs lisinopril 20 mg tablet 20 mg PO DAILY 11/06/24 11/06/24 History Allergies Allergy/AdvReac Type Severity Reaction Status Date / Time hydroxyzine Allergy Severe Palpitation Verified 11/06/24 13:33 s clarithromycin Allergy Mild Hives Verified 11/06/24 13:33 Exam Const: General: cooperative, comfortable, no acute distress and obese Resp: Auscultation: clear to auscultation bilaterally Cardio: Rate: regular rate Rhythm: regular rhythm GI: Inspection: normal to inspection GI Palp: Yes abdominal tenderness and Yes Hernia present Other: 3 cm Umbilical hernia reducible Skin: General skin exam: normal color and no rashes or lesions noted Assessment and Plan Assessment and plan (1) Umbilical hernia: Qualifiers: Obstruction and gangrene presence: without obstruction or gangrene Qualified Code(s): K42.9 - Umbilical hernia without obstruction or gangrene Code(s): K42.9 - Umbilical hernia without obstruction or gangrene Status: Acute Assessment and Plan: will set up for robotic assisted repair of 3 cm umbilical hernia with mesh
--- NOTE | 2024-11-14 11:17 | WPDHPUPDATE1 ---
History and Physical Update Update Date/Time: 11/14/24 11:17 History and Physical has been reviewed, including an updated exam of the patient. There are NO changes in the patient's condition. Risks, benefits, and alternatives have been discussed and questions answered. Patient agrees to proceed with procedure.
[2024-11-14] MEDS: LACTATED RINGERS 1,000 ML 30 ML IV CONT ×2 (12:30→15:55)
[2024-11-14] MEDS: ACETAMINOPHEN 500 MG TABLET 1000 MG PO (13:15)
[2024-11-14] MEDS: KETOROLAC 15 MG/ML VIAL (*BKC) IV PUSH (13:15)
[2024-11-14 13:28] LABS: BEDSIDEPREGUCG Negative (Negative)
--- NOTE | 2024-11-14 13:42 | P.PNAN_ITS ---
Anes - Initial Pre Proc Eval Procedure: Operation Date: 11/14/24 14:00 Proposed Procedures p Robotic Assisted Umbilical Hernia Repair with Mesh - Misti Lewis MD Date/Time: 11/14/24 13:42 Surgeon: Misti Lewis MD Pre Op Diagnosis: Umb Hernia Patient Data Age: 44 Gender: F Height: 1.65 m Weight: 122.9 kg Last Vital Signs Temp 36.6 C 11/14/24 12:00 Pulse 97 11/14/24 12:00 Resp 16 11/14/24 12:00 BP 123/89 11/14/24 12:00 Pulse Ox 98 11/14/24 12:00 Allergies Allergy/AdvReac Type Severity Reaction Status Date / Time hydroxyzine Allergy Severe Palpitation Verified 11/06/24 13:33 s clarithromycin Allergy Mild Hives Verified 11/06/24 13:33 Home Medications ?Medication ?Instructions ?Recorded ?Confirmed ?Type chlorhexidine gluconate 0.12 % 15 ml mucous membrane BID #473 mL 05/21/2409/27 Rx mouthwash (Peridex) acetaminophen 500 mg capsule 1,000 mg (2 x 500 mg) PO Q6H PRN 08/18/24 11/06/24 Rx pain #30 caps ibuprofen 600 mg tablet 600 mg PO TID PRN pain #30 tabs 08/18/24 11/06/24 Rx ondansetron 4 mg disintegrating 4 mg PO Q8H PRN nausea and 08/18/24 11/06/24 Rx tablet vomiting #7 tabs fluoxetine 20 mg capsule (Prozac) 20 mg PO DAILY #90 caps 09/23/24 11/06/24 Rx azelastine 137 mcg-fluticasone 50 1 spray intranasal BID 30 days #23 10/07/24 11/06/24 Rx mcg/spray nasal spray grams famotidine 40 mg tablet 40 mg PO DAILY 30 days #30 tabs 10/07/24 11/06/24 Rx omeprazole 40 mg capsule,delayed 40 mg PO DAILY 30 days #30 caps 10/07/24 11/06/24 Rx release rimegepant 75 mg disintegrating 75 mg PO ONCE PRN migraine 11/05/24 11/06/24 Rx tablet (Nurtec ODT) headache #8 tabs lisinopril 20 mg tablet 20 mg PO DAILY 11/06/24 11/06/24 History Laboratory Tests 11/14/24 12:00 POC Urine HCG, Qual Negative (Negative) Patient hx anesthesia problems: none Family hx anesthesia problems: none Results Review: All pre-operative results and documents have been reviewed as part of the pre- operative evaluation. [facility] Past Medical History Medical History Imbalance Chronic sinusitis Nasal congestion Deviated nasal septum Tinnitus, right Laryngopharyngeal reflux (LPR) Throat clearing Hypertrophy of nasal turbinates Abdominal hernia Otitis media Anxiety and depression Blood glucose elevated Low aspartate aminotransferase (AST) level Syncope Weight gain Overweight (03/07/17) Irregular menstrual bleeding Dietary counseling and surveillance (09/30/15) Arm paresthesia, right Abnormal involuntary movement COVID Shortness of breath Xerostomia Dental disease Dry eyes Flu-like symptoms Mass in neck Elevated platelet count Swelling of left knee joint Left knee pain Lump of left breast BMI 36.0-36.9,adult Iron deficiency Essential hypertension Bipolar 1 disorder Vitamin D deficiency Diarrhea Hx of colonic polyp Encounter for screening for lipid disorder Screening for thyroid disorder Joint pain Cholecystectomy planned Eustachian tube dysfunction Vertigo Depression Asthma Surgical History Surgical History S/P hardware removal 05/2024 History of cholecystectomy 2022; [facility] History of endometrial ablation [place]; approx [id number] Hx of tonsillectomy Status post open reduction with internal fixation (ORIF) of fracture of ankle Family History Family History Father Family history of diabetes mellitus in first degree relative Acute myocardial infarction Diabetes mellitus Mother No problems noted. 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 Informed Consent: The patient's anesthetic plan and its attendant risks and benefits were discusse d with the patient/family/POA. Questions were solicited and answers provided to the satisfaction of the patient/family/POA.
[2024-11-14] MEDS: ceFAZolin 3 GM/D5W 100 ML 100 ML IVPB (14:16)
[2024-11-14] MEDS: BUPIVACAINE/EPINEPHRINE 0.5% 30 ML VIAL INFILTRATE (14:44)
--- NOTE | 2024-11-14 15:52 | P.OP_ITS ---
Procedure Note - Detailed Date of Procedure 11/14/24 Pre-op Diagnosis umbilical hernia measuring 4 cm Post-op Diagnosis Same Procedure Performed robotic assisted repair umbilical hernia with defect measuring 4 cm Surgeon Misti Lewis MD Anesthesia General Indications 44-year-old female presenting with 4 cm umbilical defect that has been symptomatically worsening Findings 4 cm umbilical hernia with incarcerated preperitoneal fat Description of Procedure The patient was taken the operating room placed in the supine position. After adequate induction of general anesthesia, the patient was prepped and draped in normal sterile fashion. A time-out was then done to verify the patient's identity as well as the procedure being performed. I began by making a 8 mm incision in the left upper quadrant. Through this, a Veress needle was placed into the peritoneal cavity and CO2 gas was insufflated. After adequate pneumoperitoneum was achieved, a 8 mm trocar was placed through this incision. I then placed the laparoscope through this trocar site and under direct visualization I placed a 8 mm port in the left mid abdomen as well as an additional 8 mm port in the left lower abdomen. The robot was then docked to the 3 port sites. I then went to the robotic console. I began by identifying the hernia. A moderate-sized incarcerated umbilical hernia was noted. I created a preperitoneal flap approximately 6 cm lateral to the hernia. This flap was carried widely superior and inferior to the defect. I then was able to reduce this hernia. The hernia was noted to contain a large amount of prep eritoneal fat. Once reduced, I also reduced and dissected out the hernia sac. I then carried the flap distally past the hernia. I then closed the approximately 4 cm defect with 0 strata fix suture. I then placed a 15 x [address] mesh into the abdominal cavity. The positional stitch was placed in the middle of the mesh and brought up centering the mesh over the defect. Once this was done, I used 2 O vicryl suture to suture the mesh to the abdominal wall. Once the mesh was sutured in, I was happy with our tension-free repair. The mesh was noted to have good overlap of the defect. I then closed the flap with 2 0 V lock. At this point, the robot was undocked and all ports were removed. All port sites were then closed with 4 O Monocryl subcuticular suture. The patient tolerated the procedure well, is extubated in the operating room postoperative, and will be transferred to the recovery room in stable condition. Implants 15 x [address] mesh Estimated Blood Loss 10 Drains No Packing No Pathology None sent Complications No immediate complications Condition Stable Disposition PACU [facility] Billing Surgery - Charge Forward: Surgery Billing
[2024-11-14] MEDS: SCOPOLAMINE 1 MG PATCH 1 PATCH TRANSDERM (15:55)
[2024-11-14] MEDS: ONDANSETRON INJ 4 MG/2 ML VIAL IV PUSH (16:10)
[2024-11-14] MEDS: fentaNYL CITRATE INJ (*CRX) 100 MCG/2 ML VIAL 25 MCG IV PUSH ×4 (16:20→16:49)
== END 2024-11-14 17:55 | disposition home or self-care (01) ==
PROVIDERS: PCP Family Medicine; Visit Provider Surgery
PROC: (CPT 49594; principal; 2024-11-14 14:00)
DX: K42.0 Umbilical hernia with obstruction, without gangrene (principal); E66.01 Morbid (severe) obesity due to excess calories; Z68.42 Body mass index [BMI] 45.0-49.9, adult
CPT/HCPCS: 49594; S2900; A9270; C1781; J0690; J1100; J1885; J2003; J2250; J2405; J2704; J3010; J7060; J7120

== ENCOUNTER 2024-12-05 18:26 | Emergency (ER) | payer OTHER, SELFPAY ==
[2024-12-05 18:34] VITALS: BP 137/83; PULSE 94; RESP 16; TEMP 36.5; O2SAT 97
--- NOTE | 2024-12-05 18:49 | ED_ITS ---
HPI - URI/Sore Throat General Chief Complaint: Upper Respiratory Infection Stated Complaint: EARACHE/SINUS Time Seen by Provider: 12/05/24 18:37 Source: patient and RN notes reviewed Mode of arrival: ambulatory Limitations: no limitations History of Present Illness HPI Narrative: Patient presents today with a 2 week history of cough, nasal congestion and sinus pressure, chills, right ear pain. She has tried Mucinex, Azelastine nasal spray, and occasional albuterol inhaler. Denies fever shortness of breath. She has history of chronic sinusitis. She was seen by ENT on 10/07/2024 and prescribed a 21 day course of doxycycline, which she has finished. She was postop follow-up in 1 month, but needed to cancel due to an umbilical hernia surgery scheduled for 11/21/24. She will reschedule. Related Data Home Medications ?Medication ?Instructions ?Recorded ?Confirmed ?Last Taken ?Type lisinopril 20 mg tablet 20 mg PO DAILY 11/06/24 11/06/24 Unknown History Allergies Allergy/AdvReac Type Severity Reaction Status Date / Time hydroxyzine Allergy Severe Palpitation Verified 12/05/24 18:33 s clarithromycin Allergy Mild Hives Verified 12/05/24 18:33 PMFSH Past Medical History Medical History Imbalance Chronic sinusitis Nasal congestion Deviated nasal septum Tinnitus, right Laryngopharyngeal reflux (LPR) Throat clearing Hypertrophy of nasal turbinates Abdominal hernia Otitis media Anxiety and depression Blood glucose elevated Low aspartate aminotransferase (AST) level Syncope Weight gain Overweight (03/07/17) Irregular menstrual bleeding Dietary counseling and surveillance (09/30/15) Arm paresthesia, right Abnormal involuntary movement COVID Shortness of breath Xerostomia Dental disease Dry eyes Flu-like symptoms Mass in neck Elevated platelet count Swelling of left knee joint Left knee pain Lump of left breast BMI 36.0-36.9,adult Iron deficiency Essential hypertension Bipolar 1 disorder Vitamin D deficiency Diarrhea Hx of colonic polyp Encounter for screening for lipid disorder Screening for thyroid disorder Joint pain Cholecystectomy planned Eustachian tube dysfunction Vertigo Depression Asthma Surgical History Surgical History S/P hardware removal 05/2024 History of cholecystectomy 2022; [facility] History of endometrial ablation [place]; approx [id number] Hx of tonsillectomy Status post open reduction with internal fixation (ORIF) of fracture of ankle Family History Family History Father Family history of diabetes mellitus in first degree relative Acute myocardial infarction Diabetes mellitus Mother No problems noted. 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 Spiritual care concerns: No Comments At time of signature, I have reviewed and agree with nursing past medical, surgical, social and family history unless otherwise noted. Please see nursing chart for further information. There is no relevant family history pertinent to the presenting complaint Exam Narrative: GENERAL: Mildly ill-appearing, well-nourished, and in no acute distress. HEAD: Normocephalic, atraumatic. EYES: EOMI. No redness or drainage. Conjunctivae normal. ENT: Mucous membranes pink and moist. Nares congested with rhinorrhea. Bilateral nasal turbinates are edematous and erythematous. TMs normal bilaterally. Throat normal. Uvula midline. NECK: Normal AROM. Supple. No lymphadenopathy. CHEST: No respiratory distress. Clear to auscultation. HEART: Regular rate and rhythm. No murmur appreciated. EXTREMITIES: Normal range of motion. No edema. SKIN: Warm, dry, no rash. Capillary refill normal. Normal skin turgor. NEURO: No focal deficits. Alert and oriented x3. Gait steady. PSYCH: Normal affect. No signs of depression or anxiety. Course Course Level of Care: Express Care Visit Vital Signs Vital signs: Vital Signs Temperature 97.7 F 12/05/24 18:34 Pulse Rate 94 12/05/24 18:34 Respiratory Rate 16 12/05/24 18:34 Blood Pressure 137/83 12/05/24 18:34 Pulse Oximetry 97 12/05/24 18:34 Oxygen Delivery Room Air 12/05/24 18:34 Temperature 97.7 F 12/05/24 18:34 Pulse Rate 94 12/05/24 18:34 Respiratory Rate 16 12/05/24 18:34 Blood Pressure 137/83 12/05/24 18:34 Pulse Oximetry 97 12/05/24 18:34 Oxygen Delivery Room Air 12/05/24 18:34 Reviewed MDM - URI/Sore Throat MDM Narrative Medical decision making narrative: Patient is 44-year-old female complaining of upper respiratory symptoms x2 weeks. She has tried some [id number] medication, nasal spray, and albuterol inhaler without improvement. Two weeks ago she had an umbilical hernia repair. 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 Most recently she was on a course of doxycycline for 3 weeks for chronic sinusitis. Today these URI symptoms have persisted. She will be treated with a course of Augmentin and benzonatate for sinusitis and cough. Respiratory exam is normal. Vital signs are stable. She has been afebrile. Patient was wondering about a short course of prednisone, however, since she had abdominal surgery only a few weeks ago, I would like her to try the Augmentin over the weekend. She is due to follow-up with her surgeon in 4 days. If she is not improved by then, follow up with him or her PCP to get started on some prednisone. Patient agrees with this plan. Differential Diagnosis Differential diagnosis: Likely upper respiratory infection, otitis media, sinusitis, viral infection and bronchitis Critical Care Time Critical Care Time Critical Care Time: No Discharge Plan Discharge Clinical Impression: Bronchitis Sinusitis Qualifiers: Sinusitis location: unspecified location Chronicity: unspecified Qualified Code(s): J32.9 - Chronic sinusitis, unspecified Patient Disposition: Home Condition: Stable Instructions: Antibiotic Form, Sinusitis (ED), Acute Bronchitis (ED) Additional Instructions: Please take the Augmentin and benzonatate as directed. Rest, stay hydrated. Follow-up with your surgeon next week as scheduled. Go to the ER immediately if you develop shortness of breath or chest pain, or develops a new fever greater than 100.3. Your blood pressure was elevated above 120/80 today at Urgent Care. This puts you above the threshold for follow up. Please schedule a followup visit with your personal physician as soon as possible, for further evaluation and treatment. Even blood pressure exceeding 120/80 may indicate pre-hypertension. Patient Language: [place] Prescriptions: New benzonatate 200 mg capsule 200 mg PO TID PRN (Reason: cough) Qty: 20 0RF amoxicillin-pot clavulanate 875-125 mg tablet 1 tablet PO Q12H 7 Days Qty: 14 0RF No Action chlorhexidine gluconate [Peridex] 0.12 % mouthwash 15 ml mucous membrane BID Qty: 473 0RF famotidine 40 mg tablet 40 mg PO DAILY 30 Days Qty: 30 2RF Rx Instructions: to be used with meals at bed time azelastine-fluticasone 137-50 mcg/spray spray,non-aerosol 1 spray intranasal BID 30 Days Qty: 23 2RF Rx Instructions: administer into each nostril omeprazole 40 mg capsule,delayed release(DR/EC) 40 mg PO DAILY 30 Days Qty: 30 2RF fluoxetine [Prozac] 20 mg capsule 20 mg PO DAILY Qty: 90 0RF Nurtec ODT 75 mg tablet,disintegrating 75 mg PO ONCE PRN (Reason: migraine headache) Qty: 8 0RF Rx Instructions: as a single dose. May repeat the dose 1 time after 24 hours if symptoms persist ondansetron 4 mg tablet,disintegrating 4 mg PO Q8H PRN (Reason: nausea and vomiting) Qty: 7 0RF ibuprofen 600 mg tablet 600 mg PO TID PRN (Reason: pain) Qty: 30 0RF acetaminophen 500 mg capsule 1,000 mg PO Q6H PRN (Reason: pain) Qty: 30 0RF lisinopril 20 mg tablet 20 mg PO DAILY oxycodone-acetaminophen [Percocet] 5-325 mg tablet 1 tablet PO Q6H PRN (Reason: pain) Qty: 20 0RF docusate sodium [Colace] 100 mg capsule 100 mg PO BID Qty: 20 0RF rizatriptan 10 mg tablet 10 mg PO ONCE PRN (Reason: migraine headache) Qty: 12 0RF Follow-up/Referrals: Marlon Saucedo MD [Primary Care Provider] - Time of Disposition: 18:58
== END 2024-12-05 19:10 | disposition home or self-care (01) ==
PROVIDERS: Emergency Provider Nurse Practitioner; PCP Family Medicine
DX: J40 Bronchitis, not specified as acute or chronic (principal); J32.9 Chronic sinusitis, unspecified; I10 Essential (primary) hypertension; J45.909 Unspecified asthma, uncomplicated
CPT/HCPCS: 99213; G0463

== ENCOUNTER 2025-01-21 22:29 | Emergency (ER) | payer OTHER, SELFPAY ==
--- OUTSIDE RECORDS SUMMARY | 2025-01-01 05:20 | XMS_ITS ---
Author Organization [facility] Address [address] [place] [address] Care Team Providers Care Marketing Strategy Manager Name Role Phone Marcella Hutson Primary [...] Female Encounters Encounter Location Date Provider Diagnosis [facility] [address] [place] [address] 01/01/2025 Marcella Hutsno Bipolar 2 disorder F31.81 and ADHD (attention deficit hyperactivity disorder) F90.9 Assessments Encounter Date Diagnosis (ICD Code) Assessment Notes Treatment Notes Treatment Clinical Notes Section Notes 01/01/2025 Bipolar 2 disorder (ICD-10 - F31.81) 01/01/2025 ADHD (attention deficit hyperactivity disorder) (ICD-10 - F90.9) Plan Of Treatment No Information Progress Notes * Grace BATISTAOB:1980 (44 yo F)Acc No.[id number]:01/01/2025 UNLOCKED PROGRESS NOTE Patient: Kassandra MORGAN Provider: Bridger Hutson DNP, KATHARINE-CAYDEN, GRADUATE ENGINEER :1980 A ge:44 Y S ex:Female Date:01/01/2025 Address:[address] [place], [place] [id number] Subjective: * Chief Complaints: * 1 . [...] * Electronic signature of Thuy Hutson on 01/21/2025 at 10:48 PM CDT Sign off status: Pending * Provider: Bridger Hutson DNP, KATHARINE-CAYDEN, GRADUATE ENGINEER Date: 01/01/2025 Generated for Printing/Faxing/eTransmitting on: 01/21/2025 10:48 PM CDT
[2025-01-21 22:29] VITALS: BP 139/95; PULSE 121; RESP 18; TEMP 36.4; O2SAT 100
--- NOTE | 2025-01-21 22:40 | PC.NURSE ---
DR NOYOLA AT THE BEDSIDE
--- NOTE | 2025-01-21 22:46 | ED_ITS ---
HPI - General Adult General Chief complaint: Neuro Symptoms/Deficit Stated complaint: neurological disorder, repetitive movement Time Seen by Provider: 01/21/25 22:36 Source: patient Mode of arrival: ambulatory Limitations: no limitations History of Present Illness HPI narrative: 44 YEARS OLD WHITE FEMALE CAME TO THE ED COMPLAINING OF UNCONTROLLABLE MOVEMENT OF THE HEAD, NECK UPPER AND LOWER EXTREMITY STARTED 11 YEARS AGO, INTERMITTENT, WORSE WITH STRESS AND ANXIETY, BETTER WITH REST. PATIENT IS TELLING ME THAT [facility], STOP TAKING CARE OF HER BECAUSE OF INSURANCE ISSUES 2 YEARS AGO. LAST TIME WAS SEEN BY A NEUROLOGIST OVER 2 YEARS AGO. PATIENT IS TELLING ME THAT HER IS QUADRIPLEGIC AND HAVING A LOT OF STRESS LATELY. PATIENT DROVE HERSELF TO THE EMERGENCY ROOM. PATIENT REPORTS ATIVAN USUALLY WORKS THE BEST. Related Data Home Medications ?Medication ?Instructions ?Recorded ?Confirmed ?Last Taken ?Type lisinopril 20 mg tablet 20 mg PO DAILY 11/06/2410/27 Unknown History atomoxetine 40 mg capsule mg PO 01/07/25 01/07/25 Unkn own History Allergies Allergy/AdvReac Type Severity Reaction Status Date / Time hydroxyzine Allergy Severe Palpitation Verified 01/07/25 07:37 s clarithromycin Allergy Mild Hives Verified 01/07/25 07:37 Review of Systems Review of Systems: All systems reviewed & are unremarkable except as noted in HPI and below PMFSH Past Medical History Medical History Bipolar 1 disorder Imbalance Chronic sinusitis Nasal congestion Deviated nasal septum Tinnitus, right Laryngopharyngeal reflux (LPR) Throat clearing Hypertrophy of nasal turbinates Abdominal hernia Otitis media Anxiety and depression Blood glucose elevated Low aspartate aminotransferase (AST) level Syncope Weight gain Overweight (03/07/17) Irregular menstrual bleeding Dietary counseling and surveillance (09/30/15) Arm paresthesia, right Abnormal involuntary movement COVID Shortness of breath Xerostomia Dental disease Dry eyes Flu-like symptoms Mass in neck Elevated platelet count Swelling of left knee joint Left knee pain Lump of left breast BMI 36.0-36.9,adult Iron deficiency Essential hypertension Vitamin D deficiency Diarrhea Hx of colonic polyp Encounter for screening for lipid disorder Screening for thyroid disorder Joint pain Cholecystectomy planned Eustachian tube dysfunction Vertigo Depression Asthma Surgical History Surgical History S/P hardware removal 05/2024 History of cholecystectomy 2022; [facility] History of endometrial ablation [place]; approx [id number] Hx of tonsillectomy Status post open reduction with internal fixation (ORIF) of fracture of ankle Family History Family History Father Family history of diabetes mellitus in first degree relative Acute myocardial infarction Diabetes mellitus Mother No problems noted. 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 Spiritual care concerns: No Exam Narrative: GENERAL APPEARANCE: WELL-DEVELOPED, WELL-NOURISHED SKIN: NORMAL COLOR HEAD: NORMOCEPHALIC, NONTRAUMATIC EYES: CLEAR CONJUNCTIVA ENT: OROPHARYNX NORMAL, EARS NORMAL, NOSE NORMAL NECK: SUPPLE, NONTENDER CHEST AND RESPIRATORY: AIRWAY PATENT, NO RESPIRATORY DISTRESS, NO ACCESSORY MUSCLE USE HEART: REGULAR RATE/RHYTHM ABDOMEN: SOFT, NONTENDER, NO ORGANOMEGALY, QUIET BOWEL SOUNDS VASCULAR: NORMAL PERIPHERAL PULSES, NORMAL CAPILLARY REFILL. MUSCULOSKELETAL: INVOLUNTARY RHYTHMIC MOVEMENTS OF THE HEAD, NECK, UPPER AND LOWER EXTREMITIES, NEUROLOGIC: ALERT AND ORIENTED ?3, CATALYST RECOVERY OPERATOR IS NORMAL TESTED, NO GROSS MOTOR DEFICIT Course Vital Signs Vital signs: Vital Signs Temperature 36.4 C 01/21/25 22:29 Pulse Rate 121 H 01/21/25 22:29 Respiratory Rate 18 01/21/25 22:29 Blood Pressure 139/95 H 01/21/25 22:29 Pulse Oximetry 100 01/21/25 22:29 Oxygen Delivery Room Air 01/21/25 22:29 Temperature 36.4 C 01/21/25 22:29 Pulse Rate 121 H 01/21/25 22:29 Respiratory Rate 18 01/21/25 22:29 Blood Pressure 139/95 H 01/21/25 22:29 Pulse Oximetry 100 01/21/25 22:29 Oxygen Delivery Room Air 01/21/25 22:29 Medical Decision Making MDM Narrative Medical decision making narrative: PATIENT PRESENTS WITH INVOLUNTARY MOVEMENTS MOST OF HER BODY VITAL SIGNS SHOWING HEART RATE OF 121 OTHERWISE WITHIN NORMAL LIMIT DIFFERENTIAL DIAGNOSIS INCLUDE TREMORS, TICS, [place], MY CLONUS, DYSTONIA,, NEUROLOGICAL DISORDER INCLUDING PARKIN[place], HUNTING TONE, TOURETTE SYNDROME AND MULTIPLE SYSTEM ATROPHY THE ABOVE CONDITION IS CHRONIC FOR THE LAST 11 YEARS, FOLLOW-UP WITH NEUROLOGIST IS MY RECOMMENDATION AT THIS TIME, 2 MG OF ATIVAN IM ORDERED, PATIENT'S SON WILL COME TO PICK HER UP Differential Diagnosis Differential Diagnosis: ABOVE Vital Signs Vital Signs: Vital Signs Temperature 36.4 C 01/21/25 22:29 Pulse Rate 121 H 01/21/25 22:29 Respiratory Rate 18 01/21/25 22:29 Blood Pressure 139/95 H 01/21/25 22:29 Pulse Oximetry 100 01/21/25 22:29 Oxygen Delivery Room Air 01/21/25 22:29 Temperature 36.4 C 01/21/25 22:29 Pulse Rate 121 H 01/21/25 22:29 Respiratory Rate 18 01/21/25 22:29 Blood Pressure 139/95 H 01/21/25 22:29 Pulse Oximetry 100 01/21/25 22:29 Oxygen Delivery Room Air 01/21/25 22:29 Critical Care Time Critical Care Time Critical Care Time: No Discharge Plan Discharge Clinical Impression: Involuntary movements Patient Disposition: Home Condition: Improved Instructions: Stress (ED), Tremors (ED) Additional Instructions: RETURN IF SYMPTOMS ARE WORSENING , CALL YOUR FAMILY PHYSICIAN FOR APPOINTMENT AND NEUROLOGIST REFERRAL, TAKE TYLENOL NEEDED FOR ACHES AND PAIN, CONTINUE HOME MEDICATIONS. Patient Language: Greek Prescriptions: No Action chlorhexidine gluconate [Peridex] 0.12 % mouthwash 15 ml mucous membrane BID Qty: 473 0RF azelastine-fluticasone 137-50 mcg/spray spray,non-aerosol 1 spray intranasal BID 30 Days Qty: 23 2RF Rx Instructions: administer into each nostril omeprazole 40 mg capsule,delayed release(DR/EC) 40 mg PO DAILY 30 Days Qty: 30 2RF fluoxetine [Prozac] 20 mg capsule 20 mg PO DAILY Qty: 90 0RF atomoxetine 40 mg capsule PO ondansetron 4 mg tablet,disintegrating 4 mg PO Q8H PRN (Reason: nausea and vomiting) Qty: 7 0RF ibuprofen 600 mg tablet 600 mg PO TID PRN (Reason: pain) Qty: 30 0RF lisinopril 20 mg tablet 20 mg PO DAILY docusate sodium [Colace] 100 mg capsule 100 mg PO BID Qty: 20 0RF rizatriptan 10 mg tablet 10 mg PO ONCE PRN (Reason: migraine headache) Qty: 12 0RF famotidine 40 mg tablet 40 mg PO DAILY 30 Days Qty: 30 5RF Rx Instructions: to be used with meals at bed time Follow-up/Referrals: Marlon Saucedo MD [Primary Care Provider, Family Practice]
[2025-01-21] MEDS: LORazepam INJ (*CRX) 2 MG/ML VIAL IM (22:47)
--- OUTSIDE RECORDS SUMMARY | 2025-01-21 22:47 | XMS_ITS | Encounter Summary ---
Author Organization [facility] Address [address] [place] [address] Care Team Providers Care Customer Loyalty Representative Name Role Phone Rick Gordillo MD Primary Care Provider Unavailable Susie Curtis MD Primary Care Provider [phone] Marlon Saucedo MD Primary Care Provider [phone] Encounter Details Date Type Department Care Team (Late st Contact Info) Description 03/25/2017 Abstract [facility] CONVERSION [address] [place] [address] Md Generic MD Juan Social History Tobacco Use Types Packs/Day Years Used Date Smoking Tobacco: Never Assessed Comments Unknown Sex and Gender Information Value Date Recorded Sex Assigned at Female 08/06/2024 7:04 PM 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 COUNSELOR Legal Sex Female 4:57 PM CDT Gender [...] PROTIME 12.6 SEC 03/25/2017 9:40 PM CDT [facility] INR 1.1 03/25/2017 9:40 PM CDT [facility] Comment: Recommend INR ranges for Oral Anticoagulant Therapy:Mechanical Cardiac Values 2.5-3.5All others indication 2.0-3.0 03/25/2017 9:17 PM CDT 03/25/2017 9:32 PM CDT us Generic Conversion Md [facility] Final R esult [facility] [address] [place] [address], * (ABNORMAL) COMPREHENSIVE METABOLIC PNL W DBIL (03/25/2017 9:17 PM CDT) GLUCOSE 111(H) 70 - 105 MG/DL 03/25/2017 9:52 PM CDT [facility] BUN 11 7.0 - 18.7 MG/DL 03/25/2017 9:52 PM CDT [facility] CREATININE S/P/B 0.73 0.57 - 1.11 MG/DL 03/25/2017 9:52 PM CDT [facility] SODIUM S/P/B 140 136 - 145 MMOL/L 03/25/2017 9:52 PM CDT [facility] POTASSIUM S/P/B 3.6 3.5 - 5.1 MMOL/L 03/25/2017 9:52 PM CDT [facility] CHLORIDE S/P/B 103 98 - 107 MMOL/L 03/25/2017 9:52 PM CDT [facility] CO2 27.0 22 - 29 MMOL/L 03/25/2017 9:52 PM CDT [facility] ANION GAP 13.6 10.0 - 24.0 MMOL/L 03/25/2017 9:52 PM CDT [facility] CALCIUM S/P/B 9.0 8.4 - 10.2 MG/DL 03/25/2017 9:52 PM [facility] BILIRUBIN TOTAL S/P/B 0.3 0.2 - 1.2 MG/DL 03/25/2017 9:52 PM [facility] TOTAL PROTEIN S/P/B 7.5 6.4 - 8.3 G/DL 03/25/2017 9:52 PM [facility] ALBUMIN S/P/B 4.2 3.5 - 5.0 G/DL 03/25/2017 9:52 PM [facility] AST 18 5 - 34 U/L 03/25/2017 9:52 PM [facility] ALT 24 6 - 55 U/L 03/25/2017 9:52 PM [facility] ALKALINE PHOSPHATASE S/P/B 65 30 - 115 U/L 03/25/2017 9:52 PM [facility] BUN CREATININE RATIO 15.1 6.0 - 26.0 03/25/2017 9:52 PM [facility] A/G RATIO 1.3 1.1 - 1.9 RATIO 03/25/2017 9:52 PM [facility] EGFR NON-AFR. AMER. >60 >60 ML/MIN/1.7 3 M2 03/25/2017 9:52 PM [facility] Comment: GFR Reference Range:Kidney Failure - <15mL/min Chronic Kidney Disease - <60mL/min Normal Kidney Function - >60mL/min GFR calculation is not recommended forPatients less than 18 years or greater than70 years as per the national Kidney Foundation.If the patient is -Angolan, multiply results by 1.21 BILIRBUIN INDIRECT (CORD) 0.2 0.0 - 1.1 MG/DL 03/25/2017 9:52 PM [facility] BILIBUBIN DIRECT (CORD) 0.1 0.0 - 0.5 MG/DL 03/25/2017 9:52 PM CDT [facility] OSMOLALITY (CALC) 279 271 - 290 MOSM/KG 03/25/2017 9:52 PM CDT [facility] 03/25/2017 9:17 PM CDT 03/25/2017 9:32 PM CDT us Generic Conversion Md [facility] Final R esult [facility] [address] [place] [address], * (ABNORMAL) CBC W/DIFF AUTOMATED (03/25/2017 9:17 PM CDT) WBC 18.3(H) 4.4 - 11.0 x10'3/uL 03/25/2017 9:36 PM CDT [facility] RBC 4.57 4.50 - 5.10 x10'6/uL 03/25/2017 9:36 PM CDT [facility] HGB 12.9 12.3 - 15.3 G/DL 03/25/2017 9:36 PM CDT [facility] HCT 37.9 35.9 - 44.6 % 03/25/2017 9:36 PM CDT [facility] MCV 82.9 80.0 - 96.0 FL 03/25/2017 9:36 PM CDT [facility] MCH 28.2 25.3 - 30.9 PG 03/25/2017 9:36 PM CDT [facility] MCHC 34.0 31.0 - 34.1 G/DL 03/25/2017 9:36 PM CDT [facility] RDW 13.8 12.4 - 15.1 % 03/25/2017 9:36 PM [facility] PLT 507(H) 151 - 353 x10'3/uL 03/25/2017 9:36 PM [facility] MPV 8.5(L) 9.6 - 12.0 FL 03/25/2017 9:36 PM [facility] RBC MORPHOLOGY NORMAL 03/25/2017 9:36 PM [facility] PLT MORPH. NORMAL 03/25/2017 9:36 PM [facility] WBC MORPHOLOGY NORMAL 03/25/2017 9:36 PM T [facility] LYMPHOCYTES % 11.7(L) 15.8 - 45.0 % 03/25/2017 9:37 PM [facility] NEUTROPHILS % 83.3(H) 42.1 - 71.9 % 03/25/2017 9:37 PM [facility] MONOCYTES % 4.2(L) 5.7 - 12.5 % 03/25/2017 9:37 PM [facility] EOSINOPHILS 0.1 0.0 - 5.6 % 03/25/2017 9:37 PM [facility] BASOPHILS 0.2 0.0 - 1.3 % 03/25/2017 9:37 PM [facility] ABS. NEUTROPHILS TOTAL 15.26(H) 1.40 - 6.00 x10'3/uL 03/25/2017 9:37 PM [facility] IMMATURE GRANS % 0.5 0.0 - 0.5 % 03/25/2017 9:37 PM [facility] ABS. LYMPHOCYTES 2.14 0.80 - 4.70 x10'3/uL 03/25/2017 9:37 PM [facility] 03/25/2017 9:17 PM CDT 03/25/2017 9:32 PM CDT us Generic Conversion Md [facility] Final R esult [facility] [address] [place] [address], [place] [phone] documented in this encounter Visit Diagnoses Not on filedocumented in this encounter Additional Health Concerns Infection Onset Date Last Indicated Resolved Time COVID-19 Rule Out 01/11/2024 01/11/2024 01/11/2024 9:00 PM CDT MRSA Comment:08/06/24 +MRSA Left ankle 08/06/2024 08/06/2024 documented as of this encounter Care Teams Customer Loyalty Representative Relationship Specialty Start Date End Date , Rick Martinez MD PCP - General 07/11/13 Susie Curtis MD [facility] [address] [place] [address] PCP - General FAMILY PRACTICE 06/20/19 08/07/22 Marlon Saucedo MD [address] [place] [address] PCP - General FAMILY PRACTICE 08/08/22 documented as of this encounter
--- OUTSIDE RECORDS SUMMARY | 2025-01-21 22:48 | XMS_ITS | Clinical Summary ---
Author Organization [facility] Address [address] [place] [address] Care Team Providers Care Lockstitch Collar Setter Name Role Phone Marlon Saucedo MD Primary Care Provider [phone] Allergies Active Allergy Reactions Criticality Noted Date [...] Diagnosed Date Cholecystitis 08/10/2022 Acute cholecystitis 08/08/2022 Family History Medical History Relation Comments Diabetes [...] place to sleep or slept in a snf (including now)? No 08/08/2022 Comments No Sex and Gender Information Value Date Recorded Sex Assigned at Female 08/06/2024 7:04 PM CASE SUPERVISOR Legal Sex Female 4:57 PM CDT Gender Identity Not on file Sexual Orientation Not on file Last Filed Vital Signs Vital Sign Reading Time Taken Comments Blood Pressure 135/78 08/06/2024 9:00 PM CASE SUPERVISOR Pulse 91 08/06/2024 9:00 PM CASE SUPERVISOR Temperature 36.6 C (97.8 F) 08/06/2024 6:53 PM CASE SUPERVISOR Respiratory Rate 20 08/06/2024 9:00 PM CASE SUPERVISOR Oxygen Saturation 100% 08/06/2024 9:00 PM CASE SUPERVISOR Inhaled Oxygen Concentration - - Weight 113.4 kg (250 lb) 08/06/2024 6:53 PM CASE SUPERVISOR Height 165.1 cm (5' 5) 08/06/2024 6:53 PM CASE SUPERVISOR Body Mass Index 41.6 08/06/2024 6:53 PM CASE SUPERVISOR Plan of Treatment Health Maintenance Due Date Last Done Comments Cervical Cancer Screening Pa p Smear (Age 30 to 64) Every 3 Years 1981 Annual Physical 1984 Hepatitis C 10/02/1999 Hepatitis B Vaccines (1 of 3 - 19+ 3-dose series) 2000 HPV Vaccines (1 - 3-dose SCD M series) 2008 Cervical Cancer Screening Pa p with HPV Testing (Age 30 to 64) Every 5 Years 10/02/2011 Cervical Cancer Screening wi HPV 10/02/2011 Mammogram Screening 2021 COVID-19 Vaccine ( - 2023-2 5 season) 2024 11/09/2020, 10/19/2020, 10/15/2020 DTaP, Tdap and Td Vaccines ( 4 - Td or Tdap) 03/25/2027 03/25/2017, 04/27/2016, 12/24/2011 Meningococcal B Vaccine Aged Out No l [...] on patient's age to complete this topic Additional Health Concerns Infection Onset Date Last Indicated MRSA Comment:08/06/24 +MRSA Left ankle 08/06/2024 08/06/2024 Insurance [place] Advance Directives * Full Code (Latest Code Status on File) Date Activated Date Inactivated Comments 08/08/2022 11:01 AM 08/10/2022 6:33 PM Care Teams Lockstitch Collar Setter Relationship Specialty Start Date End Date Marlon Saucedo MD [address] [place] [address] PCP - General FAMILY PRACTICE 08/08/22
--- OUTSIDE RECORDS SUMMARY | 2025-01-21 22:49 | XMS_ITS | Clinical Summary ---
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 Impacted cerumen of left ear 04/22/2022 Assessment & Plan (04/22/2022 2:50 PM INSPECTOR WIRE PRODUCTS): Avoid ear cleaning techniques Sensorineural hearing loss (SNHL) of both ears 0 07/26/2021 Assessment & Plan (07/26/2021 11:17 AM INSPECTOR WIRE PRODUCTS): [facility] Benign paroxysmal positional vertigo of right ea r 07/26/2021 Assessment & Plan (07/26/2021 11:17 AM INSPECTOR WIRE PRODUCTS): Right Benign Positional Vertigo treated with Sangeeta maneuver Flonase 2 sprays into each nostril while looking down over the sink, do not sniff in or blow nose after use for at least 30 minutes Hearing test - [facility] Post-Sangeeta instructions discussed and Handout provided Recurrent acute suppurative otitis media of right ear without spontaneous rupture of tympanic membrane 07/20/2021 Restlessness 07/14/2016 Anxiety 07/14/2016 Akathisia 01/18/2016 Nausea and vomiting Encounters Date Type Department Care Team Description 11/11/2024 Telephone [facility] Scheduling [address] [place] [address] Jeanne Delacruz from Last 3 Months Surgical History Surgery Date Site/Laterality Comments [place] EXCISION SUBMANDIBULAR SUBMAXILLARY GLAND Surgery Excision Of [...] on file Legal Sex Female 8:24 AM INSPECTOR WIRE PRODUCTS Gender Identity Not on file Sexual Orientation Not on file Obstetrics History Last Filed Vital Signs Vital Sign Reading Time Taken Comments Blood Pressure 114/63 04/26/2024 5:05 PM INSPECTOR WIRE PRODUCTS Pulse 76 04/26/2024 5:10 PM INSPECTOR WIRE PRODUCTS Temperature 36.6 C (97.9 F) 04/26/2024 5:10 PM INSPECTOR WIRE PRODUCTS Respiratory Rate 20 04/26/2024 5:10 PM INSPECTOR WIRE PRODUCTS Oxygen Saturation 95% 04/26/2024 5:10 PM INSPECTOR WIRE PRODUCTS Inhaled Oxygen Concentration - - Weight 117.8 kg (259 lb 9.6 oz) 04/26/2024 1:30 PM INSPECTOR WIRE PRODUCTS Height 165.1 cm (5' 5) 04/26/2024 1:30 PM INSPECTOR WIRE PRODUCTS Body Mass Index 43.2 04/26/2024 1:30 PM INSPECTOR WIRE PRODUCTS Plan of Treatment Health Maintenance Due Date Last Done Comments Breast Cancer Screening-Mammogram 1981 Cervical Cancer Screening 1981 Depression Screening 1981 Hepatitis C Screening 1981 Varicella Vaccines (1 of 2 - 13+ 2-dose series) 1994 Hepatitis B Screening 10/02/1999 Regular Well Visit/Exam 18-64 10/02/1999 HPV Vaccines (1 - 3-dose SCD M series) 2008 Covid-19 Vaccine (4 - 2023-2 5 season) 2024 11/09/2020, 10/19/2020, 10/15/2020 Influenza Vaccine (#1) 2025 03/26/2019 DTaP/Tdap/Td Vaccine (4 - Td or Tdap) 03/25/2027 03/25/2017, 04/27/2016, 12/24/2011 Pneumococcal vaccine <65 Aged Out No longer eligible based on patient's age to complete this topic Insurance [facility] IDPA Advance Directives For more information, please contact: [phone] * Full Code (Latest Code Status on File) Date Activated Date Inactivated Comments 07/20/2021 12:48 PM 07/22/2021 3:03 PM Care Teams Appian Bpm Developer Relationship Specialty Start Date End Date Marlon Saucedo MD [address] [place] [address] PCP - General Family Medicine 02/28/24
--- OUTSIDE RECORDS SUMMARY | 2025-01-21 22:50 | XMS_ITS | Patient Health Record ---
Author Organization [facility] Address [address] [place] [address] Care Team Providers Care Musculoskeletal Physician Name Role Phone Haresh Marcella Primary Care Provider Juliann Nixon Unavailable [phone] Allergies Allergen (clinical drug ingredient) Drug/Non Drug Allergy documented on EMR Reaction Allergy Type Onset Date Status Biaxin Hives Drug Allergy Active hydroxyzine Hydroxyzine hives Drug Allergy Act jam Reason For Referral Reason Neurology referral Diagnosis 1 Bipolar 2 disorder ( F31.81) Referral Organization [facility] Referring Provider First Name Marcella Referring Provider Last Name Haresh Referring Provider Speciality Psychiatry Referred Provider Azam hi, Department of Neurology Referred Provider Specialty Neurology General Notes Elana Armando 0 01/17/2025 04:05:36 PM > Nurse faxed referral to provider and mailed referral letter to home address on file. Clinical Notes [facility] Dept. of Neurology, [address], Medical Office [facility] [address], [address], [place] [address], (P) [phone], (F) [phone] Referral Priority Routine Medications Medication SIG (Take, Route, Fr equency, Duration) Notes Start Date End Date Status Atomoxetine HCl 60 MG 1 capsule in the m orning Orally Once a day; Duration: 30 days 12/10/2024 Active PROzac 20 MG 1 capsule Orally Onc e a day; Duration: 30 days 03/29/2024 Active Lisinopril 20 MG 1 tablet Orally Once a day Active Meloxicam 7.5 MG 1 tablet Orally Once a day Active Multivitamin - 1 tablet Orally Once a day; Duration: 15 days Active Social History Tobacco Use: Social [...] deficit hyperactivity disorder) (F90.9) Active confirmed Problem Bipolar 2 disorder (95699785) Bipolar 2 disorder (F31.81) 4 Active confirmed Problem Binge eating disorder (211482655) Binge eating disorder (F50.81) 0 Active confirmed Encounters Encounter Location Date Provider Diagnosis [address] [address] 02/08/2024 Marcella Hutson [address] [address] 03/25/2024 Juliann Nixon Bipolar 2 disorder F31.[address] [address] 09/05/2024 Marcella Hutson Bipolar 2 disorder F31.81 [facility] [address] [place] [address] 09/20/2024 Marcella Hutson [address] [address] 09/26/2024 Marcella Hutson [address] [address] 10/08/2024 Marcella Hutson [facility] [address] [place] [address] 12/03/2024 Marcella Hutson [address] [address] 09/27/2024 Marcella Hutson [address] [address] 11/10/2024 Marcella Hutson [address] [address] 11/26/2024 Marcella Powers [facility] [place] [address] 01/24/2024 Marcella Powers Bipolar 2 disorder F31.81 and Binge eating disorder F50.[address] [place] [address] 03/29/2024 Marcella Powers Bipolar 2 disorder F31.[address] [place] [address] 05/03/2024 Marcella Powers Bipolar 2 disorder F31.81 and Binge eating disorder F50.81 [place] [address] [place] [address] 09/19/2024 Marcella Powers Bipolar 2 disorder F31.81 and Binge eating disorder F50.81 [place] [address] [place] [address] 11/06/2024 Marcella Powers Bipolar 2 disorder F31.81 and ADHD (attention deficit hyperactivity disorder) F90.9 [place] [address] [facility] [place] [address] 11/28/2024 Marcella Powers Bipolar 2 disorder F31.81 and ADHD (attention deficit hyperactivity disorder) F90.[address] [place] [address] 01/17/2025 Marcella Powers Bipolar 2 disorder F31.81 and ADHD (attention deficit hyperactivity disorder) F90.9 Assessments Encounter Date Diagnosis (ICD Code) Assessment Notes Treatment Notes Treatment Clinical Notes Section Notes 11/28/2024 Bipolar 2 disorder (ICD-10 - F31.81) 01/17/2025 Bipolar 2 disorder (ICD-10 - F31.81) increase strattera. Consider stopping prozac related to heat intolerance. neurology referral. Reviewed Prescription Monitoring program. Continue services as scheduled. Labs completed recently. May self-administer medications or be administered own oral medications per [facility] protocols. Provided informed consent with understanding of side effects, adverse effects, risks and benefits as well as alternative treatments as previously discussed and with the above recommended medications & other aspects of the treatment program. Agrees to return sooner if symptoms worsen or suicidal or homicidal ideations occur. 11/06/2024 ADHD (attention deficit hyperactivity disorder) (ICD-10 - F90.9) 11/06/2024 Bipolar 2 disorder (ICD-10 - F31.81) 09/19/2024 Bipolar 2 disorder (ICD-10 - F31.81) 03/29/2024 Bipolar 2 disorder (ICD-10 - F31.81) Stop Zoloft and start Prozac. Family members are on Fluoxetine and doing well. Reviewed Prescription Monitoring program. Continue services as scheduled. Labs completed recently. May self-administer medications or be administered own oral medications per [facility] protocols. Provided informed consent with understanding of side effects, adverse effects, risks and benefits as well as alternative treatments as previously discussed and with the above recommended medications & other aspects of the treatment program. Agrees to return sooner if symptoms worsen or suicidal or homicidal ideations occur. 03/25/2024 Bipolar 2 disorder (ICD-10 - F31.81) 01/24/2024 Bipolar 2 disorder (ICD-10 - F31.81) 09/05/2024 Bipolar 2 disorder (ICD-10 - F31.81) 05/03/2024 Bipolar 2 disorder (ICD-10 - F31.81) 05/03/2024 Binge eating disorder (ICD-10 - F50.81) 01/24/2024 Binge eating disorder (ICD-10 - F50.81) 09/19/2024 Binge eating disorder (ICD-10 - F50.81) 01/17/2025 ADHD (attention deficit hyperactivity disorder) (ICD-10 - F90.9) 11/28/2024 ADHD (attention deficit hyperactivity disorder) (ICD-10 - F90.9) 11/06/2024 Other Continue curren t medications. Reviewed Prescription Monitoring program. Continue services as scheduled. Labs completed recently. May self-administer medications or be administered own oral medications per [facility] protocols. Provided informed consent with understanding of [...] or be administered own oral medications per [facility] protocols. Provided informed consent with understanding of [...] or be administered own oral medications per [facility] protocols. Provided informed consent with understanding of [...] or be administered own oral medications per [facility] protocols. Provided informed consent with understanding of side effects, adverse effects, risks and benefits as well as alternative treatments as previously discussed and with the above recommended medications & other aspects of the treatment program. Agrees to return sooner if symptoms worsen or suicidal or homicidal ideations occur. 11/28/2024 Other Insurance will only cover Vyvanse if prescribed by PCP. Chosing a non-stimulant medication for ADHD. Continue services as scheduled. Labs completed recently. May self-administer medications or be administered own oral medications per [facility] protocols. Provided informed consent with understanding of [...] Insured Coverage Start Date Coverage End Date [facility] Claims Department [address] [place] [address] [phone] [id number] Kassandra Batista Self - patient is the insured 1 4 [facility] Claims Department [address] [place] [address] [phone] [id number] Kassandra Batista Self - patient is the insured 4 [facility] Attn Claims Department [address] [place] [address] [phone] [id number] Kassandra Batista Self - patient is the insured 1 Medical (General) History Medical History History ICD Code Movement disorder Surgical History Surgery Date(Month/Year) Left Ankle Surgery 2016 tubal ligation Surgical revision of hardware- removed s crews and plates. 2023 Hospitalization History Reason Date(Month/Year) Left Ankle Surgery 2017 Child Child Child
--- NOTE | 2025-01-21 22:51 | PC.NURSE ---
PATIENT REPORTS THAT HER FRIEND IS ON THE WAY TO PICK HER UP. CONTINUES TO MOVES HEAD AND EXTREMITIES WITHOUT STOPPING. CALL LIGHT IN REACH
[2025-01-21 23:00] VITALS: BP 138/103; PULSE 94; RESP 16; O2SAT 96
[2025-01-21 23:01] VITALS: O2SAT 97
== END 2025-01-21 23:24 | disposition home or self-care (01) ==
PROVIDERS: Emergency Provider Emergency Medicine; PCP Family Medicine
DX: R25.9 Unspecified abnormal involuntary movements (principal)
CPT/HCPCS: 96374; 99284; J2060

== ENCOUNTER 2025-01-22 16:46 | Emergency (ER) | payer OTHER, SELFPAY ==
--- OUTSIDE RECORDS SUMMARY | 2025-01-01 05:20 | XMS_ITS ---
Author Organization [facility] Address [address] [place] [address] Care Team Providers Care Film Masker Name Role Phone Marcella Hutson Primary Care Provider [phone] REASON FOR VISIT 4 week F/U Medications [...] Female Encounters Encounter Location Date Provider Diagnosis [facility] [place] [address] [address] [place] [address] 01/01/2025 Marcella Hutson Bipolar 2 disorder F31.81 and ADHD (attention deficit hyperactivity disorder) F90.9 Assessments Encounter Date Diagnosis (ICD Code) Assessment Notes Treatment Notes Treatment Clinical Notes Section Notes 01/01/2025 Bipolar 2 disorder (ICD-10 - F31.81) 01/01/2025 ADHD (attention deficit hyperactivity disorder) (ICD-10 - F90.9) Plan Of Treatment No Information Progress Notes * Grace BATISTAOB:1980 (44 yo F)Acc No.[id number]:01/01/2025 UNLOCKED PROGRESS NOTE Patient: Kassandra MORGAN Provider: Bridger Hutson DNP, KATHARINE-CAYDEN, CLASSROOM INSTRUCTIONAL AIDE :1980 A ge:44 Y S ex:Female Date:01/01/2025 Address:[address] [place], [place] [id number] Subjective: * Chief Complaints: * 1 . [...] * Electronic signature of Thuy Hutson on 01/22/2025 at 12:28 PM CDT Sign off status: Pending * Provider: Bridger Hutson DNP, KATHARINE-CAYDEN, CLASSROOM INSTRUCTIONAL AIDE Date: 01/01/2025 Generated for Printing/Faxing/eTransmitting on: 01/22/2025 12:28 PM CDT
--- OUTSIDE RECORDS SUMMARY | 2025-01-22 16:49 | XMS_ITS | Patient Health Record ---
Author Organization [facility] Address [address] [place] [address] Care Team Providers Care Piping Designer Name Role Phone Haresh Marcella Primary Care Provider Juliann Nixon Unavailable [phone] Allergies Allergen (clinical drug ingredient) Drug/Non Drug Allergy documented on EMR Reaction Allergy Type Onset Date Status Biaxin Hives Drug Allergy Active hydroxyzine Hydroxyzine hives Drug Allergy Act jam Reason For Referral Reason Neurology referral Diagnosis 1 Bipolar 2 disorder ( F31.81) Referral Organization [facility] Referring Provider First Name Marcella Referring Provider Last Name Haresh Referring Provider Speciality Psychiatry Referred Provider Azam hi, Department of Neurology Referred Provider Specialty Neurology General Notes Elana Armando 0 01/17/2025 04:05:36 PM > Nurse faxed referral to provider and mailed referral letter to home address on file. Clinical Notes Azam hi Dept. of Neurology, [address], Medical Office [facility] [address], [address], [place] [address], (P) [phone], (F) [phone] Referral Priority Routine Medications Medication SIG (Take, [...] Problem Status W/U Status Risk Notes Problem Attention deficit hyperactivity disorder (967773049) ADHD (attention deficit hyperactivity disorder) (F90.9) Active confirmed Problem Bipolar 2 disorder (F31.81) 10/04/19 14 Active confirmed Problem Binge eating disorder (566852747) Binge eating disorder (F50.81) 10/04/19 20 Active confirmed Encounters Encounter Location Date Provider Diagnosis [facility] [address] [place] [address] 01/24/2024 Marcella Hutson Bipolar 2 disorder F31.81 and Binge eating disorder F50.[address] [place] [address] 03/29/2024 Marcella Hutson Bipolar 2 disorder F31.[address] [facility] [place] [address] 05/03/2024 Marcella Hutson Bipolar 2 disorder F31.81 and Binge eating disorder F50.81 [facility] [address] [place] [address] 09/19/2024 Marcella Hutson Bipolar 2 disorder F31.81 and Binge eating disorder F50.81 [facility] [address] [place] [address] 11/06/2024 Marcella Hutson Bipolar 2 disorder F31.81 and ADHD (attention deficit hyperactivity disorder) F90.9 [facility] [place] [address] 11/28/2024 Marcella Hutson Bipolar 2 disorder F31.81 and ADHD (attention deficit hyperactivity disorder) F90.[address] [place] [address] 01/17/2025 Marcella Hutson Bipolar 2 disorder F31.81 and ADHD (attention deficit hyperactivity disorder) F90.[address] [address] 02/08/2024 Marcella Hutson [address] [address] 03/25/2024 Juliann Nixon Bipolar 2 disorder F31.[address] [address] 09/05/2024 Marcella Hutson Bipolar 2 disorder F31.81 [facility] [address] [place] [address] 09/20/2024 Marcella Hutson [address] [address] 09/26/2024 Marcella Haresh [address] [address] 10/08/2024 Marcella Haresh [facility] [address] [place] [address] 12/03/2024 Marcella Haresh [address] [address] 09/27/2024 Marcella Haresh [address] [address] 11/10/2024 Marcella Hutson [address] [address] 11/26/2024 Marcella Haresh Assessments Encounter Date Diagnosis (ICD Code) Assessment Notes Treatment Notes Treatment Clinical Notes Section Notes 01/24/2024 Bipolar 2 disorder (ICD-10 - F31.81) 03/25/2024 Bipolar 2 disorder (ICD-10 - F31.81) 03/29/2024 Bipolar 2 disorder (ICD-10 - F31.81) Stop Zoloft and start Prozac. Family members are on Fluoxetine and doing well. Reviewed Prescription Monitoring program. Continue services as scheduled. Labs completed recently. May self-administer medications or be administered own oral medications per [facility] protocols. Provided informed consent with understanding of [...] 11/06/2024 Bipolar 2 disorder (ICD-10 - F31.81) 11/28/2024 Bipolar 2 disorder (ICD-10 - F31.81) 01/17/2025 Bipolar 2 disorder (ICD-10 - F31.81) increase strattera. Consider stopping prozac related to heat intolerance. neurology referral. Reviewed Prescription Monitoring program. Continue services as scheduled. Labs completed recently. May self-administer medications or be administered own oral medications per [facility] protocols. Provided informed consent with understanding of side effects, adverse effects, risks and benefits as well as alternative treatments as previously discussed and with the above recommended medications & other aspects of the treatment program. Agrees to return sooner if symptoms worsen or suicidal or homicidal ideations occur. 01/17/2025 ADHD (attention deficit hyperactivity disorder) (ICD-10 - F90.9) 11/28/2024 ADHD (attention deficit hyperactivity disorder) (ICD-10 - F90.9) 09/19/2024 Binge eating disorder (ICD-10 - F50.81) 05/03/2024 Binge eating disorder (ICD-10 - F50.81) 01/24/2024 Binge eating disorder (ICD-10 - F50.81) 01/24/2024 Other Restart Zoloft. She reports this was effective in the past. If moods worsen, advised to stop Zoloft and call. May self-administer medications or be administered own oral medications per [facility] protocols. Provided informed consent with understanding of [...] or be administered own oral medications per [facility] protocols. Provided informed consent with understanding of [...] or be administered own oral medications per [facility] protocols. Provided informed consent with understanding of [...] or be administered own oral medications per [facility] protocols. Provided informed consent with understanding of [...] or be administered own oral medications per [facility] protocols. Provided informed consent with understanding of [...] Insured Coverage Start Date Coverage End Date [facility] Claims Department [address] [place] [address] [phone] [id number] Kassandra Batista Self - patient is the insured 1 4 [facility] Claims Department [address] [place] [address] [phone] [id number] Kassandra Batista Self - patient is the insured [address] [facility] Attn Claims Department [address] [place] [address] [phone] [id number] Kassandra Batista Self - patient is the insured 1 Medical (General) History Medical History History ICD Code Movement disorder Surgical History Surgery Date(Month/Year) Left Ankle Surgery 2016 tubal ligation Surgical revision of hardware- removed s crews and plates. 2023 Hospitalization History Reason Date(Month/Year) Left Ankle Surgery 2017 Child Child Child
--- OUTSIDE RECORDS SUMMARY | 2025-01-22 16:49 | XMS_ITS | Clinical Summary ---
Author Organization [place] [id number] [facility] Address [address] [place] [address] Care Team Providers Care Battery Vent Plug Inserter Name Role Phone Marlon Saucedo MD Primary [...] 04/22/2022 Assessment & Plan (04/22/2022 2:50 PM LEAD JAVA SOFTWARE ENGINEER): Doxycycline twice daily for 10 days Follow up with Dentist Oral surgery contact information provided for TMJ dysfunction Impacted cerumen of left ear 04/22/2022 Assessment & Plan (04/22/2022 2:50 PM LEAD JAVA SOFTWARE ENGINEER): Avoid ear cleaning techniques Sensorineural hearing loss (SNHL) of both ears 0 07/26/2021 Assessment & Plan (07/26/2021 11:17 AM LEAD JAVA SOFTWARE ENGINEER): [facility] Benign paroxysmal positional vertigo of right ea r 07/26/2021 Assessment & Plan (07/26/2021 11:17 AM LEAD JAVA SOFTWARE ENGINEER): Right Benign Positional Vertigo treated with Sangeeta maneuver Flonase 2 sprays into each nostril while looking down over the sink, do not sniff in or blow nose after use for at least 30 minutes Hearing test - [facility] Post-Sangeeta instructions discussed and Handout provided Recurrent acute suppurative otitis media of right ear without spontaneous rupture of tympanic membrane 07/20/2021 Restlessness 07/14/2016 Anxiety 07/14/2016 Akathisia 01/18/2016 Nausea and vomiting Encounters Date Type Department Care Team Description 11/11/2024 Telephone [facility] Medicine Scheduling [address] [place] [address] Jeanne Delacruz from Last 3 Months Surgical History Surgery Date Site/Laterality Comments [place] EXCISION SUBMANDIBULAR SUBMAXILLARY GLAND Surgery Excision Of [...] history of diabetes mellitus - (Added by RADHA Conv) Anesthesia problems Neg Hx Relation Name [...] on file Legal Sex Female 8:24 AM LEAD JAVA SOFTWARE ENGINEER Gender Identity Not on file Sexual Orientation Not on file Obstetrics History Last Filed Vital Signs Vital Sign Reading Time Taken Comments Blood Pressure 114/63 04/26/2024 5:05 PM LEAD JAVA SOFTWARE ENGINEER Pulse 76 04/26/2024 5:10 PM LEAD JAVA SOFTWARE ENGINEER Temperature 36.6 C (97.9 F) 04/26/2024 5:10 PM LEAD JAVA SOFTWARE ENGINEER Respiratory Rate 20 04/26/2024 5:10 PM LEAD JAVA SOFTWARE ENGINEER Oxygen Saturation 95% 04/26/2024 5:10 PM LEAD JAVA SOFTWARE ENGINEER Inhaled Oxygen Concentration - - Weight 117.8 kg (259 lb 9.6 oz) 04/26/2024 1:30 PM LEAD JAVA SOFTWARE ENGINEER Height 165.1 cm (5' 5) 04/26/2024 1:30 PM LEAD JAVA SOFTWARE ENGINEER Body Mass Index 43.2 04/26/2024 1:30 PM LEAD JAVA SOFTWARE ENGINEER Plan of Treatment Health Maintenance Due Date [...] patient's age to complete this topic Insurance [facility] IDPA Advance Directives For more information, please contact: [phone] * Full Code (Latest Code Status on File) Date Activated Date Inactivated Comments 07/20/2021 12:48 PM 07/22/2021 3:03 PM Care Teams Battery Vent Plug Inserter Relationship Specialty Start Date End Date Marlon Saucedo MD [address] [place] [address] PCP - General Family Medicine 02/28/24
--- OUTSIDE RECORDS SUMMARY | 2025-01-22 16:49 | XMS_ITS | Clinical Summary ---
Author Organization [facility] Address [address] [place] [address] Care Team Providers Care Court Bailiff Name Role Phone Marlon Saucedo MD Primary Care Provider [phone] Allergies Active Allergy Reactions Criticality Noted Date [...] Sex Assigned at Female 08/06/2024 7:04 PM CIGARETTE TESTER Legal Sex Female 4:57 PM CDT Gender Identity Not on file Sexual Orientation Not on file Last Filed Vital Signs Vital Sign Reading Time Taken Comments Blood Pressure 135/78 08/06/2024 9:00 PM CIGARETTE TESTER Pulse 91 08/06/2024 9:00 PM CIGARETTE TESTER Temperature 36.6 C (97.8 F) 08/06/2024 6:53 PM CIGARETTE TESTER Respiratory Rate 20 08/06/2024 9:00 PM CIGARETTE TESTER Oxygen Saturation 100% 08/06/2024 9:00 PM CIGARETTE TESTER Inhaled Oxygen Concentration - - Weight 113.4 kg (250 lb) 08/06/2024 6:53 PM CIGARETTE TESTER Height 165.1 cm (5' 5) 08/06/2024 6:53 PM CIGARETTE TESTER Body Mass Index 41.6 08/06/2024 6:53 PM CIGARETTE TESTER Plan of Treatment Health Maintenance Due Date [...] Comment:08/06/24 +MRSA Left ankle 08/06/2024 08/06/2024 Insurance [facility] Advance Directives * Full Code (Latest Code Status on File) Date Activated Date Inactivated Comments 08/08/2022 11:01 AM 08/10/2022 6:[address] Bailiff Relationship Specialty Start Date End Date Marlon Saucedo MD [address] [address] PCP - General FAMILY PRACTICE 08/08/22
[2025-01-22 16:54] VITALS: BP 116/63; PULSE 110; RESP 16; TEMP 36.8; O2SAT 98
--- NOTE | 2025-01-22 19:14 | ED.GENADULT ---
HPI - General Adult General Chief complaint: Unspecified Stated complaint: Day 4 involuntary head movements Time Seen by Provider: 01/22/25 19:05 Source: patient Mode of arrival: ambulatory Limitations: no limitations History of Present Illness HPI narrative: 44-year-old with a movement disorder here with a complains of constant shaking of her hands and legs which is been ongoing for past 1 year. Patient states that she is here for referral to her neurologist. She states that there a few days with the symptoms are quite profound and few days he has been very minimal. Her shakiness gets worse with anxiety. She denies having any headache or fever or chills. She has been evaluated for this 2 years ago and has never followed again with a neurologist. Onset (ago): year(s) Location: head, upper extremity and lower extremity Radiation: non-radiation Severity: moderate Pain Consistency: constant Relieving factors: none Exacerbating factors: none Associated symptoms: denies other symptoms Related Data Home Medications ?Medication ?Instructions ?Recorded ?Confirmed ?Last Taken ?Type lisinopril 20 mg tablet 20 mg PO DAILY 11/06/24 01/07/25 Unknown History atomoxetine 40 mg capsule mg PO 01/07/25 01/07/25 Unknown History Allergies Allergy/AdvReac Type Severity Reaction Status Date / Time hydroxyzine Allergy Severe Palpitation Verified 01/22/25 16:48 s clarithromycin Allergy Mild Hives Verified 01/22/25 16:48 Review of Systems Review of Systems: All systems reviewed & are unremarkable except as noted in HPI and below Constitutional: Constitutional: Reports no additional constitutional complaints Eyes: Eyes: Reports no additional eye complaints ENT: Reports system reviewed and no additional complaints, except as documented Cardiovascular: Cardiovascular: Reports no additional cardiovascular complaints Respiratory: Respiratory: Reports no additional respiratory complaints Gastrointestinal: Gastrointestinal: Reports no additional gastrointestinal complaints Neurologic: Reports system reviewed and no additional complaints, except as documented [facility] Past Medical History Medical History Bipolar 1 disorder Imbalance Chronic sinusitis Nasal congestion Deviated nasal septum Tinnitus, right Laryngopharyngeal reflux (LPR) Throat clearing Hypertrophy of nasal turbinates Abdominal hernia Otitis media Anxiety and depression Blood glucose elevated Low aspartate aminotransferase (AST) level Syncope Weight gain Overweight (03/07/17) Irregular menstrual bleeding Dietary counseling and surveillance (09/30/15) Arm paresthesia, right Abnormal involuntary movement COVID Shortness of breath Xerostomia Dental disease Dry eyes Flu-like symptoms Mass in neck Elevated platelet count Swelling of left knee joint Left knee pain Lump of left breast BMI 36.0-36.9,adult Iron deficiency Essential hypertension Vitamin D deficiency Diarrhea Hx of colonic polyp Encounter for screening for lipid disorder Screening for thyroid disorder Joint pain Cholecystectomy planned Eustachian tube dysfunction Vertigo Depression Asthma Surgical History Surgical History S/P hardware removal 05/2024 History of cholecystectomy 2022; [facility] History of endometrial ablation [place]; approx [id number] Hx of tonsillectomy Status post open reduction with internal fixation (ORIF) of fracture of ankle Family History Family History Father Family history of diabetes mellitus in first degree relative Acute myocardial infarction Diabetes mellitus Mother No problems noted. 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 Spiritual care concerns: No Exam Narrative: GENERAL: Well-appearing, well-nourished, and in no acute distress. HEAD: Normocephalic, atraumatic. Constantly moving the head involuntary EYES: PERRLA and EOMI. ENT: Nares clear, no rhinorrhea or epistaxis. Mucous membranes moist. NECK: Supple. CHEST: Clear to auscultation. No respiratory distress. HEART: Regular rate and rhythm. No murmur heard. Normal peripheral pulses. ABDOMEN: Soft, nontender, nondistended, normal active bowel sounds. EXTREMITIES: Normal range of motion. No edema. SKIN: Warm, dry, no rash. NEURO: No focal deficits. Alert and oriented x3. PSYCH: Normal mood and affect. Course Course Emergency Course: Patient stops shaking when distracted did explain to her that she may have to see a movement disorder specialist either in [facility] or [facility]. Unfortunately I would not be able to offer at this hospital as we do not have a movement disorder specialist here. Patient did understand Vital Signs Vital signs: Vital Signs Temperature 36.8 C 01/22/25 16:54 Pulse Rate 110 H 01/22/25 16:54 Respiratory Rate 16 01/22/25 16:54 Blood Pressure 116/63 01/22/25 16:54 Pulse Oximetry 98 01/22/25 16:54 Oxygen Delivery Room Air 01/22/25 16:54 Temperature 36.8 C 01/22/25 16:54 Pulse Rate 110 H 01/22/25 16:54 Respiratory Rate 16 01/22/25 16:54 Blood Pressure 116/63 01/22/25 16:54 Pulse Oximetry 98 01/22/25 16:54 Oxygen Delivery Room Air 01/22/25 16:54 Medical Decision Making Vital Signs Vital Signs: Vital Signs Temperature 36.8 C 01/22/25 16:54 Pulse Rate 110 H 01/22/25 16:54 Respiratory Rate 16 01/22/25 16:54 Blood Pressure 116/63 01/22/25 16:54 Pulse Oximetry 98 01/22/25 16:54 Oxygen Delivery Room Air 01/22/25 16:54 Temperature 36.8 C 01/22/25 16:54 Pulse Rate 110 H 01/22/25 16:54 Respiratory Rate 16 01/22/25 16:54 Blood Pressure 116/63 01/22/25 16:54 Pulse Oximetry 98 01/22/25 16:54 Oxygen Delivery Room Air 01/22/25 16:54 Discharge Plan Discharge Clinical Impression: Abnormal involuntary movements Patient Disposition: Home Condition: Stable Instructions: Antibiotic Form Additional Instructions: advised to follow with movement disorder clinic in [facility] or at [facility] Patient Language: Nigerian Prescriptions: No Action chlorhexidine gluconate [Peridex] 0.12 % mouthwash 15 ml mucous membrane BID Qty: 473 0RF azelastine-fluticasone 137-50 mcg/spray spray,non-aerosol 1 spray intranasal BID 30 Days Qty: 23 2RF Rx Instructions: administer into each nostril omeprazole 40 mg capsule,delayed release(DR/EC) 40 mg PO DAILY 30 Days Qty: 30 2RF fluoxetine [Prozac] 20 mg capsule 20 mg PO DAILY Qty: 90 0RF atomoxetine 40 mg capsule PO ondansetron 4 mg tablet,disintegrating 4 mg PO Q8H PRN (Reason: nausea and vomiting) Qty: 7 0RF ibuprofen 600 mg tablet 600 mg PO TID PRN (Reason: pain) Qty: 30 0RF lisinopril 20 mg tablet 20 mg PO DAILY docusate sodium [Colace] 100 mg capsule 100 mg PO BID Qty: 20 0RF rizatriptan 10 mg tablet 10 mg PO ONCE PRN (Reason: migraine headache) Qty: 12 0RF famotidine 40 mg tablet 40 mg PO DAILY 30 Days Qty: 30 5RF Rx Instructions: to be used with meals at bed time Follow-up/Referrals: Marlon Saucedo MD [Primary Care Provider, Family Practice] Time of Disposition: 19:27
--- NOTE | 2025-01-22 19:24 | PC.NURSE ---
pt left before she was up for discharge. pt was able to walk without any difficulty
== END 2025-01-22 19:45 | disposition home or self-care (01) ==
LOC: ANHED 19:36
PROVIDERS: Emergency Provider Family Medicine; PCP Family Medicine
DX: R25.8 Other abnormal involuntary movements (principal); I10 Essential (primary) hypertension; E55.9 Vitamin D deficiency, unspecified; J45.909 Unspecified asthma, uncomplicated; J32.9 Chronic sinusitis, unspecified; F41.9 Anxiety disorder, unspecified; F31.9 Bipolar disorder, unspecified; Z86.16 Personal history of COVID-19; Z86.0100 Personal history of colon polyps, unspecified; Z79.899 Other long term (current) drug therapy
CPT/HCPCS: 99281

== ENCOUNTER 2025-04-10 16:15 | Outpatient (CLI) | payer OTHER, SELFPAY ==
--- OUTSIDE RECORDS SUMMARY | 2024-09-06 03:40 | XMS_ITS ---
Author Organization [facility] Address [address] [place] [address] Care Team Providers Care Personal Computer Network Analyst Name Role Phone Marcella Hutson Primary Care Provider [phone] REASON FOR VISIT f/u Social History Sex Assigned At : Social History Observation Description Sex Assigned At Female Encounters Encounter Location Date Provider Diagnosis [address] [place] [address] 09/06/2024 Marcella Hutson Plan Of Treatment No Information Progress Notes * LESTERGraceOB:1980 (44 yo F)Acc No.[id number]:09/06/2024 UNLOCKED PROGRESS NOTE Patient: Kassandra MORGAN Provider: Bridger Hutson DNP, KATHARINE-BC, COMPUTER TECHNOLOGY TEACHER :1980 A ge:43 Y S ex:Female Date:09/06/2024 Address:[address] , [facility] Subjective: * Chief Complaints: * 1 . F/u. * Medical History: Objective: * Vitals: Assessment: Plan: * Treatment: * * Electronic signature of Thuy Hutson on 04/10/2025 at 09:05 PM PRODUCE TEAM LEAD Sign off status: Pending * Provider: Bridger Hutson DNP, JANIEP-BC, COMPUTER TECHNOLOGY TEACHER Date: 0 09/06/2024 Generated for Printing/Faxing/eTransmitting on: 1 06/10/2024 09:05 PM PRODUCE TEAM LEAD
--- OUTSIDE RECORDS SUMMARY | 2024-10-23 04:00 | XMS_ITS ---
Author Organization [facility] Address [address] [place] [address] Care Team Providers Care Water/Wastewater Project Manager Name Role Phone Marcella Hutson Primary Care Provider [phone] REASON FOR VISIT 4 week Social History Sex Assigned At : Social History Observation Description Sex Assigned At Female Encounters Encounter Location Date Provider Diagnosis [address] [place] [address] 10/23/2024 Marcella Hutson Plan Of Treatment No Information Progress Notes * LESTERGraceOB:1980 (44 yo F)Acc No.[id number]:10/23/2024 UNLOCKED PROGRESS NOTE Patient: Kassandra MORGAN Provider: Bridger Hutson DNP, KATHARINE-BC, RESIDENTIAL LAWN SPECIALIST :1980 A ge:44 Y S ex:Female Date:10/23/2024 Address:[address] [facility] [place] Subjective: * Chief Complaints: * 1 . 4 week. * Medical History: Objective: * Vitals: Assessment: Plan: * Treatment: * * Electronic signature of Thuy Hutson on 04/10/2025 at 09:06 PM PROPERTY DISPOSAL OFFICER Sign off status: Pending * Provider: Bridger Hutson DNP, JANIEP-BC, RESIDENTIAL LAWN SPECIALIST Date: 10/23/2024 Generated for Printing/Faxing/eTransmitting on: 06/10/2024 09:06 PM PROPERTY DISPOSAL OFFICER
--- OUTSIDE RECORDS SUMMARY | 2025-01-01 04:20 | XMS_ITS ---
Author Organization [facility] Address [address] [place] [address] Care Team Providers Care Trash Collector Truck Driver Name Role Phone Marcella Hutson Primary Care Provider REASON FOR VISIT 4 week F/U Medications Medication SIG (Take, Route, Frequency, Duration) Notes Start Date End Date Status Vyvanse 60 MG 1 capsule in the mor elis Orally Once a day; Duration: 30 days 01/01/2025 Not-Taking Lisinopril 20 MG 1 tablet Orally Once a day Active PROzac 20 MG 1 capsule Orally Onc e a day; Duration: 30 days 03/29/2024 Active Atomoxetine HCl 40 MG 1 capsule in the m orning Orally Once a day; Duration: 30 days 12/10/2024 Active Qelbree 200 MG 1 capsule Orally Onc e a day; Duration: 30 day(s) 11/28/2024 Active Vyvanse 60 MG 1 capsule Orally onc e a day; Duration: 30 days 11/06/2024 Not-Takin g Multivitamin - 1 tablet Orally Once a day; Duration: 15 days Active Vyvanse 60 MG 1 capsule in the mor elis Orally Once a day; Duration: 30 days 12/04/2024 Not-Taking Meloxicam 7.5 MG 1 tablet Orally Once a day Active Social History Sex Assigned At : Social History Observation Description Sex Assigned At Female Encounters Encounter Location Date Provider Diagnosis [facility] [address] [address] 01/01/2025 Marcella Hutson Bipolar 2 disorder F31.81 and ADHD (attention deficit hyperactivity disorder) F90.9 Assessments Encounter Date Diagnosis (ICD Code) Assessment Notes Treatment Notes Treatment Clinical Notes Section Notes 01/01/2025 Bipolar 2 disorder (ICD-10 - F31.81) 01/01/2025 ADHD (attention deficit hyperactivity disorder) (ICD-10 - F90.9) Plan Of Treatment No Information Progress Notes * Grace BATISTAOB:1980 (44 yo F)Acc No.[id number]:01/01/2025 UNLOCKED PROGRESS NOTE Patient: Kassandra MORGAN Provider: Bridger Hutson DNP, KATHARINE-CAYDEN, SENIOR SECURITY ENGINEER :1980 A ge:44 Y S ex:Female Date:01/01/2025 Address:[address] [place], [place] [id number] Subjective: * Chief Complaints: * 1 . 4 week F/U. * Medical History: * Medications: T aking Lisinopril 20 MG Tablet 1 tablet Orally Once a day , Taking Meloxicam 7.5 MG Tablet 1 tablet Orally Once a day , Taking Multivitamin - Tablet 1 tablet Orally Once a day , Taking PROzac 20 MG Capsule 1 capsule Orally Once a day , Taking Qelbree 200 MG Capsule Extended Release 24 Hour 1 capsule Orally Once a day , Taking Atomoxetine HCl 40 MG Capsule 1 capsule in the morning Orally Once a day , Not-Taking Vyvanse 60 MG Capsule 1 capsule Orally once a day , Not-Taking Vyvanse 60 MG Capsule 1 capsule in the morning Orally Once a day , Not-Taking Vyvanse 60 MG Capsule 1 capsule in the morning Orally Once a day Objective: * Vitals: Assessment: * Assessment: 1. B ipolar 2 disorder - F31.81 (Primary) 2 . A DHD (attention deficit hyperactivity disorder) - F90.9 Plan: * Treatment: * * Electronic signature of Thuy Hutson on 04/10/2025 at 09:06 PM FINANCIAL EXAMINER Sign off status: Pending * Provider: Bridger Hutson DNP, KATHARINE-BC, SENIOR SECURITY ENGINEER Date: 0 01/01/2025 Generated for Printing/Faxing/eTransmitting on: 1 06/10/2024 09:06 PM FINANCIAL EXAMINER
--- NOTE | ~2025-04-10 | CT_ITS ---
EXAMINATION: CT chest high resolution wo wv DATE: 04/10/2025 16:42 INDICATION: Two-week follow-up TECHNIQUE: Computed tomography (CT) of the chest was performed without intravenous contrast. The dose-length product was 542.84 mGy-cm. Automated exposure control and iterative reconstruction technique were employed. COMPARISON: Chest x-ray dated 12/25/2023 FINDINGS: No thoracic lymphadenopathy. Thyroid gland is normal. Heart size normal. No significant pleural or pericardial effusion. Status post cholecystectomy. Subtle hyperdense lesion present near the gallbladder fossa along the capsule medially. Correlation with contrast-enhanced CT or MRI recommended. Calcified granuloma right upper lobe. Calcified granuloma left mid thorax. No endobronchial lesions. No suspicious pulmonary nodules or masses. No pneumothorax. No acute osseous abnormality. IMPRESSION: 1. No acute cardiopulmonary disease. 2: Subtle peripheral hyperdense lesion of the liver. Correlation with CT or MRI with contrast recommended for further evaluation. Reviewed, dictated and finalized at location O. ACE UNLOADER
--- OUTSIDE RECORDS SUMMARY | 2025-04-10 21:06 | XMS_ITS | Data Portability ---
Author Organization [employer] , [facility] Address [address] [place] [address] Care Team Providers Care Salon Stylist Name Role Phone [facility] Payroll And Benefits Specialist Assessment Encounter Date Assessment Date Assessment LastModified by Organization Details LastModified Time 02/13/2023 02/13/2023 Patient is an established patient who presents for a gynecological Annual Exam. The patient denies any changes in her medical history. The patient denies any changes in her family medical history. 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 No menses due to hx [...] seen by PCP for preventative care: Yes [email or web address] Not available 03/14/2023 16:27:27 Plan of Treatment Reminders Order Date Submit Date Provider Last Modified By Organization Details Last Modified Time Details Appointments ANNUAL /WELL WOMAN EST 2024 01:45P M JOSE ALBERTO REY Not available Not available Not available Mammo Screen ing New 2024 03:00P M Mammography Kiya Not available Not available Not available Lab HPV E6+E7 mRNA, qualit ative PCR, cervix 2022 023 АЛЕКСАНДР [facility], [address] [place], [address], 02/15/2023 15:43:03 pap, LB 2022 023 АЛЕКСАНДР [facility], [address], [place], [address], 02/17/2023 08:58:12 Referral gastro entero logist referr al 2021 022 [email or web address] 3 Gracie Haas MD, [address], [place], [address], 10/07/2021 15:08:46 Procedures None record ed. Surgeries None record ed. Imaging US, transv aginal 2022 023 АЛЕКСАНДР Not available 03/15/2023 13:50:04 MAMMO, screen ing, digita l, bilate ral 2022 023 [email or web address] Not available 02/13/2023 17:22:30 US, transv aginal 2020 021 [email or web address] Not available 06/15/2021 13:20:10 Medication Orders June 06/24 (21) 1 mg-20 mcg tablet 2020 021 [facility] [address], [address], 08/27/2021 11:48:04 Patient TargetsNo targets recorded. Patient Instructions Encounter Date Encounter Id Patient Instructions Last Modified By Organization Details Last Modified Time 06/02/2021 [id number] Discussed COCs f or suppression of recurring ovarian cysts. Explained that OCPs will not resolve current cyst but can help prevent future cysts. R/B/ARs reviewed. Desires to start. No contraindications noted. Not available 06/02/2021 15:24:32 08/27/2021 [id number] constipation: ca re instructions Not available 08/31/2021 17:39:19 02/13/2023 [id number] A healthy lifest yle: care instructions [email or web address] [...] Not available 02/13/2023 16:27:00 Reason for Referral Salon Stylist Referral for Constipation Referring Physician: Cecil Li, SMOKING PIPE REPAIRER, Encounter Date: 08/27/2021 Results Created Date Observation [...] l cervi eugenie cytol ogy. Not Available [facility] [address] [place], [address], 02/15/2023 15:43:03 02/14/2002/17/2023 THINP REP TIS PAP clinical information: normal None given Not Available [facility] [address] [place], [address], 02/17/2023 08:58:12 02/14/2002/17/2023 THINP REP TIS PAP LMP: normal NONE GIVEN Not Available [address], [address], 02/17/2023 08:58:12 02/14/2002/17/2023 THINP REP TIS PAP prev. Pap: normal NONE GIVEN Not Available [address], [address], 02/17/2023 08:58:12 02/14/2002/17/2023 THINP REP TIS PAP prev. BX: normal NONE GIVEN Not Available [address], [address], 02/17/2023 08:58:12 02/14/2002/17/2023 THINP REP TIS PAP source: normal Cervi x Not Available [address], [address], 02/17/2023 08:58:12 02/14/2002/17/2023 THINP REP TIS PAP statement of adequacy: normal Satis facto ry for evalu ation . Endoc ervic al/tr ansfo rmati on zone compo nent prese nt. Age and/o r menst rual statu s not provi ded Not Available [address], [address], 02/17/2023 08:58:12 02/14/2002/17/2023 THINP REP TIS PAP interpretati on/result: normal Cytol ogy Resul ts: Negat jam for intra epith elial lesio n or vidhya alfaro . Not Available [address], [address], 02/17/2023 08:58:12 02/14/2002/17/2023 THINP REP TIS PAP comment: normal This Pap test has been evalu ated with compu ter [employer] [facility] [facility] . Not Available [address] [place], [address], 02/17/2023 08:58:12 02/14/2002/17/2023 THINP REP TIS PAP cytotechnolo gist: normal AMW, CT( CP) CT scree elis locat ion: [place] [address] [place] [address] Not Available [facility] [address] [address] [place], [address], 02/17/2023 08:58:12 02/14/2002/17/2023 THINP REP TIS PAP comment EXPLA NATOR [...] clini eugenie infor matio n. Not Available [facility] [address] [address] , [place], [address], 02/17/2023 08:58:12 06/03/20 21 06/02/2021 US, trans vagin al No observ ation record ed. Jessica [address], [place], [address], 06/06/2021 22:25:13 08/29/19 22 08/27/2021 US, trans vagin al No observ ation record ed. [email or web address] Not Available 08/30 12:20:36 03/15/20 23 03/14/2023 US, trans vagin al No observ ation record ed. [email or web address] Jessica [address], [place], [address], 03/15/2023 14:19:14 Result Notes None recorded. Problems Name Problem SNOMED Code Status Onset Date Resolution Date Notes Provider Name and Address Organization Details Recorded Time Obesity 714464770 Completed 201210/02/2013 Obesity; Progress : Stable Added By: Rosa Holland Add to Current Problems : NO ProblemS tatus: Resolve Not Available [facility] 2 19:34:53 Known OR suspecte d abnormal ity affectin g manageme nt of mother Completed 201201/09/2013 Other known or suspecte d abnormal ity, antepart um conditio n or complica tion; Progress : Stable Added By: Rosa Holland Add to Current Problems : NO ProblemS tatus: Resolve Not Available [facility] 2 19:34:52 Uses intraute rine contrace ption 500138658 Completed 201210/02/2013 Patient with intraute rine contrace ptive device (IUD); Location : None Severity : Moderate Progress : Stable Added By: Rosa Holland Add to Current Problems : NO ProblemS tatus: Resolve Not Available [facility] 1 09:13:05 Mild postnata l depressi on 953744393 Completed 201205/11/2013 Follow-u p visit for postpart um depressi on; Location : None Severity : Moderate Progress : Stable Added By: Maricel Longo Add to Current Problems : NO ProblemS tatus: Resolve Not Available [facility] 1 09:13:04 Psychiat isak follow-u p Completed 201205/11/2013 Follow-u p visit for postpart um depressi on; Location : None Progress : Stable Added By: Maricel Longo Add to Current Problems : NO ProblemS tatus: Resolve Not Available [facility] 2 19:34:51 Dyspareu leodan 93710962 Completed 201210/01/2013 Dyspareu leodan; Location : None Progress : Stable Added By: Nena Wang Add to Current Problems : NO ProblemS tatus: Resolve Not Available [facility] 2 19:34:56 Follow-u p encounte r Completed 201210/01/2013 Follow-u p examinat ion; Location : None Progress : Stable Added By: Soco Salcedo Add to Current Problems : NO ProblemS tatus: Resolve Not Available [facility] 2 19:34:53 Depressi ve disorder 97490491 Completed 201303/11/2014 Depressi on; Progress : Stable Added By: Nela Carney Add to Current Problems : NO ProblemS tatus: Resolve Not Available [facility] 2 19:34:56 Leukorrh ea 235526899 Completed 201309/23/2014 Vaginal Discharg e; Progress : Stable Added By: Paola Rudolph Add to Current Problems : NO ProblemS tatus: Resolve Not Available [facility] 2 19:34:52 Female genital organ symptoms 665821217 Completed 201409/01/2014 Pelvic pain; Location : None Progress : Stable Added By: Maricel Longo Add to Current Problems : YES ProblemS tatus: Resolve; Start Date : 03/12/20 14 pelvi c pain; Progress : Stable Added By: Paola Rudolph Add to Current Problems : NO ProblemS tatus: Resolve Not Available [facility] 2 19:34:52 Noninfla mmatory disorder of the vagina 53718852 Completed 201409/29/2014 Vaginal cyst; Location : None Progress : Stable Added By: Ad Hunter Add to Current Problems : NO ProblemS tatus: Resolve Not Available [facility] 2 19:34:53 Uses contrace ption 75522524 Completed 201409/23/2014 Contrace ption advice, other method; Location : None Severity : Moderate Progress : Stable Added By: Raeann Kelly Add to Current Problems : NO ProblemS tatus: Resolve Not Available [facility] 1 09:13:06 Counseli ng for elective steriliz ation done [id number] 9102 Completed 201407/30/2019 Steriliz ation, office visit; Location : None Severity : Moderate Progress : Stable Added By: Soco Sacledo Add to Current Problems : YES ProblemS tatus: Current Steriliz ation, office visit; Severity : Moderate Progress : Stable Added By: Soco Salcedo Add to Current Problems : NO ProblemS tatus: Resolve Not Available [facility] 1 09:13:06 Pre-surg kenneth evaluati on Completed 201409/23/2014 Preopera tive examinat ion - unspecif ied; Location : None Progress : Stable Added By: Soco Salcedo Add to Current Problems : YES ProblemS tatus: Resolve Not Available [facility] 2 19:34:53 Postoper ative follow-u p visit Completed 201406/25/2015 Follow-u p exam followin g other surgery; Location : None Progress : Stable Added By: Soco Salcedo Add to Current Problems : YES ProblemS tatus: Resolve Not Available [facility] 2 19:34:54 General symptom 387257218 Completed 201507/30/2019 Heat intolera nce; Location : None Progress : Stable Added By: Basia Pereira Add to Current Problems : YES ProblemS tatus: Current Heat intolera nce; Progress : Stable Added By: Basia Pereira Add to Current Problems : NO ProblemS tatus: Resolve Not Available [facility] 2 19:34:55 Dysuria 66008951 Completed 201506/14/2016 Dysuria; Location : None Progress : Stable Added By: Linda Broussard Add to Current Problems : YES ProblemS tatus: Resolve Painful micturit ion, unspecif ied; Progress : Stable Added By: Linda Broussard Add to Current Problems : NO ProblemS tatus: Resolve Not Available [facility] 2 19:34:54 Mucous polyp of cervix 96836205 Completed 201707/30/2019 Cervical polyp; Progress : Stable Added By: Rosmery Agrawal Add to Current Problems : NO ProblemS tatus: Resolve Not Available [facility] 2 19:34:56 Finding of menstrua l bleeding Completed 201703/13/2023 Excessiv e and frequent menstrua tion with regular cycle; Progress : Stable Added By: Paola Fernandez Add to Current Problems : YES ProblemS tatus: Current Tanya Britsch [facility] [place] [facility] 3 12:54:45 Polyp of cervix 73083737 Active 2017 Cervical polyp; Location : None Progress : Stable Added By: Rosmery Agrawal Add to Current Problems : YES ProblemS tatus: Current Polyp of cervix uteri; Progress : Stable Added By: Rosmery Agrawal Add to Current Problems : YES ProblemS tatus: Current Not Available [facility] 2 19:34:57 Menometr orrhagia 850911543 Completed 201707/30/2019 Menometr orrhagia ; Location : None Progress : Stable Added By: Paola Fernandez Add to Current Problems : YES ProblemS tatus: Current Menometr orrhagia ; Progress : Stable Added By: Paola Fernandez Add to Current Problems : NO ProblemS tatus: Resolve Not Available [facility] 2 19:34:53 Morbid obesity 976208323 Completed 201707/30/2019 Morbid obesity; Progress : Stable Added By: Paola Fernandez Add to Current Problems : NO ProblemS tatus: Resolve Morbid obesity; Location : None Progress : Stable Added By: Paola Fernandez Add to Current Problems : YES ProblemS tatus: Current Not Available [facility] 2 19:34:51 Severe obesity 35926741830 104 Completed 201703/13/2023 Morbid (severe) obesity due to excess calories ; Progress : Stable Added By: Paola Fernandez Add to Current Problems : YES ProblemS tatus: Current [facility] 3 12:55:00 Surgical follow-u p - normal 696721921 Completed 201701/02/2019 Follow-u p exam followin g [...] Start Date : 09/24/19 15 Not Available [facility] 1 09:13:[address] Concept Completed 201701/02/2019 Encounte r for follow-u p examinat ion after complete d treatmen t for conditio ns other than malignan t neoplasm ; Progress : Stable Added By: Rosmery Agrawal Add to Current Problems : NO ProblemS tatus: Resolve Not Available [facility] 2 19:34:55 Sampling of vagina for Papanico laou smear Completed 201903/13/2023 Encounte r for gynecolo gical examinat ion (general ) (routine ) without abnormal findings ; Progress : Stable Added By: Malou Buitrago Add to Current Problems : YES ProblemS tatus: Current Tanya Britsch null, [place] - [facility] 3 12:54:51 Postcoit al finding 007042179 Completed 201903/13/2023 Postcoit al and contact bleeding ; Progress : Stable Added By: Rosmery Sherwood Add to Current Problems : YES ProblemS tatus: Current Tanya Britsch [place], [place] [facility] 3 12:55:14 Acute vaginiti s 07818176 Completed 201903/13/2023 Acute vaginiti s; Progress : Stable Added By: Rosmery Sherwood Add to Current Problems : YES ProblemS tatus: Current Tanya Britsch null, [place] [facility] 3 12:54:57 Spontane ous ecchymos is 546187202 Active 2019 Spontane ous ecchymos es; Progress : Stable Added By: Rosmery Sherwood Add to Current Problems : YES ProblemS tatus: Current Not Available [facility] 2 19:34:56 Screenin g for malignan t neoplasm of cervix Completed 201903/13/2023 Encounte r for screenin g for malignan t neoplasm of cervix; Progress : Stable Added By: Rosmery Sherwood Add to Current Problems : YES ProblemS tatus: Current Tanya Britsch null, [place] [facility] 3 12:54:40 Constipa tion 71936516 Completed 202103/13/2023 Tanya Britsch null, [place] [facility] 3 12:54:36 Cyst of ovary 87655905 Completed 202103/13/2023 Tanya Duncan angela, [place] [facility] 12:55:11 Notes:Follow-up exam followi ng surgery (V67.09) [...] of Last Pap Smear completed Marimar Malone [place] [facility] 04/24/2024 15:30:53 01/06/20 18 endometrial ablation completed Cecil Li, [place] [address] [place] [address], [place], [address], [facility] 06/01/2021 10:53:14 01/06/20 18 diagnostic hysteroscopy completed Cecil Li, [address], [address], [facility] 06/01/2021 10:54:07 09/10/19 15 ligation of bilateral fallopian tubes completed Cecil Li, [address], [place], [address], [facility] 06/01/2021 10:50:31 09/10/19 15 laparoscopy completed Cecil Li [address], [place], [address], [facility] 06/01/2021 10:51:01 procedure on ankle completed Cecil Li [address], [address], [facility] 06/01/2021 10:51:32 Imaging Results None recorded. Procedure Notes None recorded. Medical Equipment None Reported. Allergies Allergen ID Allergen Name Allergen Category Reaction Reaction Severity Criticality Documentation Date Start Date Code Code System Note Provider Name and Address Organization Details Recorded Time 551624 Biaxin medicatio n Not available Not available Not available 03/26/2021201272 9 RxNorm Sever ity: Moder ate; Not Available [facility] 01:14:45 557903 clarithro mycin medicatio n hives Not available [facility] 04/09/2025201212 RxNorm React ion: Hives , Hives Not Available александр - External [employer] - prod 17:23:00 241422 hydroxyzi ne Not available hives Not available Not available 04/09/20252024 5553 RxNorm Not Available александр - External Data Service - prod 17:23:04 Medications Name Sig Start Date Stop Date Status Note LastModified by Organization Details LastModified Time wal-mucil 51.7% powder orange MIX AND DRINK 2 ROUNDED TEASPOON SFUL IN LIQUID BY MOUTH DAILY 06/02 completed Not Available Not Available Not Available cyclobenz aprine 10 mg tablet 10/08 completed Not Available Not Available Not Available [...] isela HCL 8 mg oral tablet RxNorm: 608377 Allow Substitu tion: False Refill Denied: No Refill DateOccu rred: 07/30/19 20 Edited by: Sandra Stone ) on 07/31/19 Stopped by: Sandra Stone ) on Not [...] Not Available prednison e 20 mg tablet TAKE 2 TABLETS BY MOUTH DAILY FOR 5 DAYS 10/08 completed Not Available Not Available Not Available Generlac 10 gram/15 mL oral solution TAKE 30MLS BY MOUTH DAILY NEEDED FOR CONSTIPA TION 06/02 completed Not Available Not Available Not Available Diflucan 150 mg tablet take 1 tablet (150 mg) PO now and repeat in 72 hours. Take after finished with antibiot ic 06/02 completed Diflucan 150 mg oral tablet RxNorm: 929214 Allow Substitu tion: True Refill Denied: No Edited by: Sandra Stone ) on 07/31/19 20 Stopped by: Sandra Stone ) on Not Available Not Available Not Available prochlorp erazine maleate 10 mg tablet 08/27 completed Not Available Not Available Not Available doxycycli ne monohydra te 100 mg tablet TAKE 1 TABLET BY MOUTH TWICE DAILY FOR 7 DAYS 10/08 completed Not Available Not Available Not Available [...] completed Not Available Not Available Not Available omeprazol e 20 mg capsule,d elayed release TAKE 1 CAPSULE BY MOUTH DAILY active Not Available Not Available No t Available hydroxyzi ne HCl 25 mg tablet 02/13 completed Not Available Not Available Not Available norethind piper acetate 1 mg-ethiny l estradiol 20 mcg tablet Take 1 tablet every day by oral route as directed . 08/27 completed Not Available Not Available Not Available methylpre dnisolone 4 mg tablets in a dose pack FOLLOW PACKAGE DIRECTIO NS 10/08 completed Not Available Not Available Not Available Zoloft 100 mg tablet Take 1 tablet(s ) by mouth daily 10/02 completed Zoloft 100mg Tablet RxNorm: 757119 Allow Substitu tion: True Refill Denied: No For Problem: Follow-u p visit for postpart um depressi on Not Available Not Available Not Available ondansetr on 4 mg disintegr ating tablet DISSOLVE 1 TABLET ON THE TONGUE EVERY 8 HOURS NEEDED FOR NAUSEA OR VOMITING active Not Available Not Available No t Available cefdinir 300 mg capsule 02/13 completed Not Available Not Available Not Available fluticaso ne propionat e 50 mcg/actua tion nasal spray,pepper pension SHAKE LIQUID AND USE 1 SPRAY IN EACH NOSTRIL TWICE DAILY 02/13 completed Not Available Not Available Not Available naproxen 500 mg tablet active Not Available Not Available Not Available diazepam 5 mg tablet 08/27 completed Not Available Not Available Not Available amoxicill in 875 mg-potass ium clavulana te 125 mg tablet take 1 tablet by oral route every 12 hours 02/13 completed Not Available Not Available Not Available Lexapro 10 mg tablet 1 tab QD 12/31 completed Lexapro 10mg Tablet RxNorm: 072748 Allow Substitu tion: True Refill Denied: No [...] daily 08/09 completed Zoloft 100mg Tablet RxNorm: 820492 Allow Substitu tion: True Refill Denied: No Not Available Not Available Not Available Klonopin 10/31 completed Klonopin 0.5mg Tablet RxNorm: 277639 Allow Substitu tion: True Refill Denied: No Refill DateOccu rred: 04/15/20 16 Not Available Not Available Not Available amoxicill in 09/23 completed Amoxicil red Allow Substitu tion: True Refill Denied: No Refill Note: Auto Aged Refill DateOccu rred: 04/02/20 15 Not Available Not Available Not Available mirtazapi ne 10/31 completed Mirtazap ine Allow Substitu tion: True Refill Denied: No Refill DateOccu rred: 04/15/20 16 Not Available Not Available Not Available Miralax 10/31 completed Miralax RxNorm: 500122 Allow Substitu tion: True Refill Denied: No Refill DateOccu rred: 09/24/19 15 Not Available Not Available Not Available Lexapro 04/15 completed Lexapro 10mg Tablet RxNorm: 453978 Allow Substitu tion: True Refill Denied: No [...] index (BMI) Body weight Body temperature Systolic And Diastolic Provider Name and Address Organization Details Last Updated DateTime 08/27/2021 165.1 cm 46.7 kg/m2 037878. 02 g 97.7 [degF] 122/72 mm[Hg] Karen Sauceda [employer] [facility] IV 11:47:12 Date Recorded Body height Provider Name an d Address Organization Details Last Updated DateTime 02/13/2023 165.1 cm Jenniferbenjamin [place] [facility] 02/13/2023 15:51:37 Date Recorded Body mass index (BMI) Body weight Systolic And Diastolic Provider Name and Address Organization Details Last Updated DateTime 02/13/2023 41.2 kg/m2 981321.11 g 130/60 mm[Hg] Flory Cool [facility] 02/13/2023 15:57:36 Date Recorded Body height Body mass index (BMI) Body weight Body temperature Systolic And Diastolic Provider Name and Address Organization Details Last Updated DateTime 03/14/2023 165.1 cm 40 kg/m2 590261. 61 g 97.4 [degF] 130/78 mm[Hg] Tanya Duncan [facility] [employer] [facility] 3 16:22:20 Date Recorded Body height Body mass index (BMI) Body weight Body temperature Systolic And Diastolic Provider Name and Address Organization Details Last Updated DateTime 06/02/2021 165.1 cm 47.6 kg/m2 922773. 14 g 96.8 [degF] 128/76 mm[Hg] Emilia Matthews [facility] 13:08:18 Social History Question Answer Notes LastModified by Organizat ion Details LastModified Time Tobacco Smoking Status Never Smoker [facility] 06/02/2021 13:10:45 Are You Blind Or Do You Have [...] Sexually Active? Yes Information not available 06/01/2021 Sex: Female Functional Status Question Answer Note LastModified by Organizat ion Details LastModified Time Do you use any illicit or recreational drugs? No Information not available 08/27/2021 Do you or have you ever used any other forms of tobacco or nicotine? No [email or web address] Information not available 03/14/2023 What is your level of alcohol consumption? None [email or web address] Information not available 06/02/2021 What is your exercise level? None Information [...] Y Gynecological History Statement/Question Response Date of Last Colonoscopy Date of last HPV 02/13/2023 Date of LMP Most Recent Bone Density HPV Vaccine N Date of Last Pap Smear 02/13/2023 Current Control Method Tubal Ligat ion Age at Menarche 13 Obstetrics History GPAL:G 4 P 3 0 1 3 Type Value Full Term 3 Spontaneous 1 Living 3 Total 4 Past Encounters Encounter ID Performer Location Encounter Start Date Encounter Closed Date Diagnosis/Indication Diagnosis SNOMED-CT Code Diagnosis ICD10 Code Diagnosis IMO Codes Diagnosis Note [id number] GARRY [facility] [address] [place] [address] 06/02/2021 12:42:35 06/15/2021 13:20:10 Acute pelvic pain 092649535 R10.2 4.8 cm left ovarian cyst; repeat U/S in 4-6 weeks Cyst of ovary 46427250 N 83.209 Uses oral contraception 2003718 Z30.41 [id number] GARRY [facility] [address] [place] [address] 08/27/2021 11:33:02 08/27/2021 13:22:59 Constipation 29700439 K59.00 Cyst of ovary 26691406 N 83.209 Left ovarian cyst resolved. 2.6 cm right cyst today. Advised to rto if pain and if severe, go to ER. Follow up in 6 weeks for repeat U/S. [id number] [facility] [address] [place] [address] 02/13/2023 15:49:08 02/13/2023 17:22:29 Gynecologic examination 36330180 Z01.419 Screening for malignant neoplasm of cervix 331249486 Z12.4 Screening mammography of bilateral breasts 1686819055 14197 Z12.31 Pt educated on breast cancer screening guidelines , and discussed recommenda tion for scheduling imaging at hospital of her choice. Reviewed recommenda tion to have imaging done at same facility if possible as previous screenings . Pt states understand ing of POC. Contracept ion education 117682261 Z30.09 Contracept jam counseling : Discussed options including OCPs, NuvaRing, Nexplanon, hormonal and copper IUDs. Discussed risks, efficacy, non contracept jam benefits, and side effects of each option, including risk of VTE with hormonal contracept ion and uterine perforatio n, expulsion, infection with IUD. Depression screening [id number] Z13.31 Pain of breast [id number] N64.4 Pt comes in today for Breast [...] mmatory. Discussed complement sheryl therapy of Evening [place] oil- up to 3,000 mg daily for 2 weeks and beyond if it helps.Catherine ent declines mammo/US at present. Discussed plan to re-eval sx after diet modificati on. If persistent would recommend breast imaging. Will RTC if recurring symptoms, worsening symptoms, or palpable abnormalit y. Pain in pelvis [id number] R10.2 [id number] GARRY OLIVARES-[facility] [address] [place] [address] 03/14/2023 15:30:56 03/15/2023 09:47:55 Pain in pelvis [id number] R10.2 TVUS today showed [facility]MC WNL, hx of ablation. Bilateral ovary WNL. No fluid or masses seen in CDS or adnexa. Small fibroid noted. Health Concerns Section Related Observation LastModified by Organization Detai ls LastModified Time None Recorded Concern Status LastModified by Organization Details LastModified Time None Recorded Advance Directives Directive None Recorded Payers Insurance Date Sequence Insurance Name Policy Number Policy Aldana Covered Member ID Aldana Member ID Guarantor Name 04/03/2025 1 [facility] ON OR AFTER 12/03/20 (MEDICAID REPLACEMENT - HMO) Kassandra Batista [id number] Kassandra Odonnell Notes Date Note Type Note Provider Name and Address Organization Details Recorded Time 1 text/html Pelvic PainReported by PatientHPIFor associated symptoms, patient reportsconstipationbut reportsno back pain,no chills,no vaginal discharge, andno fever. For location, patient reportsleft. For onset/timing, patient reports1-2 weeks. For quality, patient reportsaching. For severity, patient reportsmoderate. For context, patient reportshistory of ovarian cysts(no periods after endometrial ablation). For alleviating factors, patient reportsnone. For aggravating factors, patient reportsnone. 40 y.o. presents for a follow up visit from the ER on 05/30/21. She was told that she has a 5 cm ovarian cyst. No records from ER received. Reports h/o recurring cysts. GARRY Heredia [address] [place] [address], [address], [email or web address] IV 06/02/2021 15:27:45 2 text/html Kassandra is here to follow up on ovarian cyst- 4.8 cm left ovary; she stopped the OCPs started last visit because of mood issues.reports occasional crampsc/o constipation GARRY Heredia [facility], [place], [address], [email or web address] IV 08/31/2021 17:43:56 3 text/html Annual GYNReported by PatientBreast symptomsFor breast, patient reportsbreast pain.ContraceptionFor current contraception, patient reportstubal ligation.Preventative measuresFor preventive measures, patient reportsencourage self breast examination.ROS as noted in the HPI Patient is an established patient who presents for a gynecological Annual Exam. The patient denies any changes in her medical history. The patient denies any changes in her family medical history. STEPHEN GUTHRIE, [facility] [place], [address], [email or web address] IV 03/14/2023 16:27:33 3 text/html ROS as noted in the HPI Patient is an established patient who presents for follow on pelvic pain The patient denies any changes in her medical history. The patient denies any changes in her family medical history.States she has history of fibroids and cystsno cycles due to ablation GARRY OLIVARES- [address] [facility], [place], [address], [facility] IV 03/14/2023 16:36:13 OBGyn Episode No OBEpisode recorded.
--- OUTSIDE RECORDS SUMMARY | 2025-04-10 21:06 | XMS_ITS | Patient Health Record ---
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 Name Role Phone Marcella Hutson Primary Care Provider Allergies Allergen (clinical drug ingredient) Drug/Non Drug Allergy documented on EMR Reaction Allergy Type Onset Date Status Biaxin Hives Drug Allergy Active hydroxyzine Hydroxyzine hives Drug Allergy Act jam Reason For Referral Reason Neurology referral Diagnosis 1 Bipolar 2 disorder ( F31.81) Referral Organization [facility] Referring Provider First Name Marcella Referring Provider Last Name Haresh Referring Provider Speciality Psychiatry Referred Provider [facility], Department of Neurology Referred Provider Specialty Neurology General Notes Elana Armando 0 01/17/2025 04:05:36 PM > Nurse faxed referral to provider and mailed referral letter to home address on file., Eugenia France 01/31/2025 08:55:34 AM >refaxed as requested; see TE Clinical Notes [facility] Dept. of Neurology, [address], Medical Office [facility], [address], [place] [address], (H) [phone], (f) [phone] Referral Priority Routine Medications Medication SIG (Take, Route, Frequency, Duration) Notes Start Date End Date Status Atomoxetine HCl 40 MG 1 capsule in the m orning Orally Once a day; Duration: 30 days 12/10/2024 Active Vraylar 1.5 MG 1 capsule Orally Onc e a day; Duration: 30 day(s) 03/04/2025 Not-Gerson ing guanFACINE HCl 1 MG 1 tablet at bedtime Orally Once a day; Duration: 30 days 04/09/2025 Active Social History Tobacco Use: Social History [...] Risk Notes Problem Attention deficit hyperactivity disorder (126554967) ADHD (attention deficit hyperactivity disorder) (F90.9) Active confirmed Problem Bipolar 2 disorder (15920096) Bipolar 2 disorder (F31.81) 10/04/19 14 Active confirmed Problem Binge eating disorder (201364261) Binge eating disorder (F50.81) 10/04/19 20 Active confirmed Encounters Encounter Location Date Provider Diagnosis [address] [place] [address] 09/05/2024 Marcella Hutson Bipolar 2 disorder F31.81 [facility] [address] [address] 09/20/2024 Marcella Hutson [address] [place] [address] 09/26/2024 Marcella Hutson [address] [place] [address] 10/08/2024 Marcella Hutson [facility] [address] [address] 12/03/2024 Marcella Hutson [address] [place] [address] 01/31/2025 Marcella Hutson [facility] [address] [address] 02/28/2025 Marcella Hutson [facility] [address], [place] [address] 04/09/2025 Marcella Hutson Bipolar 2 disorder F31.[address] [place] [address] 09/27/2024 Marcella Hutson [address] [place] [facility] [address] 11/10/2024 Marcella Hutson [facility] [address] [facility] [place] [address] 11/26/2024 Marcella Hutson [facility] [address] [facility] [place] [address] 01/30/2025 Marcella Hutson [address] [place] [address] 03/03/2025 Marcella Hutson [address] [place] [address] 03/10/2025 Marcella Hutson [facility] [address] [facility] [place] [address] 05/03/2024 Marcella Hutson Bipolar 2 disorder F31.81 and Binge eating disorder F50.81 [address] [place] [address] 09/19/2024 Marcella Hutson Bipolar 2 disorder F31.81 and Binge eating disorder F50.81 [address] [place] [address] 11/06/2024 Marcella Hutson Bipolar 2 disorder F31.81 and ADHD (attention deficit hyperactivity disorder) F90.9 [address] [place] [address] 11/28/2024 Marcella Hutson Bipolar 2 disorder F31.81 and ADHD (attention deficit hyperactivity disorder) F90.9 [facility] [address] [facility] [address] [facility] [address] 01/17/2025 Marcella Hutson Bipolar 2 disorder F31.81 and ADHD (attention deficit hyperactivity disorder) F90.9 [facility] [place] [address] 02/20/2025 Marcella Hutson Bipolar 2 disorder F31.81 and ADHD (attention deficit hyperactivity disorder) F90.9 [facility] [place] [address] 04/03/2025 Marcella Hutson Bipolar 2 disorder F31.81 and ADHD (attention deficit hyperactivity disorder) F90.9 Assessments Encounter Date Diagnosis (ICD Code) Assessment Notes Treatment Notes Treatment Clinical Notes Section Notes 04/09/2025 Bipolar 2 disorder (ICD-10 - F31.81) 02/20/2025 Bipolar 2 disorder (ICD-10 - F31.81) Continue current medications. Had already stopped Prozac. Labs done recently. Continue services as scheduled. May self-administer medications or be administered own oral medications per [facility] protocols. Provided informed consent with understanding of side effects, adverse effects, risks and benefits as well as alternative treatments as previously discussed and with the above recommended medications & other aspects of the treatment program. Agrees to return sooner if symptoms worsen or suicidal or homicidal ideations occur. 05/03/2024 Bipolar 2 disorder (ICD-10 - F31.81) 09/05/2024 Bipolar 2 disorder (ICD-10 - F31.81) 01/17/2025 Bipolar 2 disorder (ICD-10 - F31.81) increase strattera. Consider stopping prozac related to heat intolerance. neurology referral. Reviewed Prescription Monitoring program. Continue services as scheduled. Labs completed recently. May self-administer medications or be administered own oral medications per [facility] protocols. Provided informed consent with understanding of [...] 11/28/2024 Bipolar 2 disorder (ICD-10 - F31.81) 09/19/2024 Bipolar 2 disorder (ICD-10 - F31.81) 04/03/2025 Bipolar 2 disorder (ICD-10 - F31.81) Increase strattera to help with inattention. Labs done recently. Continue services as scheduled. May self-administer medications or be administered own oral medications per [facility] protocols. Provided informed consent with understanding of side effects, adverse effects, risks and benefits as well as alternative treatments as previously discussed and with the above recommended medications & other aspects of the treatment program. Agrees to return sooner if symptoms worsen or suicidal or homicidal ideations occur. 09/19/2024 Binge eating disorder (ICD-10 - F50.81) 04/03/2025 ADHD (attention deficit hyperactivity disorder) (ICD-10 - F90.9) 01/17/2025 ADHD (attention deficit hyperactivity disorder) (ICD-10 - F90.9) 05/03/2024 Binge eating disorder (ICD-10 - F50.81) 02/20/2025 ADHD (attention deficit hyperactivity disorder) (ICD-10 - F90.9) 11/28/2024 ADHD (attention deficit hyperactivity disorder) (ICD-10 - F90.9) 11/06/2024 Other Continue curren t medications. Reviewed Prescription Monitoring program. Continue services as scheduled. Labs completed recently. May self-administer medications or be administered own oral medications per [facility] protocols. Provided informed consent with understanding of [...] or be administered own oral medications per [facility] protocols. Provided informed consent with understanding of [...] or be administered own oral medications per [facility] protocols. Provided informed consent with understanding of [...] or be administered own oral medications per [facility] protocols. Provided informed consent with understanding of [...] Insured Coverage Start Date Coverage End Date [facility] Claims Department [address] [place] [address] [phone] [id number] Kassandra Batista Self - patient is the insured 1 4 [facility] Claims Department [address] [place] [address] [phone] [id number] Kassandra Batista Self - patient is the insured 4 [facility] [address] [place] [address] [phone] [id number] Kassandra Batista Self - patient is the insured 1 Medical (General) History Medical History History ICD Code Movement disorder Surgical History Surgery Date(Month/Year) Left Ankle Surgery 2016 tubal ligation Surgical revision of hardware- removed s crews and plates. 2023 Hospitalization History Reason Date(Month/Year) Child Child Child Left Ankle Surgery 2016
--- OUTSIDE RECORDS SUMMARY | 2025-04-10 21:06 | XMS_ITS | Clinical Summary ---
Author Organization [facility] Address [address] [place] [address] Care Team Providers Care Advertising Account Executive Name Role Phone Marlon Saucedo MD Primary Care Provider [phone] Allergies Active Allergy Reactions Criticality Noted Date Comments Clarithromycin Hives Medium 04/11/2017 Hydroxyzine Hives 02/12/2025 Medications multi vitamin/minerals (THERA-M ENHANCED) tablet Take [...] times daily. 14 g 08/07/19 25 Active ondansetron (ZOFRAN-ODT) 4 MG disintegrating tablet Take 1 tablet (4 mg total) by mouth every 8 (eight) hours as needed for Nausea. 20 tablet 02/13/20 25 Active dicyclomine (BENTYL) 10 MG capsule Take 1 capsule (10 mg total) by mouth 4 (four) times daily as needed. 40 capsule 02/13/20 25 Active senna-docusate (SENOKOT-S) 8.6-50 MG tablet Take 2 tablets by mouth daily. 60 tablet 02/13/20 25 Active Sodium Phosphates (FLEET SALINE ENEMA) 7-19 GM/197ML Enema Place 1 each rectally once as needed. 230 mL 02/13/20 25 Active propranolol (INDERAL) 20 MG tablet Take 1 tablet (20 mg total) by mouth 2 (two) times daily. 01/24/20 25 Active amoxicillin-clavul anate (AUGMENTIN) 875-125 MG tablet Take 1 tablet (875 mg total) by mouth 2 (two) times daily for 7 days. 14 tablet 03/31/20 25 025 Active Problems Problem Noted Date Diagnosed Date Pneumonia 03/12/2025 Cholecystitis 08/10/2022 Acute cholecystitis 08/08/2022 Encounters Date Type Department Care Team Description 03/31/2025 12:24 AM CDT - 03/31/2025 3:30 AM CDT Emergency [facility] Emergency Room [address] [place] [id number] Inga Samayoa MD Medical Problem Discharge Disposition: Home or Self Care (Routine Discharge) 03/31/2025 Travel 03/12/2025 2:28 AM CDT - 03/12/2025 7:21 PM CDT Emergency [facility] Emergency Room [address] [place] [id number] Francis Acosta MD Malcolm, Ashley Helen, MD Daniels, Darcy L, SHADE Chest Pain; Fever; Nausea; Chills Discharge Disposition: Transfer to [facility] 03/12/2025 Travel 02/12/2025 7:33 PM CDT - 02/12/2025 11:29 PM CDT Emergency [facility] Emergency Room [address] [place] [address] Peter Bentley MD Back Pain Discharge Disposition: Home or Self Care (Routine Discharge) 02/12/2025 Travel from Last 3 Months Family History [...] place to sleep or slept in a penitentiary (including now)? No 08/08/2022 Comments No Sex and Gender Information Value Date Recorded Sex Assigned at Female 08/06/2024 7:04 PM [employer] Legal Sex Female 4:57 PM CDT Gender Identity Female 03/12/2025 2:37 AM CDT Sexual Orientation Don't know 03/12/2025 2: 37 AM CDT Last Filed Vital Signs Vital Sign Reading Time Taken Comments Blood Pressure 149/107 03/31/2025 1:00 AM CDT Pulse 73 03/31/2025 3:25 AM CDT Temperature 36.2 C (97.1 F) 03/31/2025 12:33 AM CDT Respiratory Rate 18 03/31/2025 3:25 AM CDT Oxygen Saturation 100% 03/31/2025 3:25 AM CDT Inhaled Oxygen Concentration - - Weight 117.9 kg (260 lb) 03/31/2025 12:33 AM CDT Height 165.1 cm (5' 5) 03/31/2025 12:33 AM CDT Body Mass Index 43.27 03/31/2025 12:33 AM CDT Plan of Treatment Health Maintenance Due Date [...] Mammogram Screening 2021 COVID-19 Vaccine (4 - 2024-2 6 season) 2025 11/09/2020, 10/19/2020, 10/15/2020 Influenza Adult (#1) 2025 04/27/2022, 03/26/2019 DTaP, Tdap and Td Vaccines ( 4 - Td or Tdap) 03/25/2027 03/25/2017, 04/27/2016, 12/24/2011 Hepatitis A Vaccines Aged Out No long er eligible based on patient's age to complete [...] Procedure Name Priority Date/Time Associated Diagnosis Comments CULTURE, BACTERIA, BLOOD STAT 03/31/2025 2:45 AM CDT CULTURE, BACTERIA, BLOOD STAT 03/31/2025 2:40 AM CDT URINALYSIS, AUTO, COMPLETE STAT 03/31/2025 2:07 AM CDT XR CHEST PORTABLE STAT 03/31/2025 1:2 7 AM CDT INFLUENZA A & B STAT 03/31/2025 12:46 AM CDT CORONAVIRUS (COVID 19) STAT 12:46 AM CDT MAGNESIUM STAT 03/31/2025 12:46 AM CDT LIPASE STAT 03/31/2025 12:46 AM CDT COMPREHENSIVE METABOLIC PANEL STAT 03/31/2025 12:46 AM CDT CBC W/DIFF AUTOMATED STAT 03/31/2025 12:[address] ABD+PEL W CON STAT 03/12/2025 4:59 AM CDT CTA CHEST PE PROTOCOL STAT 03/12/2025 4:59 AM CDT CULTURE, BACTERIA, BLOOD STAT 03/12/2025 3:40 AM CDT PRO-BRAIN NATRIURETIC PEPTIDE STAT 03/12/2025 3:40 AM CDT LIPASE STAT 03/12/2025 3:40 AM CDT CK (CPK) STAT 03/12/2025 3:40 AM CDT COMPREHENSIVE METABOLIC PANEL STAT 03/12/2025 3:40 AM CDT CBC W/DIFF AUTOMATED STAT 03/12/2025 3:40 AM CDT XR CHEST PORTABLE STAT 03/12/2025 3:3 1 AM CDT CULTURE, BACTERIA, BLOOD STAT 03/12/2025 3:17 AM CDT BETA-HYDROXYBUTYRATE Routine 03/12/2025 3:17 AM CDT LACTIC ACID W REFLEX (SEPSIS) STAT 03/12/2025 3:17 AM CDT TROPONIN, QUANT STAT 03/12/2025 3:17 AM CDT URINALYSIS, AUTO, COMPLETE STAT 03/12/2025 3:15 AM CDT STREP A RAPID STAT 03/12/2025 3:03 AM CDT RESP SYNCYTIAL VIRUS STAT 03/12/2025 2:48 AM CDT INFLUENZA A & B STAT 03/12/2025 2:48 AM CDT CORONAVIRUS (COVID 19) STAT 2:48 AM CDT ECG 12-LEAD Routine 03/12/2025 2:33 AM CDT URINALYSIS, AUTO, COMPLETE STAT 02/12/2025 8:[address] ABD+PEL W CON STAT 02/12/2025 8:40 PM CDT INFLUENZA A & B STAT 02/12/2025 8:10 PM CDT CORONAVIRUS (COVID 19) STAT 8:10 PM CDT CHORIONIC GONADOTROPIN HCG QL STAT 02/12/2025 8:05 PM CDT LIPASE STAT 02/12/2025 8:05 PM CDT COMPREHENSIVE METABOLIC PANEL STAT 02/12/2025 8:05 PM CDT CBC W/DIFF AUTOMATED STAT 02/12/2025 8:05 PM CDT from Last 3 Months Results * BLOOD CULTURE #2 (03/31/2025 2:45 AM CDT) Only the most recent of4 resultswithin the time period is included. SPEC DESCRIPTION BLOOD-PEDIA TRIC VOLUME 03/31/2025 2:20 AM CDT [facility] SPECIAL REQUESTS NO SPECIAL REQUEST 03/31/2025 2:20 AM CDT [facility] CULTURE RESULT NO GROWTH 5 DAYS 04/05/2025 10:26 AM CDT [facility] BLOOD SPECIMEN OBTAINED FOR BLOOD CULTURE / Unknown 03/31/2025 2:45 AM CDT 03/31/2025 5:31 AM CDT us Inga Samayoa MD MICROBIOLOGY - GENERAL ORDERAB LES Final Result [facility] [address] [place] [address], [place] [phone] [facility] [address] [place] [address], [place] [phone] * (ABNORMAL) Urinalysis, Auto, Complete (03/31/2025 2:07 AM CDT) Only the most recent of3 resultswithin the time period is included. COLOR (U) YELLOW 03/31/2025 2:57 AM CDT [facility] TRANSPARENCY CLEAR 03/31/2025 2:57 AM CDT [facility] SPECIFIC GRAVITY (U) 1.015 1.000 - 1.030 03/31/2025 2:57 AM CDT [facility] U PH 6.0 5.0 - 9.0 03/31/2025 2:57 AM CDT [facility] LEUKOCYTES (U) TRACE(A) NEGATIVE 03/31/2025 2:57 AM CDT [facility] NITRITES NEGATIVE NEGATIVE 03/31/2025 2:57 AM CDT [facility] PROTEIN RANDOM (U) TRACE(A) NEGATIVE 03/31/2025 2:57 AM CDT [facility] GLUCOSE (U) NEGATIVE NEGATIVE 03/31/2025 2:57 AM CDT [facility] KETONES MG/DL (U) TRACE(A) NEGATIVE 03/31/2025 2:57 AM CDT [facility] BILIRUBIN (U) NEGATIVE NEGATIVE 03/31/2025 2:57 AM CDT [facility] BLOOD (U) NEGATIVE NEGATIVE 03/31/2025 2:57 AM CDT [facility] WBC/HPF 0-5 0 - 5 /HPF 03/31/2025 2:57 AM CDT [facility] RBC/HPF NONE SEEN 0 - 5 /HPF 03/31/2025 2:57 AM CDT [facility] EPI/HPF FEW /HPF 03/31/2025 2:57 AM CDT [facility] URINE SPECIMEN OBTAINED BY CLEAN CATCH PROCEDURE / Unknown 03/31/2025 2:07 AM CDT us Inga Samayoa MD URINE ORDERABLES Final Result [facility] [address] [place] [address], [place] [phone] * XR CHEST PORTABLE (03/31/2025 1:27 AM CDT) Only the most recent of2 resultswithin the time period is included. Anatomical Region Laterality Modality Chest Radiographic Carlee ging 03/31/2025 1:07 AM CDT Impressions 03/31/2025 1:07 AM CDT IMPRESSION: No acute cardiopulmonary process. Referred By: Interpreted By: Dannie Beck MD, 03/31/2025 1:07 AM Narrative 03/31/2025 1:07 AM CDT [facility] [address] [place] [address] EXAM: XR CHEST PORTABLE INDICATION: Cough, malaise COMPARISON: Chest CTA and radiograph, 12 Mar 2025 TECHNIQUE: Single frontal radiographic image of the chest FINDINGS: No pneumothorax, pleural effusion, or focal airspace consolidation. Pulmonary vasculature and cardiomediastinal silhouette within normal limits. No acute osseous abnormality. Procedure Note Dannie Beck MD - 03/31/2025 [facility] [address] [place] [address] EXAM: XR CHEST PORTABLE INDICATION: Cough, malaise COMPARISON: Chest CTA and radiograph, 12 Mar 2025 TECHNIQUE: Single frontal radiographic image of the chest FINDINGS: No pneumothorax, pleural effusion, or focal airspace consolidation.Pulmonary vasculature and cardiomediastinal silhouette within normallimits. No acute osseous abnormality. IMPRESSION: No acute cardiopulmonary process. Referred By: Interpreted By: Dannie Beck MD, 03/31/2025 1:07 AM Inga Samayoa MD GENERAL IMAGING Final Result * CORONAVIRUS (COVID-19) MOLECULAR (03/31/2025 12:46 AM CDT) Only the most recent of3 resultswithin the time period is included. CORONAVIRUS SARS COV 2 RNA NEGATIVE NEGATIVE 03/31/2025 1:27 AM CDT [facility] Comment: NEGATIVE RESULTS DO NOT RULE OUT COVID 19 AND SHOULD NOT BE USED THE SOLE BASIS FOR TREATMENT OR PATIENT MANAGEMENT DECISIONS, INCLUDING INFECTION CONTROL DECISIONS. NEGATIVE RESULTS SHOULD BE CONSIDERED IN THE CONTEXT OF A PATIENT'S RECENT EXPOSURES, HISTORY AND THE PRESENCE OF CLINICAL SIGNS AND SYMPTOMS CONSISTENT WITH COVID 19. THE ID NOW COVID-19 2.0 TEST HAS BEEN AUTHORIZED BY THE FDA UNDER EAU FOR USE BY AUTHORIZED LABORATORIES. PERFORMED BY NUCLEIC ACID AMPLIFICATION FOR MOLECULAR QUALITATIVE DETECTION OF SARS-COV-2. SPECIMEN TYPE NASAL 03/31/2025 12:49 AM CDT [facility] NASOPHARYNGEAL SWAB / Unknown 03/31/2025 12:46 AM CDT Inga Samayoa MD MICROBIOLOGY - GENERAL ORDERAB LES Final Result [facility] [address] [place] [address], [place] [phone] * INFLUENZA A & B (03/31/2025 12:46 AM CDT) Only the most recent of3 resultswithin the time period is included. SPECIMEN TYPE NASOPHARYNX 03/31/2025 12:52 AM CDT [facility] INFLUENZA A NEGATIVE NEGATIVE 03/31/2025 1:15 AM CDT [facility] INFLUENZA B NEGATIVE NEGATIVE 03/31/2025 1:15 AM CDT [facility] NASAL STRUCTURE / Unknown 03/31/2025 12:46 AM CDT us Inga Samayoa MD MICROBIOLOGY - GENERAL ORDERAB LES Final Result [facility] [address] [place] [address], [place] [phone] * (ABNORMAL) COMPREHENSIVE METABOLIC PANEL (03/31/2025 12:46 AM CDT) Only the most recent of3 resultswithin the time period is included. GLUCOSE 116(H) 70 - 99 MG/DL 03/31/2025 1:13 AM CDT [facility] BUN 18 7 - 18 MG/DL 03/31/2025 1:13 AM CDT [facility] CREATININE S/P/B 0.99 0.55 - 1.02 MG/DL 03/31/2025 1:13 AM CDT [facility] SODIUM S/P/B 137 136 - 145 MMOL/L 03/31/2025 1:13 AM CDT [facility] POTASSIUM S/P/B 3.9 3.5 - 5.1 MMOL/L 03/31/2025 1:13 AM CDT [facility] CHLORIDE S/P/B 97(L) 100 - 108 MMOL/L 03/31/2025 1:13 AM CDT [facility] CO2 30.1 21 - 32 MMOL/L 03/31/2025 1:13 AM [facility] CALCIUM S/P/B 9.2 8.5 - 10.1 MG/DL 03/31/2025 1:13 AM [facility] BILIRUBIN TOTAL S/P/B 0.6 0.2 - 1.2 MG/DL 03/31/2025 1:13 AM [facility] TOTAL PROTEIN S/P/B 8.2 6.4 - 8.2 G/DL 03/31/2025 1:13 AM [facility] ALBUMIN S/P/B 4.3 3.4 - 5.0 G/DL 03/31/2025 1:13 AM [facility] AST 9(L) 15 - 37 U/L 03/31/2025 1:13 AM [facility] ALT 23 14 - 55 U/L 03/31/2025 1:13 AM [facility] ALKALINE PHOSPHATASE S/P/B 72 50 - 136 U/L 03/31/2025 1:13 AM [facility] ANION GAP 9.9 5 - 15 MMOL/L 03/31/2025 1:13 AM [facility] BUN CREATININE RATIO 18.2 6 - 26 03/31/2025 1:13 AM [facility] A/G RATIO 1.1 1.0 - 2.0 RATIO 03/31/2025 1:13 AM [facility] GFR ESTIMATE 73(L) >90 ML/MIN/1.7 3 M2 03/31/2025 1:13 AM [facility] Comment: NOTE: eGFR is not calculated for patients <18 years of age. This is an estimated GFR calculation using the new CKD EPI creatinine equation without race and so does not require a correction factor for race. This estimated GFR should not be used for calculating drug doses. 03/31/2025 12:4 6 AM CDT us Inga Samayoa MD LABORATORY Final Result [facility] [address] [place] [address], * (ABNORMAL) CBC W/DIFF AUTOMATED (03/31/2025 12:46 AM CDT) Only the most recent of3 resultswithin the time period is included. WBC 14.12(H) 4.4 - 11.0 x10'3/uL 03/31/2025 1:27 AM CDT [facility] RBC 5.57(H) 4.50 - 5.10 x10'6/uL 03/31/2025 1:27 AM CDT [facility] HGB 16.4(H) 12.3 - 15.3 G/DL 03/31/2025 1:27 AM CDT [facility] HCT 48.9(H) 35.9 - 44.6 % 03/31/2025 1:27 AM CDT [facility] MCV 87.8 80.0 - 96.0 FL 03/31/2025 1:27 AM CDT [facility] MCH 29.4 25.3 - 30.9 PG 03/31/2025 1:27 AM CDT [facility] MCHC 33.5 31.0 - 34.1 G/DL 03/31/2025 1:27 AM CDT [facility] RDW 13.2 12.4 - 15.1 % 03/31/2025 1:27 AM CDT [facility] PLT 522(H) 151 - 353 x10'3/uL 03/31/2025 1:27 AM CDT [facility] MPV 9.2(L) 9.6 - 12.0 FL 03/31/2025 1:27 AM CDT [facility] RBC MORPHOLOGY NORMAL 03/31/2025 1:27 AM CDT [facility] PLT MORPH. NORMAL 03/31/2025 1:27 AM CDT [facility] WBC MORPHOLOGY NORMAL 03/31/2025 1:27 AM CDT [facility] LYMPHOCYTES % 28.8 15.8 - 45.0 % 03/31/2025 1:27 AM CDT [facility] NEUTROPHILS % 62.0 42.1 - 71.9 % 03/31/2025 1:27 AM CDT [facility] MONOCYTES % 6.9 5.7 - 12.5 % 03/31/2025 1:27 AM T [facility] EOSINOPHILS 1.1 0.0 - 5.6 % 03/31/2025 1:27 AM CDT [facility] BASOPHILS 0.4 0.0 - 1.3 % 03/31/2025 1:27 AM CDT [facility] ABS. NEUTROPHILS 8.76(H) 1.40 - 6.00 x10'3/uL 03/31/2025 1:27 AM T [facility] IMMATURE GRANS % 0.8(H) 0.0 - 0.5 % 03/31/2025 1:27 AM T [facility] ABS. LYMPHOCYTES 4.06 0.80 - 4.70 x10'3/uL 03/31/2025 1:27 AM T [facility] 03/31/2025 12:4 6 AM CDT us Inga Samayoa MD LABORATORY Final Result Performing Organization Address [facility] Co de Phone Number [facility] [address] [place] [address], * MAGNESIUM (03/31/2025 12:46 AM CDT) MAGNESIUM 2.0 1.8 - 2.4 MG/DL 03/31/2025 1:13 AM CDT [facility] 03/31/2025 12:4 6 AM CDT Inga Samayoa MD LABORATORY Final Result Performing Organization Address [facility] de Phone Number [facility] [address] [place] [address], [place] [phone] * LIPASE (03/31/2025 12:46 AM CDT) Only the most recent of3 resultswithin the time period is included. LIPASE 37 16 - 77 UNITS/L 03/31/2025 1:13 AM CDT [facility] 03/31/2025 12:4 6 AM CDT Inga Samayoa MD LABORATORY Final Result Performing Organization Address [facility] Co de Phone Number [facility] [address] [place] [address], [place] [phone] * CTA CHEST PE PROTOCOL (03/12/2025 4:59 AM CDT) Anatomical Region Laterality Modality Chest Computed Tomogra phy 03/12/2025 5:08 AM CDT Impressions 03/12/2025 5:10 AM CDT IMPRESSION: ===== 1. No central pulmonary embolism. Limited evaluation for distal emboli due to bolus timing and motion artifact. 2. Scattered patchy nodular infiltrates throughout most of the right upper lobe and to a lesser degree in the right lower lobe concerning for pneumonia. Follow-up to resolution recommended to exclude underlying nodule 3. Mild bronchitis Referred By: Interpreted By: Colin Solano MD, 03/12/2025 5:08 AM Narrative 03/12/2025 5:10 AM CDT [facility] [address] [place] [address] EXAMINATION: CTA CHEST WITH CONTRAST EXAM DATE/TIME: 03/12/2025 4:48 AM REASON FOR EXAM: chest pain Chest pain, nausea, fever, chills COMPARISON: No prior chest CT TECHNIQUE: Axial CT images of the chest are obtained following uneventful intravenous administration of 100 cc Isovue-370. Subsequent coronal and sagittal reformatted sequences are greater for evaluation. In addition 3-D rotational MIP imaging of the thoracic arterial vasculature is created on a separate workstation for review. A dose lowering technique was used for this procedure, which may include, but is not limited to, dose reduction technique, automated exposure control, iterative reconstruction, ALARA (As Low As Reasonably Achievable), or Image Gently techniques. FINDINGS: No central pulmonary embolism. Limited evaluation for distal emboli due to bolus timing and minimal motion artifact. Most of the contrast is in the right axillary and subclavian veins. Heart size normal. No pericardial effusion. Left aortic arch. Thoracic aorta normal in caliber throughout. No axillary or mediastinal lymphadenopathy appreciated. No pleural effusion. No pneumothorax. Scattered patchy nodular infiltrates throughout most of the right upper lobe and to a lesser degree in the right lower lobe concerning for pneumonia. Left lung grossly clear. Minimal bronchial wall thickening. Central airways are patent. No acute abnormalities in the visualized upper abdomen.Bone level imaging shows no destructive osseous lesions. ===== Procedure Note Colin Solano MD - 03/12/2025 [facility] [address] [place] [id number] EXAMINATION: CTA CHEST WITH CONTRAST EXAM DATE/TIME: 03/12/2025 4:48 AM REASON FOR EXAM: chest pain Chest pain, nausea, fever, chills COMPARISON: No prior chest CT TECHNIQUE: Axial CT images of the chest are obtained following uneventfulintravenous administration of 100 cc Isovue-370. Subsequent coronal andsagittal reformatted sequences are greater for evaluation. In addition 3-Drotational MIP imaging of the thoracic arterial vasculature is created katy separate workstation for review. A dose lowering technique was used forthis procedure, which may include, but is not limited to, dose reductiontechnique, automated exposure control, iterative reconstruction, ALARA (AsLow As Reasonably Achievable), or Image Gently techniques. FINDINGS: No central pulmonary embolism. Limited evaluation for distal emboli dueto bolus timing and minimal motion artifact. Most of the contrast is inthe right axillary and subclavian veins. Heart size normal. Nopericardial effusion. Left aortic arch. Thoracic aorta normal in caliberthroughout. No axillary or mediastinal lymphadenopathy appreciated. Nopleural effusion. No pneumothorax. Scattered patchy nodular infiltratesthroughout most of the right upper lobe and to a lesser degree in theright lower lobe concerning for pneumonia. Left lung grossly clear.Minimal bronchial wall thickening. Central airways are patent. No acuteabnormalities in the visualized upper abdomen.Bone level imaging shows nodestructive osseous lesions. ===== IMPRESSION: ===== 1. No central pulmonary embolism. Limited evaluation for distal embolidue to bolus timing and motion artifact. 2. Scattered patchy nodular infiltrates throughout most of the rightupper lobe and to a lesser degree in the right lower lobe concerning forpneumonia. Follow-up to resolution recommended to exclude underlyingnodule 3. Mild bronchitis Referred By: Interpreted By: Colin Solano MD, 03/12/2025 5:08 AM Francis Acosta MD CT Final Result * CT ABD+PEL W CON (03/12/2025 4:59 AM CDT) Only the most recent of2 resultswithin the time period is included. Anatomical Region Laterality Modality Abdomen Computed Tomogra phy 03/12/2025 5:10 AM CDT Impressions 03/12/2025 5:13 AM CDT IMPRESSION: ===== 1. Nodular infiltrates in the visualized right lower lung concerning for pneumonia. 2. No acute abdominal or pelvic abnormalities. Referred By: Interpreted By: Colin Solano MD, 03/12/2025 5:10 AM Narrative 03/12/2025 5:13 AM CDT [facility] [address] [place] [address] EXAMINATION: CT Abdomen and Pelvis with contrast EXAM DATE/TIME: 03/12/2025 4:48 AM REASON FOR EXAM: RUQ pain Chest pain, nausea, fever, chills COMPARISON: 02/12/2025 CT abdomen and pelvis TECHNIQUE: Axial CT images of the abdomen and pelvis are obtained following uneventful intravenous administration of 100 cc Isovue-370. Subsequent coronal and sagittal reformatted sequences are created for evaluation. A dose lowering technique was used for this procedure, which may include, but is not limited to, dose reduction technique, automated exposure control, iterative reconstruction, ALARA (As Low As Reasonably Achievable), or Image Gently techniques. FINDINGS: Nodular infiltrates in the visualized right lower lung. No pleural effusion heart size normal. No pericardial effusion. The liver and spleen are normal in size and surface contour. No abnormal enhancing hepatic lesions. Cholecystectomy clips. Pancreas and adrenal glands unremarkable. Kidneys demonstrate symmetric uptake of contrast. No hydronephrosis or obstructive uropathy on either side. Abdominal aorta normal caliber throughout. Bowel is normal in caliber throughout. No evidence of bowel obstruction. Appendix not identified. No secondary findings of appendicitis. No fluid collections in the pelvis. Bladder contours. Uterus and adnexal structures have unremarkable CT appearance. 2 surgical clips in the low posterior pelvis in different locations on prior exam. Bone level imaging shows no destructive osseous lesions. ===== Procedure Note Colin Solano MD - 03/12/2025 [facility] [address] [place] [id number] EXAMINATION: CT Abdomen and Pelvis with contrast EXAM DATE/TIME: 03/12/2025 4:48 AM REASON FOR EXAM: RUQ pain Chest pain, nausea, fever, chills COMPARISON: 02/12/2025 CT abdomen and pelvis TECHNIQUE: Axial CT images of the abdomen and pelvis are obtainedfollowing uneventful intravenous administration of 100 cc Isovue-370.Subsequent coronal and sagittal reformatted sequences are created forevaluation. A dose lowering technique was used for this procedure, whichmay include, but is not limited to, dose reduction technique, automatedexposure control, iterative reconstruction, ALARA (As Low As ReasonablyAchievable), or Image Gently techniques. FINDINGS: Nodular infiltrates in the visualized right lower lung. Nopleural effusion heart size normal. No pericardial effusion. The liver and spleen are normal in size and surface contour. No abnormalenhancing hepatic lesions. Cholecystectomy clips. Pancreas and adrenalglands unremarkable. Kidneys demonstrate symmetric uptake of contrast.No hydronephrosis or obstructive uropathy on either side. Abdominal aortanormal caliber throughout. Bowel is normal in caliber throughout. Noevidence of bowel obstruction. Appendix not identified. No secondaryfindings of appendicitis. No fluid collections in the pelvis. Bladdercontours. Uterus and adnexal structures have unremarkable CT appearance.2 surgical clips in the low posterior pelvis in different locations onprior exam. Bone level imaging shows no destructive osseous lesions. ===== IMPRESSION: ===== 1. Nodular infiltrates in the visualized right lower lung concerning forpneumonia. 2. No acute abdominal or pelvic abnormalities. Referred By: Interpreted By: Colin Solano MD, 03/12/2025 5:10 AM Francis Acosta MD CT Final Result * PRO-BRAIN NATRIURETIC PEPTIDE (03/12/2025 3:40 AM CDT) PRO-B TYPE NATRIURETIC PEPTIDE 117 <125 PG/ML 03/12/2025 4:18 AM CDT [facility] Comment: CUT POINTS ESTABLISHED BY [employer] ON NT PROBNP (ICON) STUDY (2006). AGE INDEPENDENT: <300 PG/ML HAS A 99% NEGATIVE PREDICTIVE VALUE FOR EXCLUDING ACUTE CHF <50 YEARS: >450 PG/ML IS CONSISTENT WITH ACUTE CHF 50-75 YEARS: >900 PG/ML IS CONSISTENT WITH ACUTE CHF >75 YEARS: >1800 PG/ML IS CONSISTENT WITH ACUTE CHF IN PATIENTS WITH RENAL INSUFFICIENCY (GFR <60), >1200 PG/ML YIELDS A DIAGNOSTIC SENSITIVITY AND SPECIFICITY OF 89% AND 72% FOR ACUTE CHF. 03/12/2025 3:40 AM CDT us Francis Acosta MD LABORATORY Final Result Performing Organization Address [facility]/ZIP Co de Phone Number [facility] [address] [place] [address], [place] [phone] * CK (CPK) (03/12/2025 3:40 AM CDT) CPK 51 26 - 192 U/L 03/12/2025 4:18 AM CDT [facility] 03/12/2025 3:40 AM CDT us Francis Acosta MD LABORATORY Final Result Performing Organization Address [facility] de Phone Number [facility] [address] [place] [address], [place] [phone] * LACTIC ACID W REFLEX (SEPSIS) (03/12/2025 3:17 AM CDT) LACTIC ACID VENOUS 1.0 0.4 - 2.0 MMOL/L 03/12/2025 3:56 AM CDT [facility] 03/12/2025 3:17 AM CDT us Francis Acosta MD LABORATORY Final Result Performing Organization Address City/[facility] Co de Phone Number [facility] [address] [place] [address], [place] [phone] * BETA-HYDROXYBUTYRATE (03/12/2025 3:17 AM CDT) [facility] BETA-HYDROXYBUT YRATE 0.1 0.0 - 0.6 MMOL/L 03/12/2025 3:38 AM CDT [facility] 03/12/2025 3:17 AM CDT us Francis Acosta MD LABORATORY Final Result Performing Organization Address [facility]/ZIP Co de Phone Number [facility] [address] [place] [address], [place] [phone] * TROPONIN, QUANT (03/12/2025 3:17 AM CDT) [facility] TROPONIN I HIGH SENSITIVITY <4 0 - 50 ng/L 03/12/2025 4:10 AM CDT [facility] Comment: HIGH DOSES OF BIOTIN, TROPONIN-SPECIFIC AUTOANTIBODIES, AND ANTIBODY THERAPY CONTAINING HAMA MAY INTERFERE WITH THIS TEST RESULT. CORRELATION TO CLINICAL HISTORY AND PRESENTATION RECOMMENDED. 03/12/2025 3:17 AM CDT us Francis Acosta MD LABORATORY Final Result Performing Organization Address [facility] Co de Phone Number [facility] [address] [place] [address], [place] [phone] * STREP A RAPID (03/12/2025 3:03 AM CDT) [facility] RAPID STREP TEST NEGATIVE NEGATIVE 03/12/2025 3:15 AM CDT [facility] STRUCTURE OF ANTERIOR REGION OF NECK / Unknown 03/12/2025 3:03 AM CDT us Francis Acosta MD MICROBIOLOGY - GENERAL ORDERABL ES Final Result Performing Organization Address City/[facility]/ZIP Co de Phone Number [facility] [address] [place] [address], [place] [phone] * RESP SYNCYTIAL VIRUS (03/12/2025 2:48 AM CDT) SPECIMEN TYPE NASOPHARYNGEAL SWAB 03/12/2025 2:48 AM CDT [facility] RAPID RSV NEGATIVE NEGATIVE 03/12/2025 3:18 AM CDT [facility] NASOPHARYNGEAL SWAB / Unknown 03/12/2025 2:48 AM CDT Francis Acosta MD MICROBIOLOGY - GENERAL ORDERABL ES Final Result [facility] [address] [place] [address], * ECG 12 lead (03/12/2025 2:33 AM CDT) 03/12/2025 2:33 AM CDT Narrative [facility] ([facility]) RAD - 03/12/2025 6:00 AM CDT [facility] Test Date: 2025-03-12 Pat Name: GIOVANNY BATISTA Department: 85 Room: EXAM 1 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1980 Requested By: FRANCIS ACOSTA Order Number: [id number] Reading MD: Gordy Bah Measurements Intervals [place] Rate: 122 P: 43 ND: 108 QRS: 30 QRSD: 85 T: 36 QT: 301 QTc: 429 Interpretive Statements SINUS TACHYCARDIA WITH SHORT ND INTERVAL Compared to ECG 08/08/2022 02:39:35 Short ND interval now present Sinus rhythm no longer present Procedure Note Gordy Bah MD - 03/12/2025 [facility] Test Date: 2025-03-12 Pat Name: GIOVANNY BATISTA Department: 85 Room: EXAM 1 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1980 Requested By: FRANCIS ACOSTA Order Number: [id number] Reading MD: Gordy Bah Measurements Intervals [place] Rate: 122 P: 43 ND: 108 QRS: 30 QRSD: 85 T: 36 QT: 301 QTc: 429 Interpretive Statements SINUS TACHYCARDIA WITH SHORT ND INTERVAL Compared to ECG 08/08/2022 02:39:35 Short ND interval now present Sinus rhythm no longer present Francis Acosta MD ECG ORDERABLES Final Result Performing Organization Address City/[facility]/ZIP Co de Phone Number [facility]) RAD * CHORIONIC GONADOTROPIN HCG QL (02/12/2025 8:05 PM CDT) PREG SCREEN-SERUM NEGATIVE NEGATIVE 02/12/2025 8:18 PM CDT [facility] 02/12/2025 8:05 PM CDT Peter Bentley MD LABORATORY Final Result Performing Organization Address [facility] Co de Phone Number [facility] [address] [place] [address], from Last 3 Months Additional Health Concerns Infection Onset Date Last Indicated MRSA Comment:08/06/24 +MRSA Left ankle 08/06/2024 08/06/2024 Insurance [employer] Advance Directives * Full Code (Latest Code Status on File) Date Activated Date Inactivated Comments 03/12/2025 5:29 AM 03/12/2025 9:32 PM * Full Code Date Activated Date Inactivated Comments 08/08/2022 11:01 AM 08/10/2022 6:33 PM Care Teams Advertising Account Executive Relationship Specialty Start Date End Date Marlon Saucedo MD [address] [address] [place] [address] PCP - General FAMILY PRACTICE 08/08/22
--- OUTSIDE RECORDS SUMMARY | 2025-04-10 21:06 | XMS_ITS | Encounter Summary ---
Author Organization [facility] Address [address] [place] [address] Care Team Providers Care Bereavement Program Coordinator Name Role Phone Rick Gordillo MD Primary Care Provider Unavailable Susie Curtis MD Primary Care Provider [phone] Marlon Saucedo MD Primary Care Provider [phone] Encounter Details Date Type Department Care Team (Late st Contact Info) Description 03/25/2017 Abstract [facility] CONVERSION [address] [place] [address] Md Generic MD Juan Social History Tobacco Use Types Packs/Day Years Used Date Smoking Tobacco: Never Assessed Comments Unknown Sex and Gender Information Value Date Recorded Sex Assigned at Female 08/06/2024 7:04 PM [employer]PER [employer] INSPECT[employer] Legal Sex Female 4:57 PM CDT Gender Identity Female 03/12/2025 2:37 AM CDT Sexual Orientation Don't know 03/12/2025 2: 37 AM CDT documented as of this encounter Plan of Treatment Not on file documented as of this encounter Procedures Procedure Name Priority Date/Time Associated Diagnosis Comments COMPREHENSIVE METABOLIC PNL W DBIL STAT 03/25/2017 9:17 PM CDT PROTHROMBIN TIME, VENOUS STAT 03/25/2017 9:17 PM CDT CBC W/DIFF AUTOMATED STAT 03/25/2017 9:17 PM CDT documented in this encounter Results * PROTIME/INR, VENOUS (03/25/2017 9:17 PM CDT) [facility] PROTIME 12.6 SEC 03/25/2017 9:40 PM CDT [facility] INR 1.1 03/25/2017 9:40 PM CDT [facility] Comment: Recommend INR ranges for Oral Anticoagulant Therapy:Mechanical Cardiac Values 2.5-3.5All others indication 2.0-3.0 03/25/2017 9:17 PM CDT 03/25/2017 9:32 PM CDT us Generic Conversion Md GORDILLO LABORATORY Final R esult [facility] [address] [place] [address], * (ABNORMAL) COMPREHENSIVE METABOLIC PNL W DBIL (03/25/2017 9:17 PM CDT) [facility] GLUCOSE 111(H) 70 - 105 MG/DL 03/25/2017 9:52 PM CDT [facility] BUN 11 7.0 - 18.7 MG/DL 03/25/2017 9:52 PM CDT [facility] CREATININE S/P/B 0.73 0.57 - 1.11 MG/DL 03/25/2017 9:52 PM CDT [facility] SODIUM S/P/B 140 136 - 145 MMOL/L 03/25/2017 9:52 PM CDT [facility] POTASSIUM S/P/B 3.6 3.5 - 5.1 MMOL/L 03/25/2017 9:52 PM CDT [facility] CHLORIDE S/P/B 103 98 - 107 MMOL/L 03/25/2017 9:52 PM CDT [facility] CO2 27.0 22 - 29 MMOL/L 03/25/2017 9:52 PM CDT [facility] ANION GAP 13.6 10.0 - 24.0 MMOL/L 03/25/2017 9:52 PM [facility] CALCIUM S/P/B 9.0 8.4 - 10.2 MG/DL 03/25/2017 9:52 PM [facility] BILIRUBIN TOTAL S/P/B 0.3 0.2 - 1.2 MG/DL 03/25/2017 9:52 PM [facility] TOTAL PROTEIN S/P/B 7.5 6.4 - 8.3 G/DL 03/25/2017 9:52 PM [facility] ALBUMIN S/P/B 4.2 3.5 - 5.0 G/DL 03/25/2017 9:52 PM [facility] AST 18 5 - 34 U/L 03/25/2017 9:52 PM [facility] ALT 24 6 - 55 U/L 03/25/2017 9:52 PM [facility] ALKALINE PHOSPHATASE S/P/B 65 30 - 115 U/L 03/25/2017 9:52 PM [facility] BUN CREATININE RATIO 15.1 6.0 - 26.0 03/25/2017 9:52 PM [facility] A/G RATIO 1.3 1.1 - 1.9 RATIO 03/25/2017 9:52 PM [facility] EGFR NON-AFR. AMER. >60 >60 ML/MIN/1.7 3 M2 03/25/2017 9:52 PM [facility] Comment: GFR Reference Range:Kidney Failure - <15mL/min Chronic Kidney Disease - <60mL/min Normal Kidney Function - >60mL/min GFR calculation is not recommended forPatients less than 18 years or greater than70 years as per the national Kidney Foundation.If the patient is -Swiss, multiply results by 1.21 BILIRBUIN INDIRECT (CORD) 0.2 0.0 - 1.1 MG/DL 03/25/2017 9:52 PM CDT [facility] BILIBUBIN DIRECT (CORD) 0.1 0.0 - 0.5 MG/DL 03/25/2017 9:52 PM CDT [facility] OSMOLALITY (CALC) 279 271 - 290 MOSM/KG 03/25/2017 9:52 PM CDT [facility] 03/25/2017 9:17 PM CDT 03/25/2017 9:32 PM CDT us Generic Conversion Md GORDILLO LABORATORY Final R esult [facility] [address] [place] [address], [place] [phone] * (ABNORMAL) CBC W/DIFF AUTOMATED (03/25/2017 9:17 PM CDT) WBC 18.3(H) 4.4 - 11.0 x10'3/uL 03/25/2017 9:36 PM CDT [facility] RBC 4.57 4.50 - 5.10 x10'6/uL 03/25/2017 9:36 PM CDT [facility] HGB 12.9 12.3 - 15.3 G/DL 03/25/2017 9:36 PM CDT [facility] HCT 37.9 35.9 - 44.6 % 03/25/2017 9:36 PM CDT [facility] MCV 82.9 80.0 - 96.0 FL 03/25/2017 9:36 PM CDT [facility] MCH 28.2 25.3 - 30.9 PG 03/25/2017 9:36 PM CDT [facility] MCHC 34.0 31.0 - 34.1 G/DL 03/25/2017 9:36 PM CDT [facility] RDW 13.8 12.4 - 15.1 % 03/25/2017 9:36 PM CDT [facility] PLT 507(H) 151 - 353 x10'3/uL 03/25/2017 9:36 PM [facility] MPV 8.5(L) 9.6 - 12.0 FL 03/25/2017 9:36 PM T [facility] RBC MORPHOLOGY NORMAL 03/25/2017 9:36 PM T [facility] PLT MORPH. NORMAL 03/25/2017 9:36 PM T [facility] WBC MORPHOLOGY NORMAL 03/25/2017 9:36 PM [facility] LYMPHOCYTES % 11.7(L) 15.8 - 45.0 % 03/25/2017 9:37 PM T [facility] NEUTROPHILS % 83.3(H) 42.1 - 71.9 % 03/25/2017 9:37 PM T [facility] MONOCYTES % 4.2(L) 5.7 - 12.5 % 03/25/2017 9:37 PM [facility] EOSINOPHILS 0.1 0.0 - 5.6 % 03/25/2017 9:37 PM [facility] BASOPHILS 0.2 0.0 - 1.3 % 03/25/2017 9:37 PM T [facility] ABS. NEUTROPHILS TOTAL 15.26(H) 1.40 - 6.00 x10'3/uL 03/25/2017 9:37 PM T [facility] IMMATURE GRANS % 0.5 0.0 - 0.5 % 03/25/2017 9:37 PM [facility] ABS. LYMPHOCYTES 2.14 0.80 - 4.70 x10'3/uL 03/25/2017 9:37 PM CDT [facility] 03/25/2017 9:17 PM CDT 03/25/2017 9:32 PM CDT us Rick Martinez Md, MD LABORATORY Final R esult [facility] [address] [place] [address], documented in this encounter Visit Diagnoses Not on filedocumented in this encounter Additional Health Concerns Infection Onset Date Last Indicated Resolved Time COVID-19 Rule Out 01/11/2024 01/11/2024 01/11/2024 9:00 PM CDT MRSA Comment:08/06/24 +MRSA Left ankle 08/06/2024 08/06/2024 COVID-19 Rule Out 02/12/2025 02/12/2025 02/12/2025 8:32 PM CDT Respiratory Rule Out 02/12/2025 02/12/2025 025 8:34 PM CDT COVID-19 Rule Out 03/12/2025 03/12/2025 03/12/2025 3:16 AM CDT Respiratory Rule Out 03/12/2025 03/12/2025 025 3:18 AM CDT COVID-19 Rule Out 03/31/2025 03/31/2025 03/31/2025 1:27 AM CDT Respiratory Rule Out 03/31/2025 03/31/2025 025 1:15 AM CDT documented as of this encounter Care Teams Bereavement Program Coordinator Relationship Specialty Start Date End Date Rick Gordillo MD PCP - General 07/11/13 Susie Curtis MD [facility] [address] [place] [address] PCP - General FAMILY PRACTICE 06/20/19 3 Marlon Saucedo MD [address] [place] [address] PCP - General FAMILY PRACTICE 08/08/22 documented as of this encounter
--- OUTSIDE RECORDS SUMMARY | 2025-04-10 21:06 | XMS_ITS | Clinical Summary ---
Author Organization [facility] [id number] [place] Address [address] [place] [address] Care Team Providers Care Turn Out Name Role Phone Marlon Saucedo MD Primary Care Provider + [phone] Allergies Active Allergy Reactions Criticality Noted Date Comments Clarithromycin Hives,Urticaria High 07/26/2012 Medications ascorbic acid (vitamin C) 1,000 mg tablet Take 1 tablet (1,000 mg total) by mouth daily before breakfast Active ondansetron ODT (ZOFRAN-ODT) 4 mg disintegrating tablet Take 1 tablet (4 mg total) by mouth every 8 (eight) hours as needed for nausea or vomiting 10 tablet 04/26/20 24 Active acetaminophen (TYLENOL) 500 mg tablet Take 1 tablet (500 mg total) by mouth every 6 (six) hours as needed for pain 80 tablet 04/26/20 24 Active atomoxetine (STRATTERA) 60 mg capsule Take 1 capsule (60 mg total) by mouth daily Active propranoloL (INDERAL) 20 mg tablet Take 1 tablet (20 mg total) by mouth 2 (two) times a day Active azelastine-flutica sone 137-50 mcg/spray spray,non-aerosol Administer 1 spray into affected nostril(s) 2 (two) times a day Active docusate sodium (COLACE) 100 mg capsule Take 1 capsule (100 mg total) by mouth 2 (two) times a day as needed for constipation Active omeprazole (PriLOSEC) 40 mg capsule Take 1 capsule (40 mg total) by mouth daily Active cholecalciferol (VITAMIN D-3) 2000 unit tablet Take 1 tablet (2,000 Units total) by mouth daily Active doxycycline monohydrate (MONODOX) 100 mg capsuleIndications :Pneumonia, Community Acquired Take 1 capsule (100 mg total) by mouth 2 (two) times a day 6 capsule 03/14/20 25 Active guaiFENesin ER (MUCINEX) 600 mg 12 hr tablet Take 1 tablet (600 mg total) by mouth 2 (two) times a day for 7 days 14 tablet 03/14/20 25 Active albuterol HFA (PROVENTIL HFA,VENTOLIN HFA,PROAIR HFA) 90 mcg/actuation inhalerIndications :Bronchospasm Prevention Inhale 2 puffs every 6 (six) hours as needed for wheezing 1 each 03/14/20 25 026 Active cefuroxime (CEFTIN) 500 mg tabletIndications: Pneumonia, Community Acquired Take 1 tablet (500 mg total) by mouth 2 (two) times a day 6 tablet 03/14/20 25 Active fluticasone propionate (FLONASE) 50 mcg/actuation nasal spray Administer 1 spray into each nostril daily as needed for rhinitis or allergies 06/20/19 20 025 Discontin ued(Alter toy therapy) lisinopriL (PRINIVIL,ZESTRIL) 20 mg tabletIndications: hypertension Take 1 tablet (20 mg total) by mouth nightly 025 Discontin ued(Patie nt Reported) FLUoxetine (PROzac) 20 mg tabletIndications: Anxiety with Depression Take 1 tablet (20 mg total) by mouth nightly 025 Discontin ued(Alter toy therapy) omeprazole (PriLOSEC) 20 mg capsuleIndications :Treatment of Non-Bleeding Gastric Disorder Take 2 capsules (40 mg total) by mouth daily before breakfast 03/11/20 24 025 Discontin ued(Dupli kim order) hydrOXYzine (ATARAX) 50 mg tablet Take 1 tablet (50 mg total) by mouth 2 (two) times a day as needed for itching or anxiety 025 Discontin ued(Thera py completed ) docusate sodium (COLACE) 100 mg capsuleIndications :constipation Take 1 capsule (100 mg total) by mouth 2 (two) times a day 10 capsule 04/26/20 24 025 Discontin ued(Dupli kim order) oxyCODONE (ROXICODONE) 5 mg immediate release tabletIndications: Pain Take 1 tablet (5 mg total) by mouth every 4 (four) hours as needed for pain 10 tablet 04/26/20 24 025 Discontin ued(Thera py completed ) ibuprofen (ADVIL,MOTRIN) 400 mg tabletIndications: Pain Take 1 tablet (400 mg total) by mouth every 6 (six) hours as needed for pain 40 tablet 04/26/20 24 025 Discontin ued(Stop Taking at Discharge ) lisdexamfetamine (VYVANSE) 50 mg capsule 0 05/09/20 24 025 Discontin ued(Patie nt Reported) Active Problems Problem Noted Date Diagnosed Date Community acquired pneumonia 03/13/2025 CAP (community acquired pneumonia) 03/12/2025 Painful orthopaedic hardware 04/04/2024 Parotitis 04/22/2022 Assessment & Plan (04/22/2022 2:50 PM PERIPHERAL EDP EQUIPMENT OPERATOR): Doxycycline twice daily for 10 days Follow up with Dentist Oral surgery contact information provided for TMJ dysfunction Impacted cerumen of left ear 04/22/2022 Assessment & Plan (04/22/2022 2:50 PM PERIPHERAL EDP EQUIPMENT OPERATOR): Avoid ear cleaning techniques Sensorineural hearing loss (SNHL) of both ears 0 07/26/2021 Assessment & Plan (07/26/2021 11:17 AM PERIPHERAL EDP EQUIPMENT OPERATOR): [facility] Benign paroxysmal positional vertigo of right ea r 07/26/2021 Assessment & Plan (07/26/2021 11:17 AM PERIPHERAL EDP EQUIPMENT OPERATOR): Right Benign Positional Vertigo treated with Sangeeta maneuver Flonase 2 sprays into each nostril while looking down over the sink, do not sniff in or blow nose after use for at least 30 minutes Hearing test - [facility] Post-Sangeeta instructions discussed and Handout provided Recurrent acute suppurative otitis media of right ear without spontaneous rupture of tympanic membrane 07/20/2021 Restlessness 07/14/2016 Anxiety 07/14/2016 Akathisia 01/18/2016 Nausea and vomiting Encounters Date Type Department Care Team Description 03/12/2025 9:02 PM CDT - 03/14/2025 2:18 PM CDT Hospital Encounter [address] [address] Luis Fernando Chairez MD Chowdhury, Farhanaz, MD Decurtis, Richard Patrick, MD CAP (community acquired pneumonia) (Primary Dx) Discharge Disposition: Discharge to home or self care from Last 3 Months Surgical History Surgery Date Site/Laterality Comments DC EXCISION SUBMANDIBULAR SUBMAXILLARY GLAND Surgery Excision Of Submandibular (Submaxillary) Gland - (Added by TW Conv) CHOLECYSTECTOMY 06/05/2022 - 06/04/2023 ORIF ANKLE FRACTURE 06/05/2016 - 06/04/2017 TUBAL LIGATION 06/05/2014 - 06/04/2015 HYSTEROSCOPY 06/05/2017 - 06/04/2018 Medical History Medical History Date Comments Personal history of other di seases of the nervous system and sense organs History of migraine - (Added by TW Conv) Akathisia Obesity Ovarian cyst Vertigo Recurrent otitis media PONV (postoperative nausea and vomiting) Motion sickness GERD (gastroesophageal reflux disease) Family History Medical [...] more drinks on one occasion? Never 04/26/2024 Social Connection and Isolation Panel Answer Date Recorded In a typical week, how many times do you talk on the phone with family, friends, or neighbors? More than three times a week 03/13/2025 How often do you get togethe r with friends or relatives? More than three times a week 03/13/2025 How often do you attend chur ch or nondenominational services? Never 03/13/2025 Do you belong to any clubs o r organizations such as judaism groups, unions, fraternal or athletic groups, or school groups? No 03/13/2025 How often do you attend meet ings of the clubs or organizations you belong to? Never 03/13/2025 Are you , , di vorced, , never , or living with a partner? 03/13/2025 Overall Financial Resource Strain (CARDIA) Answe r Date Recorded How hard is it for you to pa y for the very basics like food, housing, medical care, and heating? Not very hard 03/13/2025 Hunger Vital Sign Answer Date Recorded Within the past 12 months, y ou worried that your food would run out before you got the money to buy more. Never true 03/13/20 25 Within the past 12 months, t he food you bought just didn't last and you didn't have money to get more. Never true 03/13/2025 PRAPARE - Transportation Answer Date Re corded In the past 12 months, has l ack of transportation kept you from medical appointments or from getting medications? No 02/2025 In the past 12 months, has l ack of transportation kept you from meetings, work, or from getting things needed for daily living? No 03/13/2025 Housing Stability Vital Sign Answer Wilson e Recorded In the last 12 months, was t here a time when you were not able to pay the mortgage or rent on time? No 03/13/2025 In the past 12 months, how m any times have you moved where you were living? 0 03/13/2025 At any time in the past 12 m [facility], were you homeless or living in a halfway (including now)? No 03/13/2025 [facility] Utilities Answer Date Recorded In the past 12 months has th e electric, gas, oil, or water company threatened to shut off services in your home? No 03/13/2025 Personal Safety Answer Date Recorded Have you ever been in or are you currently in a harmful physical or emotional relationship or is someone making you feel afraid or unsafe? Denies 03/12/2025 Comments No Sex and Gender Information Value Date Recorded Sex Assigned at Not on file Legal Sex Female 8:24 AM PERIPHERAL EDP EQUIPMENT OPERATOR Gender Identity Not on file Sexual Orientation Not on file Last Filed Vital Signs Vital Sign Reading Time Taken Comments Blood Pressure 99/55 03/14/2025 11:06 AM CDT Pulse 85 03/14/2025 11:06 AM CDT Temperature 36.3 C (97.3 F) 03/14/2025 11:06 AM CDT Respiratory Rate 19 03/14/2025 11:0 6 AM CDT Oxygen Saturation 97% 03/14/2025 11: 06 AM CDT Inhaled Oxygen Concentration - - Weight 122.1 kg (269 lb 2.9 oz) 03/13/2025 7:41 PM CDT Height 165.1 cm (5' 5) 03/13/2025 7:41 PM CDT Body Mass Index 44.79 03/13/2025 7:41 PM CDT Plan of Treatment Health Maintenance Due Date Last Done Comments Breast Cancer Screening-Mammogram 1981 Cervical Cancer Screening 1981 Depression Screening 1981 Hepatitis C Screening 1981 Varicella Vaccines (1 of 2 - 13+ 2-dose series) 1994 Hepatitis B Screening 10/02/1999 Regular Well Visit/Exam 18-64 10/02/1999 HPV Vaccines (1 - 3-dose SCD M series) 2008 Covid-19 Vaccine (4 - 2024-2 6 season) 2025 11/09/2020, 10/19/2020, 10/15/2020 Influenza Vaccine (#1) 2025 2, 03/26/2019 DTaP/Tdap/Td Vaccine (4 - Td or Tdap) 03/25/2027 03/25/2017, 04/27/2016, 12/24/2011 Pneumococcal vaccine <65 Aged Out No longer eligible based on patient's age to complete this topic Procedures Procedure Name Priority Date/Time Associated Diagnosis Comments AEROBIC CULTURE AND GRAM STAIN Routine 03/13/2025 3:30 PM CDT EGFR Routine 03/13/2025 12:07 AM CDT DIFFERENTIAL AUTO Routine 03/13/2025 12: 07 AM CDT CBC WITH AUTO DIFFERENTIAL Routine 03/13/2025 12:07 AM CDT BASIC METABOLIC PANEL Routine 03/13/2025 12:07 AM CDT from Last 3 Months Results * Aerobic culture and gram stain Sputum Mouth (03/13/2025 3:30 PM CDT) Direct Specimen Exam Stain: Moderate polymorphonuclear leukocytes seen. Few squamous epithelial cells seen. Few mixed bacterial swetha seen on Gram stain. Comment:Testing performed by : [facility], [address] [place]., [address] Report Final Report: Growth indicates upper respiratory swetha. PADDY GARDINER Comment:Testing performed by : [facility], [address] [place]., [address] Organism GROWTH INDICATES UPPER RESPIRATORY SWETHA. PADDY GARDINER Sputum (Mouth) 03/13/2025 3: 30 PM CDT 03/13/2025 9:01 PM CDT Narrative PADDY GARDINER - 03/17/2025 2:19 PM CDT Testing performed by [facility] ([phone]) Specimens submitted from normally sterile body sites will have all bacterial morphotypes identified. Specimens that contain grossly mixed swetha and/or are from body sites that are not normally sterile will be examined for Staphylococcus aureus, Pseudomonas aeruginosa, beta-hemolytic strep, vancomycin-resistant Enterococcus and fungus. If any of these are isolated, the organism will be reported. Current interpretive data was last revised on 2016. us Chris Chacon MD LAB MICROBIOLOGY - GENERAL ORDERABLES Final Result PADDY GARDINER [id number] [facility] Department [place] [address] * eGFR (03/13/2025 12:07 AM CDT) eGFR >90 >=60 mL/min/1. 73 m2 Comment: Interpretive Data Reference Interval Normal >/= 90 mL/min/1.73m2 Mildly decreased* 60 - 89 mL/min/1.73m2 Mildly to moderately decreased 45 - 59 mL/min/1.73m2 Moderately to severely decreased 30 - 44 mL/min/1.73m2 Severely decreased 15 - 29 mL/min/1.73m2 Kidney Failure < 15 mL/min/1.73m2 *Relative to young adult level Estimated glomerular filtration rate is determined by the 2020 CKD-EPI equation recommended by the National Kidney Foundation (A Unifying Approach to GFR Estimation: Recommendations of the NKF-ASK Task Force on Reassessing the Inclusion of Race in Diagnosing Kidney Disease, JASN 202). The CKD-EPI equation should not be used for patients with unstable renal function and has not been validated in children and those over 70. Current interpretive data was last reviewed 2021. Blood 03/13/2025 12:0 7 AM CDT 03/13/2025 12:22 AM CDT us Luis Fernando Chairez MD LAB BLOOD ORDERABLES Final R esult [place] [id number] [facility] [place] [address] * Differential, auto (03/13/2025 12:07 AM CDT) Pathologist [facility] Neutrophil abs 4.83 1.50 - 6.50 K/cumm Imm gran abs 0.03 0.00 - 0.10 K/cumm [facility] Lymphocyte abs 1.73 0.80 - 3.30 K/cumm [facility] Monocyte abs 0.66 0.20 - 0.80 K/cumm [facility] Eosinophil abs 0.25 0.00 - 0.50 K/cumm [facility] Basophil abs 0.02 0.00 - 0.10 K/cumm [facility] Neutrophil pct 64.2 % [facility] Comment: Interpretive Data Percent cell count reference ranges are not reported, since discordance with absolute values may lead to misinterpretation of CBC data. Current Interpretive Data was last revised on 2017. Imm gran pct 0.4 % [facility] Comment: Interpretive Data Percent cell count reference ranges are not reported, since discordance with absolute values may lead to misinterpretation of CBC data. Current Interpretive Data was last revised on 2017. Lymphocyte pct 23.0 % [facility] Comment: Interpretive Data Percent cell count reference ranges are not reported, since discordance with absolute values may lead to misinterpretation of CBC data. Current Interpretive Data was last revised on 2017. Monocyte pct 8.8 % [facility] Comment: Interpretive Data Percent cell count reference ranges are not reported, since discordance with absolute values may lead to misinterpretation of CBC data. Current Interpretive Data was last revised on 2017. Eosinophil pct 3.3 % [facility] Comment: Interpretive Data Percent cell count reference ranges are not reported, since discordance with absolute values may lead to misinterpretation of CBC data. Current Interpretive Data was last revised on 2017. Basophil pct 0.3 % [facility] Comment: Interpretive Data Percent cell count reference ranges are not reported, since discordance with absolute values may lead to misinterpretation of CBC data. Current Interpretive Data was last revised on 2017. Blood 03/13/2025 12:0 7 AM CDT 03/13/2025 12:22 AM CDT us Luis Fernando Chairez MD LAB BLOOD ORDERABLES Final R esult [facility] [id number] [facility] Department [place] [address] * CBC with auto differential (03/13/2025 12:07 AM CDT) WBC 7.52 3.80 - 9.90 K/cumm Hgb 12.6 11.9 - 15.5 g/dL [facility] Hct 37.6 35.6 - 45.5 % [facility] Plt 326 150 - 400 K/cumm [facility] MPV 9.4 9.1 - 12.3 fL [facility] RBC 4.32 3.90 - 5.20 M/cumm [facility] MCV 87.0 81.3 - 96.4 fL [facility] MCH 29.2 27.1 - 33.3 pg [facility] MCHC 33.5 32.3 - 35.7 g/dL [facility] RDW CV 13.0 11.1 - 14.9 % [facility] RDW SD 40.8 35.7 - 48.1 fL [facility] NRBC abs 0.00 0.00 - 0.01 K/cumm [facility] Blood 03/13/2025 12:0 7 AM CDT 03/13/2025 12:22 AM CDT Luis Fernando Chairez MD LAB BLOOD ORDERABLES Final R esult [facility] [address] [facility] [place] [address] * Basic metabolic panel (03/13/2025 12:07 AM CDT) Sodium 140 135 - 145 mmol/L Potassium, pl 3.8 3.3 - 4.9 mmol/L [facility] Chloride 102 97 - 110 mmol/L [facility] CO2 26 22 - 32 mmol/L [facility] Anion gap 12 2 - 15 mmol/L [facility] BUN 10 6 - 25 mg/dL [facility] Creatinine 0.77 0.60 - 1.10 mg/dL [facility] Glucose 115 70 - 199 mg/dL [facility] Comment: Interpretive Data Fasting glucose >/= 126 mg/dl is diagnostic for diabetes. Fasting is defined as no caloric intake for at least 8 hours. Fasting glucose between 100 mg/dl to 125 mg/dl is diagnostic of prediabetes. In a patient with classic symptoms of hyperglycemia or hyperglycemic crisis, a random glucose >/= 200 mg/dl is diagnostic for diabetes. In the absence of unequivocal hyperglycemia, results should be confirmed by repeat testing. The classification and Diagnosis of Diabetes Diabetes Care 202; 46: S19-S40. Current interpretive data was last revised 2022. Calcium 8.9 8.5 - 10.3 mg/dL [facility] Blood 03/13/2025 12:0 7 AM CDT 03/13/2025 12:22 AM CDT us Luis Fernando Chairez MD LAB BLOOD ORDERABLES Final R esult [facility] [address] [facility] [place] [address] from Last 3 Months Insurance [facility] OTHER Address: ATTN: CLAIMS DEPT [address] [place] [id number] [facility] Advance Directives For more information, please contact: [phone] * Full Code (Latest Code Status on File) Date Activated Date Inactivated Comments 03/12/2025 10:09 PM 03/14/2025 6:23 PM * Full Code Date Activated Date Inactivated Comments 07/20/2021 12:48 PM 07/22/2021 3:03 PM Care Teams Turn Out Relationship Specialty Start Date End Date Marlon Saucedo MD [address] [address] PCP - General Family Medicine 02/28/24
== END 2025-04-10 16:16 | disposition home or self-care (01) ==
PROVIDERS: PCP Family Medicine
DX: J18.9 Pneumonia, unspecified organism (principal); K76.9 Liver disease, unspecified
CPT/HCPCS: 71250

== ENCOUNTER 2025-04-26 12:58 | Outpatient (CLI) | payer OTHER, SELFPAY ==
--- NOTE | ~2025-04-26 | MR_ITS ---
EXAMINATION: MR abdomen wo/w con DATE: 04/26/2025 14:50 INDICATION: Liver mass. TECHNIQUE: Magnetic resonance imaging (MRI) of the abdomen was performed without and with 20 mL MultiHance intravenous contrast. COMPARISON: CT abdomen and pelvis 08/18/2024, chest CT 04/10/2025 FINDINGS: There is diffuse hepatic steatosis. There are 2 cysts in right hepatic lobe measuring up to 4 mm. There are changes of cholecystectomy. The common duct is normal and measures 5 mm. The spleen, pancreas, adrenal glands, and kidneys are normal. There are no dilated loops of bowel. There are no pathologically enlarged lymph nodes. There is no ascites. IMPRESSION: 1. Diffuse hepatic steatosis. Reviewed, dictated and finalized at location E. HMASTER
== END 2025-04-26 12:59 | disposition home or self-care (01) ==
PROVIDERS: PCP Family Medicine
DX: K76.0 Fatty (change of) liver, not elsewhere classified (principal)
CPT/HCPCS: 74183; A9577

== ENCOUNTER 2025-05-04 16:15 | Emergency (ER) | payer OTHER, SELFPAY ==
[2025-05-04 16:36] VITALS: BP 126/68; PULSE 82; RESP 16; TEMP 36.1; O2SAT 99
--- NOTE | 2025-05-04 16:41 | ED_ITS ---
HPI - URI/Sore Throat General Chief Complaint: Upper Respiratory Infection Stated Complaint: CONGESTION/BODY ACHES/SORE THROAT/EARS Time Seen by Provider: 05/04/25 16:33 Source: patient and RN notes reviewed Mode of arrival: ambulatory Limitations: no limitations History of Present Illness HPI Narrative: 44-year-old female patient presents today with a 4 day history of body aches, sore throat, nasal congestion, cough. Denies fever or shortness of breath. Currently rates her discomfort 3/10 and has tried Mucinex and Tylenol with mild relief. No history of asthma or COPD. She is a nonsmoker. Son sick with similar symptoms. Related Data Home Medications ?Medication ?Instructions ?Recorded ?Confirmed ?Last Taken ?Type atomoxetine 60 mg capsule mg PO 03/18/25 03/20/25 Unkn own History fluoxetine 20 mg capsule mg PO 03/18/25 03/20/25 Unkn own History viloxazine PO 05/04/25 Unknown History Allergies Allergy/AdvReac Type Severity Reaction Status Date / Time hydroxyzine Allergy Severe Palpitation Verified 05/04/25 16:30 s clarithromycin Allergy Mild Hives Verified 05/04/25 16:30 COUNTS INCLUDE 234 BEDS AT THE [facility] Past Medical History Medical History Bipolar 1 disorder Imbalance Chronic sinusitis Nasal congestion Deviated nasal septum Tinnitus, right Laryngopharyngeal reflux (LPR) Throat clearing Hypertrophy of nasal turbinates Abdominal hernia Otitis media Anxiety and depression Blood glucose elevated Low aspartate aminotransferase (AST) level Syncope Weight gain Overweight (03/07/17) Irregular menstrual bleeding Dietary counseling and surveillance (09/30/15) Arm paresthesia, right Abnormal involuntary movement COVID Shortness of breath Xerostomia Dental disease Dry eyes Flu-like symptoms Mass in neck Elevated platelet count Swelling of left knee joint Left knee pain Lump of left breast BMI 36.0-36.9,adult Iron deficiency Essential hypertension Vitamin D deficiency Diarrhea Hx of colonic polyp Encounter for screening for lipid disorder Screening for thyroid disorder Joint pain Cholecystectomy planned Eustachian tube dysfunction Vertigo Depression Asthma Surgical History Surgical History S/P hardware removal 05/2024 History of cholecystectomy 2022; [facility] History of endometrial ablation [place]; approx [id number] Hx of tonsillectomy Status post open reduction with internal fixation (ORIF) of fracture of ankle Family History Family History Father Family history of diabetes mellitus in first degree relative Acute myocardial infarction Diabetes mellitus Mother No problems noted. 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 Please see nursing chart for further information. There is no relevant family history pertinent to the presenting complaint Exam Narrative: GENERAL: Mildly ill-appearing, well-nourished, and in no acute distress. HEAD: Normocephalic, atraumatic. EYES: EOMI. No redness or drainage. Conjunctivae normal. ENT: Mucous membranes pink and moist. Nares congested. No rhinorrhea. TMs normal bilaterally. Throat normal. Uvula midline. NECK: Normal AROM. Supple. No lymphadenopathy. CHEST: No respiratory distress. Clear to auscultation. HEART: Regular rate and rhythm. No murmur appreciated. EXTREMITIES: Normal range of motion. No edema. SKIN: Warm, dry, no rash. Capillary refill normal. Normal skin turgor. NEURO: Alert and oriented x3. Gait steady. Head tremor-baseline for patient PSYCH: Normal affect. No signs of depression or anxiety. Course Course Level of Care: Express Care Visit Vital Signs Vital signs: Vital Signs Oxygen Delivery Room Air 05/04/25 16:24 Temperature 96.9 F L 05/04/25 16:36 Pulse Rate 82 05/04/25 16:36 Respiratory Rate 16 05/04/25 16:36 Blood Pressure 126/68 05/04/25 16:36 Pulse Oximetry 99 05/04/25 16:36 Oxygen Delivery Room Air 05/04/25 16:24 Reviewed MDM - URI/Sore Throat MDM Narrative Medical decision making narrative: 44-year-old female patient presents today with a 4 day history of body aches, sore throat, nasal congestion, cough. Denies fever or shortness of breath. Currently rates her discomfort 3/10 and has tried Mucinex and Tylenol with mild relief. No history of asthma or COPD. She is a nonsmoker. Son sick with similar symptoms. Upon exam, patient is mildly ill appearing with nasal congestion. Lung auscultation normal. Influenza and COVID negative. Declines strep testing. Symptoms likely viral in etiology. Discussed [id number] medication use and duration of illness. No prescription medications indicated at this time. Anticipatory guidance given. Vital signs stable. Patient agrees with plan. Differential Diagnosis Differential diagnosis: Likely upper respiratory infection, viral infection, influenza and other (COVID-19) Lab Data Attestation: I reviewed the patient's lab results. Labs: Lab Results 05/04/25 Range/Units 16:49 POC Influenza A Ag Negative (Negative) POC Influenza B Ag Negative (Negative) POC SARS CoV-2 Ag Negative (Negative) Critical Care Time Critical Care Time Critical Care Time: No Discharge Plan Discharge Clinical Impression: Upper respiratory infection Qualifiers: URI type: unspecified URI Qualified Code(s): J06.9 - Acute upper respiratory infection, unspecified Patient Disposition: Home Condition: Stable Instructions: Upper Respiratory Infection (DC) Additional Instructions: Your influenza and COVID-19 tests are negative. Your symptoms are likely due to a viral illness, which is not treated with antibiotics. Virus symptoms can last for up to 7-10days. Take Tylenol or ibuprofen for pain or fever. You may continue the Mucinex if needed. Rest and stay hydrated. Follow up with your PCP in 7 days if symptoms are not improving. Go to the ER immediately if you de velop shortness of breath, difficulty swallowing, or any other concerning symptoms. Patient Language: Senegalese Prescriptions: No Action chlorhexidine gluconate [Peridex] 0.12 % mouthwash 15 ml mucous membrane BID Qty: 473 0RF viloxazine [Qelbree] PO fluoxetine 20 mg capsule PO atomoxetine 60 mg capsule PO famotidine 40 mg tablet 40 mg PO DAILY 30 Days Qty: 30 5RF Rx Instructions: to be used with meals at bed time prednisone 5 mg tablets,dose pack See Rx Instructions PO .COMPLEX Qty: 48 0RF Rx Instructions: prednisone 5 mg: take 8 tablets (40 mg) on Day 1; 7 tablets (35 mg) on Day 2; then decrease by 1 tablet every day until finished PO omeprazole 40 mg capsule,delayed release(DR/EC) 40 mg PO DAILY 30 Days Qty: 30 5RF propranolol 20 mg tablet 20 mg PO Q12H 30 Days Qty: 180 1RF Follow-up/Referrals: Marlon Saucedo MD [Primary Care Provider, Family Practice] Time of Disposition: 17:10
[2025-05-04 16:51] LABS: EDCOVIDSCREEN Negative (Negative); EDINFLUASCREEN Negative (Negative); EDINFLUBSCREEN Negative (Negative)
== END 2025-05-04 17:30 | disposition home or self-care (01) ==
PROVIDERS: Emergency Provider Nurse Practitioner; PCP Family Medicine
DX: J06.9 Acute upper respiratory infection, unspecified (principal); Z20.822 Contact with and (suspected) exposure to COVID-19; I10 Essential (primary) hypertension; J45.909 Unspecified asthma, uncomplicated; F41.9 Anxiety disorder, unspecified; F32.A Depression, unspecified; Z86.16 Personal history of COVID-19
CPT/HCPCS: 87426; 87804; 99212; G0463

== ENCOUNTER 2025-05-21 17:04 | Emergency (ER) | payer OTHER, SELFPAY ==
--- NOTE | 2025-05-21 17:07 | ED.GENADULT ---
HPI - General Adult General Chief complaint: Upper Respiratory Infection Stated complaint: Sinus Time Seen by Provider: 05/21/25 17:06 Source: patient Mode of arrival: ambulatory Limitations: no limitations History of Present Illness HPI narrative: Pt is a 44 y/o female presenting with c/o sinus problem. Pt reports evaluation at this facility a few weeks ago due to sinus congestion. Pt states the congestion has continued however, she is concerned because she has developed a sore to the L. nostril that she believe to be infected. Pt reports tenderness to the L. nostril and L. cheek. 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 No constitutional sx. No additional complaints. Related Data Home Medications ?Medication ?Instructions ?Recorded ?Confirmed ?Last Taken ?Type viloxazine 400 mg PO DAILY 05/04/25 05/21/25 Unknown History Allergies Allergy/AdvReac Type Severity Reaction Status Date / Time hydroxyzine Allergy Severe Palpitation Verified 05/21/25 17:11 s clarithromycin Allergy Mild Hives Verified 05/21/25 17:11 Review of Systems Review of Systems: CONSTITUTIONAL: Denies body aches, fever, chills, or sweats. EYES: Denies visual changes, redness, or discharge. ENT: Reports nasal congestion, infection to L. nare Denies rhinorrhea, congestion, sore throat, or otalgia. CARDIOVASCULAR: Denies chest pain, palpitations, or edema. RESPIRATORY: Denies cough or dyspnea. GASTROINTESTINAL: Denies abdominal pain, nausea, vomiting, or diarrhea. GENITOURINARY: Denies dysuria or hematuria. SKIN: Denies rash, itching, or wounds. MUSCULOSKELETAL: Denies back pain, joint pain, or myalgia. NEUROLOGIC: Denies headache, numbness, tingling, or weakness. PSYCH: Denies depression or anxiety. All systems reviewed & are unremarkable except as noted in HPI and below PMFSH Past Medical History Medical History (Reviewed 05/04/25 @ 16:42 by Teresita Nieto, DEHYDROGENATION CONVERTER OPERATOR, CORN DETASSELER MACHINE OPERATOR) Bipolar 1 disorder Imbalance Chronic sinusitis Nasal congestion Deviated nasal septum Tinnitus, right Laryngopharyngeal reflux (LPR) Throat clearing Hypertrophy of nasal turbinates Abdominal hernia Otitis media Anxiety and depression Blood glucose elevated Low aspartate aminotransferase (AST) level Syncope Weight gain Overweight (03/07/17) Irregular menstrual bleeding Dietary counseling and surveillance (09/30/15) Arm paresthesia, right Abnormal involuntary movement COVID Shortness of breath Xerostomia Dental disease Dry eyes Flu-like symptoms Mass in neck Elevated platelet count Swelling of left knee joint Left knee pain Lump of left breast BMI 36.0-36.9,adult Iron deficiency Essential hypertension Vitamin D deficiency Diarrhea Hx of colonic polyp Encounter for screening for lipid disorder Screening for thyroid disorder Joint pain Cholecystectomy planned Eustachian tube dysfunction Vertigo Depression Asthma Surgical History Surgical History S/P hardware removal 05/2024 History of cholecystectomy 2022; [facility] History of endometrial ablation [place]; approx [id number] Hx of tonsillectomy Status post open reduction with internal fixation (ORIF) of fracture of ankle Family History Family History Father Family history of diabetes mellitus in first degree relative Acute myocardial infarction Diabetes mellitus Mother No problems noted. 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 HEAD: Normocephalic, atraumatic. EYES: EOMI. No redness or drainage. Conjunctivae normal. ENT: Mucous membranes pink and moist. Nares clear. No rhinorrhea. TMs normal bilaterally. Throat normal. Uvula midline. L. maxillary sinus is TTP without overlying edema or erythema. Voice is normal. mucosa of L. nare is erythematous, edematous with purulent crusting adhered to lateral wall. NECK: Normal AROM. Supple. No lymphadenopathy. CHEST: No respiratory distress. Clear to auscultation. HEART: Regular rate and rhythm. No murmur appreciated. EXTREMITIES: Normal range of motion SKIN: Warm, dry, no rash. Capillary refill normal. Normal skin turgor. NEURO: No focal deficits. Alert and oriented x3. Gait steady. PSYCH: Normal affect. No signs of depression or anxiety. Course Course Level of Care: Express Care Visit Vital Signs Vital signs: Vital Signs Temperature 97.6 F 05/21/25 17:08 Pulse Rate 103 H 05/21/25 17:08 Respiratory Rate 18 05/21/25 17:08 Blood Pressure 133/73 05/21/25 17:08 Pulse Oximetry 99 05/21/25 17:08 Oxygen Delivery Room Air 05/21/25 17:08 Temperature 97.6 F 05/21/25 17:08 Pulse Rate 103 H 05/21/25 17:08 Respiratory Rate 18 05/21/25 17:08 Blood Pressure 133/73 05/21/25 17:08 Pulse Oximetry 99 05/21/25 17:08 Oxygen Delivery Room Air 05/21/25 17:08 MDM MDM Narrative Medical decision making narrative: Discussed elevated blood pressure readings with patient and advised daily BP monitoring and f/u with PCP if persisting. Differential Diagnosis Differential Diagnosis: ABRS, abscess/cellulitis, vestibulitis, viral URI Medical Records I have reviewed the following patient records and this information was taken into consideration when formulating the assessment and plan.: previous clinic visits Discharge Plan Discharge Clinical Impression: Nasal vestibulitis, Nasal congestion, Elevated blood pressure reading in office without diagnosis of hypertension Patient Disposition: Home Condition: Stable Instructions: Antibiotic Form, Warm Compress or Soak (ED) Additional Instructions: Go straight to ER should your symptoms become worse or should any new symptoms develop Patient Language: Polish Prescriptions: New amoxicillin-pot clavulanate 875-125 mg tablet 1 tablet PO Q12H Qty: 20 0RF mupirocin [Centany] 2 % ointment 1 applic topical BID 5 Days Qty: 22 0RF No Action chlorhexidine gluconate [Peridex] 0.12 % mouthwash 15 ml mucous membrane BID Qty: 473 0RF viloxazine [Qelbree] 400 mg PO DAILY famotidine 40 mg tablet 40 mg PO DAILY 30 Days Qty: 30 5RF Rx Instructions: to be used with meals at bed time omeprazole 40 mg capsule,delayed release(DR/EC) 40 mg PO DAILY 30 Days Qty: 30 5RF propranolol 20 mg tablet 20 mg PO Q12H 30 Days Qty: 180 1RF Follow-up/Referrals: Marlon Saucedo MD [Primary Care Provider, Family Practice] - 05/22/25 Time of Disposition: 17:16
[2025-05-21 17:08] VITALS: BP 133/73; PULSE 103; RESP 18; TEMP 36.4; O2SAT 99
== END 2025-05-21 17:21 | disposition home or self-care (01) ==
PROVIDERS: Emergency Provider Registered Nurse; PCP Family Medicine
DX: J34.89 Other specified disorders of nose and nasal sinuses (principal); R09.81 Nasal congestion; E03.0 Congenital hypothyroidism with diffuse goiter; I10 Essential (primary) hypertension; J45.909 Unspecified asthma, uncomplicated; Z86.16 Personal history of COVID-19
CPT/HCPCS: 99213; G0463